=== PATIENT | male | born 1955 | race Hispanic/Latino ===

== ENCOUNTER → 2017-11-05 13:58 | Outpatient (CLI) | payer MEDICAID, SELFPAY ==
[2017-11-05 14:53] LABS: Protein, Urine (Random) 19.1 mg/dL (<11.9); Protein:Creat Ratio 132 mg/g CRE (0-200)
[2017-11-05 15:00] LABS: Anion Gap 7 (5-15); BUN 46 mg/dL (7-18); BUN/Creat Ratio 21.8 RATIO (10-20); Calcium,Total 8.3 mg/dL (8.5-10.1); Chloride 102 mmol/L (98-107); Creatinine, Serum 2.11 mg/dL (0.70-1.30); EST Glomerular Filtration Rate 34 mL/min (>60); Est Glom Filt Rate - Afr Amer 41 mL/min (>60); Glucose 318 mg/dL (74-106); Potassium 4.2 mmol/L (3.5-5.1); Sodium Level 135 mmol/L (136-145)
[2017-11-05 15:10] LABS: Vitamin D,25 Hydroxy 13.2 ng/mL (29.95-100.01)
[2017-11-05 15:14] LABS: PTHIN 113.3 pg/mL (18.4-80.1)
== END ==
PROVIDERS: Family Provider Preventive Medicine Occupational Medicine; PCP Preventive Medicine Occupational Medicine; Visit Provider Internal Medicine Nephrology
DX: N18.3 Chronic kidney disease, stage 3 (moderate) (principal)
CPT/HCPCS: 36415; 80048; 82306; 82570; 83970; 84156

== ENCOUNTER → 2018-04-25 13:44 | Outpatient (CLI) | payer MEDICARE, MEDICAID, SELFPAY ==
[2018-04-25 16:50] LABS: Microalbumin,Random Urine 90.2 mg/L (NO RANGE EST.); Microalbumin:Creatinine Ratio 113.3 mg/g CRE (<30 mg/g CRE)
[2018-04-25 17:00] LABS: Albumin, Serum 3.7 g/dL (3.2-5.0); BUN 28 mg/dL (7-18); BUN/Creat Ratio 15.1 RATIO (10-20); Calcium,Total 8.7 mg/dL (8.5-10.1); Chloride 106 mmol/L (98-107); Creatinine, Serum 1.85 mg/dL (0.70-1.30); EST Glomerular Filtration Rate 39 mL/min (>60); Est Glom Filt Rate - Afr Amer 47 mL/min (>60); Glucose 251 mg/dL (74-106); Phosphorus 2.8 mg/dL (2.5-4.9); Sodium Level 138 mmol/L (136-145)
[2018-04-25 17:02] LABS: Hematocrit 36.1 % (40-54); Hemoglobin 11.6 g/dl (13.0-16.5); Mean Corp Hgb Conc 32.1 g/gl (32-36); Mean Corpuscular Hgb 28.1 pg (27.0-32.0); Mean Corpuscular Volume 87.4 fL (80-94); Mean Platelet Vol. 10.4 fl (6.2-12.0); Platelet Count 352 K/mm3 (150-450); RBC Distribution Width CV 13.8 % (11.6-14.6); RBC Distribution Width SD 43.6 fl (35.1-43.9); Red Blood Count 4.13 M/mm3 (4.6-6.2); White Blood Count 7.2 K/mm3 (4.4-11.0)
[2018-04-25 17:08] LABS: Scan Indicated on CBC? Y/N NO
[2018-04-26 11:57] LABS: PTHIN 94.1 pg/mL (18.4-80.1)
[2018-04-26 12:04] LABS: Vitamin D,25 Hydroxy 12.6 ng/mL (29.95-100.01)
== END ==
PROVIDERS: Family Provider Internal Medicine; PCP Internal Medicine; Visit Provider Internal Medicine Nephrology
DX: N18.3 Chronic kidney disease, stage 3 (moderate) (principal)
CPT/HCPCS: 36415; 80069; 82043; 82306; 82570; 83970; 85027

== ENCOUNTER 2020-09-18 12:06 | Observation (INO) | payer MEDICARE, MEDICAID, SELFPAY ==
[2020-09-18] VITALS (10 sets, daily range): BP systolic 135–177; BP diastolic 81–87; PULSE 94–101; RESP 18–20; TEMP 36.5–37.2; O2SAT 98–100; BMI 31.3; BMI 31.2
--- NOTE | 2020-09-18 12:24 | EKG12_ITS ---
Test Reason : SOB Blood Pressure : / mmHG Vent. Rate : 095 BPM Atrial Rate : 095 BPM P-R Int : 166 ms QRS Dur : 070 ms QT Int : 364 ms P-R-T Axes : 050 034 021 degrees QTc Int : 457 ms Normal sinus rhythm Nonspecific ST abnormality Abnormal ECG Confirmed by FELTON ARAIZA, NAE ([id number]), commercial production editor PRINCE GARCES ([id number]) on 09/20/2020 12:21:31 PM Referred By: DC Confirmed By:RA YA MD
--- NOTE | 2020-09-18 12:29 | ED.VISSUMM ---
- ER Visit Summary Date of Service: 09/18/20 Chief Complaint: Suspected CHF History of Present Illness: The patient is a 65 M who was referred from his doctor's office for shortness of breath, leg swelling, anasarca, weight gain. This is new for the patient. He seems to be doing worse since he was diagnosed with COVID-19 about 2 months ago. He dealt with subsequent pneumonia. He denies any other associated symptoms like chest pain, fever, cough, sputum. He is not currently on anything for CHF. No known history of CHF or heart disease. Physical Examination: Afebrile vital signs unremarkable. Patient is alert and resting. He has a faint expiratory squeak with referred upper airway sounds. Heart is regular. Abdomen is distended but nontender. Extremities show edema bilaterally, symmetric, nontender. Test Results: EKG, labs, chest x-ray pending. Emergency Department Course and Treatment: EKG showed sinus rhythm at a rate of [address] changes. No infarction or ischemic pattern. Hemoglobin 9.3. BUN 41, creatinine 2.09. Coags, troponin, normal. BNP 168. Magnesium normal. Chest x-ray reviewed by and radiology unremarkable. His PCP is worried that he is gaining weight. I spoke with his family. They said he is not very active. He has trouble getting around and breathing. His work-up is fairly reassuring, but his symptoms are concerning. I treated him with some Lasix. Spoke with the hospitalist. They will observe him and check an echo. Treatment Plan: As above Disposition: Admission for observation Impression: Anasarca, chronic kidney disease, anemia This note was generated with [employer] dictation software. It may contain incorrect words, spelling, and punctuation that were not noted in review of the chart prior to signing ED Disposition - Plan for ED Patient: Referrals: Jerald Rivera MD [Primary Care Provider] -
--- NOTE | 2020-09-18 12:33 | RAD_ITS ---
STUDY: X-RAY CHEST REASON FOR EXAM: Male, 65 years old. CHEST PAIN, SOB, SWELLING TECHNIQUE: Single AP portable view of the chest. COMPARISON: None. FINDINGS: The lungs are clear and expanded. There is no demonstrated pleural abnormality. Normal size heart. Normal mediastinum and iain. Normal visualized pulmonary arteries. Normal visualized aortic arch and descending thoracic aorta. Normal visualized thoracic spine. Normal visualized ribs, clavicles, and shoulders. There is no demonstrated abnormality of the visualized soft tissue structures of the upper abdomen. RAD/Chest 1 View (Portable) IMPRESSION: Normal x-ray examination of the chest. Electronically Signed: Jarad Mendoza MD at 13:14 EST Tel , Service support ,
[2020-09-18 12:53] LABS: Absolute Lymphocyte Count 1.54 X10^3/uL (0.83-4.51); Absolute Neutrophil Count 4.5 X10^3/uL (2.0-7.7); Basophil# 0.05 X10^3/uL; Basophil% 0.7 % (0-1); Eosinophils% 4.2 % (0-5); Hematocrit 28.2 % (40-54); Hemoglobin 9.3 g/dL (13.0-16.5); Lymphocyte # 1.54 X10^3/ul (4.0); Lymphocyte % 21.4 % (19-41); Mean Corpuscular Hgb 29.7 pg (27.0-32.0); Mean Corpuscular Volume 90.1 fL (80-94); Mean Platelet Vol. 9.7 fl (6.2-12.0); Monocyte# 0.76 X10^3/uL; Monocyte% 10.6 % (0-10); NRBC Flagged by Analyzer 0 % (0-5); Neutrophil # 4.53 X10^3/uL (2.7-7.7); Neutrophil % 62.8 % (47-70); Platelet Count 247 K/mm3 (150-450); RBC Distribution Width SD 49.6 fl (35.1-43.9); Red Blood Count 3.13 M/mm3 (4.6-6.2); White Blood Count 7.2 K/mm3 (4.4-11.0)
[2020-09-18 12:59] LABS: ALB/GLOB Ratio 0.5 RATIO (0.9-2.4); AST(SGOT) 36 U/L (15-37); Alanine Aminotransfer ALT/SGPT 25 U/L (16-61); Albumin, Serum 2.6 g/dL (3.2-5.0); Alkaline Phosphatase 125 U/L (45-117); Anion Gap 8 (5-15); BUN 41 mg/dL (7-18); BUN/Creat Ratio 19.6 RATIO (10-20); Calcium,Total 8.7 mg/dL (8.5-10.1); Chloride 112 mmol/L (98-107); Creatinine, Serum 2.09 mg/dL (0.70-1.30); EST Glomerular Filtration Rate 34 mL/min (>60); Est Glom Filt Rate - Afr Amer 41 mL/min (>60); Estimated Creatinine Clearance 32.07 ml/min; Globulin 5.1 g/dL (2.2-4.2); Glucose 126 mg/dL (74-106); Magnesium 2.3 mg/dL (1.6-2.6); Protein, Total 7.7 g/dL (6.4-8.2); Sodium Level 142 mmol/L (136-145)
[2020-09-18 13:02] LABS: International Normalized Ratio 1.2; Partial Thromboplast Time 32.9 Seconds (24.1-36.2); Prothrombin Time (Protime)PT. 14.8 SECONDS (11.7-14.9)
[2020-09-18 13:15] LABS: BNP,B-Type NATRIURETIC PEPTIDE 168.1 pg/mL (0-100)
--- NOTE | 2020-09-18 13:27 | ED.RN ---
pt assisted to BR via WC. He had significant difficulty seeing and orienting to the room but adjusted well with instruction. Required no assistance in the room and was up washing hands when I went to check on him. Back to bed without issues. Increased SOB with exertion. Physician aware.
--- NOTE | 2020-09-18 13:34 | NURSING ---
DR MCELROY IN ER
--- NOTE | 2020-09-18 13:38 | NURSING ---
PCU OBS NAVI ANASARCA, CKD, ANEMIA
--- NOTE | 2020-09-18 13:56 | NURSING ---
NO OLD EKGS
[2020-09-18] MEDS: Furosemide 40 MG/4 ML Vial IV (14:09)
--- NOTE | 2020-09-18 14:44 | HP.PCM_ITS ---
Problem List (1) HTN (hypertension) Status: Chronic (2) Hyperlipidemia Status: Chronic (3) DM type 2 (diabetes mellitus, type 2) Status: Chronic (4) CKD (chronic kidney disease) stage 4, GFR 15-29 ml/min Status: Chronic (5) Glaucoma Status: Chronic (6) COVID-19 Status: Resolved (7) Failure to thrive Status: Acute (8) Anasarca Status: Acute History of Present Illness Date of Admission: 09/18/20 Mr. Del Castillo is a 65 year old [place] M with past medical history of DM-2, CKD stage IV, glaucoma, HTN, HPL, and recent COVID-19 pneumonia (approximately 2 months ago) who was referred to the emergency department from his doctor's office for shortness of breath, anasarca, leg swelling and weight gain. His daughter is at the bedside and helps communicate as Uzbek is not the patient's first language. She states that most of this started approximately 2 months ago after his Covid diagnosis and he dealt with subsequent pneumonia. At the time of admission he denied chest pain fever, chills, cough, sputum production, diarrhea, and nausea/vomiting. Per the ED conversation with his PCP they were worried that he was gaining weight and that his edema had worsened. Per discussion with the daughter he states that he is not very he is not very active at baseline especially this time a year although his activity levels were much greater prior to him being infected with COVID-19. She states since then he has difficulty getting around the house. She also comments that his glaucoma has worsened. His vital signs on admission show no fever, heart rate 95-1 01, elevated blood pressure, mild tachypnea but oxygen saturations were 98-100 % on room air. His lab work shows no elevated white count, a chronic stable anemia, chronic stable CKD with normal LFTs, a normal troponin, a mildly elevated BNP at 168.1 although I am not clear of the significance of this with his creatinine, and mildly elevated glucose at 126. EKG shows no acute ST or T wave changes and is normal sinus rhythm. A chest x-ray was done and shows no acute findings. However, on exam he demonstrates some dyspnea with upper airway wheeze, mild abdominal distention, and bilateral lower extremity edema. In the emergency department he was given Lasix. He will be admitted to PCU for further work-up. Past Medical History Past Medical History (Chronic Problems): Chronic Problems HTN (hypertension) (Chronic) Hyperlipidemia (Chronic) DM type 2 (diabetes mellitus, type 2) (Chronic) CKD (chronic kidney disease) stage 4, GFR 15-29 ml/min (Chronic) Glaucoma (Chronic) Allergies No Known Allergies Allergy (Verified 09/18/20 12:07) Home Medications: Ambulatory Orders Medication Instructions Recorded Albuterol Inhaler [Ventolin Hfa 2 puff INHALATION Q4H PRN PRN 09/18/20 (SP)] Amlodipine [Norvasc] 10 mg PO DAILY 09/18/20 Aspirin [Aspirin, Baby] 81 mg PO DAILY@0800 09/18/20 Atorvastatin Calcium 10 mg PO DAILY 09/18/20 Durezol 09/18/20 Humulin R 09/18/20 Insulin Degludec [Tresiba] 50 unit SQ DAILY 09/18/20 Losartan/Hydrochlorothiazide 1 ea PO DAILY 09/18/20 [Losartan-Hctz 100-12.5 mg Tab] Timolol Maleate [Timoptic-XE 0.5%] 1 drp EACH EYE DAILY 09/18/20 Surgical History: noncontributory Psychiatric History: No pertinent psych hx Lives: With Family Smoking Status: Former smoker Alcohol: None Drugs: None - *Family History Maternal History Items: Unknown Paternal History Items: Unknown Review of Systems Constitutional: Reports: Anorexia, Malaise, Weakness, Weight Change, Fatigue. Denies: Chills, Fever, Night Sweats Eyes: Reports: Blurred vision, Vision Change. Denies: Cataracts, Conjunctivae Inflammation, Double vision, Drainage, Eyelid Inflammation, Pain, Redness HEENT: Denies: Difficulty Hearing, Difficulty Swallowing, Ear Pain, Eye Pain, Head Aches, Nasal bleeding, Nasal Congestion, Post Nasal Drip, Sinus Congestion, Sinus Drainage, Sore Throat, Visual Changes Cardiovascular: Reports: Edema, Orthopnea. Denies: Chest Pain, Claudication, Chest Pressure, Chest Tightness, Heaviness, Light Headedness, Palpitations, Paroxysmal Noc. Dyspnea, Syncope Respiratory: Reports: Shortness of Breath, Shortness of breath at rest, Shortness of breath upon exertion, Wheezing - New. Denies: Cough, Hemoptysis, Pleuritic Pain, Sputum production Gastrointestinal: Denies: Abdominal Pain, Constipation, Diarrhea, Dyspepsia, Hematemesis, Hematochezia, Nausea, Melena, Vomiting Genitourinary: Denies: Dysuria, Frequency, Hematuria, Hesitancy, Incontinence, Nocturia, Retention, Urgency Musculoskeletal: Denies: Back Pain, Joint Pain, Joint stiffness, Joint swelling, Joint Tenderness, Muscle pain, Neck Pain, Shoulder Pain Skin: Denies: Dryness, Jaundice, Lesions, Pruritis, Rash, Skin Changes, Wounds Neurological: Reports: Balance problems, Blurred vision, Tremor. Denies: Double vision, Change in Speech, Slurred speech, Confusion, Difficulty swallowing, Focal weakness, Headaches, Incoordination, Numbness, Tingling, Seizures Psychiatric: Denies: Anxiety, Depression Endocrine: Denies: Change in Body Habitus, Heat/ Cold Intolerance, Polydipsia, Polyuria Hematologic/ Lymphatic: Reports: Anemia. Denies: Adenopathy, Easy Bruising, Easy Bleeding, Petechiae, Purpura VTE Information - Inpt Only VTE Present on Admission: No VTE Mechan Device Prophylaxis: SCD's VTE Pharm Prophylaxis ordered?: Yes - Physical Exam Vitals/I&O's: Vital Signs Temp Pulse Resp BP Pulse Ox 97.7 F L 95 19 H 156/81 H 100 09/18/20 14:04 09/18/20 14:04 09/18/20 14:04 09/18/20 14:04 09/18/20 14:04 Oxygen Delivery Method Room Air Weight: 90.718 kg Body Mass Index (BMI) 31.3 General: Alert, Oriented x3, Cooperative, Well developed, Well nourished, - - Overweight [place] male lying in bed, upper airway wheeze noted, patient appears comfortable otherwise, daughter is at bedside and helps with communication HEENT: Atraumatic, PERRLA, EOMI, Normocephalic Oral: No Gingival or Mucosal Lesions/ Ulcerations, Dry Mucosa, - - Or dentition Neck: Supple, No JVD, Negative Carotid Bruits, Negative Hepatojugular Reflux, No Nodes, No Nuchal Rigidity, Trachea Midline, Thyroid Normal Size and Texture, - - Short thick neck Lungs: Clear to auscultation, No rhonchi, No wheeze, No rales, Diminished - Fusilli, - - Upper airway wheeze but no wheeze noted with lung field examination Cardiovascular: Regular rate, Regular Rhythm, Normal S1, Normal S2, No murmurs, No Ectopic Activity, No rub noted, No Gallop Abdomen: Bowel Sounds Present, Soft, Non Tender, Distended - Mild, Obese Extremities: No clubbing, No cyanosis, Capillary Refill Less than 3 Seconds, Edema - 3+ bilateral pitting edema, Peripheral Pulses Normal Skin: No rashes, No breakdown Musculoskeletal: No Tenderness to Palpation of Joints or Extremities, No Muscle Wasting, Arthritic Changes Lymphatic: No Cervical, Supraclavicular, or Inguinal Adenopathy Neurological: Cranial nerves II-XII grossly intact, Deep Tendon Reflexes 2+/4 and Symmetrical, Neuro grossly intact, Muscle tone normal, Coordination normal, - - Generalized weakness proximal greater than distal, peripheral neuropathy noted Psych/Mental Status: Appropriate, Flat Affect, - - Patient's first language is [place] Laboratory Results 09/18/20 12:34: WBC 7.2, RBC 3.13 L, Hgb 9.3 L, Hct 28.2 L, MCV 90.1, MCH 29.7, MCHC 33.0, RDW Std Deviation 49.6 H, RDW Coeff of Edwin 15.0 H, Plt Count 247, MPV 9.7, Immature Gran % (Auto) 0.300, Neut % (Auto) 62.8, Lymph % (Auto) 21.4, [place] % (Auto) 10.6 H, Eos % (Auto) 4.2, Baso % (Auto) 0.7, Absolute Neuts (auto) 4.5, Absolute Lymphs (auto) 1.54, Nucleated RBC % 0 09/18/20 12:34: PT 14.8, INR 1.2, APTT 32.9 09/18/20 12:34: Sodium 142, Potassium 4.0, Chloride 112 H, Carbon Dioxide 22.0, Anion Gap 8, BUN 41 H, Creatinine 2.09 H, Estim Creat Clear Calc 32.07, Est GFR (MDRD) Af Amer 41 L, Est GFR (MDRD) Non-Af 34 L, BUN/Creatinine Ratio 19.6, Glucose 126 H, Calcium 8.7, Magnesium 2.3, Total Bilirubin 0.80, AST 36, ALT 25, Alkaline Phosphatase 125 H, Troponin I < 0.015, Total Protein 7.7, Albumin 2.6 L , Globulin 5.1 H, Albumin/Globulin Ratio 0.5 L 09/18/20 12:34: B-Natriuretic Peptide 168.1 H Assessment/Plan All Active Problems COVID-19 (Resolved) Failure to thrive (Acute) Anasarca (Acute) Anasarca -Check TSH -Check bilateral lower extremity Dopplers -Check echocardiogram -Cycle troponin--> initial troponin was within normal limits despite CKD -Lasix 80 mg twice daily -Watch creatinine closely as patient has CKD at baseline -Check UA if protein markedly elevated may need 24-hour urine for protein -LFTs and bilirubin are within normal limits -X-ray is unremarkable -Check daily weights -Accurate I's and O's -Cardiac/carb controlled diet Debility/failure to thrive status post Covid infection approximately 2 months ago -Consult PT/OT -Question if patient needs home health for therapy services or outpatient physical therapy Recent COVID-19 infection -Patient did not require hospitalization -Patient is on room air with stable oxygen saturation CKD stage IV -Stable -Follows with Dr. Segovia -We will trend creatinine with diuresis Hypertension -Continue amlodipine -Continue losartan -Stop hydrochlorothiazide--> this is likely of no benefit for him at this time given the severity of his renal disease -Would not restart at discharge Chronic anemia secondary to CKD -Hemoglobin was 9.3 on admission -We will continue to monitor Hyperlipidemia -Continue atorvastatin DM-2 -Continue Tresiba -SSI -PGT before meals and at bedtime -May need scheduled Humalog with meals Glaucoma-severe -Continue eyedrops -Recommend follow-up outpatient with ophthalmology after discharge COPD -Continue albuterol inhaler as needed DVT prophylaxis -Heparin 5000 units 3 times daily CODE STATUS -Full code Inpatient E&M: 08731 Init Hosp L3
--- NOTE | 2020-09-18 15:07 | ECHOD_ITS ---
Reason For Study: CHF Procedure This was a 2D Doppler, Color Flow transthoracic echocardiogram. Exam performed portable in patient room. Left Ventricle Normal LV size. Left ventricular systolic function is normal. The estimated ejection fraction is 60 %. Stage 1 diastolic dysfunction. No regional wall motion abnormalities noted. Right Ventricle Normal RV size. Normal systolic function. Atria Normal left atrium. Normal right atrium. Mitral Valve Normal mitral valve. Tricuspid Valve Normal tricuspid valve. Mild (1+) tricuspid valve insufficiency. Pulmonary artery systolic pressure is 52 mmHg. Aortic Valve Normal aortic valve. Trisinus/trileaflet aortic valve. Pulmonic Valve Normal pulmonic valve. Great Vessels Normal aortic root. The pulmonary artery is normal size. Normal inferior vena cava. Pericardium/Pleural No pericardial effusion. MMode/2D Measurements & Calculations LVIDd: 5.2 cm IVSd: 1.5 cm Ao root diam: 3.2 cm LVIDs: 2.9 cm LVPWd: 1.0 cm RVDd: 3.6 cm FS: 45.4 % LAV(MOD-bp): 41.0 ml LVAd ap4: 29.8 cm2 SV(MOD-sp4): 54.9 ml LAV(MOD-bp) Indexed: 20.5 ml/m2 EDV(MOD-sp4): 87.5 ml LAV(MOD-sp2): 44.4 ml EDV(sp4-el): 90.9 ml LAV(MOD-sp4): 37.2 ml LVAs ap4: 16.0 cm2 ESV(MOD-sp4): 32.6 ml ESV(sp4-el): 32.9 ml EF(MOD-sp4): 62.8 % EF(sp4-el): 63.9 % SV(sp4-el): 58.1 ml LA A4 area: 15.5 cm2 LA dimension(2D): 4.1 cm RA A4 area: 15.0 cm2 Doppler Measurements & Calculations MV E max aguilar: 96.0 cm/sec Lat Peak E' Aguilar: 9.2 cm/sec Med Peak E' Aguilar: 7.4 cm/sec MV A max aguilar: 111.7 cm/sec E/E' lat: 10.4 E/E' med: 13.1 MV E/A: 0.86 Ao V2 max: 181.2 cm/sec LV V1 max: 135.1 cm/sec PA V2 max: 141.2 cm/sec Ao max P.1 mmHg LV V1 max P.3 mmHg Ao V2 mean: 122.9 cm/sec Ao mean P.5 mmHg Ao V2 VTI: 35.0 cm TR max aguilar: 343.1 cm/sec TR max P.1 mmHg Interpretation Summary Normal LV size. Left ventricular systolic function is normal. The estimated ejection fraction is 60 %. Stage 1 diastolic dysfunction. Pulmonary artery systolic pressure is 52 mmHg. Ordering Physician: Valery Ramos Referring Physician: Jerald Rivera Performed By: Ana Cristina Pavon, JASMIN, RVT
[2020-09-18 16:30] LABS: Bacteria 0 SEEN /hpf (None Seen); Mucous, Urine 0 SEEN /hpf (<or=2+); White Blood Cells 0 SEEN /hpf (0-5)
[2020-09-18 16:33] LABS: Color, Urine Yellow (Yellow); Glucose, Dipstick Normal (Normal); Ketone-Dipstick Negative (Negative); Leukocyte Esterase-Dipstick Negative /ul (Negative); Nitrite-Dipstick Negative (Negative); Occult Blood-Urine 50 /ul (Negative); Protein-Dipstick 30 mg/dl (Negative); Urine Bilirubin Dipstick Negative (Negative); Urine Clarity Sl. Cloudy (Clear); Urine Urobilinogen Normal (Normal)
[2020-09-18 17:00] LABS: Bedside Glucose 119 mg/dL (70-110)
[2020-09-18 17:07] LABS: Red Blood Cells-Urine 5-10 SEEN /hpf (0-5); Squamous Epithelial Cells - UA 0-5 SEEN /hpf (0-5)
[2020-09-18] MEDS: Furosemide 100 MG/10 ML Vial 80 MG IV (17:50)
[2020-09-18 22:16] LABS: Bedside Glucose 130 mg/dL (70-110)
[2020-09-18] MEDS: Atorvastatin Calcium 10 MG Tablet PO (23:00)
[2020-09-18] MEDS: Heparin Injection (Vial) 5,000 UNIT/ML VIAL 5000 UNIT SC (23:01)
[2020-09-19] VITALS (11 sets, daily range): BP systolic 122–143; BP diastolic 67–79; PULSE 85–103; RESP 16–20; TEMP 36.2–37.6; O2SAT 97–100
--- NOTE | 2020-09-19 02:47 | PCS.PANDOC ---
PANDEMIC DOCUMENTATION INITIATED: Date: 09/18/20 Time: [id number]
[2020-09-19 04:04] LABS: Absolute Neutrophil Count 3.4 X10^3/uL (2.0-7.7); Basophil# 0.04 X10^3/uL; Basophil% 0.7 % (0-1); Hematocrit 28.7 % (40-54); Hemoglobin 9.2 g/dL (13.0-16.5); Mean Corp Hgb Conc 32.1 g/dL (32-36); Mean Corpuscular Volume 90.5 fL (80-94); Mean Platelet Vol. 9.9 fl (6.2-12.0); Monocyte# 0.76 X10^3/uL; Monocyte% 12.6 % (0-10); NRBC Flagged by Analyzer 0 % (0-5); Neutrophil % 56.5 % (47-70); Platelet Count 234 K/mm3 (150-450); RBC Distribution Width CV 14.8 % (11.6-14.6); RBC Distribution Width SD 49.1 fl (35.1-43.9); Red Blood Count 3.17 M/mm3 (4.6-6.2)
[2020-09-19 04:37] LABS: Anion Gap 6 (5-15); BUN 43 mg/dL (7-18); BUN/Creat Ratio 21.4 RATIO (10-20); Calcium,Total 8.6 mg/dL (8.5-10.1); Chloride 111 mmol/L (98-107); Cholesterol 100 mg/dL (200); Creatinine, Serum 2.01 mg/dL (0.70-1.30); EST Glomerular Filtration Rate 35 mL/min (>60); Est Glom Filt Rate - Afr Amer 43 mL/min (>60); Estimated Creatinine Clearance 33.34 ml/min; Glucose 76 mg/dL (74-106); High Density Lipoprotein 63 mg/dL; Magnesium 2.3 mg/dL (1.6-2.6); Phosphorus 3.9 mg/dL (2.5-4.9); Potassium 3.7 mmol/L (3.5-5.1); Sodium Level 142 mmol/L (136-145); Thyroid Stim Hormone (TSH) 0.87 uIU/mL (0.358-3.74); Triglycerides 63 mg/dL; Very Low Density Lipoprotein 13 mg/dL (5-40)
[2020-09-19] MEDS: Heparin Injection (Vial) 5,000 UNIT/ML VIAL 5000 UNIT SC ×3 (05:47→22:34)
[2020-09-19] MEDS: Furosemide 100 MG/10 ML Vial 80 MG IV ×2 (08:36→18:24)
[2020-09-19] MEDS: Timolol 0.5% 5ML OPTH.BTL 1 DRP EACH EYE ×2 (08:37→22:33)
[2020-09-19] MEDS: Losartan Potassium 100 MG Tablet PO (08:37)
[2020-09-19] MEDS: amLODIPine 10 MG Tablet PO (08:37)
[2020-09-19] MEDS: Aspirin 81 MG TAB.CHEW PO (08:37)
--- NOTE | 2020-09-19 08:56 | VDLE_ITS ---
Reason For Study: swelling RIGHT LEFT GSV is normal. GSV is normal. CFV is compressible, spontaneous, phasic, CFV is compressible, spontaneous, phasic, competent and demonstrates normal competent, and demonstrates normal augmentation. augmentation. FV is compressible, spontaneous, phasic, FV is compressible, spontaneous, phasic, competent and demonstrates normal competent and demonstrates normal augmentation. augmentation. POP V is compressible, spontaneous, phasic, POP V is compressible, spontaneous, phasic, competent and demonstrates normal competent and demonstrates normal augmentation. augmentation. T/P Trunk is compressible. T/P Trunk is compressible. PTV is compressible. PTV is compressible. RT PerV is compressible. LT PerV is compressible. Procedure This is a venous duplex using B-mode, color flow and spectral Doppler. Exam performed portable in patient room. The exam was diagnostic. A preliminary report was called and/or faxed to the pt's RN. Interpretation Summary Deep veins of the lower extremities are bilaterally patent and compressible segmentally. There is no evidence of deep vein thrombosis on either side. Valvular competence appears intact within the proximal deep venous systems bilaterally. The great saphenous veins appear bilaterally patent and compressible segmentally. Ordering Physician: Poppy Arvizu Performed By: Jose Manuel Perkins RVCharlene
[2020-09-19 09:05] LABS: Bedside Glucose 77 mg/dL (70-110)
[2020-09-19 10:36] LABS: Bedside Glucose 149 mg/dL (70-110)
--- NOTE | 2020-09-19 12:15 | PN_ITS ---
Patient Problems: Active and Suspected Problems Failure to thrive (Acute) Anasarca (Acute) Subjective: Patient seen and examined. He was admitted with a complaint of worsening lower extremity swelling as well as shortness of breath and orthopnea. BNP was not elevated. EKG showed no acute ST changes. He is being managed for fluid overload and anasarca. Patient seen this morning. His daughter was by his bedside and she served as roughing mill operator as patient speaks only his the [place] [facility] language. He has no complaints this morning. Lower extremity swelling is still persistent. Daughter also thinks that patient may be depressed as he has been stuck at home throughout the pandemic and says he has not been himself ever since he had Covid around May last year. Review of systems otherwise negative. He has remained hemodynamically stable. Creatinine is down to 2.01 from 2.09 on admission. He has put out 4.15 L of urine since admission. Vitals/I&O's: Vital Signs Temp Pulse Resp BP Pulse Ox 97.2 F L 87 18 126/67 H 98 09/19/20 08:20 09/19/20 08:20 09/19/20 08:20 09/19/20 08:20 09/19/20 08:20 Oxygen Delivery Method Room Air Weight: 194 lb 0.108 oz Body Mass Index (BMI) 31.2 Intake and Output for Last 24 Hours 09/17/20 09/18/20 09/19/20 23:59 23:59 23:59 Intake Total 250 / 250 Output Total 2250 / 2950 1900 / 1900 Balance -1999 / -2700 -190 / -1900 General: Alert, Oriented x3, Cooperative, Lethargic HEENT: Atraumatic, PERRLA, EOMI, Normocephalic Oral: Dry Mucosa Neck: Supple, No JVD, Negative Carotid Bruits Lungs: Clear to auscultation, Normal air movement Cardiovascular: Regular rate, Regular Rhythm, Normal S1, Normal S2, No murmurs Abdomen: Bowel Sounds Present, Soft, Non Tender, Non-Distended, No Hepato- splenomegaly Extremities: No clubbing, No cyanosis, - - 2+ pitting edema of both extremities Skin: No rashes, No breakdown Musculoskeletal: No Tenderness to Palpation of Joints or Extremities Lymphatic: No Cervical, Supraclavicular, or Inguinal Adenopathy Neurological: Cranial nerves II-XII grossly intact, Neuro grossly intact, Motor Exam 5/5 strength throughout Psych/Mental Status: Normal Affect, Appropriate, Alert and oriented to time, place, person, mood and affect Laboratory Results 09/18/20 06:05: Urine Color Yellow, Urine Clarity Sl. Cloudy, Urine pH 6.0, Ur Specific [place] 1.010, Urine Protein 30 H, Urine Glucose (UA) Normal, Urine Ketones Negative, Urine Occult Blood 50 H, Urine Nitrite Negative, Urine Bilirubin Negative, Urine Urobilinogen Normal, Ur Leukocyte Esterase Negative, Urine RBC 5-10 SEEN, Urine WBC 0 SEEN, Ur Squamous Epith Cells 0-5 SEEN, Urine Bacteria 0 SEEN, Urine Mucus 0 SEEN 09/18/20 12:34: WBC 7.2, RBC 3.13 L, Hgb 9.3 L, Hct 28.2 L, MCV 90.1, MCH 29.7, MCHC 33.0, RDW Std Deviation 49.6 H, RDW Coeff of Edwin 15.0 H, Plt Count 247, MPV 9.7, Immature Gran % (Auto) 0.300, Neut % (Auto) 62.8, Lymph % (Auto) 21.4, Gates % (Auto) 10.6 H, Eos % (Auto) 4.2, Baso % (Auto) 0.7, Absolute Neuts (auto) 4.5, Absolute Lymphs (auto) 1.54, Nucleated RBC % 0 09/18/20 12:34: PT 14.8, INR 1.2, APTT 32.9 09/18/20 12:34: Sodium 142, Potassium 4.0, Chloride 112 H, Carbon Dioxide 22.0, Anion Gap 8, BUN 41 H, Creatinine 2.09 H, Estim Creat Clear Calc 32.07, Est GFR (MDRD) Af Amer 41 L, Est GFR (MDRD) Non-Af 34 L, BUN/Creatinine Ratio 19.6, Glucose 126 H, Calcium 8.7, Magnesium 2.3, Total Bilirubin 0.80, AST 36, ALT 25, Alkaline Phosphatase 125 H, Troponin I < 0.015, Total Protein 7.7, Albumin 2.6 L , Globulin 5.1 H, Albumin/Globulin Ratio 0.5 L 09/18/20 12:34: B-Natriuretic Peptide 168.1 H 09/18/20 16:42: Troponin I < 0.015 09/18/20 16:52: POC Glucose 119 H 09/18/20 18:27: Troponin I 0.015 09/18/20 22:13: POC Glucose 130 H 09/19/20 03:50: WBC 6.0, RBC 3.17 L, Hgb 9.2 L, Hct 28.7 L, MCV 90.5, MCH 29.0, MCHC 32.1, RDW Std Deviation 49.1 H, RDW Coeff of Edwin 14.8 H, Plt Count 234, MPV 9.9, Immature Gran % (Auto) 0.200, Neut % (Auto) 56.5, Lymph % (Auto) 25.0, Gates % (Auto) 12.6 H, Eos % (Auto) 5.0, Baso % (Auto) 0.7, Absolute Neuts (auto) 3.4, Absolute Lymphs (auto) 1.50, Nucleated RBC % 0 09/19/20 03:50: Sodium 142, Potassium 3.7, Chloride 111 H, Carbon Dioxide 25.0, Anion Gap 6, BUN 43 H, Creatinine 2.01 H, Estim Creat Clear Calc 33.34, Est GFR (MDRD) Af Amer 43 L, Est GFR (MDRD) Non-Af 35 L, BUN/Creatinine Ratio 21.4 H, Glucose 76, Calcium 8.6, Phosphorus 3.9, Magnesium 2.3, Triglycerides 63, Cholesterol 100, LDL Cholesterol 24, VLDL Cholesterol 13, HDL Cholesterol 63, TSH 0.87 09/19/20 08:25: POC Glucose 77 09/19/20 10:30: POC Glucose 149 H Diagnostic Data Chest X-Ray 09/18/20 12:33 IMPRESSION: Normal x-ray examination of the chest. Electronically Signed: Jarad Mendoza MD at 13:14 EST Tel , Service support , Current Medications Acetaminophen (Acetaminophen 325 Mg Tablet) 650 mg PO Q6H PRN PRN PRN Reason: Pain Score 1-10/Temp > 100.7 F Al Hydroxide/Mg Hydroxide (Mag Hydrox/Al Hydrox/Simeth 30 Ml Udc) 30 ml PO Q6H PRN PRN PRN Reason: Gastric Burning Albuterol Sulfate (Albuterol 2.5 Mg/3 Ml Vial.Neb.) 2.5 mg INHALATION Q4H PRN PRN PRN Reason: SHORTNESS OF BREATH Albuterol Sulfate (Albuterol 2.5 Mg/3 Ml Vial.Neb.) 2.5 mg INHALATION Q2H PRN PRN PRN Reason: SOB/Wheezing Amlodipine Besylate (Amlodipine 10 Mg Tablet) 10 mg PO DAILY [facility] Last Admin: 09/19/20 08:37 Dose: 10 mg Documented by: Aspirin (Aspirin 81 Mg Tab.Chew) 81 mg PO DAILY@0800 [facility] Last Admin: 09/19/20 08:37 Dose: 81 mg Documented by: Atorvastatin Calcium (Atorvastatin Calcium 10 Mg Tablet) 10 mg PO QHS [facility] Last Admin: 09/18/20 23:00 Dose: 10 mg Documented by: Furosemide (Furosemide 100 Mg/10 Ml Vial) 80 mg IV BID@1000,1800 [facility] Last Admin: 09/19/20 08:36 Dose: 80 mg Documented by: Heparin Sodium (Porcine) (Heparin Injection (Vial) 5,000 Unit/Ml Vial) 5,000 unit SC Q8 [facility] Last Admin: 09/19/20 05:47 Dose: 5,000 unit Documented by: Insulin Glargine (Insulin Glargine 100 Units/Ml Pen) 50 units SC DAILY [facility] Last Admin: 09/19/20 10:49 Dose: Not Given Documented by: Insulin Human Lispro (Insulin Lispro 100 Unit/Ml Insuln.Pen) 0 unit SC [facility]; Protocol Last Admin: 09/19/20 08:25 Dose: Not Given Documented by: Losartan Potassium (Losartan Potassium 100 Mg Tablet) 100 mg PO DAILY [facility] Last Admin: 09/19/20 08:37 Dose: 100 mg Documented by: Melatonin (Melatonin 3 Mg Tablet) 3 mg PO QHS PRN PRN PRN Reason: INSOMNIA Ondansetron HCl (Ondansetron 4 Mg/2 Ml Vial) 4 mg IV Q8H PRN PRN PRN Reason: NAUSEA/VOMITING Senna/Docusate Sodium (Senna/Docusate Sodium 1 Tablet) 2 tablet PO BID PRN PRN PRN Reason: Constipation Timolol Maleate (Timolol 0.5% 5ml Opth.Btl) 1 drop EACH EYE BID [facility] Last Admin: 09/19/20 08:37 Dose: 1 drop Documented by: STROKE Vital Signs/Narrative: Vital Signs Temp Pulse Resp BP Pulse Ox 09/19/20 08:20 97.2 F L 87 18 126/67 H 98 Medical Necessity - Tobacco Use Smoking Status: Former smoker Assessment/Plan All Active Problems COVID-19 (Resolved) Failure to thrive (Acute) Anasarca (Acute) #Anasarca * BNP was mildly elevated at 168.1. * on IV lasix 80mg bid * check 2D echo. * troponins x 3 were negative * Monitor intake and output. * Duplex of lower extremities pending. Liver enzymes are within normal limits. * Await 2D echo findings to determine if any further work-up is needed. * #Debility s/p Covid infection * Had Covid 2 months ago and daughter says he is just not been himself since. * Consult PT OT. Fall precautions. * * CKD IV: Cr is 2.01. baseline is ~2. WIll monitor Cr level, pravin whilst on lasix #Hypertension: On amlodipine and losartan. Hydrochlorothiazide was discontinued. #Chronic anemia likely due to CKD * Hemoglobin is 9.2 which is around his baseline. Will monitor. #Type 2 diabetes mellitus: On Tresiba. Insulin sliding scale. Accu-Cheks AC at bedtime. #COPD: Not in exacerbation. Continue breathing treatments with bronchodilators. #Hyperlipidemia: On statin DVT prophylaxis: Heparin OBSV E&M: 26170 Subsequent observation care L2
[2020-09-19 12:40] LABS: Bedside Glucose 124 mg/dL (70-110)
[2020-09-19 17:26] LABS: Bedside Glucose 101 mg/dL (70-110)
[2020-09-19] MEDS: Atorvastatin Calcium 10 MG Tablet PO (22:33)
[2020-09-19 22:46] LABS: Bedside Glucose 127 mg/dL (70-110)
[2020-09-20] VITALS (7 sets, daily range): BP systolic 134–145; BP diastolic 67–76; PULSE 82–92; RESP 16–18; TEMP 36.6–37.3; O2SAT 97–98
[2020-09-20] MEDS: Heparin Injection (Vial) 5,000 UNIT/ML VIAL 5000 UNIT SC ×2 (06:32→13:15)
[2020-09-20 06:50] LABS: Bedside Glucose 116 mg/dL (70-110)
[2020-09-20] MEDS: Losartan Potassium 100 MG Tablet PO (09:34)
[2020-09-20] MEDS: Timolol 0.5% 5ML OPTH.BTL 1 DRP EACH EYE (09:34)
[2020-09-20] MEDS: Aspirin 81 MG TAB.CHEW PO (09:34)
[2020-09-20] MEDS: Furosemide 100 MG/10 ML Vial 80 MG IV (09:34)
[2020-09-20] MEDS: amLODIPine 10 MG Tablet PO (09:34)
[2020-09-20] MEDS: Acetaminophen 325 MG Tablet 650 MG PO (09:36)
[2020-09-20] MEDS: 0.9% Saline Lock 10 ML Syringe IV (09:36)
[2020-09-20] MEDS: Insulin Lispro 100 UNIT/ML INSULN.PEN SC (11:21)
[2020-09-20 11:25] LABS: Bedside Glucose 178 mg/dL (70-110)
--- NOTE | 2020-09-20 12:26 | CASEMGMT ---
This RN CM to room with LINTON form at this time, explanation done-daughter intreprets and voice understanding, and signs LINTON form at this time. Original to chart and copy to pt at this time. MCR IP vs OBS booklet to pt as well at this time. [place] REUBEN BRIGHT
[2020-09-20 13:44] LABS: Absolute Lymphocyte Count 1.96 X10^3/uL (0.83-4.51); Absolute Neutrophil Count 3.2 X10^3/uL (2.0-7.7); Basophil# 0.06 X10^3/uL; Eosinophil# 0.22 X10^3/uL; Eosinophils% 3.5 % (0-5); Hematocrit 28.6 % (40-54); Hemoglobin 9.3 g/dL (13.0-16.5); Lymphocyte # 1.96 X10^3/ul (4.0); Lymphocyte % 31.4 % (19-41); Mean Corp Hgb Conc 32.5 g/dL (32-36); Mean Corpuscular Hgb 29.3 pg (27.0-32.0); Mean Corpuscular Volume 90.2 fL (80-94); Monocyte# 0.79 X10^3/uL; Monocyte% 12.7 % (0-10); NRBC Flagged by Analyzer 0 % (0-5); Neutrophil % 51.2 % (47-70); Platelet Count 229 K/mm3 (150-450); RBC Distribution Width CV 14.6 % (11.6-14.6); RBC Distribution Width SD 48.6 fl (35.1-43.9); Red Blood Count 3.17 M/mm3 (4.6-6.2); White Blood Count 6.2 K/mm3 (4.4-11.0)
[2020-09-20 13:53] LABS: Anion Gap 9 (5-15); BUN 45 mg/dL (7-18); BUN/Creat Ratio 19.4 RATIO (10-20); Calcium,Total 8.5 mg/dL (8.5-10.1); Chloride 108 mmol/L (98-107); Creatinine, Serum 2.32 mg/dL (0.70-1.30); EST Glomerular Filtration Rate 30 mL/min (>60); Est Glom Filt Rate - Afr Amer 36 mL/min (>60); Estimated Creatinine Clearance 28.89 ml/min; Glucose 143 mg/dL (74-106); Potassium 3.9 mmol/L (3.5-5.1); Sodium Level 143 mmol/L (136-145)
--- NOTE | 2020-09-20 15:16 | PCM.DC ---
- Discharge Diagnoses Current Active Problems: Current Active and Chronic Problems HTN (hypertension) (Chronic) Hyperlipidemia (Chronic) DM type 2 (diabetes mellitus, type 2) (Chronic) CKD (chronic kidney disease) stage 4, GFR 15-29 ml/min (Chronic) Glaucoma (Chronic) Failure to thrive (Acute) Anasarca (Acute) You will use the following diet at home:: Cardiac Your food should be the consistency of: Regular Your liquids should be the consistency of: Regular/Thin Discharge Activity: Return to Normal Activity Call your doctor if you observe: Fever of 101 or Higher, Shortness of breath, Dizziness, Fainting spells, Swelling in the ankles, Chest pain, Increased palpitations (irregular heartbeat) Additional Instructions: Your kidney function is slightly worsened secondary to the IV diuresis you received during your hospitalization. Your creatinine is currently 2.32. I recommend that she continue follow-up with your primary care doctor as well as your kidney doctor. You did have an echo which demonstrated a diagnosis of pulmonary hypertension so you are also discharged on Lasix 20 mg p.o. daily. Because of this I decreased her Norvasc from 10 mg to 5 mg as this can have the side effect of leg swelling. I recommend that you have outpatient follow-up for a BMP to monitor your kidney function, and this can guide any further adjustments to your blood pressure medications. Allergies/Adverse Reactions: Allergies No Known Allergies Allergy (Verified 09/18/20 12:07) Medications to take at Discharge Albuterol Inhaler [Ventolin Hfa] 2 puff INHALATION Q4H PRN PRN 09/18/20 Aspirin [Aspirin, Baby] 81 mg PO DAILY@0800 09/18/20 Atorvastatin Calcium 10 mg PO DAILY 09/18/20 Durezol 09/18/20 Humulin R 09/18/20 Insulin Degludec [Tresiba] 50 unit SQ DAILY 09/18/20 Losartan/Hydrochlorothiazide [Losartan-Hctz 100-12.5 mg Tab] 1 ea PO DAILY 09/18/20 Timolol Maleate [Timoptic-XE 0.5%] 1 drp EACH EYE DAILY 09/18/20 Amlodipine [Norvasc] 5 mg PO DAILY #0 09/20/20 Furosemide [Lasix] 20 mg PO DAILY #60 tab 09/20/20 The following prescriptions were given: Furosemide [Lasix] 20 mg PO DAILY #60 tab Transmission Status: Pending to [facility] Primary Care Physician: Jerald Rivera MD [Primary Care Provider] - Please follow up with your Primary Care Physician in: 3-5 days Test Results: Test results from this visit will be discussed in further detail at your follow-up appointment, if applicable. Please Follow Up With: Lul Steen MD When: 4 weeks
--- NOTE | 2020-09-20 15:21 | PCM.DC.SUM ---
Discharge Date and Diagnosis - Problem List Patient Problems: Active and Suspected Problems Failure to thrive (Acute) Anasarca (Acute) Date of Admission: 09/18/20 Date of Discharge: 09/20/20 - Primary Discharge Diagnosis Acute Problems: Active Problems Failure to thrive (Acute) Anasarca (Acute) - Secondary Discharge Diagnosis Chronic Problems: Chronic Problems HTN (hypertension) (Chronic) Hyperlipidemia (Chronic) DM type 2 (diabetes mellitus, type 2) (Chronic) CKD (chronic kidney disease) stage 4, GFR 15-29 ml/min (Chronic) Glaucoma (Chronic) Hospital Course and Treatment Imaging Results: Clinical Impression(s) from Imaging Studies Chest X-Ray 09/18/20 12:33 IMPRESSION: Normal x-ray examination of the chest. Electronically Signed: Jarad Mendoza MD at 13:14 EST Tel , Service support , Echo: Interpretation Summary Normal LV size. Left ventricular systolic function is normal. The estimated ejection fraction is 60 %. Stage 1 diastolic dysfunction. Pulmonary artery systolic pressure is 52 mmHg. Operations: None Procedures: None Summary of Care Provided: Per HPI: Mr. Del Castillo is a 65 year old [place] M with past medical history of DM-2, CKD stage IV, glaucoma, HTN, HPL, and recent COVID-19 pneumonia (approximately 2 months ago) who was referred to the emergency department from his doctor's office for shortness of breath, anasarca, leg swelling and weight gain. His daughter is at the bedside and helps communicate as Hungarian is not the patient's first language. She states that most of this started approximately 2 months ago after his Covid diagnosis and he dealt with subsequent pneumonia. At the time of admission he denied chest pain fever, chills, cough, sputum production, diarrhea, and nausea/vomiting. Per the ED conversation with his PCP they were worried that he was gaining weight and that his edema had worsened. Per discussion with the daughter he states that he is not very he is not very active at baseline especially this time a year although his activity levels were much greater prior to him being infected with COVID-19. She states since then he has difficulty getting around the house. She also comments that his glaucoma has worsened. His vital signs on admission show no fever, heart rate 95-1 01, elevated blood pressure, mild tachypnea but oxygen saturations were 98-100 % on room air. His lab work shows no elevated white count, a chronic stable anemia, chronic stable CKD with normal LFTs, a normal troponin, a mildly elevated BNP at 168.1 although I am not clear of the significance of this with his creatinine, and mildly elevated glucose at 126. EKG shows no acute ST or T wave changes and is normal sinus rhythm. A chest x-ray was done and shows no acute findings. However, on exam he demonstrates some dyspnea with upper airway wheeze, mild abdominal distention, and bilateral lower extremity edema. In the emergency department he was given Lasix. He will be admitted to PCU for further work-up. Hospital Course: 1. Anasarca/pulmonary hypertension/anemia of chronic disease/CKD 4/HTN/GEU-48-mhkl-old male presented from home with shortness of breath and anasarca as well as leg swelling. In discussion with the daughter who is at bedside today, he looks much better today and is significantly less swollen. He has been on 80 mg of IV Lasix twice daily since admission and he is down cumulatively 8 L. Echo today demonstrated a normal EF with stage I diastolic dysfunction and a pulmonary artery systolic pressure of 52 mmHg. Because of this I do think that he needs to be discharged on a low-dose diuretic. I made no significant changes to his blood pressure medications though I would recommend that he be discontinued from his hydrochlorothiazide as an outpatient setting as Lasix is being added. I also decreased his Norvasc from 10 mg to 5 mg to see if this helps with his lower extremity edema. His other medications were continued without any changes. I discussed the plan for discharge today with him and his daughter, they both expressed understanding of the risk and benefits of going home and would like to go home. I discussed with him specifically the fact that his kidney function worsened overnight and that we could keep him another night and see what it is tomorrow there is no guarantee that it would go down and that it could go up, they expressed understanding of this risk and feel like they can monitor this as an outpatient with her primary care physician. Also discussed with him his possible weakness especially his debility secondary to his recent Covid infection, we discussed the fact that physical therapy recommended additional therapy however she felt that her dad functionally is similar to the way he is at home and therefore would just prefer to take him home. 2. Type 2 diabetes, COPD are both chronic medical conditions with complicate his care. His home medications were continued where appropriate. Patient Problems: Active and Suspected Problems Failure to thrive (Acute) Anasarca (Acute) - Physical Exam Vitals/I&O's: Vital Signs Temp Pulse Resp BP Pulse Ox 97.9 F 89 18 145/76 H 97 09/20/20 09:33 09/20/20 09:33 09/20/20 09:33 09/20/20 09:33 09/20/20 09:33 Oxygen Delivery Method Room Air Weight: 190 lb 5.107 oz Body Mass Index (BMI) 31.2 Intake and Output for Last 24 Hours 09/18/20 09/19/20 09/20/20 23:59 23:59 23:59 Intake Total 250 / 250 650 / 650 360 / 360 Output Total 2250 / 2950 5600 / 5600 1450 / 1450 Balance -2000 / -2700 -4950 / -4950 -1090 / -1090 General: Alert, Oriented x3, Cooperative, No apparent distress HEENT: Atraumatic, PERRLA, EOMI, Normocephalic Oral: Dry Mucosa Neck: Supple, No JVD Lungs: Normal air movement, No rhonchi, No wheeze, No rales, Diminished Cardiovascular: Regular rate, Regular Rhythm, Normal S1, Normal S2, No murmurs Abdomen: Soft, Non Tender, Non-Distended, No Hepato-splenomegaly Extremities: Capillary Refill Less than 3 Seconds, Edema - 2+ bilateral lower extremity pitting edema Skin: No rashes, No breakdown Neurological: Neuro grossly intact, Sensory exam intact to light touch and pain Psych/Mental Status: Normal Affect, Appropriate Laboratory Results 09/19/20 17:19: POC Glucose 101 09/19/20 22:27: POC Glucose 127 H 09/20/20 06:31: POC Glucose 116 H 09/20/20 11:14: POC Glucose 178 H 09/20/20 13:25: WBC 6.2, RBC 3.17 L, Hgb 9.3 L, Hct 28.6 L, MCV 90.2, MCH 29.3, MCHC 32.5, RDW Std Deviation 48.6 H, RDW Coeff of Edwin 14.6, Plt Count 229, MPV 10.0, Immature Gran % (Auto) 0.200, Neut % (Auto) 51.2, Lymph % (Auto) 31.4, [place] % (Auto) 12.7 H, Eos % (Auto) 3.5, Baso % (Auto) 1.0, Absolute Neuts (auto) 3.2, Absolute Lymphs (auto) 1.96, Nucleated RBC % 0 09/20/20 13:25: Sodium 143, Potassium 3.9, Chloride 108 H, Carbon Dioxide 26.0, Anion Gap 9, BUN 45 H, Creatinine 2.32 H, Estim Creat Clear Calc 28.89, Est GFR (MDRD) Af Amer 36 L, Est GFR (MDRD) Non-Af 30 L, BUN/Creatinine Ratio 19.4, Glucose 143 H, Calcium 8.5 Current Medications Acetaminophen (Acetaminophen 325 Mg Tablet) 650 mg PO Q6H PRN PRN PRN Reason: Pain Score 1-10/Temp > 100.7 F Last Admin: 09/20/20 09:36 Dose: 650 mg Documented by: Al Hydroxide/Mg Hydroxide (Mag Hydrox/Al Hydrox/Simeth 30 Ml Udc) 30 ml PO Q6H PRN PRN PRN Reason: Gastric Burning Albuterol Sulfate (Albuterol 2.5 Mg/3 Ml Vial.Neb.) 2.5 mg INHALATION Q4H PRN PRN PRN Reason: SHORTNESS OF BREATH Albuterol Sulfate (Albuterol 2.5 Mg/3 Ml Vial.Neb.) 2.5 mg INHALATION Q2H PRN PRN PRN Reason: SOB/Wheezing Amlodipine Besylate (Amlodipine 10 Mg Tablet) 10 mg PO DAILY [facility] Last Admin: 09/20/20 09:34 Dose: 10 mg Documented by: Aspirin (Aspirin 81 Mg Tab.Chew) 81 mg PO DAILY@0800 [facility] Last Admin: 09/20/20 09:34 Dose: 81 mg Documented by: Atorvastatin Calcium (Atorvastatin Calcium 10 Mg Tablet) 10 mg PO QHS [facility] Last Admin: 09/19/20 22:33 Dose: 10 mg Documented by: Heparin Sodium (Porcine) (Heparin Injection (Vial) 5,000 Unit/Ml Vial) 5,000 unit SC Q8 [facility] Last Admin: 02/01/21 13:15 Dose: 5,000 unit Documented by: Sodium Chloride () 250 mls @ 15 mls/hr IV .[id number] PRN PRN Reason: Saline Flush Sodium Chloride () 250 mls @ 15 mls/hr IV .[id number] PRN PRN Reason: Additional IVPB Infusion Insulin Glargine (Insulin Glargine 100 Units/Ml Pen) 50 units SC DAILY [facility] Last Admin: 09/20/20 09:35 Dose: Not Given Documented by: Insulin Human Lispro (Insulin Lispro 100 Unit/Ml Insuln.Pen) 0 unit SC [facility]; Protocol Last Admin: 09/20/20 11:21 Dose: 1 u Documented by: Losartan Potassium (Losartan Potassium 100 Mg Tablet) 100 mg PO DAILY [facility] Last Admin: 09/20/20 09:34 Dose: 100 mg Documented by: Melatonin (Melatonin 3 Mg Tablet) 3 mg PO QHS PRN PRN PRN Reason: INSOMNIA Ondansetron HCl (Ondansetron 4 Mg/2 Ml Vial) 4 mg IV Q8H PRN PRN PRN Reason: NAUSEA/VOMITING Senna/Docusate Sodium (Senna/Docusate Sodium 1 Tablet) 2 tablet PO BID PRN PRN PRN Reason: Constipation Sodium Chloride (0.9% Saline Lock 10 Ml Syringe) 10 - 40 ml IV UD PRN PRN Reason: SALINE FLUSH Last Admin: 09/20/20 09:36 Dose: 10 ml Documented by: Timolol Maleate (Timolol 0.5% 5ml Opth.Btl) 1 drop EACH EYE BID [facility] Last Admin: 09/20/20 09:34 Dose: 1 drop Documented by: Discharge Activity: Return to Normal Activity Call your doctor if you observe: Fever of 101 or Higher, Shortness of breath, Dizziness, Fainting spells, Swelling in the ankles, Chest pain, Increased palpitations (irregular heartbeat) Home Medications: Medications to take at Discharge Albuterol Inhaler [Ventolin Hfa] 2 puff INHALATION Q4H PRN PRN 09/18/20 Aspirin [Aspirin, Baby] 81 mg PO DAILY@0800 09/18/20 Atorvastatin Calcium 10 mg PO DAILY 09/18/20 Durezol 09/18/20 Humulin R 09/18/20 Insulin Degludec [Tresiba] 50 unit SQ DAILY 09/18/20 Losartan/Hydrochlorothiazide [Losartan-Hctz 100-12.5 mg Tab] 1 ea PO DAILY 09/18/20 Timolol Maleate [Timoptic-XE 0.5%] 1 drp EACH EYE DAILY 09/18/20 Amlodipine [Norvasc] 5 mg PO DAILY #0 09/20/20 Furosemide [Lasix] 20 mg PO DAILY #60 tab 09/20/20 Following Prescriptions Were Given to Patient: Furosemide [Lasix] 20 mg PO DAILY #60 tab Transmission Status: Pending to [facility] Primary Care Physician: Jerald Rivera MD [Primary Care Provider] - Please follow up with your Primary Care Physician in: 3-5 days Please Follow Up With: Lul Steen MD When: 4 weeks Disposition: Home Minutes spent on discharge:: 35 Patient Condition:: Stable Medical Necessity - Tobacco Use Smoking Status: Former smoker Meaningful Use Info Meaningful Use Diagnoses (Choose all that apply): None applicable OBSV E&M: 49992 Observation care discharge
== END 2020-09-20 15:20 | disposition home or self-care (01) ==
LOC: ED 13:00 → PCU 14:15
PROVIDERS: Student in an Organized Health Care Education/Training Program; Admitting Provider Internal Medicine; Emergency Provider Emergency Medicine; PCP Internal Medicine; Visit Provider Family Medicine
DX: R62.7 Adult failure to thrive (principal); R60.1 Generalized edema; I12.9 Hypertensive chronic kidney disease with stage 1 through stage 4 chronic kidney disease, or unspecified chronic kidney disease; E78.5 Hyperlipidemia, unspecified; E11.22 Type 2 diabetes mellitus with diabetic chronic kidney disease; N18.4 Chronic kidney disease, stage 4 (severe); Z79.899 Other long term (current) drug therapy; Z68.29 Body mass index [BMI] 29.0-29.9, adult; Z79.82 Long term (current) use of aspirin; Z79.4 Long term (current) use of insulin; Z86.16 Personal history of COVID-19; H40.9 Unspecified glaucoma; Z87.891 Personal history of nicotine dependence; D63.1 Anemia in chronic kidney disease; J44.9 Chronic obstructive pulmonary disease, unspecified
CPT/HCPCS: 36415; 71045; 80048; 80053; 80061; 81001; 82962; 83735; 83880; 84100; 84443; 84484; 85025; 85610; 85730; 93005; 93306; 93970; 96372; 96374; 96376; 97110; 97162; 97165; 97535; 99218; 99285; Q9957; A4216; G0378; J1940

== ENCOUNTER 2020-10-08 16:10 | Inpatient (IN) | payer MEDICARE, MEDICAID, SELFPAY ==
[2020-09-18 14:49] VITALS: BMI 31.2
[2020-10-08] VITALS (8 sets, daily range): BP systolic 132–153; BP diastolic 68–86; PULSE 80–93; RESP 14–20; TEMP 36.4–36.9; O2SAT 98–100; BMI 25.0; BMI 25.1; BMI 24.8
--- NOTE | 2020-10-08 16:34 | EKG12_ITS ---
Test Reason : CP Blood Pressure : / mmHG Vent. Rate : 082 BPM Atrial Rate : 082 BPM P-R Int : 178 ms QRS Dur : 076 ms QT Int : 396 ms P-R-T Axes : 061 029 045 degrees QTc Int : 462 ms Normal sinus rhythm Normal ECG Confirmed by CASSIE ARAIZA, HENRI ([id number]), photo editor PRINCE GARCES ([id number]) on 10/12/2020 11:21:38 AM Referred By: HUMZA Confirmed By:HENRI MATTHEWS MD
--- NOTE | 2020-10-08 16:47 | RAD_ITS ---
STUDY: X-RAY CHEST REASON FOR EXAM: Male, 65 years old. INTERMITTENT CHEST PAIN WHEN LIES DOWN TECHNIQUE: Single AP portable view of the chest. COMPARISON: September 18, 2020 FINDINGS: There are interstitial fibrotic changes of the lungs. No visualized new opacity. There is no demonstrated pleural abnormality. Normal size heart. Normal mediastinum and iain. Normal visualized pulmonary arteries. There is atherosclerotic calcification of the aortic arch with tortuosity. There are diffuse degenerative changes of the visualized thoracic spine. Normal visualized ribs, clavicles, and shoulders. There is no demonstrated abnormality of the visualized soft tissue structures of the upper abdomen. RAD/Chest 1 View (Portable) IMPRESSION: Normal x-ray examination of the chest. Electronically Signed: Eliud Berumen MD at 17:02 EST , Service support ,
[2020-10-08] MEDS: Aspirin 81 MG TAB.CHEW 324 MG PO (16:54)
--- NOTE | 2020-10-08 17:00 | ED.DCSUM_ITS ---
- ER Visit Summary Date of Service: 10/08/20 Chief Complaint: Chest pain History of Present Illness: The patient is a 65 M presenting with chest pain. Patient began having chest pain intermittently last night. He was seen by his primary care physician today and sent to the ED for evaluation. Patient falls asleep frequently. Family states that he did not get much sleep last night as the chest pain kept him up throughout the night. He tried antacids at home with no improvement. He was admitted in August for failure to thrive and anasarca. He has a history of diabetes, hypertension, hypercholesterolemia, chronic kidney disease. Physical Examination: Vitals are stable. Patient is afebrile. Alert no acute distress. HEENT exam is unremarkable. Neck is supple. Lungs are clear and equal bilaterally. Heart is regular rate and rhythm. Abdomen is soft nontender nondistended. Extremities are unremarkable. Skin is warm and dry. No focal neurologic deficit. Remainder of exam is unremarkable. Emergency Department Course and Treatment: Patient was given aspirin. EKG is sinus rhythm rate of 82 with no acute ischemic changes. Chest xray shows normal x-ray examination of the chest. Hemoglobin 10.8. Chemistries show glucose 209, BUN 42, creatinine 2.25. Troponin is negative. Patient is resting comfortably on reevaluation. Discussed with hospitalist for observation. Disposition: Observation Impression: Chest pain This note was generated with [employer] dictation software. It may contain incorrect words, spelling, and punctuation that were not noted in review of the chart luis or to signing ED Disposition - Plan for ED Patient: Referrals: Jerald Rivera MD [Primary Care Provider] -
[2020-10-08 17:06] LABS: Absolute Lymphocyte Count 1.79 X10^3/uL (0.83-4.51); Absolute Neutrophil Count 4.7 X10^3/uL (2.0-7.7); Basophil# 0.05 X10^3/uL; Basophil% 0.7 % (0-1); Eosinophil# 0.15 X10^3/uL; Hematocrit 32.6 % (40-54); Hemoglobin 10.8 g/dL (13.0-16.5); Lymphocyte # 1.79 X10^3/ul (4.0); Lymphocyte % 24.2 % (19-41); Mean Corp Hgb Conc 33.1 g/dL (32-36); Mean Corpuscular Hgb 29.3 pg (27.0-32.0); Mean Corpuscular Volume 88.6 fL (80-94); Mean Platelet Vol. 10.7 fl (6.2-12.0); Monocyte# 0.65 X10^3/uL; Monocyte% 8.8 % (0-10); NRBC Flagged by Analyzer 0 % (0-5); Neutrophil # 4.74 X10^3/uL (2.7-7.7); Platelet Count 285 K/mm3 (150-450); RBC Distribution Width CV 14.6 % (11.6-14.6); RBC Distribution Width SD 47.4 fl (35.1-43.9); Red Blood Count 3.68 M/mm3 (4.6-6.2); White Blood Count 7.4 K/mm3 (4.4-11.0)
[2020-10-08 17:30] LABS: Anion Gap 7 (5-15); BUN 42 mg/dL (7-18); BUN/Creat Ratio 18.7 RATIO (10-20); Calcium,Total 8.9 mg/dL (8.5-10.1); Chloride 108 mmol/L (98-107); Creatinine, Serum 2.25 mg/dL (0.70-1.30); EST Glomerular Filtration Rate 31 mL/min (>60); Est Glom Filt Rate - Afr Amer 38 mL/min (>60); Estimated Creatinine Clearance 29.79 ml/min; Glucose 209 mg/dL (74-106); Potassium 4.5 mmol/L (3.5-5.1); Sodium Level 138 mmol/L (136-145)
[2020-10-08 19:52] LABS: AST(SGOT) 56 U/L (15-37); Alanine Aminotransfer ALT/SGPT 53 U/L (16-61); Albumin, Serum 2.8 g/dL (3.2-5.0); Alkaline Phosphatase 171 U/L (45-117); Bilirubin, Direct 0.16 mg/dL (0.00-0.30); Globulin 5.6 g/dL (2.2-4.2); Protein, Total 8.4 g/dL (6.4-8.2)
--- NOTE | 2020-10-08 20:30 | EKG12_ITS ---
Test Reason : AM EKG Blood Pressure : / mmHG Vent. Rate : 089 BPM Atrial Rate : 089 BPM P-R Int : 168 ms QRS Dur : 076 ms QT Int : 368 ms P-R-T Axes : 059 031 049 degrees QTc Int : 447 ms Normal sinus rhythm Normal ECG When compared with ECG of 08-OCT-2020 20:40, MANUAL COMPARISON REQUIRED, DATA IS UNCONFIRMED Confirmed by CASSIE ARAIZA, HENRI ([id number]), technical writer and editor PRINCE GARCES ([id number]) on 10/12/2020 11:41:27 AM Referred By: GAURANG Confirmed By:HENRI MATTHEWS MD
[2020-10-08] MEDS: Heparin Injection (Vial) 5,000 UNIT/ML VIAL 5000 UNIT SC (21:18)
[2020-10-08] MEDS: Timolol 0.5% 5ML OPTH.BTL 1 DRP EACH EYE (21:19)
[2020-10-08] MEDS: Lactulose 20 GM/30 ML UDC PO (21:20)
[2020-10-08 22:10] LABS: Bedside Glucose 124 mg/dL (70-110)
--- NOTE | 2020-10-08 22:24 | HP.PCM_ITS ---
Problem List (1) Chest pain Status: Acute Qualifiers: Chest pain type: unspecified Qualified Code(s): R07.9 - Chest pain, unspecified (2) HTN (hypertension) Status: Chronic Qualifiers: Hypertension type: essential hypertension Qualified Code(s): I10 - Essential (primary) hypertension (3) Hyperlipidemia Status: Chronic Qualifiers: Hyperlipidemia type: unspecified Qualified Code(s): E78.5 - Hyperlipidemia, unspecified (4) DM type 2 (diabetes mellitus, type 2) Status: Chronic Qualifiers: Chronic kidney disease stage: stage 3 (moderate) Chronic kidney disease stage 3 subtype: unspecified whether 3a or 3b (5) CKD (chronic kidney disease) stage 4, GFR 15-29 ml/min Status: Chronic (6) Glaucoma Status: Chronic Qualifiers: Glaucoma type: unspecified Laterality: unspecified laterality Qualified Code(s): H40.9 - Unspecified glaucoma History of Present Illness Date of Admission: 10/08/20 Chief Complaint: Chest discomfort - 1 day The patient is a 65 year old M past medical history of hypertension, Type II DM, CKD, glaucoma who presented with complaints of chest discomfort or heartburn the night before admission. Patient had complained of several episodes of chest discomfort, left-sided, without any dizziness, diaphoresis, shortness of breath, palpitation. He denies any history of chest pain. Patient is a poor historian, history was taken from patient and his daughter because of the language barrier as patient speaks [place]. Pain was described as needles, there was persistent, and affected his activities of daily living. Vitals in the ED showed temperature of 98.4F, heart rate 89, blood pressure 1 5 7% 7, respiratory rate was 16, SPO2 is 100% on room air. WBC count 7.4, hemoglobin 10.8, platelet count 285, sodium 138, potassium 4.5, chloride 108, bicarbonate 23, BUN 43, creatinine 2.25. LFTs were unremarkable except for ammonia of 81. EKG shows normal sinus rhythm, no acute ST changes. Chest x-ray was unremarkable. Past Medical History Past Medical History (Chronic Problems): Chronic Problems HTN (hypertension) (Chronic) Hyperlipidemia (Chronic) DM type 2 (diabetes mellitus, type 2) (Chronic) CKD (chronic kidney disease) stage 4, GFR 15-29 ml/min (Chronic) Glaucoma (Chronic) Allergies No Known Allergies Allergy (Verified 09/18/20 12:07) Home Medications: Ambulatory Orders Medication Instructions Recorded RX: Albuterol Inhaler [Ventolin 2 puff INHALATION Q4H PRN PRN 09/18/20 Hfa] RX: Aspirin [Aspirin, Baby] 81 mg PO DAILY@0800 09/18/20 RX: Atorvastatin Calcium 10 mg PO DAILY 09/18/20 RX: Insulin Degludec [Tresiba] 20 unit SQ DAILY 09/18/20 RX: Losartan/Hydrochlorothiazide 1 tab PO DAILY 09/18/20 [Losartan-Hctz 100-12.5 mg Tab] RX: Timolol Maleate [Timoptic-XE 1 drp EACH EYE DAILY 09/18/20 0.5%] Furosemide [Lasix] 20 mg PO DAILY 10/08/20 Insulin Lispro [Humalog Kwikpen] 30 unit SQ TID 10/08/20 RX: Amlodipine [Norvasc] 5 mg PO DAILY 10/08/20 RX: Atropine Sulfate 1 drp LEFT EYE DAILY 10/08/20 RX: Insulin Degludec [Tresiba 10 units SQ QHS 10/08/20 Flextouch U-100] Surgical History: noncontributory Psychiatric History: No pertinent psych hx Smoking Status: Former smoker Tobacco Use: Cigarettes Alcohol: None Drugs: None - *Family History Maternal History Items: Unknown Paternal History Items: Unknown Review of Systems Constitutional: Reports: Anorexia, Weakness, Fatigue. Denies: Chills, Fever, Malaise, Weight Change Eyes: Denies: Blurred vision, Cataracts, Conjunctivae Inflammation, Pain, Redness, Vision Change HEENT: Denies: Head Aches, Hearing Changes, Nasal bleeding, Sinus Congestion, Sinus Drainage Cardiovascular: Denies: Chest Pain, Claudication, Chest Pressure, Orthopnea, Palpitations Respiratory: Denies: Cough, Shortness of Breath, Shortness of breath at rest, Shortness of breath upon exertion, Sputum production Gastrointestinal: Denies: Abdominal Pain, Nausea, Vomiting Genitourinary: Denies: Dysuria Musculoskeletal: Denies: Joint Pain, Joint stiffness, Joint swelling, Joint Tenderness Skin: Denies: Rash, Wounds Neurological: Denies: Difficulty swallowing, Focal weakness, Numbness, Tingling Psychiatric: Denies: Anxiety, Depression, Homicidal Ideations, Suicidal Ideations Hematologic/ Lymphatic: Denies: Easy Bruising, Easy Bleeding VTE Information - Inpt Only VTE Present on Admission: No VTE Pharm Prophylaxis ordered?: Yes Patient Problems: Active and Suspected Problems Chest pain (Acute) - Physical Exam Vitals/I&O's: Vital Signs Temp Pulse Resp BP Pulse Ox 97.5 F L 80 18 141/68 H 100 10/08/20 21:33 10/08/20 21:33 10/08/20 21:33 10/08/20 21:33 10/08/20 21:33 Oxygen Delivery Method Room Air Weight: 72.076 kg Body Mass Index (BMI) 24.8 General: Alert, Oriented x3, Cooperative, No apparent distress HEENT: Atraumatic, PERRLA, EOMI, Normocephalic Oral: Moist Mucosa Neck: Supple Lungs: Clear to auscultation, Normal air movement Cardiovascular: Regular rate, Regular Rhythm, Normal S1, Normal S2, No murmurs Abdomen: Bowel Sounds Present, Soft, Non Tender, Non-Distended, No Hepato- splenomegaly Extremities: No edema Skin: No rashes Musculoskeletal: No Tenderness to Palpation of Joints or Extremities Lymphatic: No Cervical, Supraclavicular, or Inguinal Adenopathy Neurological: Cranial nerves II-XII grossly intact, Neuro grossly intact Psych/Mental Status: Normal Affect, Appropriate Laboratory Results 10/08/20 16:40: WBC 7.4, RBC 3.68 L, Hgb 10.8 L, Hct 32.6 L, MCV 88.6, MCH 29.3, MCHC 33.1, RDW Std Deviation 47.4 H, RDW Coeff of Edwin 14.6, Plt Count 285, MPV 10.7, Immature Gran % (Auto) 0.300, Neut % (Auto) 64.0, Lymph % (Auto) 24.2, [place] % (Auto) 8.8, Eos % (Auto) 2.0, Baso % (Auto) 0.7, Absolute Neuts (auto) 4.7, Absolute Lymphs (auto) 1.79, Nucleated RBC % 0 10/08/20 16:40: Sodium 138, Potassium 4.5, Chloride 108 H, Carbon Dioxide 23.0, Anion Gap 7, BUN 42 H, Creatinine 2.25 H, Estim Creat Clear Calc 29.79, Est GFR (MDRD) Af Amer 38 L, Est GFR (MDRD) Non-Af 31 L, BUN/Creatinine Ratio 18.7, Glu cose 209 H, Calcium 8.9, Troponin I < 0.015 10/08/20 16:40: Total Bilirubin 0.90, Direct Bilirubin 0.16, AST 56 H, ALT 53, Alkaline Phosphatase 171 H, Total Protein 8.4 H, Albumin 2.8 L, Globulin 5.6 H 10/08/20 18:10: Ammonia 81.0 H 10/08/20 19:51: Troponin I < 0.015 10/08/20 21:06: POC Glucose 124 H Current Medications Acetaminophen (Acetaminophen 325 Mg Tablet) 650 mg PO Q6H PRN PRN PRN Reason: Pain Score 1-10/Temp > 100.7 F Al Hydroxide/Mg Hydroxide (Mag Hydrox/Al Hydrox/Simeth 30 Ml Udc) 30 ml PO Q6H PRN PRN PRN Reason: Gastric Burning Albuterol Sulfate (Albuterol 2.5 Mg/3 Ml Vial.Neb.) 2.5 mg INHALATION Q4H PRN PRN PRN Reason: SHORTNESS OF BREATH Amlodipine Besylate (Amlodipine 5 Mg Tablet) 5 mg PO DAILY [facility] Aspirin (Aspirin 81 Mg Tab.Chew) 81 mg PO DAILY@0800 [facility] Atorvastatin Calcium (Atorvastatin Calcium 10 Mg Tablet) 10 mg PO DAILY [facility] Atropine Sulfate (Atropine Sulfate 1% 2 Ml Bottle) 1 drop LEFT EYE DAILY [facility] Dextrose (Dextrose 50%-Water 25 Gm/50 Ml Disp.Syrin) 0 gm IV X1 PRN; Protocol PRN Reason: Hypoglycemia Glucagon (Glucagon 1 Mg/Ml Syringe) 1 mg IM .X1 PRN PRN Reason: Hypoglycemia Heparin Sodium (Porcine) (Heparin Injection (Vial) 5,000 Unit/Ml Vial) 5,000 unit SC Q8 [facility] Last Admin: 10/08/20 21:18 Dose: 5,000 unit Documented by: Hydrochlorothiazide (Hydrochlorothiazide 12.5mg) 12.5 mg PO DAILY [facility] Insulin Glargine (Insulin Glargine 100 Units/Ml Pen) 10 units SC QHS [facility] Last Admin: 10/08/20 21:21 Dose: 10 u Documented by: Insulin Glargine (Insulin Glargine 100 Units/Ml Pen) 20 units SC DAILY [facility] Insulin Human Lispro (Insulin Lispro 100 Unit/Ml Insuln.Pen) 0 unit SC ACHS [facility]; Protocol Last Admin: 10/08/20 21:21 Dose: Not Given Documented by: Insulin Human Lispro (Insulin Lispro 100 Unit/Ml Insuln.Pen) 30 unit SC 0800,1200,1700 [facility] Lactulose (Lactulose 20 Gm/30 Ml Udc) 20 gm PO BID [facility] Last Admin: 10/08/20 21:20 Dose: 20 gm Documented by: Losartan Potassium (Losartan Potassium 100 Mg Tablet) 100 mg PO DAILY [facility] Magnesium Hydroxide (Magnesium Hydroxide 30 Ml Udc) 30 ml PO DAILY PRN PRN PRN Reason: Constipation Ondansetron HCl (Ondansetron 4 Mg/2 Ml Vial) 4 mg IV Q8H PRN PRN PRN Reason: NAUSEA/VOMITING Sodium Chloride (0.9% Saline Lock 10 Ml Syringe) 10 - 40 ml IV UD PRN PRN Reason: SALINE FLUSH Timolol Maleate (Timolol 0.5% 5ml Opth.Btl) 1 drop EACH EYE BID [facility] Last Admin: 10/08/20 21:19 Dose: 1 drop Documented by: Assessment/Plan All Active Problems COVID-19 (Resolved) Failure to thrive (Acute) Anasarca (Acute) Chest pain (Acute) 1. Chest pain, atypical, in a patient with known risk factors Admitting EKG showed no acute ST-T changes, troponins are negative We will admit patient to the floor, trend troponins, monitor on telemetry Stress test in a.m., continue on patient's home aspirin and statin, lipid profile in a.m. Trial of IV PPI for possible GERD 2. Hypertension, controlled, continue patient's losartan/hydrochlorothiazide, amlodipine 3. Type 2 DM, blood glucose is fairly controlled, continue on home insulin regimen, continue with blood glucose checks with insulin sliding scale 4. Glaucoma, continue on home timolol 5. DVT PPx - Heparin SC Inpatient E&M: 94217 Init Hosp L3
[2020-10-09 02:50] VITALS: BP 149/67; PULSE 93; RESP 16; TEMP 36.6; O2SAT 97
[2020-10-09 03:27] VITALS: PULSE 88
[2020-10-09 05:52] LABS: Absolute Lymphocyte Count 2.43 X10^3/uL (0.83-4.51); Absolute Neutrophil Count 4.2 X10^3/uL (2.0-7.7); Basophil# 0.05 X10^3/uL; Basophil% 0.7 % (0-1); Eosinophils% 2.6 % (0-5); Hematocrit 30.8 % (40-54); Hemoglobin 10.1 g/dL (13.0-16.5); Lymphocyte # 2.43 X10^3/ul (4.0); Lymphocyte % 31.8 % (19-41); Mean Corp Hgb Conc 32.8 g/dL (32-36); Mean Corpuscular Hgb 29.4 pg (27.0-32.0); Mean Corpuscular Volume 89.5 fL (80-94); Mean Platelet Vol. 10.2 fl (6.2-12.0); Monocyte# 0.72 X10^3/uL; Monocyte% 9.4 % (0-10); NRBC Flagged by Analyzer 0 % (0-5); Neutrophil # 4.23 X10^3/uL (2.7-7.7); Neutrophil % 55.2 % (47-70); Platelet Count 277 K/mm3 (150-450); RBC Distribution Width CV 14.5 % (11.6-14.6); RBC Distribution Width SD 46.7 fl (35.1-43.9); Red Blood Count 3.44 M/mm3 (4.6-6.2); White Blood Count 7.7 K/mm3 (4.4-11.0)
--- NOTE | 2020-10-09 05:55 | EKG12_ITS ---
Test Reason : CP ADMISSION Blood Pressure : / mmHG Vent. Rate : 075 BPM Atrial Rate : 075 BPM P-R Int : 176 ms QRS Dur : 080 ms QT Int : 402 ms P-R-T Axes : 062 041 044 degrees QTc Int : 448 ms Normal sinus rhythm Normal ECG When compared with ECG of 18-SEP-2020 12:29, No significant change was found Confirmed by CASSIE ARAIZA, HENRI ([id number]), primer expeditor and drier PRINCE GARCES ([id number]) on 10/12/2020 11:41:38 AM Referred By: GAURANG Confirmed By:HENRI MATTHEWS MD
[2020-10-09 06:21] LABS: ALB/GLOB Ratio 0.5 RATIO (0.9-2.4); AST(SGOT) 39 U/L (15-37); Alanine Aminotransfer ALT/SGPT 47 U/L (16-61); Albumin, Serum 2.7 g/dL (3.2-5.0); Alkaline Phosphatase 172 U/L (45-117); Anion Gap 9 (5-15); BUN 41 mg/dL (7-18); BUN/Creat Ratio 19.4 RATIO (10-20); Calcium,Total 8.9 mg/dL (8.5-10.1); Chloride 109 mmol/L (98-107); Cholesterol 109 mg/dL (200); Creatinine, Serum 2.11 mg/dL (0.70-1.30); EST Glomerular Filtration Rate 33 mL/min (>60); Est Glom Filt Rate - Afr Amer 40 mL/min (>60); Estimated Creatinine Clearance 31.76 ml/min; Globulin 5.2 g/dL (2.2-4.2); Glucose 130 mg/dL (74-106); High Density Lipoprotein 74 mg/dL; Potassium 3.5 mmol/L (3.5-5.1); Protein, Total 7.9 g/dL (6.4-8.2); Sodium Level 139 mmol/L (136-145); Triglycerides 64 mg/dL; Very Low Density Lipoprotein 13 mg/dL (5-40)
[2020-10-09 06:29] VITALS: BP 141/67; PULSE 88; RESP 16; TEMP 37.2; O2SAT 100
[2020-10-09] MEDS: Aspirin 81 MG TAB.CHEW PO (06:35)
[2020-10-09] MEDS: Losartan Potassium 100 MG Tablet PO (06:37)
[2020-10-09] MEDS: 0.9% Saline Lock 10 ML Syringe IV (06:43)
[2020-10-09 06:55] LABS: Bedside Glucose 113 mg/dL (70-110)
[2020-10-09 07:00] VITALS: PULSE 87
[2020-10-09 08:12] VITALS: BP 129/57; PULSE 87; RESP 18; TEMP 37.3; O2SAT 99
[2020-10-09] MEDS: Lactulose 20 GM/30 ML UDC PO (10:56)
[2020-10-09] MEDS: Timolol 0.5% 5ML OPTH.BTL 1 DRP EACH EYE (10:56)
[2020-10-09] MEDS: hydroCHLOROthiazide 12.5mg 12.5 MG PO (10:57)
[2020-10-09] MEDS: Atropine Sulfate 1% 2 ml Bottle 1 DRP LEFT EYE (10:57)
[2020-10-09] MEDS: Atorvastatin Calcium 10 MG Tablet PO (10:57)
[2020-10-09] MEDS: amLODIPine 5 MG Tablet PO (10:58)
[2020-10-09 11:15] LABS: Bedside Glucose 107 mg/dL (70-110)
--- NOTE | 2020-10-09 13:03 | STRESSREP ---
Stress Test Report Pharmacological myocardial perfusion study Indication; This is 65-year-old patient with past medical history of hypertension, type 2 diabetes mellitus, CKD, history of glaucoma Patient presented complaining of chest discomfort or heart pain night before admission Patient has complained of several episodes of chest discomfort left-sided without any dizziness, diaphoresis or shortness of breath or palpitation. He been evaluated with the EKG which showed underlying normal sinus and had a series of cardiac biomarkers with high sensitive troponin which is negative. Based on his clinical presentation he was evaluated further with pharmacological myocardial perfusion study. Resting electrocardiogram reveals normal sinus rhythm patient was given regadenoson one 4 mg, the resting heart rate of 87 bpm which ankita to a maximum heart rate of 101 bpm this value represents 86% of the maximum age-predicted heart rate. The resting blood pressure 150/66 mmHg, ankita to a maximum blood pressure of 150/66. The exercise test was terminated due to completion of the infusion the patient had no symptoms of chest pain. Resting electrocardiogram reveals normal sinus rhythm, following infusion of regadenoson and during recovery no significant change from the resting EKG and no significant arrhythmia noted. Perfusion SPECT images; Homogeneous tracer uptake was noted both at rest and during maximal stress with no evidence of reversible myocardial ischemia or previous myocardial infarction. Gated SPECT images; LV wall motion is normal with normal LV systolic function with ejection fraction of around 60% Conclusion; Negative regadenoson myocardial perfusion study for significant ischemia Normal LV systolic function. Yina Regan MD,FACC,[facility] director of marketing analytics
--- NOTE | 2020-10-09 13:43 | DCINST_ITS ---
- Discharge Diagnoses Current Active Problems: Current Active and Chronic Problems HTN (hypertension) (Chronic) Hyperlipidemia (Chronic) DM type 2 (diabetes mellitus, type 2) (Chronic) CKD (chronic kidney disease) stage 4, GFR 15-29 ml/min (Chronic) Glaucoma (Chronic) Chest pain (Acute) Reason(s) for Visit for Discharge Instructions: Chest pain You will use the following diet at home:: Cardiac Your food should be the consistency of: Regular Your liquids should be the consistency of: Regular/Thin Discharge Activity: Return to Normal Activity Additional Instructions: Continue with home medications. Follow-up with PCP within 2 weeks. Allergies/Adverse Reactions: Allergies No Known Allergies Allergy (Verified 09/18/20 12:07) Medications to take at Discharge Albuterol Inhaler [Ventolin Hfa] 2 puff INHALATION Q4H PRN PRN 09/18/20 Aspirin [Aspirin, Baby] 81 mg PO DAILY@0800 09/18/20 Atorvastatin Calcium 10 mg PO DAILY 09/18/20 Insulin Degludec [Tresiba] 20 unit SQ DAILY 09/18/20 Losartan/Hydrochlorothiazide [Losartan-Hctz 100-12.5 mg Tab] 1 tab PO DAILY 09/18/20 Timolol Maleate [Timoptic-XE 0.5%] 1 drp EACH EYE DAILY 09/18/20 Amlodipine [Norvasc] 5 mg PO DAILY 10/08/20 Atropine Sulfate 1 drp LEFT EYE DAILY 10/08/20 Insulin Degludec [Tresiba Flextouch U-100] 10 units SQ QHS 10/08/20 Insulin Lispro [Humalog Kwikpen] 30 unit SQ TID 10/08/20 Primary Care Physician: Jerald Rivera MD [Primary Care Provider] - Please follow up with your Primary Care Physician in: within 1-2 weeks Test Results: Test results from this visit will be discussed in further detail at your follow- up appointment, if applicable. Proposed Discharge Date: 10/09/20
--- NOTE | 2020-10-09 13:46 | PCM.DC.SUM ---
Discharge Date and Diagnosis - Problem List Patient Problems: Active and Suspected Problems Chest pain (Acute) Date of Admission: 10/08/20 Date of Discharge: 10/09/20 - Primary Discharge Diagnosis Acute Problems: Active Problems Chest pain (Acute), ACS ruled out Elevated ammonia levels, unclear etiology. - Secondary Discharge Diagnosis Chronic Problems: Chronic Problems HTN (hypertension) (Chronic) Hyperlipidemia (Chronic) DM type 2 (diabetes mellitus, type 2) (Chronic) CKD (chronic kidney disease) stage 4, GFR 15-29 ml/min (Chronic) Glaucoma (Chronic) Hospital Course and Treatment Imaging Results: 10/09/20 05:55 Nuclear Stress Test - Chemical [NM] AM (NON MEDS) Operations: None Procedures: Stress test Summary of Care Provided: 65 year old M with past medical history of hypertension, Type II DM, CKD, legally blind from glaucoma who presented with complaints of chest discomfort or heartburn the night before admission. Patient speaks Macedonian and her daughter at the bedside helped to communicate. Patient had complained of several episodes of chest discomfort, left-sided, without any dizziness, diaphoresis, shortness of breath, palpitation. Pain was described as needles, there was persistent, and affected his activities of daily living. His work-up in the ED was unremarkable. Patient was noted to be lethargic. His LFTS were unremarkable except for slight elevation in his AST and ALP. Ammonia levels were elevated at 81. He was started on Lactulose. Repeat ammonia levels the next morning was 155. He was admitted to the telemetry floor, and underwent stress test that was negative. He had a couple of bowel movements on Lactulose. Repeat ammonia was 73. Discussed with Dr. Burris, who was covering Dr. Rivera, will keep patient on Lactulose. Repeat labs including ammonia suggested within a week. Recommended an outpatient ultrasound of the liver. Educated patient's daughters at the bedside who were nursing students on low salt, low protein diet and follow-up for repeat blood work in a week. Patient Problems: Active and Suspected Problems Chest pain (Acute) Subjective: On the day of discharge, patient was seen and examined.He was found to be sleepy. Ammonia levels were high. Patient had a couple of bowel movements. Repeat ammonia showed improvement. Objective: Physical exam: General: Alert, Oriented x3, Cooperative, No apparent distress HEENT: Atraumatic, PERRLA, EOMI, Normocephalic Oral: Moist Mucosa Neck: Supple Lungs: Clear to auscultation, Normal air movement Cardiovascular: Regular rate, Regular Rhythm, Normal S1, Normal S2, No murmurs Abdomen: Bowel Sounds Present, Soft, Non Tender, Non-Distended, No Hepato-splenomegaly Extremities: No edema Skin: No rashes Musculoskeletal: No Tenderness to Palpation of Joints or Extremities Lymphatic: No Cervical, Supraclavicular, or Inguinal Adenopathy Neurological: Cranial nerves II-XII grossly intact, Neuro grossly intact Psych/Mental Status: Normal Affect, Appropriate - Physical Exam Vitals/I&O's: Vital Signs Temp Pulse Resp BP Pulse Ox 99.2 F H 87 18 129/57 H 99 10/09/20 08:12 10/09/20 08:12 10/09/20 08:12 10/09/20 08:12 10/09/20 08:12 Oxygen Delivery Method Room Air Weight: 71.3 kg Body Mass Index (BMI) 24.8 Intake and Output for Last 24 Hours 10/07/20 10/08/20 10/09/20 23:59 23:59 23:59 Intake Total 560 / 560 Output Total 800 / 800 Balance -240 / -240 Laboratory Results 10/08/20 16:40: WBC 7.4, RBC 3.68 L, Hgb 10.8 L, Hct 32.6 L, MCV 88.6, MCH 29.3, MCHC 33.1, RDW Std Deviation 47.4 H, RDW Coeff of Edwin 14.6, Plt Count 285, MPV 10.7, Immature Gran % (Auto) 0.300, Neut % (Auto) 64.0, Lymph % (Auto) 24.2, Holmes % (Auto) 8.8, Eos % (Auto) 2.0, Baso % (Auto) 0.7, Absolute Neuts (auto) 4.7, Absolute Lymphs (auto) 1.79, Nucleated RBC % 0 10/08/20 16:40: Sodium 138, Potassium 4.5, Chloride 108 H, Carbon Dioxide 23.0, Anion Gap 7, BUN 42 H, Creatinine 2.25 H, Estim Creat Clear Calc 29.79, Est GFR (MDRD) Af Amer 38 L, Est GFR (MDRD) Non-Af 31 L, BUN/Creatinine Ratio 18.7, Glucose 209 H, Calcium 8.9, Troponin I < 0.015 10/08/20 16:40: Total Bilirubin 0.90, Direct Bilirubin 0.16, AST 56 H, ALT 53, Alkaline Phosphatase 171 H, Total Protein 8.4 H, Albumin 2.8 L, Globulin 5.6 H 10/08/20 18:10: Ammonia 81.0 H 10/08/20 19:51: Troponin I < 0.015 10/08/20 21:06: POC Glucose 124 H 10/08/20 22:25: Troponin I < 0.015 10/09/20 05:40: WBC 7.7, RBC 3.44 L, Hgb 10.1 L, Hct 30.8 L, MCV 89.5, MCH 29.4, MCHC 32.8, RDW Std Deviation 46.7 H, RDW Coeff of Edwin 14.5, Plt Count 277, MPV 10.2, Immature Gran % (Auto) 0.300, Neut % (Auto) 55.2, Lymph % (Auto) 31.8, Holmes % (Auto) 9.4, Eos % (Auto) 2.6, Baso % (Auto) 0.7, Absolute Neuts (auto) 4.2, Absolute Lymphs (auto) 2.43, Nucleated RBC % 0 10/09/20 05:40: Sodium 139, Potassium 3.5, Chloride 109 H, Carbon Dioxide 21.0, Anion Gap 9, BUN 41 H, Creatinine 2.11 H, Estim Creat Clear Calc 31.76, Est GFR (MDRD) Af Amer 40 L, Est GFR (MDRD) Non-Af 33 L, BUN/Creatinine Ratio 19.4, Glucose 130 H, Calcium 8.9, Total Bilirubin 0.80, AST 39 H, ALT 47, Alkaline Phosphatase 172 H, Total Protein 7.9, Albumin 2.7 L, Globulin 5.2 H, Albumin/Globulin Ratio 0.5 L, Triglycerides 64, Cholesterol 109, LDL Cholesterol 22, VLDL Cholesterol 13, HDL Cholesterol 74 10/09/20 05:40: Ammonia 155.0 H 10/09/20 06:32: POC Glucose 113 H 10/09/20 10:55: POC Glucose 107 Current Medications Acetaminophen (Acetaminophen 325 Mg Tablet) 650 mg PO Q6H PRN PRN PRN Reason: Pain Score 1-10/Temp > 100.7 F Al Hydroxide/Mg Hydroxide (Mag Hydrox/Al Hydrox/Simeth 30 Ml Udc) 30 ml PO Q6H PRN PRN PRN Reason: Gastric Burning Albuterol Sulfate (Albuterol 2.5 Mg/3 Ml Vial.Neb.) 2.5 mg INHALATION Q4H PRN PRN PRN Reason: SHORTNESS OF BREATH Amlodipine Besylate (Amlodipine 5 Mg Tablet) 5 mg PO DAILY [facility] Last Admin: 10/09/20 10:58 Dose: 5 mg Documented by: Aspirin (Aspirin 81 Mg Tab.Chew) 81 mg PO DAILY@0800 [facility] Last Admin: 10/09/20 06:35 Dose: 81 mg Documented by: Atorvastatin Calcium (Atorvastatin Calcium 10 Mg Tablet) 10 mg PO DAILY [facility] Last Admin: 10/09/20 10:57 Dose: 10 mg Documented by: Atropine Sulfate (Atropine Sulfate 1% 2 Ml Bottle) 1 drop LEFT EYE DAILY [facility] Last Admin: 10/09/20 10:57 Dose: 1 drop Documented by: Dextrose (Dextrose 50%-Water 25 Gm/50 Ml Disp.Syrin) 0 gm IV X1 PRN; Protocol PRN Reason: Hypoglycemia Glucagon (Glucagon 1 Mg/Ml Syringe) 1 mg IM .X1 PRN PRN Reason: Hypoglycemia Heparin Sodium (Porcine) (Heparin Injection (Vial) 5,000 Unit/Ml Vial) 5,000 unit SC Q8 [facility] Last Admin: 10/09/20 06:28 Dose: Not Given Documented by: Hydrochlorothiazide (Hydrochlorothiazide 12.5mg) 12.5 mg PO DAILY [facility] Last Admin: 10/09/20 10:57 Dose: 12.5 mg Documented by: Pantoprazole Sodium 40 mg/ (Sodium Chloride) 110 mls @ 330 mls/hr IV Q12 [facility] Last Infusion: 10/09/20 11:19 Dose: Infused Documented by: Insulin Glargine (Insulin Glargine 100 Units/Ml Pen) 10 units SC QHS [facility] Last Admin: 10/08/20 21:21 Dose: 10 u Documented by: Insulin Glargine (Insulin Glargine 100 Units/Ml Pen) 20 units SC DAILY [facility] Last Admin: 10/09/20 11:06 Dose: Not Given Documented by: Insulin Human Lispro (Insulin Lispro 100 Unit/Ml Insuln.Pen) 0 unit SC ACHS [facility]; Protocol Last Admin: 10/09/20 11:08 Dose: Not Given Documented by: Insulin Human Lispro (Insulin Lispro 100 Unit/Ml Insuln.Pen) 30 unit SC 0800,1200,1700 [facility] Last Admin: 10/09/20 11:18 Dose: Not Given Documented by: Lactulose (Lactulose 20 Gm/30 Ml Udc) 20 gm PO BID [facility] Last Admin: 10/09/20 10:56 Dose: 20 gm Documented by: Losartan Potassium (Losartan Potassium 100 Mg Tablet) 100 mg PO DAILY [facility] Last Admin: 10/09/20 06:37 Dose: 100 mg Documented by: Magnesium Hydroxide (Magnesium Hydroxide 30 Ml Udc) 30 ml PO DAILY PRN PRN PRN Reason: Constipation Ondansetron HCl (Ondansetron 4 Mg/2 Ml Vial) 4 mg IV Q8H PRN PRN PRN Reason: NAUSEA/VOMITING Sodium Chloride (0.9% Saline Lock 10 Ml Syringe) 10 - 40 ml IV UD PRN PRN Reason: SALINE FLUSH Last Admin: 10/09/20 06:43 Dose: 10 ml Documented by: Timolol Maleate (Timolol 0.5% 5ml Opth.Btl) 1 drop EACH EYE BID [facility] Last Admin: 10/09/20 10:56 Dose: 1 drop Documented by: Discharge Diet: Low fat/ Low Cholesterol, 2000 mg Sodium Diet Discharge Activity: Return to Normal Activity Home Medications: Medications to take at Discharge Albuterol Inhaler [Ventolin Hfa] 2 puff INHALATION Q4H PRN PRN 09/18/20 Aspirin [Aspirin, Baby] 81 mg PO DAILY@0800 09/18/20 Atorvastatin Calcium 10 mg PO DAILY 09/18/20 Insulin Degludec [Tresiba] 20 unit SQ DAILY 09/18/20 Losartan/Hydrochlorothiazide [Losartan-Hctz 100-12.5 mg Tab] 1 tab PO DAILY 09/18/20 Timolol Maleate [Timoptic-XE 0.5%] 1 drp EACH EYE DAILY 09/18/20 Amlodipine [Norvasc] 5 mg PO DAILY 10/08/20 Atropine Sulfate 1 drp LEFT EYE DAILY 10/08/20 Insulin Degludec [Tresiba Flextouch U-100] 10 units SQ QHS 10/08/20 Insulin Lispro [Humalog Kwikpen] 30 unit SQ TID 10/08/20 Lactulose [Chronulac] 20 gm PO BID 30 Days #1 udc 10/09/20 Pantoprazole Sodium [Protonix] 40 mg PO BID 30 Days #60 tab 10/09/20 Following Prescriptions Were Given to Patient: Lactulose [Chronulac] 20 gm PO BID 30 Days #1 udc Transmission Status: Received by ZAK GAXIOLA RD Pantoprazole Sodium [Protonix] 40 mg PO BID 30 Days #60 tab Transmission Status: Received by ZAK GAXIOLA RD Primary Care Physician: Jerald Rivera MD [Primary Care Provider] - Please follow up with your Primary Care Physician in: within 1-2 weeks Disposition: Home Minutes spent on discharge:: 40 Patient Condition:: Stable Medical Necessity - Tobacco Use Smoking Status: Former smoker Tobacco Use: Cigarettes Meaningful Use Info Meaningful Use Diagnoses (Choose all that apply): None applicable OBSV E&M: 63109 Observation care discharge
[2020-10-09] MEDS: Heparin Injection (Vial) 5,000 UNIT/ML VIAL 5000 UNIT SC (15:00)
[2020-10-09 15:08] VITALS: BP 126/62; PULSE 84; RESP 18; TEMP 37; O2SAT 100
--- NOTE | 2020-10-09 15:30 | CM.UR ---
RN CM Assessment Introduced role of RN CM to patient.? Patient is alert, oriented and able?to participate in RN CM Assessment. Granddaughter at bedside, gave additional information and assisted with communication. ?Care providers, pharmacy, and demographics verified. Presentation: Chest pain Admit Dx: elevated ammonia, htn. stress test negative, troponin negative. Re-Admit: No was obs 09/18-2 with FTT, anasarca Barriers/Issues: language barrier. primary language Taiwanese. PCP: Dr. Rivera Specialists: none Preferred Pharmacy: [facility] [place]: [facility] Rx Benefit:? Yes ?LNOK: Bronwyn, daughter LW/HPOA: none. accepted booklet of information on advance directives. Instructed on how can be done while here or after discharge. Living Arrangements:? Lives in appt with , 2 daughters and their boyfriends. ADL?s: Essentially independent. sometimes help with things. Transportation: family DME: raised toilet seat with handle, grab bars and handheld shower. Asked for transfer bench. Gave information about companies it can be obtained from. Chose [employer] as the close. Prepped order and green sheet placed on chart. Granddaughter also asked for w/c. Explained when PT sees him, I'll see if they will measure him for one. States he shuffles somewhat. HHC: none SNF: none Goal: home with family DC PLAN: Home with family. Has a lot of family support. Order for transfer tub bench and wheelchair. Alerted patient that case management will remain available should any needs arise. Verb understanding. Aubree Wilkerson RN, [facility].
[2020-10-09] MEDS: Insulin Lispro 100 UNIT/ML INSULN.PEN SC (16:02)
[2020-10-09 16:26] LABS: Bedside Glucose 218 mg/dL (70-110)
--- NOTE | 2020-10-11 10:20 | CASEMGMT ---
Script was left on chart for transfer bench and PCU charge faxed to [employer] per green sheet but [facility] [place] does not have tub/transfer benches at this time. Message left for daughter, Mily, at this time to call this RN CM back to see if they want script faxed elsewhere or left at front end software engineer so they can tile picker. CM to follow. SStgarth ALEXIS CM
== END 2020-10-09 16:19 | disposition home or self-care (01) | DRG 313 ==
LOC: ED 17:23 → PCU 18:15
PROVIDERS: Admitting Provider Internal Medicine; Emergency Provider Emergency Medicine; PCP Internal Medicine; Visit Provider Internal Medicine
DX: R07.89 Other chest pain (principal); N18.4 Chronic kidney disease, stage 4 (severe); R79.89 Other specified abnormal findings of blood chemistry; I12.9 Hypertensive chronic kidney disease with stage 1 through stage 4 chronic kidney disease, or unspecified chronic kidney disease; E11.22 Type 2 diabetes mellitus with diabetic chronic kidney disease; H40.9 Unspecified glaucoma; Z79.4 Long term (current) use of insulin; Z79.899 Other long term (current) drug therapy; Z87.891 Personal history of nicotine dependence
CPT/HCPCS: 36415; 71045; 78452; 80048; 80053; 80061; 80076; 82140; 82962; 84484; 85025; 93005; 93017; 99251; 99285; A9500; A4216; G0463; J2785

== ENCOUNTER → 2021-01-26 12:15 | Outpatient (CLI) | payer MEDICARE, MEDICAID, SELFPAY ==
[2020-10-08 18:48] VITALS: BMI 24.8
--- NOTE | 2021-01-26 | FLU_PTH ---
PATIENT: TRUDY CANCINO LOC: [facility]#:[id number] AGE/SX: 70/M ROOM: RE01/26/[address]: Dr. Jerald Rivera MD : 1955 BED: DIS: SPEC #: [id number] RECD: 01/26/21 13:19 STATUS: MELIZA ADAMSVikash #: [id number] ZIGGY: 01/26/21 00:[address]: Jerald Rivera DEPT: CYTOLOGY RECD BY: Javy Galeano Tissues: PARACENTESIS FLUID Procedures: Special Stain Group II Surgery Specimen Level IV Cytospin Fluid HEADER OPERATION: Paracentesis PRE-OP DIAGNOSIS: Anasarca TISSUE SUBMITTED: Paracentesis fluid for cytology DIAGNOSIS CYTOLOGY Paracentesis fluid for cytology (cytospin and cell block): Negative for malignant cells. AM:shira 01/28/2021 CYTOLOGY STUDY Slides are reviewed. CYTOLOGY GROSS Received is 100 ml of yellow cloudy fluid labeled with the patient's name and and designated per the requisition as paracentesis. Submitted for cytology preparation including cell block. / shira 01/27/2021 TC:5 CPT: 93244, 36763
--- NOTE | 2021-01-26 12:31 | US_ITS ---
PROCEDURE: Ultrasound guided paracentesis. DATE OF EXAMINATION: 01/26/2021. INDICATION: Male, 66 years old. Ascites. PHYSICIAN: Gold Muse M.D. TECHNIQUE: The risks, benefits, and alternatives to the procedure were explained to the patient. The specific risks of bleeding, infection, and damage to bowel were detailed and accepted. Witnessed informed consent was obtained. The abdomen was ultrasonographically surveyed. An appropriate pocket of fluid was identified at the right lower quadrant. The skin were cleaned and prepped in the usual sterile fashion. Using ultrasound guidance, the peritoneal cavity was accessed with a 5-Guamanian paracentesis needle/catheter system. The trocar was removed. A total of 4000 ml of mahamed-colored fluid were removed from the peritoneal cavity. The catheter was removed and a sterile dressing was applied. A 100 mL sample was sent to the laboratory. The procedure was well tolerated. US/Paracentesis with US IMPRESSION: Ultrasound guided paracentesis. Electronically Signed: Gold Muse MD at 14:23 EDT , Service support ,
[2021-01-26 13:05] VITALS: BP 151/56; BP 159/75; BP 165/85; PULSE 74; PULSE 75; RESP 16; RESP 18; O2SAT 100; O2SAT 988
[2021-01-26 14:01] LABS: Body Fluid Mononuclear WBC # 0.195 10^3/uL; Body Fluid Mononuclear WBC % 95.6 %; Body Fluid Polynuclear WBC # 0.009 10^3/uL; Body Fluid Polynuclear WBC % 4.4 %; Body Fluid Total Cells Counted 0.264 10^3/ul; White Blood Count/Body Fluid 0.204 10^3/uL
[2021-01-26 14:04] LABS: Auto B Fluid Analyzer BKGD Ct COUNTS W/IN LIMITS (W/IN LIMITS); Color/Body Fluid YELLOW; Source- Body Fluid OTHER
[2021-01-26 14:05] LABS: Appearance/Body Fluid SL CLDY
[2021-01-26 14:14] LABS: Red Cell Count/Body Fluid 550 /mm3
[2021-01-26 14:19] LABS: LDH,Body Fluid 47 Units/l (Not Establ.); Protein, Body Fluid 1.2 g/dL (Not Establ.)
[2021-01-26 14:33] LABS: Lymphocytes 42 %; Monocytes 8 %; Neutrophil (Segs) 4 %; Other Cell Type/BF 46 %
[2021-01-27 12:02] LABS: Pathologist Comment/Body Fluid Reviewed
== END ==
PROVIDERS: PCP Internal Medicine; Referring Provider Internal Medicine; Visit Provider Internal Medicine
DX: R60.1 Generalized edema (principal)
CPT/HCPCS: 49083; 83615; 84157; 87070; 87075; 87205; 88108; 88305; 88313; 89050

== ENCOUNTER → 2021-02-09 12:21 | Outpatient (CLI) | payer MEDICARE, MEDICAID, SELFPAY ==
[2020-10-08 18:48] VITALS: BMI 24.8
--- NOTE | 2021-02-09 12:32 | US_ITS ---
PROCEDURE: ULTRASOUND GUIDED PARACENTESIS CLINICAL HISTORY: Male, 66 years old. ASCITES CONSENT: Time-Out Called: Yes. Consent form signed: Yes. PT-PTT Levels Checked: Yes. SEDATION: TECHNIQUE: FINDINGS: FLUID PRE-PROCEDURE Under ultrasound guidance and following proper antiseptic preparation and local anesthesia, a draining catheter was inserted in the right lower quadrant. 4778 cc of clear turbid fluid aspirated. The patient tolerated the procedure well. US/Paracentesis with US IMPRESSION: Uneventful paracentesis. Electronically Signed: Sierra Snow, at 14:32 EDT Tel , Service support ,
[2021-02-09 13:00] VITALS: BP 151/70; BP 152/78; BP 160/80; PULSE 67; PULSE 71; PULSE 74; RESP 16; O2SAT 100; O2SAT 99
== END ==
PROVIDERS: PCP Internal Medicine; Visit Provider Internal Medicine
DX: R18.8 Other ascites (principal)
CPT/HCPCS: 49083

== ENCOUNTER → 2021-02-23 12:19 | Outpatient (CLI) | payer MEDICARE, MEDICAID, SELFPAY ==
[2020-10-08 18:48] VITALS: BMI 24.8
--- NOTE | 2021-02-23 12:22 | US_ITS ---
PROCEDURE: Ultrasound guided paracentesis. DATE OF EXAMINATION: 02/23/2021. INDICATION: Male, 66 years old. Ascites. PHYSICIAN: Gold Muse M.D. TECHNIQUE: The risks, benefits, and alternatives to the procedure were explained to the patient. The specific risks of bleeding, infection, and damage to bowel were detailed and accepted. Witnessed informed consent was obtained. The abdomen was ultrasonographically surveyed. An appropriate pocket of fluid was identified at the right lower quadrant. The skin were cleaned and prepped in the usual sterile fashion. Using ultrasound guidance, the peritoneal cavity was accessed with a 5-Bruneian paracentesis needle/catheter system. The trocar was removed. A total of 5000 ml of mahamed-colored fluid were removed from the peritoneal cavity. The catheter was removed and a sterile dressing was applied. The procedure was well tolerated. US/Paracentesis with US IMPRESSION: Ultrasound guided paracentesis. Electronically Signed: Gold Muse MD at 14:10 EDT , Service support ,
[2021-02-23 12:35] VITALS: BP 157/86; BP 160/72; BP 160/79; PULSE 72; PULSE 80; RESP 16; TEMP 37.2; O2SAT 100
[2021-02-23] MEDS: Lidocaine 2% (20 ml mdv) 20 ML Vial (13:00)
== END ==
PROVIDERS: PCP Internal Medicine; Referring Provider Internal Medicine; Visit Provider Internal Medicine
DX: R18.8 Other ascites (principal)
CPT/HCPCS: 49083

== ENCOUNTER → 2021-03-09 12:39 | Outpatient (CLI) | payer MEDICARE, MEDICAID, SELFPAY ==
[2020-10-08 18:48] VITALS: BMI 24.8
--- NOTE | 2021-03-09 12:43 | US_ITS ---
PROCEDURE: Ultrasound guided paracentesis. DATE OF EXAMINATION: 03/09/2021.. INDICATION: Male, 66 years old. Ascites. PHYSICIAN: Gold Muse M.D. TECHNIQUE: The risks, benefits, and alternatives to the procedure were explained to the patient. The specific risks of bleeding, infection, and damage to bowel were detailed and accepted. Witnessed informed consent was obtained. The abdomen was ultrasonographically surveyed. An appropriate pocket of fluid was identified at the right lower quadrant. The skin were cleaned and prepped in the usual sterile fashion. Using ultrasound guidance, the peritoneal cavity was accessed with a 5-Maltese paracentesis needle/catheter system. The trocar was removed. A total of 1550 ml of mahamed-colored fluid were removed from the peritoneal cavity. The catheter was removed and a sterile dressing was applied. The procedure was well tolerated. US/Paracentesis with US IMPRESSION: Ultrasound guided paracentesis. Electronically Signed: Gold Muse MD at 13:53 EDT , Service support ,
[2021-03-09 13:03] VITALS: BP 142/74; BP 153/75; PULSE 68; PULSE 72; RESP 20; TEMP 36.7; O2SAT 100
== END ==
PROVIDERS: PCP Internal Medicine; Referring Provider Internal Medicine; Visit Provider Internal Medicine
DX: R18.8 Other ascites (principal)
CPT/HCPCS: 49083

== ENCOUNTER 2021-03-11 15:36 | Inpatient (IN) | payer MEDICARE, MEDICAID, SELFPAY ==
[2020-10-08 18:48] VITALS: BMI 24.8
[2021-03-11 15:36] VITALS: BP 141/69; PULSE 74; RESP 16; TEMP 36.8; O2SAT 100; BMI 27.4
--- NOTE | 2021-03-11 16:06 | CT_ITS ---
STUDY: CT BRAIN WITHOUT CONTRAST REASON FOR EXAM: Male, 66 years old. Altered mental status. Decreased urination. RADIATION DOSAGE (If Supplied By Facility): CTDIvol = ( 44.99 ) mGy, DLP = ( 829.85 ) mGycm TECHNIQUE: Transaxial CT imaging of the brain was performed without administration of intravenous contrast material. Individualized dose optimization techniques were used for this CT. COMPARISON: No relevant priors. FINDINGS: Normal soft tissue structures. Normal calvarium. Normal size ventricles and extra-axial spaces for the patient''s age. Normal white matter tracts of the cerebral hemispheres. There are small punctate calcifications of the basal ganglia which are seen in the aging brain as a normal variant. Normal brainstem. Normal cerebellum. There is no intracranial hemorrhage. There are no findings of an acute ischemic infarction. Normal visualized paranasal sinuses. CT/Brain/Head without Contrast IMPRESSION: No acute intracranial or calvarial abnormality. If there is continued concern for acute stroke, MRI is recommended. Electronically Signed: Michael Shepherd DO at 17:31 EDT Tel [phone], Service support ,
--- NOTE | 2021-03-11 16:07 | EKG12_ITS ---
Test Reason : LOC Blood Pressure : / mmHG Vent. Rate : 073 BPM Atrial Rate : 073 BPM P-R Int : 182 ms QRS Dur : 076 ms QT Int : 414 ms P-R-T Axes : 043 014 028 degrees QTc Int : 456 ms Normal sinus rhythm Normal ECG Confirmed by EUNICE ARAIZA, GARRETT ([id number]), medical transcription editor PRINCE GARCES ([id number]) on 03/15/2021 10:18:10 AM Referred By: Confirmed By:GARRETT DAWSON MD
--- NOTE | 2021-03-11 16:08 | EDS_ITS ---
HPI History of Present Illness Chief Complaint: Alt LOC Informant: family Narrative Narrative: 66-year-old male brought into the emergency department by his daughters for the evaluation of altered mental status. He notes he that he has a history of diabetes and alcoholic liver cirrhosis. He gets weekly paracentesis. They state that yesterday he seemed in his usual state of health. He is basically blind and requires somebody to help ambulate him to and from the bathroom but otherwise is mostly sedentary. He states that he has been eating less over the past couple days. They do not believe that he is currently on lactulose therapy. They note that he has chronic kidney disease and that he has only urinated one time today and that was a very small amount. They note no bowel movement since yesterday. They can get him to respond to his name but nothing more. They deny any recent fevers or infections. [facility] Medical History (Updated 03/11/21 @ 17:[address] Kashif Peterson, DO) Alcoholic cirrhosis of liver CKD (chronic kidney disease) stage 4, GFR 15-29 ml/min DM type 2 (diabetes mellitus, type 2) Glaucoma HTN (hypertension) Hyperlipidemia Home Medications albuterol sulfate 2 puff INHALATION Q4H PRN PRN 09/18/20 [History Last Taken Unknown] aspirin 81 mg PO DAILY@0800 09/18/20 [History Last Taken 10/08/20] atorvastatin 10 mg PO DAILY 09/18/20 [History Last Taken 10/08/20] insulin degludec 20 unit SQ DAILY 09/18/20 [History Last Taken 10/08/20] losartan-hydrochlorothiazide 1 tab PO DAILY 09/18/20 [History Last Taken 10/08/20] timolol maleate 1 drp EACH EYE DAILY 09/18/20 [History Last Taken 10/08/20] amlodipine 5 mg PO DAILY 10/08/20 [History Last Taken 10/08/20] atropine 1 drp LEFT EYE DAILY 10/08/20 [History Last Taken 10/08/20] insulin degludec 10 units SQ QHS 10/08/20 [History Last Taken 10/07/20] insulin lispro 30 unit SQ TID 10/08/20 [History Last Taken 10/08/20] Allergy/AdvReac Type Severity Reaction Status Date / Time No Known Allergies Allergy Verified 09/18/20 12:07 Social History (Updated 03/11/21 @ 16:[address] Kashif Peterson, DO) Smoking Status: Never smoker alcohol intake: former substance use type: does not use ROS ROS ED Review of Systems ROS Unobtainable: due to mental status EXAM Physical Exam Const Vital Signs: 03/11/21 15:36 Temperature 98.3 F Temperature Source Temporal Pulse Rate 74 Respiratory Rate 16 Blood Pressure 141/69 H Blood Pressure Mean 93 Pulse Ox 100 Oxygen Delivery Method Room Air Positive well nourished and well developed General Appearance ED: well developed HEENT Reports normocephalic, head/scalp atraumatic and moist mucous membranes Eyes PERRL and EOMs intact bilaterally Neck no lymphadenopathy, supple and no JVD Resp normal respiratory effort and clear to auscultation bilaterally Cardio regular rate, regular rhythm and no murmurs GI normal to inspection, nondistended, normoactive bowel sounds and non-tender Palpation: soft Back/Spine no CVA tenderness and normal ROM Extremity normal to inspection General Extremety ED: Negative for edema General Extremity: Negative for edema Neuro Neuro Narrative: Patient is unable to follow basic directions such as open mouth and open eyes. He does withdraw to pain. Movement in all 4 extremities Sensorium / Orientation: lethargic Psych Mood & Affect: Negative for depressed or tearful Skin no rashes or lesions noted and no wounds MDM MDM MDM Narrative Medical decision making narrative: Patient's white count 6.8. Creatinine 3.87 was significantly off of his baseline. Ammonia level 126. Lipase 838. Urinalysis shows no obvious infection. CT the brain negative. Chest x-ray on my interpretation shows no acute process. Family wishes to try oral lactulose as compared to an NG tube placement he has been able to drink some of it. Our plan will be admission. Lab Data Attestation: I reviewed the patient's lab results. Labs: Laboratory Results - last 24 hr 03/11/21 03/11/21 03/11/21 15:55 15:55 15:55 WBC 6.8 RBC 3.80 L Hgb 10.4 L Hct 31.0 L MCV 81.6 MCH 27.4 MCHC 33.5 RDW Std Deviation 40.1 RDW Coeff of Edwin 13.5 Plt Count 235 MPV 9.7 Immature Gran % (Auto) 0.300 Neut % (Auto) 66.6 Lymph % (Auto) 21.6 [place] % (Auto) 8.1 Eos % (Auto) 2.8 Baso % (Auto) 0.6 Absolute Neuts (auto) 4.5 Absolute Lymphs (auto) 1.46 Nucleated RBC % 0 PT INR APTT Sodium 143 Potassium 3.7 Chloride 110 H Carbon Dioxide 22.0 Anion Gap 11 BUN 53 H Creatinine 3.87 H Estim Creat Clear Calc 16.49 Est GFR (MDRD) Af Amer 20 L Est GFR (MDRD) Non-Af 17 L BUN/Creatinine Ratio 13.7 Glucose 181 H Lactic Acid Calcium 8.4 L Total Bilirubin 0.50 Direct Bilirubin 0.21 AST 21 ALT 22 Alkaline Phosphatase 159 H Ammonia 126.0 H B-Natriuretic Peptide Total Protein 7.2 Albumin 2.1 L Globulin 5.1 H Lipase 838 H Urine Color Urine Clarity Urine pH Ur Specific [place] Urine Protein Urine Glucose (UA) Urine Ketones Urine Occult Blood Urine Nitrite Urine Bilirubin Urine Urobilinogen Ur Leukocyte Esterase Urine RBC Urine WBC Ur Squamous Epith Cells Urine Bacteria Urine Mucus 03/11/21 03/11/21 03/11/21 15:55 15:55 16:23 WBC RBC Hgb Hct MCV MCH MCHC RDW Std Deviation RDW Coeff of Edwin Plt Count MPV Immature Gran % (Auto) Neut % (Auto) Lymph % (Auto) [place] % (Auto) Eos % (Auto) Baso % (Auto) Absolute Neuts (auto) Absolute Lymphs (auto) Nucleated RBC % PT 14.5 INR 1.2 APTT 31.2 Sodium Potassium Chloride Carbon Dioxide Anion Gap BUN Creatinine Estim Creat Clear Calc Est GFR (MDRD) Af Amer Est GFR (MDRD) Non-Af BUN/Creatinine Ratio Glucose Lactic Acid 0.9 Calcium Total Bilirubin Direct Bilirubin AST ALT Alkaline Phosphatase Ammonia B-Natriuretic Peptide 83.0 Total Protein Albumin Globulin Lipase Urine Color Urine Clarity Urine pH Ur Specific [place] Urine Protein Urine Glucose (UA) Urine Ketones Urine Occult Blood Urine Nitrite Urine Bilirubin Urine Urobilinogen Ur Leukocyte Esterase Urine RBC Urine WBC Ur Squamous Epith Cells Urine Bacteria Urine Mucus 03/11/21 16:55 WBC RBC Hgb Hct MCV MCH MCHC RDW Std Deviation RDW Coeff of Edwin Plt Count MPV Immature Gran % (Auto) Neut % (Auto) Lymph % (Auto) [place] % (Auto) Eos % (Auto) Baso % (Auto) Absolute Neuts (auto) Absolute Lymphs (auto) Nucleated RBC % PT INR APTT Sodium Potassium Chloride Carbon Dioxide Anion Gap BUN Creatinine Estim Creat Clear Calc Est GFR (MDRD) Af Amer Est GFR (MDRD) Non-Af BUN/Creatinine Ratio Glucose Lactic Acid Calcium Total Bilirubin Direct Bilirubin AST ALT Alkaline Phosphatase Ammonia B-Natriuretic Peptide Total Protein Albumin Globulin Lipase Urine Color Yellow Urine Clarity Clear Urine pH 6.0 Ur Specific [place] 1.015 Urine Protein 500 H Urine Glucose (UA) 100 H Urine Ketones Negative Urine Occult Blood 250 H Urine Nitrite Negative Urine Bilirubin Negative Urine Urobilinogen Normal Ur Leukocyte Esterase Negative Urine RBC 50-100 SEEN Urine WBC 0 SEEN Ur Squamous Epith Cells 0 SEEN Urine Bacteria 0 SEEN Urine Mucus 0 SEEN Radiography Diagnostic Testing: Radiology Impression Brain CT 03/11/21 16:06 IMPRESSION: No acute intracranial or calvarial abnormality. If there is continued concern for acute stroke, MRI is recommended. Electronically Signed: Michael Shepherd DO at 17:31 EDT Tel [phone], Service support , Chest X-Ray 03/11/21 16:50 IMPRESSION: No acute cardiopulmonary disease or major interval change. Electronically Signed: Michael Shepherd DO at 17:08 EDT Tel [phone], Service support , EKG Initial EKG: Attestation: I personally reviewed and interpreted this EKG as follows: Comments: EKG is a normal sinus rhythm at a rate of 73 bpm. No significant change from prior. Discharge Plan Dx/Rx/DC Orders Clinical Impression: Acute hepatic encephalopathy, Acute kidney injury Disposition Disposition: [facility] Care [facility]
[2021-03-11 16:25] LABS: Absolute Lymphocyte Count 1.46 X10^3/uL (0.83-4.51); Absolute Neutrophil Count 4.5 X10^3/uL (2.0-7.7); Basophil# 0.04 X10^3/uL; Basophil% 0.6 % (0-1); Eosinophil# 0.19 X10^3/uL; Eosinophils% 2.8 % (0-5); Hemoglobin 10.4 g/dL (13.0-16.5); Lymphocyte # 1.46 X10^3/ul (0.83-4.51); Lymphocyte % 21.6 % (19-41); Mean Corp Hgb Conc 33.5 g/dL (32-36); Mean Corpuscular Hgb 27.4 pg (27.0-32.0); Mean Corpuscular Volume 81.6 fL (80-94); Mean Platelet Vol. 9.7 fl (6.2-12.0); Monocyte# 0.55 X10^3/uL; Monocyte% 8.1 % (0-10); NRBC Flagged by Analyzer 0 % (0-5); Neutrophil # 4.49 X10^3/uL (2.7-7.7); Neutrophil % 66.6 % (47-70); Platelet Count 235 K/mm3 (150-450); RBC Distribution Width CV 13.5 % (11.6-14.6); RBC Distribution Width SD 40.1 fl (35.1-43.9); White Blood Count 6.8 K/mm3 (4.4-11.0)
[2021-03-11] MEDS: 0.9% Normal Saline 1,000 ML 1000 ML IV (16:32)
[2021-03-11 16:38] LABS: AST(SGOT) 21 U/L (15-37); Alanine Aminotransfer ALT/SGPT 22 U/L (16-61); Albumin, Serum 2.1 g/dL (3.2-5.0); Alkaline Phosphatase 159 U/L (45-117); Anion Gap 11 (5-15); BUN 53 mg/dL (7-18); BUN/Creat Ratio 13.7 RATIO (10-20); Bilirubin, Direct 0.21 mg/dL (0.00-0.30); Calcium,Total 8.4 mg/dL (8.5-10.1); Chloride 110 mmol/L (98-107); Creatinine, Serum 3.87 mg/dL (0.70-1.30); EST Glomerular Filtration Rate 17 mL/min (>60); Est Glom Filt Rate - Afr Amer 20 mL/min (>60); Estimated Creatinine Clearance 16.49 ml/min; Globulin 5.1 g/dL (2.2-4.2); Glucose 181 mg/dL (74-106); Lipase 838 U/L (73-393); Potassium 3.7 mmol/L (3.5-5.1); Protein, Total 7.2 g/dL (6.4-8.2); Sodium Level 143 mmol/L (136-145)
[2021-03-11 16:40] LABS: Lactic Acid 0.9 mmol/L (0.4-1.9)
--- NOTE | 2021-03-11 16:50 | RAD_ITS ---
STUDY: X-RAY CHEST REASON FOR EXAM: Male, 66 years old. Hypertension. TECHNIQUE: Single AP portable view of the chest. COMPARISON: 10/08/2020 FINDINGS: The lungs are clear and expanded. There is no demonstrated pleural abnormality. Normal size heart. Normal mediastinum and iain. Normal visualized pulmonary arteries. There is atherosclerotic calcification of the aortic arch with tortuosity. There are diffuse degenerative changes of the visualized thoracic spine. Normal visualized ribs, clavicles, and shoulders. There is no demonstrated abnormality of the visualized soft tissue structures of the upper abdomen. RAD/Chest 1 View (Portable) IMPRESSION: No acute cardiopulmonary disease or major interval change. Electronically Signed: Michael Shepherd DO at 17:08 EDT Tel [phone], Service support ,
[2021-03-11 16:51] LABS: International Normalized Ratio 1.2; Prothrombin Time (Protime)PT. 14.5 SECONDS (11.7-14.9)
[2021-03-11 16:52] LABS: Partial Thromboplast Time 31.2 Seconds (24.1-36.2)
[2021-03-11 17:02] LABS: Bacteria 0 SEEN /hpf (None Seen); Mucous, Urine 0 SEEN /hpf (<or=2+); Squamous Epithelial Cells - UA 0 SEEN /hpf (0-5); White Blood Cells 0 SEEN /hpf (0-5)
[2021-03-11 17:12] LABS: Color, Urine Yellow (Yellow); Glucose, Dipstick 100 mg/dl (Normal); Ketone-Dipstick Negative (Negative); Leukocyte Esterase-Dipstick Negative /ul (Negative); Nitrite-Dipstick Negative (Negative); Occult Blood-Urine 250 /ul (Negative); Protein-Dipstick 500 mg/dl (Negative); Specific Gravity, Urine 1.015 (1.002-1.030); Urine Bilirubin Dipstick Negative (Negative); Urine Clarity Clear (Clear); Urine Urobilinogen Normal (Normal)
[2021-03-11] MEDS: Lactulose 20 GM/30 ML UDC 30 GM NG (17:33)
[2021-03-11 17:38] LABS: Red Blood Cells-Urine 50-100 SEEN /hpf (0-5)
[2021-03-11 18:07] VITALS: BP 148/85; PULSE 88; RESP 20; O2SAT 99
[2021-03-11 18:08] VITALS: BP 148/85; PULSE 88; RESP 20; TEMP 36.8; O2SAT 99
--- NOTE | 2021-03-11 18:22 | HP.PCM.HOS_ITS ---
HPI - General General Date of Admission: 03/11/21 HPI Narrative TRUDY CANCINO, is a 66 M with history of decompensated alcoholic cirrhosis was brought to ER with decreased awareness, confusion, disorientation, drowsy and altered mental status. Patient has not been taking lactulose but gets about weekly paracentesis last 1 on past Sunday. Denies abdominal pain or fever or chills or cough. Chest x-ray did not show acute cardiopulmonary abnormality. CT brain no acute intracranial abnormality. Basic blood work shows BNP 83, UA WBC 0, RBC 5200, protein 500. Lactic acid normal ammonia 126. Liver chemistry shows normal bilirubin, alkaline phosphatase 159, normal transaminases. Lipase 1838. Serum albumin 2.1. Platelet count 235,000. Patient was given lactulose in ER and is slowly waking up. Patient is Citizen Of [place], does not speak Sudanese but history mainly taken from her daughter and granddaughter near the bedside. [facility] Medical History Alcoholic cirrhosis of liver CKD (chronic kidney disease) stage 4, GFR 15-29 ml/min DM type 2 (diabetes mellitus, type 2) Glaucoma HTN (hypertension) Hyperlipidemia Home Medications albuterol sulfate 2 puff INHALATION Q4H PRN PRN 09/18/20 [History Last Taken Unknown] aspirin 81 mg PO DAILY@0800 09/18/20 [History Last Taken 10/08/20] atorvastatin 10 mg PO DAILY 09/18/20 [History Last Taken 10/08/20] insulin degludec 20 unit SQ DAILY 09/18/20 [History Last Taken 10/08/20] losartan-hydrochlorothiazide 1 tab PO DAILY 09/18/20 [History Last Taken 10/08/20] timolol maleate 1 drp EACH EYE DAILY 09/18/20 [History Last Taken 10/08/20] amlodipine 5 mg PO DAILY 10/08/20 [History Last Taken 10/08/20] atropine 1 drp LEFT EYE DAILY 10/08/20 [History Last Taken 10/08/20] insulin degludec 10 units SQ QHS 10/08/20 [History Last Taken 10/07/20] insulin lispro 30 unit SQ TID 10/08/20 [History Last Taken 10/08/20] Allergy/AdvReac Type Severity Reaction Status Date / Time No Known Allergies Allergy Verified 09/18/20 12:07 Social History Smoking Status: Never smoker alcohol intake: former substance use type: does not use ROS ROS Narrative As per review of system gathered from patient's family, he denies burning micturition, urgency but mild increased frequency goes every 4-5 hours. CKD stage IV. Has not moved bowel in last 2 days. No vomiting or GI bleed. Limited mobility. Confused and disoriented for last 1 to 2 days. Review of Systems ROS Unobtainable: due to encephalopathy and due to mental status Vital Signs Vital Signs Vital Signs: 03/11/21 15:36 03/11/21 18:07 03/11/21 18:08 Temperature 98.3 F 98.3 F Temperature Source Temporal Temporal Pulse Rate 74 88 88 Respiratory Rate 16 20 H 20 H Blood Pressure 141/69 H 148/85 H 148/85 H Blood Pressure Mean 93 106 106 Pulse Ox 100 99 99 Oxygen Delivery Method Room Air Room Air Room Air Weight Weight: 170 lb Body Mass Index (BMI) 27.4 Physical Exam Narrative General: Minimally responsive. Lethargic, drowsy, obtunded. Disoriented HEENT: Atraumatic, PERRLA, EOMI, Normocephalic Oral: Oral mucosa dry. No Gingival or Mucosal Lesions/ Ulcerations Neck: Supple, No JVD, Negative Carotid Bruits Lungs: Air entry diminished in bilateral lung bases. No crepitation/rhonchi Cardiovascular: Regular rate, Regular Rhythm, Normal S1, Normal S2, No murmurs Abdomen: Mild ascites. Dressing present on right lower quadrant of previous paracentesis. Bowel Sounds Present, Soft, Non Tender. : No renal angle tenderness. No suprapubic tenderness. Extremities: Mild bilateral ankle edema, Capillary Refill Less than 3 Seconds Skin: No rashes, No breakdown Musculoskeletal: No Tenderness to Palpation of Joints or Extremities Neurological: Cranial nerves II-XII grossly intact, grossly encephalopathic Psych/Mental Status: Eyes closed. Results Lab / Micro Data Result Diagrams: 03/11/21 15:55 03/11/21 15:55 Labs: Laboratory Results - last 24 hr 03/11/21 15:55: WBC 6.8, RBC 3.80 L, Hgb 10.4 L, Hct 31.0 L, MCV 81.6, MCH 27.4, MCHC 33.5, RDW Std Deviation 40.1, RDW Coeff of Edwin 13.5, Plt Count 235, MPV 9.7, Immature Gran % (Auto) 0.300, Neut % (Auto) 66.6, Lymph % (Auto) 21.6, [place] % (Auto) 8.1, Eos % (Auto) 2.8, Baso % (Auto) 0.6, Absolute Neuts (auto) 4.5, Absolute Lymphs (auto) 1.46, Nucleated RBC % 0 03/11/21 15:55: Sodium 143, Potassium 3.7, Chloride 110 H, Carbon Dioxide 22.0, Anion Gap 11, BUN 53 H, Creatinine 3.87 H, Estim Creat Clear Calc 16.49, Est GFR (MDRD) Af Amer 20 L, Est GFR (MDRD) Non-Af 17 L, BUN/Creatinine Ratio 13.7, Glu cose 181 H, Calcium 8.4 L, Total Bilirubin 0.50, Direct Bilirubin 0.21, AST 21, ALT 22, Alkaline Phosphatase 159 H, Total Protein 7.2, Albumin 2.1 L, Globulin 5.1 H, Lipase 838 H 03/11/21 15:55: Ammonia 126.0 H 03/11/21 15:55: Lactic Acid 0.9 03/11/21 15:55: B-Natriuretic Peptide 83.0 03/11/21 16:23: PT 14.5, INR 1.2, APTT 31.2 03/11/21 16:55: Urine Color Yellow, Urine Clarity Clear, Urine pH 6.0, Ur Specific [place] 1.015, Urine Protein 500 H, Urine Glucose (UA) 100 H, Urine Ketones Negative, Urine Occult Blood 250 H, Urine Nitrite Negative, Urine Bilirubin Negative, Urine Urobilinogen Normal, Ur Leukocyte Esterase Negative, Urine RBC 50-100 SEEN, Urine WBC 0 SEEN, Ur Squamous Epith Cells 0 SEEN, Urine Bacteria 0 SEEN, Urine Mucus 0 SEEN Radiology Impression Brain CT 03/11/21 16:06 IMPRESSION: No acute intracranial or calvarial abnormality. If there is continued concern for acute stroke, MRI is recommended. Electronically Signed: Michael Shepherd DO at 17:31 EDT Tel [phone], Service support , Chest X-Ray 03/11/21 16:50 IMPRESSION: No acute cardiopulmonary disease or major interval change. Electronically Signed: Michael Shepherd DO at 17:08 EDT Tel [phone], Service support , Assessment & Plan Assessment/Plan (1) Acute hepatic encephalopathy: (2) CKD (chronic kidney disease) stage 4, GFR 15-29 ml/min: (3) DM type 2 (diabetes mellitus, type 2): QUALIFIERS: Chronic kidney disease stage: stage 3 (moderate) Chronic kidney disease stage 3 subtype: unspecified whether 3a or 3b Diabetes mellitus termite control service representative insulin use: unspecified jail insulin use status (4) HTN (hypertension): QUALIFIERS: Hypertension type: essential hypertension Qualified Code(s): I10 - Essential (primary) hypertension PLAN: TRUDY CANCINO, arnel a 66 M with history of decompensated alcoholic cirrhosis was brought to ER with decreased awareness, confusion, disorientation, drowsy and altered mental status. Patient has not been taking lactulose but gets about weekly paracentesis last 1 on past Sunday. Denies abdominal pain or fever or chills or cough. Chest x-ray did not show acute cardiopulmonary abnormality. CT brain no acute intracranial abnormality. Basic blood work shows BNP 83, UA WBC 0, RBC 5200, protein 500. Lactic acid normal ammonia 126. Liver chemistry shows normal bilirubin, alkaline phosphatase 159, normal transaminases. Lipase 1838. Serum albumin 2.1. Platelet count 235,000. Patient was given lactulose in ER and is slowly waking up. Patient is Citizen Of [place], does not speak [place]ese but history mainly taken from her daughter and granddaughter near the bedside. 1. Acute metabolic hepatic encephalopathy, not in coma due to decompensated alcoholic liver cirrhosis: Patient is being admitted on MedSurg. IV fluid normal saline 75 mill per hour for 1 L. Patient has Crump catheter with clear urine. On lactulose and Xifaxan for goal of 3 bowel movements per day. Cultures x2 ordered from ER physician. Empirically started on IV Rocephin for possible SBP although patient denies previous history of SBP and there is no abdominal tenderness. UA is negative. Lactic acid normal 2. CKD stage IV, multiple etiologies possible HRS, prerenal, diabetic nep hropathy: Urine culture ordered we will try to correct reversible factors. BP 148/75. 3. Diabetes mellitus type 2: Glucose in BMP 181. Accu-Cheks every 6 hours and cover with Humalog sliding scale. 4. Hypertension: Blood pressure is slightly elevated. Home medications resumed. 5. Glaucoma: As per family patient is legally blind. VT prophylaxis: Heparin 5000 mg twice daily. Living will/advanced directive/end of life care: Patient main caregiver patient's daughter is not available in ED. Other daughter is not aware of advanced directive and will let me know tomorrow about the CODE STATUS. After discussion of benefits/risks procedures involved with full code, DNR CC arrest and DNR CC, daughter and granddaughter agreed for full code until changes are made. She want artificial life support including intubation, tube feed, ventilator and/chest compression, central venous catheter, vasopressor and DC shock if needed for the time being for the patient Total time spent in [id number] encounter in discussion of advanced directive 16 minutes. Charges/Coding Visit Charges Inpatient E&M: 92060 Init Hosp L3 Procedures Hospitalists Procedures: 65745 Advncd Care Plan 30 Min
[2021-03-11] MEDS: 0.9% Normal Saline 1,000 ML 150 ML IV (18:41)
[2021-03-11 19:26] VITALS: BP 175/79; PULSE 80; RESP 18; TEMP 36.6; O2SAT 100; BMI 25.0
[2021-03-11 19:30] VITALS: O2SAT 98
[2021-03-11] MEDS: 0.9% Normal Saline 1,000 ML 75 ML IV (20:16)
[2021-03-11] MEDS: Lactulose 20 GM/30 ML UDC PO (20:17)
[2021-03-11] MEDS: Ceftriaxone 1 GM/50 ML BAG IV (20:17)
[2021-03-11] MEDS: Heparin Injection (Vial) 5,000 UNIT/ML VIAL 5000 UNIT SC (20:18)
[2021-03-11] MEDS: rifAXIMin 550 MG Tablet PO (20:19)
[2021-03-11] MEDS: Glucerna Shake 120 ML LIQUID PO (20:49)
[2021-03-11] MEDS: Insulin Lispro 100 UNIT/ML INSULN.PEN SC (23:18)
[2021-03-11 23:28] VITALS: BP 151/95; PULSE 85; RESP 18; TEMP 36.6; O2SAT 100
[2021-03-11 23:31] LABS: Bedside Glucose 157 mg/dL (70-110)
[2021-03-12] MEDS: Lactulose 20 GM/30 ML UDC PO ×3 (06:16→21:37)
[2021-03-12 06:21] VITALS: BP 164/84; PULSE 88; RESP 18; TEMP 37.1; O2SAT 100
[2021-03-12 06:33] LABS: Absolute Lymphocyte Count 1.34 X10^3/uL (0.83-4.51); Basophil# 0.04 X10^3/uL; Basophil% 0.6 % (0-1); Eosinophil# 0.15 X10^3/uL; Eosinophils% 2.1 % (0-5); Hematocrit 27.4 % (40-54); Hemoglobin 9.3 g/dL (13.0-16.5); Lymphocyte # 1.34 X10^3/ul (0.83-4.51); Mean Corp Hgb Conc 33.9 g/dL (32-36); Mean Corpuscular Hgb 27.8 pg (27.0-32.0); Mean Corpuscular Volume 81.8 fL (80-94); Mean Platelet Vol. 10.2 fl (6.2-12.0); Monocyte# 0.51 X10^3/uL; Monocyte% 7.2 % (0-10); NRBC Flagged by Analyzer 0 % (0-5); Neutrophil # 4.98 X10^3/uL (2.7-7.7); Neutrophil % 70.8 % (47-70); Platelet Count 198 K/mm3 (150-450); RBC Distribution Width CV 13.4 % (11.6-14.6); Red Blood Count 3.35 M/mm3 (4.6-6.2)
[2021-03-12 06:35] LABS: Bedside Glucose 112 mg/dL (70-110)
[2021-03-12 07:22] LABS: ALB/GLOB Ratio 0.4 RATIO (0.9-2.4); AST(SGOT) 16 U/L (15-37); Alanine Aminotransfer ALT/SGPT 17 U/L (16-61); Albumin, Serum 1.8 g/dL (3.2-5.0); Alkaline Phosphatase 129 U/L (45-117); Anion Gap 10 (5-15); BUN 50 mg/dL (7-18); BUN/Creat Ratio 14.7 RATIO (10-20); Calcium,Total 7.9 mg/dL (8.5-10.1); Chloride 117 mmol/L (98-107); Creatinine, Serum 3.39 mg/dL (0.70-1.30); EST Glomerular Filtration Rate 19 mL/min (>60); Est Glom Filt Rate - Afr Amer 23 mL/min (>60); Estimated Creatinine Clearance 18.82 ml/min; Globulin 4.3 g/dL (2.2-4.2); Glucose 110 mg/dL (74-106); Phosphorus 4.3 mg/dL (2.5-4.9); Potassium 3.1 mmol/L (3.5-5.1); Protein, Total 6.1 g/dL (6.4-8.2); Sodium Level 145 mmol/L (136-145); Thyroid Stim Hormone (TSH) 1.11 uIU/mL (0.358-3.74)
[2021-03-12] MEDS: Potassium Chloride Oral Tablet 20 MEQ 40 MEQ PO ×2 (08:28→14:13)
[2021-03-12] MEDS: rifAXIMin 550 MG Tablet PO ×2 (08:29→21:37)
[2021-03-12] MEDS: Heparin Injection (Vial) 5,000 UNIT/ML VIAL 5000 UNIT SC ×2 (08:29→21:37)
[2021-03-12] MEDS: Glucerna Shake 120 ML LIQUID PO ×4 (08:32→21:37)
[2021-03-12] MEDS: Ceftriaxone 1 GM/50 ML BAG IV (08:50)
[2021-03-12 08:54] VITALS: PULSE 80
[2021-03-12 09:17] VITALS: O2SAT 94
[2021-03-12 09:30] LABS: Lipase 327 U/L (73-393)
--- NOTE | 2021-03-12 10:20 | CASEMGMT ---
REUBEN BRIGHT Assessment: Face to Face with pt for initial transition planning/care coordination assessment. REUBEN BRIGHT introduced self and role at [facility], pt voices understanding and pt dtr and consent to assessment as pt unable to keep eyes open. Pt lying in bed in no distress. Care providers, pharmacy, and demographics verified/updated. Assessment completed via dtr Bronwyn. Admitting Dx: hepatic encephalopathy with cirrhosis PCP: Miguel Specialists: nephro from [facility] unsure of name; Lard, cardio [facility] Preferred Pharmacy: [facility] Insurance: [facility] Prescription Benefit: yes LW/HPOA: Pt denies having LW/DPOA LNOK: Bronwyn Judd, dtr; Mily Gennaroal, dtr; . Living Arrangements: Pt lives in a ground level apt with no steps to enter. Pt is dependent on family for ADL's. Transportation: Pt is blind and unable to drive. Pt or dtrs transport pt. DME/HHC/SNF: Pt has a wheelchair and walker at home. Pt dtr denies any previous HHC or SNF stays. Pt did not answer during assessment. She spoke another language to dtr throughout assessment. Pt dtr states since pt had COVID last year, he has not regained his strength. She is interested in HHC. Provided list of local in network HHC agencies, but she states she needs to discuss with her other sister prior to deciding if this is the route they would like to pursue. She states that they do not want pt to go to SNF. Discussed HHC and private duty options. No decision made and dtr aware that if pt dc's, this will need to be set up through family doctor if no decision is made during hospital stay. She verbalizes understanding. Pt dtr states no further concerns/needs. CM to follow. Advised pt to ask CM if any further question/concerns/needs arise, voices understanding. Pt dtr Goal: Home Plan: Home vs Home with HHC. Per [facility] PT, therapy was declined for today.
--- NOTE | 2021-03-12 13:12 | PN.HOSP_ITS ---
Subjective Subjective Patient is awake and alert and talking. Still lethargic but much improvement than yesterday. Patient does not drink alcohol and quit about 20 years ago. Objective Data Objective Data Vital Signs: Vital Signs Temp Pulse Resp BP Pulse Ox 98.7 F 80 18 164/84 H 94 03/12/21 06:21 03/12/21 08:54 03/12/21 06:21 03/12/21 06:21 03/12/21 09:17 Oxygen Delivery Method Room Air Weight: 155 lb 6.814 oz Body Mass Index (BMI) 25.0 Intake & Output: Intake and Output for Last 24 Hours 03/10/21 03/11/21 03/12/21 23:59 23:59 23:59 Intake Total 1288.75 / 1288.75 1063.75 / 1063.75 Output Total 750 / 750 790 / 790 Balance 538.75 / 538.75 273.75 / 273.75 Lab / Micro Data Result Diagrams: 03/12/21 05:45 03/12/21 05:45 Labs: Laboratory Results - last 24 hr 03/11/21 15:55: WBC 6.8, RBC 3.80 L, Hgb 10.4 L, Hct 31.0 L, MCV 81.6, MCH 27.4, MCHC 33.5, RDW Std Deviation 40.1, RDW Coeff of Edwin 13.5, Plt Count 235, MPV 9.7, Immature Gran % (Auto) 0.300, Neut % (Auto) 66.6, Lymph % (Auto) 21.6, Elk % (Auto) 8.1, Eos % (Auto) 2.8, Baso % (Auto) 0.6, Absolute Neuts (auto) 4.5, Absolute Lymphs (auto) 1.46, Nucleated RBC % 0 03/11/21 15:55: Sodium 143, Potassium 3.7, Chloride 110 H, Carbon Dioxide 22.0, Anion Gap 11, BUN 53 H, Creatinine 3.87 H, Estim Creat Clear Calc 16.49, Est GFR (MDRD) Af Amer 20 L, Est GFR (MDRD) Non-Af 17 L, BUN/Creatinine Ratio 13.7, Glucose 181 H, Calcium 8.4 L, Total Bilirubin 0.50, Direct Bilirubin 0.21, AST 21, ALT 22, Alkaline Phosphatase 159 H, Total Protein 7.2, Albumin 2.1 L, Globulin 5.1 H, Lipase 838 H 03/11/21 15:55: Ammonia 126.0 H 03/11/21 15:55: Lactic Acid 0.9 03/11/21 15:55: B-Natriuretic Peptide 83.0 03/11/21 15:55: Magnesium 2.0 03/11/21 16:23: PT 14.5, INR 1.2, APTT 31.2 03/11/21 16:55: Urine Color Yellow, Urine Clarity Clear, Urine pH 6.0, Ur Specific [place] 1.015, Urine Protein 500 H, Urine Glucose (UA) 100 H, Urine Ketones Negative, Urine Occult Blood 250 H, Urine Nitrite Negative, Urine Bilirubin Negative, Urine Urobilinogen Normal, Ur Leukocyte Esterase Negative, Urine RBC 50-100 SEEN, Urine WBC 0 SEEN, Ur Squamous Epith Cells 0 SEEN, Urine Bacteria 0 SEEN, Urine Mucus 0 SEEN 03/11/21 23:17: POC Glucose 157 H 03/12/21 05:45: WBC 7.0, RBC 3.35 L, Hgb 9.3 L, Hct 27.4 L, MCV 81.8, MCH 27.8, MCHC 33.9, RDW Std Deviation 40.0, RDW Coeff of Edwin 13.4, Plt Count 198, MPV 10.2, Immature Gran % (Auto) 0.300, Neut % (Auto) 70.8 H, Lymph % (Auto) 19.0, Elk % (Auto) 7.2, Eos % (Auto) 2.1, Baso % (Auto) 0.6, Absolute Neuts (auto) 5.0, Absolute Lymphs (auto) 1.34, Nucleated RBC % 0 03/12/21 05:45: Sodium 145, Potassium 3.1 L, Chloride 117 H, Carbon Dioxide 18.0 L, Anion Gap 10, BUN 50 H, Creatinine 3.39 H, Estim Creat Clear Calc 18.82, Est GFR (MDRD) Af Amer 23 L, Est GFR (MDRD) Non-Af 19 L, BUN/Creatinine Ratio 14.7, Glucose 110 H, Calcium 7.9 L, Phosphorus 4.3, Total Bilirubin 0.60, AST 16, ALT 17, Alkaline Phosphatase 129 H, Total Protein 6.1 L, Albumin 1.8 L, Globulin 4.3 H, Albumin/Globulin Ratio 0.4 L, Lipase 327, TSH 1.11 03/12/21 06:17: POC Glucose 112 H Radiography Diagnostic Testing: Radiology Impression Brain CT 03/11/21 16:06 IMPRESSION: No acute intracranial or calvarial abnormality. If there is continued concern for acute stroke, MRI is recommended. Electronically Signed: Michael Shepherd at 17:31 EDT Tel [phone], Service support , Chest X-Ray 03/11/21 16:50 IMPRESSION: No acute cardiopulmonary disease or major interval change. Electronically Signed: Michael CoraDO at 17:08 EDT Tel [phone], Service support , Physical Exam Narrative General: Awake, lethargic but communicative. HEENT: Atraumatic, PERRLA, EOMI, Normocephalic. A spontaneous eye opening Oral: Oral mucosa dry. No Gingival or Mucosal Lesions/ Ulcerations Neck: Supple, No JVD, Negative Carotid Bruits Lungs: Air entry diminished in bilateral lung bases. No crepitation/rhonchi Cardiovascular: Regular rate, Regular Rhythm, Normal S1, Normal S2, No murmurs Abdomen: Mild ascites. Bowel Sounds Present, Soft, Non Tender. : No renal angle tenderness. No suprapubic tenderness. 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 Patient has not been taking lactulose but gets about weekly paracentesis last 1 on past Sunday. Denies abdominal pain or fever or chills or cough. Chest x-ray did not show acute cardiopulmonary abnormality. CT brain no acute intracranial abnormality. Basic blood work shows BNP 83, UA WBC 0, RBC 5200, protein 500. Lactic acid normal ammonia 126. Liver chemistry shows normal bilirubin, alkaline phosphatase 159, normal transaminases. Lipase 1838. Serum albumin 2.1. Platelet count 235,000. Patient was given lactulose in ER and is slowly waking up. Patient is [place], does not speak Micronesian but history mainly taken from her daughter and granddaughter near the bedside. 1. Acute metabolic hepatic encephalopathy, not in coma due to decompensated alcoholic liver cirrhosis: Patient is being admitted on MedSur. IV fluid normal saline 75 mill per hour for 1 L. Patient has Crump catheter with clear urine. On lactulose and Xifaxan for goal of 3 bowel movements per day. Cultures x2 ordered from ER physician. Empirically started on IV Rocephin for possible SBP although patient denies previous history of SBP and there is no ab dominal tenderness. UA is negative. Lactic acid normal 03/12: Patient is awake and had 2 bowel movements yesterday. Advised to continue. Still mild encephalopathy therefore not ready for discharge. Blood culture and urine cultures are pending. No leukocytosis. Mild hypokalemia potassium replaced. Lipase normal 2. CKD stage IV, multiple etiologies possible HRS, prerenal, diabetic nephropa thy: Urine culture ordered we will try to correct reversible factors. BP 148/75. 3. Diabetes mellitus type 2: Glucose in BMP 181. Accu-Cheks every 6 hours and cover with Humalog sliding scale. 4. Hypertension: Blood pressure is slightly elevated. Home medications resumed. 5. Glaucoma: As per family patient is legally blind. VT prophylaxis: Heparin 5000 mg twice daily. Living will/advanced directive/end of life care: Patient main caregiver patient's daughter is not available in ED. Other daughter is not aware of advanced directive and will let me know tomorrow about the CODE STATUS. After discussion of benefits/risks procedures involved with full code, DNR CC arrest and DNR CC, daughter and granddaughter agreed for full code until changes are made. She want artificial life support including intubation, tube feed, ventilator and/chest compression, central venous catheter, vasopressor and DC shock if needed for the time being for the patient Total time spent in [id number] encounter in discussion of advanced directive 16 minutes. Charges/Coding Visit Charges Inpatient E&M: 10879 Subs Hosp L2
[2021-03-12 14:06] VITALS: BP 154/85; PULSE 82; RESP 20; TEMP 36.9; O2SAT 98
[2021-03-12 14:11] VITALS: PULSE 70
[2021-03-12 16:30] LABS: Bedside Glucose 159 mg/dL (70-110)
[2021-03-12 20:00] VITALS: BP 157/89; PULSE 82; RESP 16; TEMP 36.6; O2SAT 98
[2021-03-12] MEDS: Insulin Lispro 100 UNIT/ML INSULN.PEN SC (21:38)
[2021-03-12 22:10] LABS: Bedside Glucose 212 mg/dL (70-110)
[2021-03-13 00:51] LABS: Bedside Glucose 152 mg/dL (70-110)
[2021-03-13 02:00] VITALS: BP 153/80; PULSE 74; RESP 16; TEMP 36.8; O2SAT 98
[2021-03-13] MEDS: Lactulose 20 GM/30 ML UDC PO ×2 (06:37→13:02)
[2021-03-13 06:46] LABS: Bedside Glucose 135 mg/dL (70-110)
[2021-03-13 08:34] VITALS: O2SAT 98
[2021-03-13] MEDS: rifAXIMin 550 MG Tablet PO (09:16)
[2021-03-13] MEDS: Heparin Injection (Vial) 5,000 UNIT/ML VIAL 5000 UNIT SC (09:16)
[2021-03-13] MEDS: Ceftriaxone 1 GM/50 ML BAG IV (09:16)
[2021-03-13] MEDS: Glucerna Shake 120 ML LIQUID PO ×2 (09:16→13:03)
[2021-03-13 09:30] VITALS: BP 164/81; PULSE 85; RESP 18; TEMP 36.7; O2SAT 100
[2021-03-13 09:32] VITALS: PULSE 80
--- NOTE | 2021-03-13 09:59 | DS.PCM_ITS ---
Providers Date of Admission: 03/11/21 Primary Care Physician: Dr. Jerald Rivera MD Reason For Visit: HEPATIC ENCEPHALOPATHY WITH CIRRHOSIS Diagnosis Discharge Diagnosis (1) Acute hepatic encephalopathy: Status: Acute Code(s): K72.00 - Acute and subacute hepatic failure without coma (2) CKD (chronic kidney disease) stage 4, GFR 15-29 ml/min: Status: Inactive Code(s): N18.4 - Chronic kidney disease, stage 4 (severe) (3) DM type 2 (diabetes mellitus, type 2): Status: Inactive Code(s): E11.9 - Type 2 diabetes mellitus without complications Qualifiers: Chronic kidney disease stage: stage 3 (moderate) Chronic kidney disease stage 3 subtype: unspecified whether 3a or 3b Diabetes mellitus long-term insulin use: unspecified long-term insulin use status (4) HTN (hypertension): Status: Inactive Code(s): I10 - Essential (primary) hypertension Qualifiers: Hypertension type: essential hypertension Qualified Code(s): I10 - Essential (primary) hypertension Medications at Discharge Home Medications aspirin 81 mg PO DAILY@0800 09/18/20 atorvastatin 10 mg PO DAILY 09/18/20 losartan-hydrochlorothiazide 1 tab PO DAILY 09/18/20 timolol maleate 1 drp EACH EYE DAILY 09/18/20 amlodipine 5 mg PO DAILY 10/08/20 atropine 1 drp EACH EYE BID 10/08/20 Tresiba FlexTouch U-100 10 unit SUBCUT BID 03/11/21 furosemide 20 mg PO DAILY 03/11/21 prednisolone acetate 1 drp LEFT EYE BID 03/11/21 sertraline 50 mg PO DAILY 03/11/21 insulin lispro 30 unit SQ TID #0 ml 03/13/21 lactulose 20 g PO TID #2880 ml 03/13/21 rifaximin [Xifaxan] 550 mg PO BID #60 tab 03/13/21 Hospital Course Summary of Care Provided Hospital Course: This 58-year-old gentleman with history of decompensated alcoholic cirrhosis was admitted for hepatic encephalopathy. 1. Acute metabolic hepatic encephalopathy, not in coma due to decompensated alcoholic liver cirrhosis: Patient was admitted on MedSurg. Patient was treated with IV normal saline to correct dehydration. Crump catheter was inserted in ER. Clear urine. Crump catheter removed.On lactulose and Xifaxan for goal of 3 bowel movements per day. Cultures x2 did not show any growth. Empirically started on IV Rocephin for possible SBP but was discontinued later on. UA is negative. Lactic acid normal. Patient got progressively more awake alert and in x3. Patient's daughter and educated about lactulose tramadol bowel movement of 3/day and Xifaxan. Mild hypokalemia, potassium corrected. 2. CKD stage IV, multiple etiologies possible HRS, prerenal, diabetic nephro arnold; chronic: Urine culture ordered we will try to correct reversible factors. BP 148/75. 3. Diabetes mellitus type 2: Glucose in BMP 181. Blood sugar on baseline 4. Hypertension: Blood pressure is slightly elevated. Blood pressure medications continued 5. Glaucoma: As per family patient is legally blind. VT prophylaxis: Heparin 5000 mg twice daily. Discharge medication reconciliation done. Discharge follow-up instructions completed. Discharge process discussed with the patient and all questions were answered to patient's satisfaction. Total time spent, exact 35 minutes on discharge meds reconciliation, examination, coordination of care with nurses and ancillary staff, review of imaging and blood test and discussion with the patient on follow-up instructions Physical Exam Narrative Physical exam General: Awake, alert related x3. Patient is communicative. HEENT: Atraumatic, PERRLA, EOMI, Normocephalic. spontaneous eye opening. Legally blind for long time Oral: Oral mucosa dry. No Gingival or Mucosal Lesions/ Ulcerations Neck: Supple, No JVD, Negative Carotid Bruits Lungs: Air entry diminished in bilateral lung bases. No crepitation/rhonchi Cardiovascular: Regular rate, Regular Rhythm, Normal S1, Normal S2, No murmurs Abdomen: Mild to moderate ascites. Bowel Sounds Present, Soft, Non Tender. : No renal angle tenderness. No suprapubic tenderness. Extremities: Mild bilateral ankle edema, Capillary Refill Less than 3 Seconds Skin: No rashes, No breakdown Musculoskeletal: No Tenderness to Palpation of Joints or Extremities Neurological: Cranial nerves II-XII grossly intact, grossly encephalopathic Psych/Mental Status: Normal affect. Medical Records Data Medical Nutrition Assessment Dietitian: Nutrition Therapy Diagnosis Start: 03/12/21 14:31 Freq: Status: Active Protocol: Document 03/12/21 14:53 BP (Rec: 03/12/21 14:54 BP [id number]) Nutrition Malnutrition Evidence of Malnutrition Exists No Intake Problem Inadequate Energy Intake Etiology related to lack of motivation to consume sufficent energy to meet estimated nutrient needs Signs/Symptoms as evidenced by pt family report pt with decreased intake due to fear of inconsistence and altered taste since COVID illness. Status Active Problem Clinical Problem Altered Nutrient-Related Laboratory Values Etiology related to kidney dysfunction, CKD stage 4 Signs/Symptoms as evidenced by BUN:50, Creatinine:3.39, GFR:19. Status Active Problem Recommendation Dietitian Recommendations/Changes Will provide Cardiac: CHO consistent diet with protein restriction related to pt pmhx decreased renal function w/ CKD stage 4, T2DM, HTN. Will provide nepro carb steady 120 ml with meals of additional chano/pro if consumed . Will not restrict potassium ( low) or phosphorus (WNL) at this time. Weight / BMI Weight Weight: 162 lb 7.691 oz Body Mass Index (BMI) 25.0 ABG / Lab / Microbiology Data Result Diagrams: 03/12/21 05:45 03/13/21 10:28 Laboratory: Laboratory Results - last 24 hr 03/12/21 11:16: POC Glucose 152 H 03/12/21 16:13: POC Glucose 159 H 03/12/21 21:36: POC Glucose 212 H 03/13/21 06:37: POC Glucose 135 H Meaningful Use Info Meaningful Use Diagnoses (Choose all that apply): None applicable Discharge Plan Admission Admit Date/Time: 03/11/21 18:16 Primary Reason for Your Visit: Hepatic encephalopathy Attending Provider: Pernell Waddell Primary Care Provider: Jerald Rivera Instructions Patient Instructions: ED Chest Pain, Noncardiac Discharge Orders/Prescriptions Prescriptions: New Xifaxan 550 mg Tablet 550 mg PO BID Qty: 60 RF: 0 lactulose 20 gram/30 mL solution 20 g PO TID Qty: 2880 RF: 0 Continued atorvastatin 10 MG tablet 10 mg PO DAILY RF: 0 aspirin 81 MG tablet,chewable 81 mg PO DAILY@0800 RF: 0 timolol maleate 1 DROP gel forming solution 1 drp EACH EYE DAILY RF: 0 losartan-hydrochlorothiazide 1 EACH tablet 1 tab PO DAILY RF: 0 atropine 5 ML drops 1 drp EACH EYE BID RF: 0 amlodipine 10 MG tablet 5 mg PO DAILY RF: 0 prednisolone acetate 1 % drops,suspension 1 drp LEFT EYE BID RF: 0 furosemide 20 mg tablet 20 mg PO DAILY RF: 0 sertraline 50 mg tablet 50 mg PO DAILY RF: 0 Tresiba FlexTouch U-100 100 unit/mL (3 mL) insulin pen 10 unit SUBCUT BID RF: 0 insulin lispro 100 UNIT/ML insulin pen 30 unit SQ TID Qty: 0 RF: 0 Discontinued lactulose [Constulose] 10 gram/15 mL solution 20 g PO BID RF: 0 Referrals / Follow Up: Juan Manuel Coleman MD [NON-STAFF] - Within 2 Weeks (Decompensated cirrhosis with ascites and hepatic encephalopathy) Jerlad Rivera MD [Primary Care Provider] - Within 1 Week Disposition Disposition (needs filled in before D/C Order can be placed): Home, Self Care Charges/Coding Visit Charges Inpatient E&M: 74746 [facility] Hosp
--- NOTE | 2021-03-13 09:59 | PCM.DC ---
Discharge Instructions Diet Discharge Diet: 2000 mg Sodium Diet Activity Discharge Activity: May Not Drive Weight Bearing Status: Weight bearing as tolerated Dressing / Incision Call your doctor if you observe: Fever of 101 or Higher, Coldness, Increased Pain, Numbness or Tingling, Change in Color, Inability to urinate, Inability to have a bowel movement, Shortness of breath, Dizziness, Fainting spells, Swelling in the ankles, Chest pain, Prolonged hiccupping, Increased palpitations (irregular heartbeat), Calf discomfort and Uncontrolled pain Follow Up Care Test Results: Test results from this visit will be discussed in further detail at your follow-up appointment, if applicable. Discharge Plan Admission Admit Date/Time: 03/11/21 18:16 Primary Reason for Your Visit: Hepatic encephalopathy Attending Provider: Pernell Waddell Primary Care Provider: Jerald Rivera Instructions Patient Instructions: ED Chest Pain, Noncardiac Discharge Orders/Prescriptions Prescriptions: New Xifaxan 550 mg Tablet 550 mg PO BID Qty: 60 RF: 0 lactulose 20 gram/30 mL solution 20 g PO TID Qty: 2880 RF: 0 Continued atorvastatin 10 MG tablet 10 mg PO DAILY RF: 0 aspirin 81 MG tablet,chewable 81 mg PO DAILY@0800 RF: 0 timolol maleate 1 DROP gel forming solution 1 drp EACH EYE DAILY RF: 0 losartan-hydrochlorothiazide 1 EACH tablet 1 tab PO DAILY RF: 0 atropine 5 ML drops 1 drp EACH EYE BID RF: 0 amlodipine 10 MG tablet 5 mg PO DAILY RF: 0 prednisolone acetate 1 % drops,suspension 1 drp LEFT EYE BID RF: 0 furosemide 20 mg tablet 20 mg PO DAILY RF: 0 sertraline 50 mg tablet 50 mg PO DAILY RF: 0 Tresiba FlexTouch U-100 100 unit/mL (3 mL) insulin pen 10 unit SUBCUT BID RF: 0 insulin lispro 100 UNIT/ML insulin pen 30 unit SQ TID Qty: 0 RF: 0 Discontinued lactulose [Constulose] 10 gram/15 mL solution 20 g PO BID RF: 0 Referrals / Follow Up: Juan Manuel Coleman MD [NON-STAFF] - Within 2 Weeks (Decompensated cirrhosis with ascites and hepatic encephalopathy) Jerald Rivera MD [Primary Care Provider] - Within 1 Week Disposition Disposition (needs filled in before D/C Order can be placed): Home, Self Care
[2021-03-13] MEDS: amLODIPine 5 MG Tablet PO (10:51)
[2021-03-13] MEDS: Furosemide 20 MG Tablet PO (10:51)
[2021-03-13] MEDS: Insulin Lispro 100 UNIT/ML INSULN.PEN SC (10:56)
[2021-03-13 11:00] LABS: Anion Gap 9 (5-15); BUN 48 mg/dL (7-18); BUN/Creat Ratio 13.3 RATIO (10-20); Calcium,Total 8.2 mg/dL (8.5-10.1); Chloride 117 mmol/L (98-107); Creatinine, Serum 3.62 mg/dL (0.70-1.30); EST Glomerular Filtration Rate 18 mL/min (>60); Est Glom Filt Rate - Afr Amer 22 mL/min (>60); Estimated Creatinine Clearance 17.62 ml/min; Glucose 206 mg/dL (74-106); Potassium 3.8 mmol/L (3.5-5.1); Sodium Level 142 mmol/L (136-145)
[2021-03-13] MEDS: hydroCHLOROthiazide 12.5mg 12.5 MG PO (11:02)
[2021-03-13 11:11] LABS: Bedside Glucose 217 mg/dL (70-110)
--- NOTE | 2021-03-13 12:51 | NURSING ---
talked with [facility] regarding DC planning. aware she gave family information regarding HHC and following up with PCP if she decides she wants to presue HHC, aware OK to DC from her [place] and case mgmt will follow up with pt/family tomorrow.
[2021-03-13 12:57] VITALS: BP 151/83; PULSE 78; RESP 18; TEMP 36.9; O2SAT 100
[2021-03-13] MEDS: Losartan Potassium 100 MG Tablet PO (13:02)
--- NOTE | 2021-03-14 12:43 | CASEMGMT ---
REUBEN BRIGHT Discharge Follow Up Phone Call: JAHAIRA: 11 Strata:3 Call Date: 03/14/21 Discharge Date: 03/13/21 Time of Call: 1215 Duration: 3 min Admitting Dx: acute hepatic encephalopathy REUBEN BRIGHT completed follow up phone call after recent hospitalization. Dtr Bronwyn answered phone. She states she was not able to get the liver medicine as it needed prior auth. She states her father is doing about the same at this time. They do have an appt to see tomorrow and the appt for Dr. Coleman has not been made yet. She states she has not been able to speak with her sister regarding the HHC. She is aware to bring up to PCP tomorrow if they decide it is needed/wanted. Pt dtr has no further questions or concerns at this time. TC to [employer] to receive info needed for prior auth. TC to [employer] and gave info for prior auth. Per rep, it will be reviewed and then a fax will be sent as to if it is approved. TC back to pt dtr and left voicemail with this info.
== END 2021-03-13 15:32 | disposition home or self-care (01) | DRG 433 ==
LOC: ED 18:00 → MS3 18:19
PROVIDERS: Admitting Provider Internal Medicine; Emergency Provider Emergency Medicine; PCP Internal Medicine; Visit Provider Internal Medicine
DX: K70.40 Alcoholic hepatic failure without coma (principal); N18.4 Chronic kidney disease, stage 4 (severe); K70.31 Alcoholic cirrhosis of liver with ascites; I12.9 Hypertensive chronic kidney disease with stage 1 through stage 4 chronic kidney disease, or unspecified chronic kidney disease; E11.22 Type 2 diabetes mellitus with diabetic chronic kidney disease; H40.9 Unspecified glaucoma; H54.8 Legal blindness, as defined in USA; E87.6 Hypokalemia; E86.0 Dehydration
CPT/HCPCS: 36415; 49083; 51702; 70450; 71045; 80048; 80053; 80076; 81001; 82140; 82962; 83605; 83690; 83735; 83880; 84100; 84443; 85025; 85610; 85730; 87040; 87086; 92526; 92611; 93005; 97162; 97166; 97802; 99251; 99285; J7030; J7040; A4216; G0463

== ENCOUNTER → 2021-03-28 12:26 | Outpatient (CLI) | payer MEDICARE, MEDICAID, SELFPAY ==
[2020-10-08 18:48] VITALS: BMI 24.8
[2021-03-11 19:26] VITALS: BMI 25.0
--- NOTE | 2021-03-28 12:28 | US_ITS ---
PROCEDURE: Ultrasound guided paracentesis. DATE OF EXAMINATION: 03/28/2021. INDICATION: Male, 66 years old. Ascites. PHYSICIAN: Gold Muse M.D. TECHNIQUE: The risks, benefits, and alternatives to the procedure were explained to the patient. The specific risks of bleeding, infection, and damage to bowel were detailed and accepted. Witnessed informed consent was obtained. The abdomen was ultrasonographically surveyed. An appropriate pocket of fluid was identified at the right lower quadrant. The skin were cleaned and prepped in the usual sterile fashion. Using ultrasound guidance, the peritoneal cavity was accessed with a 5-Tristanian paracentesis needle/catheter system. The trocar was removed. A total of 4000 ml of mahamed-colored fluid were removed from the peritoneal cavity. The catheter was removed and a sterile dressing was applied. The procedure was well tolerated. US/Paracentesis with US IMPRESSION: Ultrasound guided paracentesis. Electronically Signed: Gold Muse MD at 13:35 EDT , Service support ,
[2021-03-28 12:41] VITALS: BP 129/62; BP 141/74; BP 155/79; BP 156/82; PULSE 68; PULSE 72; PULSE 73; RESP 16; RESP 18; O2SAT 100; O2SAT 99
== END | disposition home or self-care (01) ==
PROVIDERS: PCP Internal Medicine; Referring Provider Internal Medicine; Visit Provider Internal Medicine
DX: R18.8 Other ascites (principal)
CPT/HCPCS: 49083

== ENCOUNTER 2021-04-18 14:19 | Inpatient (IN) | payer MEDICARE, MEDICAID, SELFPAY ==
[2021-04-18] VITALS (7 sets, daily range): BP systolic 130–148; BP diastolic 66–78; PULSE 72–84; RESP 16–18; TEMP 36.6–37; O2SAT 98–100; BMI 24.1
--- NOTE | 2021-04-18 15:12 | ED.VIS.FALL ---
HPI HPI - Fall History of Present Illness Chief Complaint: Fall Informant: patient, spouse/S.O. and family Occured/Mechanism Occurred: Days (Patient fell last week April 13 he landed on his buttocks according to his daughter.) Narrative: Standing position Pain/Injury Pain Location: none Worsened by: Insert because of bruising, blood shot eye and epistaxis Relieved by: Nothing Associated Symptoms Associated Symptoms: Positive for Weakness; Negative for Parasthesias, Loss of function, Inability to ambulate, Loss of consciousness and Amnesia Narrative Narrative: Patient is an elderly male with history of alcoholic liver disease with cirrhosis and ascites. He is on no anticoagulant. He does have history of hepatic encephalopathy. 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 Daughter was the primary informant. supplemented. He denies headache. He denies ringing in his ears or decreased hearing. He denies neck pain. He denies chest pain or shortness of breath. is not noted blood in his urine nor is she noted black or maroon-colored stool. They are concerned because he has a subconjunctival hemorrhage of his left eye and bruising torso on the right side from the anterior axillary line to posterior axillary line. He denies abdominal pain. Tetanus Immunization: 5-10 years Prior similar symptoms: No Recent Illness/Hospitalization: No PFSH PFSH Medical History Acute kidney injury Alcoholic cirrhosis of liver CKD (chronic kidney disease) stage 4, GFR 15-29 ml/min DM type 2 (diabetes mellitus, type 2) Glaucoma HTN (hypertension) Hyperlipidemia Home Medications aspirin 81 mg PO DAILY@0800 09/18/20 [History Last Taken 10/08/20] atorvastatin 10 mg PO DAILY 09/18/20 [History Last Taken 10/08/20] losartan-hydrochlorothiazide 1 tab PO DAILY 09/18/20 [History Last Taken 10/08/20] timolol maleate 1 drp EACH EYE DAILY 09/18/20 [History Last Taken 10/08/20] amlodipine 5 mg PO DAILY 10/08/20 [History Last Taken 10/08/20] atropine 1 drp EACH EYE BID 10/08/20 [History Last Taken 10/08/20] Tresiba FlexTouch U-100 10 unit SUBCUT BID 03/11/21 [History Last Taken Unknown] furosemide 20 mg PO DAILY 03/11/21 [History Last Taken Unknown] prednisolone acetate 1 drp LEFT EYE BID 03/11/21 [History Last Taken Unknown] sertraline 50 mg PO DAILY 03/11/21 [History Last Taken Unknown] insulin lispro 30 unit SQ TID #0 ml 03/13/21 [Rx Last Taken 10/08/20] lactulose 20 g PO TID #2880 ml 03/13/21 [Rx Last Taken Unknown] rifaximin [Xifaxan] 550 mg PO BID #60 tab 03/13/21 [Rx Last Taken Unknown] Allergy/AdvReac Type Severity Reaction Status Date / Time No Known Allergies Allergy Verified 04/18/21 14:22 Social History (Updated 04/18/21 @ 15:[address] Gavino Head MD) household members: spouse and children Smoking Status: Never smoker alcohol intake: former substance use type: does not use ROS ROS ED Constitutional Constitutional ED: Denies chills, fever(s) or subjective Eyes Eyes: Denies blurry vision or change in vision ENT ENT ED: Reports other Details: Epistaxis ; Denies ear pain, rhinorrhea or sore throat Cardiovascular Cardiovascular: Denies chest pain, orthopnea, palpitations or racing heartbeat Respiratory/Chest Respiratory/Chest: Denies cough, dyspnea, dyspnea on exertion or orthopnea Gastrointestinal Gastrointestinal: Denies abdominal pain, diarrhea, nausea or vomiting Genitourinary Genitourinary ED: Denies hematuria Musculoskeletal Musculoskeletal: Denies arthralgias, back pain, myalgias or neck pain Integumentary Denies rash Neurologic Neurologic: Reports weakness; Denies headache(s) Endocrine Endocrinology: Denies polydipsia or polyuria Hematologic/Lymphatic Hematologic/Lymphatic: Reports easy bruising EXAM Physical Exam Const Vital Signs: 04/18/21 14:19 04/18/21 15:20 Temperature 98.5 F Temperature Source Temporal Pulse Rate 72 Respiratory Rate 16 Respiratory Effort Normal Respiratory Depth Normal Respiratory Pattern Normal Blood Pressure 136/67 H Blood Pressure Mean 90 Pulse Ox 100 Oxygen Delivery Method Room Air Room Air Positive well nourished and well developed General Appearance ED: well developed and NAD HEENT Reports normocephalic and TM's clear HEENT Narrative: There is blood noted in the left naris. There is blood posteriorly noted and reason for patient spitting up blood. TMs normal. There is no clinical signs of basilar skull fracture. atraumatic Tympanic Membrane ED: Yes TM's clear Eyes EOMs intact bilaterally General Eye ED: Yes scleral icterus; Negative for pale conjunctiva Neck full ROM, no lymphadenopathy and supple General: Negative for tenderness Chest Wall inspection of chest normal and palpation of chest normal Resp normal respiratory effort, no retractions and clear to auscultation bilaterally Cardio regular rate, regular rhythm, S1 normal heart sound, S2 normal heart sound and no murmurs GI non-tender and no masses; Negative for non-distended Auscultation: normoactive bowel sounds Palpation: soft Rectal Exam: other Other Details: Patient has a fluid wave noted. There is bruising noted. There is no tenderness of the left or right upper quadrant. Back/Spine no CVA tenderness Cervical Spine: Negative for cervical spine tenderness Thoracic Spine / Upper Back: Negative for thoracic spinal tenderness Lumbar Spine / Lower Back: lumbar spinal tenderness; Negative for paraspinal muscle tenderness Extremity full ROM, no joint enlargement and no calf tenderness; Negative for normal to inspection, no clubbing, cyanosis or edema or no pedal edema Extremity Narrative: Bilateral pitting edema. Neuro CN's II-XII intact bilaterally and moves all extremities Psych mental status grossly normal Skin Lesions: no lesions Rashes: no rashes MDM MDM MDM Narrative Medical decision making narrative: Concern patient has bruising due to coagulopathy secondary to his liver disease. CBC was obtained to assess H&H. Basic metabolic panel to assess renal function electrolytes. PT/INR to rule out coagulopathy. Will observe since there is no active bleeding noted from his naris. Lab Data Attestation: I reviewed the patient's lab results. Lab results narrative: Patient has acute anemia with a hemoglobin of 7.9. Normal hemoglobin ranges between 10 and 11. MCV is normal. Creatinine is elevated, 4.88. Earlier this year it was in the 2 range. 1 month ago it was in the 3 range. BUN is increased to 68. Stool for occult blood was ordered. Suspect this is due to the bruising and bleeding. Labs: Laboratory Results - last 24 hr 04/18/21 04/18/21 04/18/21 15:15 15:15 15:15 WBC 8.1 RBC 2.85 L Hgb 7.9 L Hct 23.3 L MCV 81.8 MCH 27.7 MCHC 33.9 RDW Std Deviation 46.9 H RDW Coeff of Edwin 15.9 H Plt Count 184 MPV 9.0 Immature Gran % (Auto) 0.700 Neut % (Auto) 79.0 H Lymph % (Auto) 8.9 L [place] % (Auto) 9.3 Eos % (Auto) 1.6 Baso % (Auto) 0.5 Absolute Neuts (auto) 6.4 Absolute Lymphs (auto) 0.72 L Nucleated RBC % 0 PT 15.1 H INR 1.3 Sodium 133 L Potassium 3.5 Chloride 105 Carbon Dioxide 16.0 L Anion Gap 12 BUN 68 H Creatinine 4.88 H Estim Creat Clear Calc 13.55 Est GFR (MDRD) Af Amer 15 L Est GFR (MDRD) Non-Af 13 L BUN/Creatinine Ratio 13.9 Glucose 231 H Calcium 7.7 L Total Bilirubin 0.50 AST 30 ALT 31 Alkaline Phosphatase 129 H Total Protein 6.6 Albumin 2.1 L Globulin 4.5 H Albumin/Globulin Ratio 0.5 L Discharge Plan Dx/Rx/DC Orders Clinical Impression: Epistaxis, Multiple bruises, Subconjunctival hemorrhage of left eye, Acute renal failure superimposed on stage 3 chronic kidney disease, Ascites due to alcoholic cirrhosis Disposition Disposition: Acute Care Hospital [facility]
[2021-04-18 15:23] LABS: Absolute Lymphocyte Count 0.72 X10^3/uL (0.83-4.51); Absolute Neutrophil Count 6.4 X10^3/uL (2.0-7.7); Basophil# 0.04 X10^3/uL; Basophil% 0.5 % (0-1); Eosinophil# 0.13 X10^3/uL; Eosinophils% 1.6 % (0-5); Hematocrit 23.3 % (40-54); Hemoglobin 7.9 g/dL (13.0-16.5); Lymphocyte # 0.72 X10^3/ul (0.83-4.51); Lymphocyte % 8.9 % (19-41); Mean Corp Hgb Conc 33.9 g/dL (32-36); Mean Corpuscular Hgb 27.7 pg (27.0-32.0); Mean Corpuscular Volume 81.8 fL (80-94); Monocyte# 0.75 X10^3/uL; Monocyte% 9.3 % (0-10); NRBC Flagged by Analyzer 0 % (0-5); Neutrophil # 6.38 X10^3/uL (2.7-7.7); Platelet Count 184 K/mm3 (150-450); RBC Distribution Width CV 15.9 % (11.6-14.6); RBC Distribution Width SD 46.9 fl (35.1-43.9); Red Blood Count 2.85 M/mm3 (4.6-6.2); White Blood Count 8.1 K/mm3 (4.4-11.0)
[2021-04-18 15:32] LABS: International Normalized Ratio 1.3; Prothrombin Time (Protime)PT. 15.1 SECONDS (11.7-14.9)
[2021-04-18 15:39] LABS: ALB/GLOB Ratio 0.5 RATIO (0.9-2.4); AST(SGOT) 30 U/L (15-37); Alanine Aminotransfer ALT/SGPT 31 U/L (16-61); Albumin, Serum 2.1 g/dL (3.2-5.0); Alkaline Phosphatase 129 U/L (45-117); Anion Gap 12 (5-15); BUN 68 mg/dL (7-18); BUN/Creat Ratio 13.9 RATIO (10-20); Calcium,Total 7.7 mg/dL (8.5-10.1); Chloride 105 mmol/L (98-107); Creatinine, Serum 4.88 mg/dL (0.70-1.30); EST Glomerular Filtration Rate 13 mL/min (>60); Est Glom Filt Rate - Afr Amer 15 mL/min (>60); Estimated Creatinine Clearance 13.55 ml/min; Globulin 4.5 g/dL (2.2-4.2); Glucose 231 mg/dL (74-106); Potassium 3.5 mmol/L (3.5-5.1); Protein, Total 6.6 g/dL (6.4-8.2); Sodium Level 133 mmol/L (136-145)
[2021-04-18 16:24] LABS: Bacteria 0 SEEN /hpf (None Seen); Mucous, Urine 0 SEEN /hpf (<or=2+); White Blood Cells 0 SEEN /hpf (0-5)
[2021-04-18 16:43] LABS: Color, Urine Yellow (Yellow); Glucose, Dipstick 100 mg/dl (Normal); Ketone-Dipstick Negative (Negative); Leukocyte Esterase-Dipstick Negative /ul (Negative); Nitrite-Dipstick Negative (Negative); Occult Blood-Urine 250 /ul (Negative); Protein-Dipstick 500 mg/dl (Negative); Specific Gravity, Urine 1.015 (1.002-1.030); Urine Bilirubin Dipstick Negative (Negative); Urine Clarity Sl. Cloudy (Clear); Urine Urobilinogen Normal (Normal)
--- NOTE | 2021-04-18 16:45 | CT_ITS ---
HISTORY: fall with bruising, history of cirrhosis and renal failure EXAMINATION: CT Abdomen And Pelvis W/O Contrast Injection TECHNIQUE: Multiple axial images were obtained of the abdomen and pelvis without oral or IV contrast. A radiation dose optimization technique was used for this scan. IV Contrast dosage and agent: None. Oral contrast: None. COMPARISON: None FINDINGS: LOWER CHEST: Lung bases are clear. No cardiomegaly or pericardial effusion. LIVER: Nodular margins. No gross focal mass. No laceration. GALLBLADDER AND BILIARY TREE: Calcified gallstones. No gallbladder distension or wall edema. No intra- or extrahepatic biliary ductal dilation. PANCREAS: No focal cystic or solid mass. SPLEEN: Splenomegaly with multiple portosystemic collaterals. ADRENAL GLANDS: No nodules. KIDNEYS AND URETERS: Normal renal size and position. No hydronephrosis or nephrolithiasis. PERITONEUM: No free air. Moderate fluid attenuation ascites. BOWEL: Normal appendix. No stomach or bowel distension. No focal inflammatory bowel wall changes. LYMPH NODES: No enlarged mesenteric or retroperitoneal lymph nodes. VESSELS: Aorta is non-dilated. URINARY BLADDER: Unremarkable. REPRODUCTIVE ORGANS: No pelvic masses. ABDOMINAL WALL: No discrete abdominal or pelvic wall hernia. BONES: No acute or aggressive abnormality. CT/Abdomen/Pelvis without Cont IMPRESSION: No acute findings in the abdomen or pelvis. Moderate ascites. Hepatic cirrhosis with portal hypertension. Individualized dose optimization techniques were used for this CT. at 1831 Reported and signed by: Ulices Jones MD Electronically Signed: Ulices Jones MD at 18:30 EDT Tel , Service support ,
--- NOTE | 2021-04-18 17:02 | PCM.HP.STD ---
Documented by User: BERNARDO Goodwin 04/18/21 17:25 HPI - General General Date of Admission: 04/18/21 Date of Service: 04/18/21 Chief Complaint: Excessive bruising, weakness HPI Narrative TRUDY CANCINO, is a 66 M who presents following a fall on 04/14/2021. Patient does not speak Telugu, daughter translating. Patient daughter reports that patient has since developed a large bruise on his right flank/back and has become weak. Patient's daughter also reports that patient has had multiple bouts of epistaxis and has blood in his left eye. Patient's denies seeing any blood in patient's urine or stool as she has been assisting him to the bathroom due to weakness. Patient daughter reports that patient has a medical history of chronic kidney disease stage III as well as ascites due to alcoholic cirrhosis. Patient denies fever, chills, shortness of breath, chest pain, cough, abdominal pain, nausea, vomiting. [facility] Medical History Acute kidney injury Alcoholic cirrhosis of liver CKD (chronic kidney disease) stage 4, GFR 15-29 ml/min DM type 2 (diabetes mellitus, type 2) Glaucoma HTN (hypertension) Hyperlipidemia Home Medications aspirin 81 mg PO DAILY@0800 09/18/20 [History Last Taken 04/17/21] atorvastatin 10 mg PO DAILY 09/18/20 [History Last Taken 04/17/21] losartan-hydrochlorothiazide 1 tab PO DAILY 09/18/20 [History Last Taken 04/18/21] timolol maleate 1 drp EACH EYE DAILY 09/18/20 [History Last Taken 04/18/21] amlodipine 5 mg PO DAILY 10/08/20 [History Last Taken 04/18/21] atropine 1 drp EACH EYE BID 10/08/20 [History Last Taken 04/18/21] Tresiba FlexTouch U-100 10 unit SUBCUT BID 03/11/21 [History Last Taken 04/17/21] furosemide 20 mg PO DAILY 03/11/21 [History Last Taken 04/17/21] prednisolone acetate 1 drp LEFT EYE BID 03/11/21 [History Last Taken 04/18/21] sertraline 50 mg PO DAILY 03/11/21 [History Last Taken 04/18/21] insulin lispro 30 unit SQ TID #0 ml 03/13/21 [Rx Last Taken 04/17/21] lactulose 20 g PO TID #2880 ml 03/13/21 [Rx Last Taken 04/17/21] Allergy/AdvReac Type Severity Reaction Status Date / Time No Known Allergies Allergy Verified 04/18/21 14:22 unable to obtain (Patient does not know familial history) no surgical history (Per daughter she is unaware of any surgeries patient may have) Social History household members: spouse and children Smoking Status: Never smoker alcohol intake: former substance use type: does not use ROS Constitutional Constitutional: Reports weakness; Denies anorexia, chills, fatigue or fever(s) Eyes Eyes: Reports blindness and bloody eye ENT HEENT: Reports epistaxis Cardiovascular Cardiovascular: Denies chest pain, edema or palpitations Respiratory/Chest Respiratory/Chest: Denies cough, shortness of breath at rest or shortness of breath with exertion Gastrointestinal Gastrointestinal: Denies abdominal pain, constipation, diarrhea, nausea or vomiting Genitourinary Genitourinary: Reports dysuria Musculoskeletal Musculoskeletal: Denies back pain, extremity pain, joint pain or joint stiffness Integumentary Integumentary: Reports unusual bruising; Denies dry skin Neurologic Neurologic: Denies abnormal gait, abnormal speech, confusion, dizziness or focal weakness Psychiatric Psychiatric: Denies anxiety or depression Endocrine Endocrinology: Denies change in body appearance Hematologic/Lymphatic Hematologic/Lymphatic: Reports easy bleeding and easy bruising Vital Signs Vital Signs Vital Signs: 04/18/21 14:19 04/18/21 15:20 04/18/21 16:44 Temperature 98.5 F 97.8 F Temperature Source Temporal Oral Pulse Rate 72 74 Respiratory Rate 16 16 Respiratory Effort Normal Respiratory Depth Normal Respiratory Pattern Normal Blood Pressure 136/67 H 134/78 H Blood Pressure Mean 90 96 Pulse Ox 100 98 Oxygen Delivery Method Room Air Room Air Room Air Weight Weight: 154 lb 5.177 oz Body Mass Index (BMI) 24.1 Physical Exam Const alert, oriented x3 and no apparent distress General Appearance: cooperative HEENT normocephalic and head/scalp atraumatic Eyes no scleral icterus and no papilledema Conjunctiva: conjunctiva abnormal left Details: subconjuctival hemorrhage Neck supple and no JVD General: trachea midline Resp normal respiratory effort, normal air movement and clear to auscultation bilaterally Cardio regular rate, regular rhythm, S1 normal heart sound, S2 normal heart sound and peripheral pulses 2+ throughout GI normal to inspection, nondistended, normoactive bowel sounds, soft to palpation and non-tender Extremity normal capillary refill and no clubbing, cyanosis or edema General Extremity: no tenderness to palpation of joints or extremities Skin General Skin Exam: turgor normal and ecchymosis Wound Narrative: Large amount of ecchymosis to right flank/back Neuro no focal motor deficits and no sensory deficits noted Speech: speech normal Motor Exam: general weakness Psych thought process normal, cooperative and affect normal Appearance: appropriate Results Lab / Micro Data Result Diagrams: 04/18/21 15:15 04/18/21 15:15 Labs: Laboratory Results - last 24 hr 04/18/21 15:15: WBC 8.1, RBC 2.85 L, Hgb 7.9 L, Hct 23.3 L, MCV 81.8, MCH 27.7, MCHC 33.9, RDW Std Deviation 46.9 H, RDW Coeff of Edwin 15.9 H, Plt Count 184, MPV 9.0, Immature Gran % (Auto) 0.700, Neut % (Auto) 79.0 H, Lymph % (Auto) 8.9 L, [place] % (Auto) 9.3, Eos % (Auto) 1.6, Baso % (Auto) 0.5, Absolute Neuts (auto) 6.4, Absolute Lymphs (auto) 0.72 L, Nucleated RBC % 0 04/18/21 15:15: PT 15.1 H, INR 1.3 04/18/21 15:15: Sodium 133 L, Potassium 3.5, Chloride 105, Carbon Dioxide 16.0 L, Anion Gap 12, BUN 68 H, Creatinine 4.88 H, Estim Creat Clear Calc 13.55, Est GFR (MDRD) Af Amer 15 L, Est GFR (MDRD) Non-Af 13 L, BUN/Creatinine Ratio 13.9, Glucose 231 H, Calcium 7.7 L, Total Bilirubin 0.50, AST 30, ALT 31, Alkaline Phosphatase 129 H, Total Protein 6.6, Albumin 2.1 L, Globulin 4.5 H, Albumin/Globulin Ratio 0.5 L Micro: Microbiology 04/18/21 16:00 Stool Stool Occult Blood (NORI) - Final 04/18/21 16:03 Nasal Secretion SARS-CoV-2 Antigen (Rapid) - Final Assessment & Plan Assessment/Plan (1) Multiple bruises: (2) Subconjunctival hemorrhage of left eye: (3) Acute renal failure superimposed on stage 3 chronic kidney disease: QUALIFIERS: Acute renal failure type: unspecified Chronic kidney disease stage 3 subtype: stage 3b (GFR 30-44) Qualified Code(s): N17.9 - Acute kidney failure, unspecified; N18.32 - Chronic kidney disease, stage 3b PLAN: 1. Acute renal failure superimposed on stage IIIb chronic kidney disease -Admit to [facility] -CBC and CMP daily, hemoglobin and hematocrit ordered for midnight due to excessive bruising and decrease of hemoglobin from 9.3-7.9 over approximately 1 month. -PT and OT to eval and treat -Vital signs per protocol -Consult Dr. Ramos, patient's family states that they are in the middle of transitioning to Dr. Ramos's care for nephrology from a practice in [place] -Normal saline 125ml/hr -Will hold hydrochlorothiazide and furosemide at this time -Daily weights -Strict intake and output 2. Anemia -Likely secondary to cirrhosis and fall as patient demonstrates significant bruising to the right flank -Will obtain noncontrast CT due to renal failure -H&H ordered for midnight, CBC daily if patient's hemoglobin -Continues to decrease would consider blood transfusion 3. Subconjunctival hemorrhage of left eye -Continue to monitor, patient blind 4. Diabetes mellitus -Will continue home long-acting and short acting regimen -AC at bedtime blood sugars with sliding scale insulin ordered -Hypoglycemia protocol ordered -Cardiac diet ordered with consistent carbs 5. Hypertension -We will continue home regimen with the exception of hydrochlorothiazide and furosemide due to CANELO. -Vital signs per protocol -Vital signs currently stable trend BP DVT prophylaxis-SCDs, due to excessive bleeding will not initiate pharmacological prophylaxis at this time This patient was seen by Doreen Mckeon NP-C under the supervision of Dr. Buckner. Documented by User: Dr. Марина Buckner MD 04/18/21 17:38 HPI - General General Date of Admission: 04/18/21 [facility] Medical History Acute kidney injury Alcoholic cirrhosis of liver CKD (chronic kidney disease) stage 4, GFR 15-29 ml/min DM type 2 (diabetes mellitus, type 2) Glaucoma HTN (hypertension) Hyperlipidemia Home Medications aspirin 81 mg PO DAILY@0800 09/18/20 [History Last Taken 04/17/21] atorvastatin 10 mg PO DAILY 09/18/20 [History Last Taken 04/17/21] losartan-hydrochlorothiazide 1 tab PO DAILY 09/18/20 [History Last Taken 04/18/21] timolol maleate 1 drp EACH EYE DAILY 09/18/20 [History Last Taken 04/18/21] amlodipine 5 mg PO DAILY 10/08/20 [History Last Taken 04/18/21] atropine 1 drp EACH EYE BID 10/08/20 [History Last Taken 04/18/21] Tresiba FlexTouch U-100 10 unit SUBCUT BID 03/11/21 [History Last Taken 04/17/21] furosemide 20 mg PO DAILY 03/11/21 [History Last Taken 04/17/21] prednisolone acetate 1 drp LEFT EYE BID 03/11/21 [History Last Taken 04/18/21] sertraline 50 mg PO DAILY 03/11/21 [History Last Taken 04/18/21] insulin lispro 30 unit SQ TID #0 ml 03/13/21 [Rx Last Taken 04/17/21] lactulose 20 g PO TID #2880 ml 03/13/21 [Rx Last Taken 04/17/21] Allergy/AdvReac Type Severity Reaction Status Date / Time No Known Allergies Allergy Verified 04/18/21 14:22 Social History household members: spouse and children Smoking Status: Never smoker alcohol intake: former substance use type: does not use Results Lab / Micro Data Result Diagrams: 04/18/21 15:15 04/18/21 15:15 Charges/Coding Addendum Addendum: This patient was seen in conjunction with Melissa Wiseman. I have independently interviewed and examined the patient and reviewed pertinent historical, laboratory, and other data. I have reviewed her note and concur with her documentation 66-year-old male with past medical history of liver cirrhosis, CKD who comes in with complaints of epistaxis noted today. Patient had a fall about 5 days ago. He had his back. He did not hit his head. Patient was noted today with epistaxis which were described with clots. No recent illness. No fever or chills Physical Exam: Gen: Blind, no obvious epistaxis, not pale, not jaundiced, left eye has subconjunctival hematoma CVS:HS I +II, regular, no murmurs RESP: Diminished at lung bases GI: BS present and normal, soft, distended, ascites present++ EXT: Bilateral leg edema +1-2 ASSESSMENT: 1. Epistaxis/subconjunctival hematoma 2. CANELO on CKD stage IIIb 3. Anemia, history of anemia of chronic disease 4. Type II DM 5. Hypertension Plan: We will trend H&H Gentle IV fluids to prevent fluid overload Nephrology consult Hold aspirin Hold Lasix Repeat blood work in a.m. Visit Charges Inpatient E&M: 69016 Init Hosp L3
[2021-04-18 17:06] LABS: Red Blood Cells-Urine > 100 SEEN /hpf (0-5); Squamous Epithelial Cells - UA 5-10 SEEN /hpf (0-5)
--- NOTE | 2021-04-18 18:44 | PCS.PANDOC ---
PANDEMIC DOCUMENTATION INITIATED: Date: 04/04/2021 Time: 190
[2021-04-18] MEDS: 0.9% Saline Lock 10 ML Syringe IV (20:34)
[2021-04-18] MEDS: 0.9% Normal Saline 1,000 ML 125 ML IV (20:37)
[2021-04-18 20:43] LABS: Hematocrit 21.8 % (40-54); Hemoglobin 7.4 g/dL (13.0-16.5)
[2021-04-18] MEDS: Atropine Sulfate 1% 2 ml Bottle 1 DRP EACH EYE (22:04)
[2021-04-18] MEDS: prednisoLONE eye drops (5 mL) 1 DROP OPTH.BTL 1 DRP LEFT EYE (22:05)
[2021-04-18] MEDS: Lactulose 20 GM/30 ML UDC PO (22:05)
[2021-04-18] MEDS: Atorvastatin Calcium 10 MG Tablet PO (22:05)
[2021-04-18 22:21] LABS: Bedside Glucose 168 mg/dL (70-110)
[2021-04-19] VITALS (18 sets, daily range): BP systolic 128–183; BP diastolic 57–94; PULSE 76–96; RESP 16–20; TEMP 36.6–37; O2SAT 97–100
[2021-04-19 00:36] LABS: Hematocrit 23.7 % (40-54)
[2021-04-19] MEDS: 0.9% Normal Saline 1,000 ML 125 ML IV (03:37)
[2021-04-19] MEDS: hydrALAZINE 20 MG/ML Vial 10 MG IV (03:37)
[2021-04-19 05:28] LABS: Absolute Lymphocyte Count 0.96 X10^3/uL (0.83-4.51); Absolute Neutrophil Count 6.7 X10^3/uL (2.0-7.7); Basophil# 0.04 X10^3/uL; Basophil% 0.4 % (0-1); Eosinophils% 2.2 % (0-5); Hematocrit 21.6 % (40-54); Hemoglobin 7.3 g/dL (13.0-16.5); Lymphocyte # 0.96 X10^3/ul (0.83-4.51); Lymphocyte % 10.8 % (19-41); Mean Corp Hgb Conc 33.8 g/dL (32-36); Mean Corpuscular Hgb 27.9 pg (27.0-32.0); Mean Corpuscular Volume 82.4 fL (80-94); Mean Platelet Vol. 9.7 fl (6.2-12.0); Monocyte% 10.1 % (0-10); NRBC Flagged by Analyzer 0 % (0-5); Neutrophil # 6.72 X10^3/uL (2.7-7.7); Neutrophil % 75.7 % (47-70); Platelet Count 187 K/mm3 (150-450); RBC Distribution Width CV 15.6 % (11.6-14.6); Red Blood Count 2.62 M/mm3 (4.6-6.2); White Blood Count 8.9 K/mm3 (4.4-11.0)
[2021-04-19 05:57] LABS: ALB/GLOB Ratio 0.5 RATIO (0.9-2.4); AST(SGOT) 34 U/L (15-37); Alanine Aminotransfer ALT/SGPT 33 U/L (16-61); Albumin, Serum 2.1 g/dL (3.2-5.0); Alkaline Phosphatase 131 U/L (45-117); Anion Gap 14 (5-15); BUN 69 mg/dL (7-18); BUN/Creat Ratio 14.7 RATIO (10-20); Chloride 107 mmol/L (98-107); EST Glomerular Filtration Rate 13 mL/min (>60); Est Glom Filt Rate - Afr Amer 16 mL/min (>60); Estimated Creatinine Clearance 14.06 ml/min; Globulin 4.2 g/dL (2.2-4.2); Glucose 145 mg/dL (74-106); Potassium 3.1 mmol/L (3.5-5.1); Protein, Total 6.3 g/dL (6.4-8.2); Sodium Level 133 mmol/L (136-145)
[2021-04-19] MEDS: Lactulose 20 GM/30 ML UDC PO ×3 (06:24→22:53)
[2021-04-19 06:35] LABS: Bedside Glucose 132 mg/dL (70-110)
[2021-04-19] MEDS: amLODIPine 5 MG Tablet PO (09:15)
[2021-04-19] MEDS: 0.9% Saline Lock 10 ML Syringe IV ×3 (09:15→15:59)
[2021-04-19] MEDS: Sertraline 50 MG Tablet PO (09:15)
[2021-04-19] MEDS: Potassium Chloride Oral Tablet 20 MEQ 60 MEQ PO (09:15)
[2021-04-19] MEDS: Timolol 0.5% 5ML OPTH.BTL 1 DRP EACH EYE (09:16)
[2021-04-19] MEDS: prednisoLONE eye drops (5 mL) 1 DROP OPTH.BTL 1 DRP LEFT EYE ×2 (09:16→22:54)
[2021-04-19] MEDS: Atropine Sulfate 1% 2 ml Bottle 1 DRP EACH EYE ×2 (09:17→22:54)
[2021-04-19] MEDS: Aspirin 81 MG TAB.CHEW PO (09:17)
--- NOTE | 2021-04-19 09:21 | PCM.PN.HOSP ---
Subjective Subjective Patient was seen and examined. Daughter at the bedside translating. No more epistaxis. He complains of abdominal distention Objective Data Objective Data Vital Signs: Vital Signs Temp Pulse Resp BP Pulse Ox 98.2 F 90 16 144/70 H 100 04/19/21 08:55 04/19/21 08:57 04/19/21 08:55 04/19/21 08:55 04/19/21 08:55 Oxygen Delivery Method Room Air Weight: 75.5 kg Body Mass Index (BMI) 24.1 Intake & Output: Intake and Output for Last 24 Hours 04/17/21 04/18/21 04/19/21 23:59 23:59 23:59 Intake Total 1772.08 / 1772.08 Output Total 100 / 600 700 / 700 Balance -100 / -400 1072.08 / 1072.08 Lab / Micro Data Result Diagrams: 04/19/21 05:16 04/19/21 05:16 Labs: Laboratory Results - last 24 hr 04/18/21 15:15: WBC 8.1, RBC 2.85 L, Hgb 7.9 L, Hct 23.3 L, MCV 81.8, MCH 27.7, MCHC 33.9, RDW Std Deviation 46.9 H, RDW Coeff of Edwin 15.9 H, Plt Count 184, MPV 9.0, Immature Gran % (Auto) 0.700, Neut % (Auto) 79.0 H, Lymph % (Auto) 8.9 L, [place] % (Auto) 9.3, Eos % (Auto) 1.6, Baso % (Auto) 0.5, Absolute Neuts (auto) 6.4, Absolute Lymphs (auto) 0.72 L, Nucleated RBC % 0 04/18/21 15:15: PT 15.1 H, INR 1.3 04/18/21 15:15: Sodium 133 L, Potassium 3.5, Chloride 105, Carbon Dioxide 16.0 L, Anion Gap 12, BUN 68 H, Creatinine 4.88 H, Estim Creat Clear Calc 13.55, Est GFR (MDRD) Af Amer 15 L, Est GFR (MDRD) Non-Af 13 L, BUN/Creatinine Ratio 13.9, Glucose 231 H, Calcium 7.7 L, Total Bilirubin 0.50, AST 30, ALT 31, Alkaline Phosphatase 129 H, Total Protein 6.6, Albumin 2.1 L, Globulin 4.5 H, Albumin/Globulin Ratio 0.5 L 04/18/21 16:16: Urine Color Yellow, Urine Clarity Sl. Cloudy, Urine pH 6.0, Ur Specific Stanton 1.015, Urine Protein 500 H, Urine Glucose (UA) 100 H, Urine Ketones Negative, Urine Occult Blood 250 H, Urine Nitrite Negative, Urine Bilirubin Negative, Urine Urobilinogen Normal, Ur Leukocyte Esterase Negative, Urine RBC > 100 SEEN, Urine WBC 0 SEEN, Ur Squamous Epith Cells 5-10 SEEN, Urine Bacteria 0 SEEN, Urine Mucus 0 SEEN 04/18/21 17:54: Ammonia 180.0 H 04/18/21 20:30: Hgb 7.4 L, Hct 21.8 L 04/18/21 20:30: Blood Type B POSITIVE, Antibody Screen NEGATIVE 04/18/21 22:04: POC Glucose 168 H 04/19/21 00:25: Hgb 8.0 L, Hct 23.7 L 04/19/21 05:16: WBC 8.9, RBC 2.62 L, Hgb 7.3 L, Hct 21.6 L, MCV 82.4, MCH 27.9, MCHC 33.8, RDW Std Deviation 47.0 H, RDW Coeff of Edwin 15.6 H, Plt Count 187, MPV 9.7, Immature Gran % (Auto) 0.800, Neut % (Auto) 75.7 H, Lymph % (Auto) 10.8 L, [place] % (Auto) 10.1 H, Eos % (Auto) 2.2, Baso % (Auto) 0.4, Absolute Neuts (auto) 6.7, Absolute Lymphs (auto) 0.96, Nucleated RBC % 0 04/19/21 05:16: Sodium 133 L, Potassium 3.1 L, Chloride 107, Carbon Dioxide 12.0 L, Anion Gap 14, BUN 69 H, Creatinine 4.70 H, Estim Creat Clear Calc 14.06, Est GFR (MDRD) Af Amer 16 L, Est GFR (MDRD) Non-Af 13 L, BUN/Creatinine Ratio 14.7, Glucose 145 H, Calcium 8.0 L, Total Bilirubin 0.60, AST 34, ALT 33, Alkaline Phosphatase 131 H, Total Protein 6.3 L, Albumin 2.1 L, Globulin 4.2, Albumin/Globulin Ratio 0.5 L 04/19/21 06:26: POC Glucose 132 H Micro: Microbiology 04/18/21 16:00 Stool Stool Occult Blood (NORI) - Final 04/18/21 16:03 Nasal Secretion SARS-CoV-2 Antigen (Rapid) - Final Radiography Diagnostic Testing: Radiology Impression Abdomen/Pelvis CT 04/18/21 16:45 IMPRESSION: No acute findings in the abdomen or pelvis. Moderate ascites. Hepatic cirrhosis with portal hypertension. Individualized dose optimization techniques were used for this CT. at 1831 Reported and signed by: Ulices Jnoes MD Electronically Signed: Ulices Jones MD at 18:30 EDT Tel , Service support , Physical Exam Narrative Physical Exam: Gen: Blind, no obvious epistaxis, not pale, not jaundiced, left eye has subconjunctival hematoma CVS:HS I +II, regular, no murmurs RESP: Diminished at lung bases GI: BS present and normal, soft, distended, ascites present++ EXT: Bilateral leg edema +1-2 Assessment & Plan Assessment/Plan (1) Acute renal failure superimposed on stage 3 chronic kidney disease: QUALIFIERS: Acute renal failure type: unspecified Chronic kidney disease stage 3 subtype: stage 3b (GFR 30-44) Qualified Code(s): N17.9 - Acute kidney failure, unspecified; N18.32 - Chronic kidney disease, stage 3b (2) Subconjunctival hemorrhage of left eye: (3) Multiple bruises: (4) Epistaxis: (5) Anasarca: (6) Ascites: (7) Chronic liver disease: (8) Failure to thrive: PLAN: 1. Epistaxis/subconjunctival hemorrhage to the left eye, none seen since admission Platelet count and INR is unremarkable Will continue to monitor 2. CANELO on CKD stage IIIb, remains about the same Creatinine is 4.70. Admitting creatinine is 4.88 Nephrology consulted, will follow up on recommendations 3. Hypokalemia, replaced, recheck in am 4. Ascites secondary to decompensated chronic liver disease, Ammonia level was 180 on admission, Continue on lactulose will do therapeutic paracentesis today We will give albumin 25 g if patient gets more than 3 L of fluid taken out 4. Anemia, of chronic disease, hemoglobin 7.3, will transfuse less than seven 5. Type II DM, controlled, continue Lantus, premeal insulin insulin sliding scale 6. Hypertension, one continue amlodipine Charges/Coding Visit Charges Inpatient E&M: 02214 Subs Hosp L3
--- NOTE | 2021-04-19 10:02 | NURSING ---
0955 smith emptied and 24 hour urine started.
[2021-04-19 10:39] LABS: Magnesium 1.7 mg/dL (1.6-2.6)
[2021-04-19 12:01] LABS: Bedside Glucose 150 mg/dL (70-110)
--- NOTE | 2021-04-19 12:30 | US_ITS ---
PROCEDURE: ULTRASOUND GUIDED PARACENTESIS CLINICAL HISTORY: Male, 66 years old. Ascites PHYSICIAN: Bakari Shirley MD INFORMED CONSENT: The risks, benefits, and alternatives to the procedure were explained to the patient. The specific risks of bleeding, infection, and damage to bowel were detailed and accepted. Witnessed informed consent was obtained. TECHNIQUES: The abdomen was ultrasonographically surveyed. An appropriate pocket of fluid was identified at the right lower quadrant. The skin was cleaned and prepped in the usual sterile fashion. Using ultrasound guidance, the peritoneal cavity was accessed with a 5-Australian paracentesis needle/catheter system. The trocar was removed. A total of 5850 ml of straw-colored ascitic fluid was removed from the peritoneal cavity. The catheter was removed and a sterile dressing was applied. The procedure was well tolerated. The patient did not receive albumin during the procedure. # of Images: 11 US/Paracentesis with US IMPRESSION: Ultrasound guided paracentesis. Electronically Signed: Darnell Shirley MD at 14:09 EDT Tel , Service support ,
[2021-04-19] MEDS: Lidocaine 2% (20 ml mdv) 20 ML Vial INFILT (12:42)
[2021-04-19] MEDS: rifAXIMin 550 MG Tablet PO ×2 (13:32→22:52)
[2021-04-19] MEDS: Albumin Human 25% (100 mL) 25 GM/100 ML BAG IV (13:54)
--- NOTE | 2021-04-19 14:03 | PCM.CONS.R ---
Assessment & Plan Assessment/Plan (1) Acute renal failure superimposed on stage 3 chronic kidney disease: QUALIFIERS: Acute renal failure type: unspecified Chronic kidney disease stage 3 subtype: stage 3b (GFR 30-44) Qualified Code(s): N17.9 - Acute kidney failure, unspecified; N18.32 - Chronic kidney disease, stage 3b PLAN: Creatinine 4.7 eGFR 13cc/min today. Baseline creatinine 2.1 eGFR 38 to 40cc/min in Sep 2020 progressed to 3.3 to 3.8 eGFR 20cc/min in February 2021. May need to initiate dialysis if azotemia does not improve. Discussed with hosptialist and pt dtr at bedside. Suspect hepatorenal syndrome with underlying diabetic nephropathy. Check 24h urine CRCL, TP. UA with proteinuria, glycosuria. Renal US in Jul 2016 unremarkable. Echo 09/2020 EF 60%. (2) Ascites: PLAN: requiring frequent paracentesis (3) Failure to thrive: PLAN: low potassium low mag to suggest poor nutritional status. Albumin low at 2.1 (4) Ascites due to alcoholic cirrhosis: PLAN: s/p paracentesis. Check spot urine sodium (5) Diabetes mellitus type 2 in nonobese: (6) Hyperammonemia: PLAN: continue lactulose (7) Anemia: PLAN: hgb 7.3g. check iron studies (8) Hyperphosphatemia: PLAN: add binders, check PTH, (9) Hypokalemia: PLAN: replace (10) Hyponatremia: PLAN: volume expansion, ascite, hepatorenal (11) Hypomagnesemia: PLAN: cautious replacement due to renal failure. HPI Consult Data Date of Consult: 04/19/21 HPI Narrative HPI Narrative: TRUDY CANCINO, is a 66 y/o Taiwanese M who presents to [facility] for frequent falls, weakness, FTT. He has known CKD stage 3 with eGFR 30cc/min at baseline according to the pt dtr followed by a mattress specialist in [facility]. He has underlying diabetes, hypertension, alcoholic cirrhosis requiring paracentesis every 2 weeks past 2 months. He underwent paracentesis today with 5.8L removed. Patient speaks and understands little Sami. His daughter at bedside to interpret. He is lethargic. He was not able to sleep well last night. His elevated ammonia level improved today with lactulose. 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 Of late, he has been progressively weak with frequent falls. He has decreased intake with nausea, vomiting. Pt denies tremors. Urine output has been poor at home. Denies SOB, edema, chest pain. He is found to be anemic with hgb 7.3g. Potassium low at 3.1, magnesium 1.7. BUN 69 Creatinine 4.7 eGFR 13cc/min on 04/19/21. He received iv fluids NSS at 125cc/hr. He was scheduled to see me in June for initial consultation in the office to transfer renal care closer to home. Renal US done in [facility] Medical History (Updated 04/19/21 @ 16:[address] Jenni Ramos, ) Acute kidney injury 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 CKD (chronic kidney disease) stage 4, GFR 15-29 ml/min DM type 2 (diabetes mellitus, type 2) Glaucoma HTN (hypertension) Hyperlipidemia Home Medications aspirin 81 mg PO DAILY@0800 09/18/20 [History Last Taken 04/17/21] atorvastatin 10 mg PO DAILY 09/18/20 [History Last Taken 04/17/21] losartan-hydrochlorothiazide PO DAILY 09/18/20 [History Last Taken 04/18/21] timolol maleate 1 drp EACH EYE DAILY 09/18/20 [History Last Taken 04/18/21] amlodipine 5 mg PO DAILY 10/08/20 [History Last Taken 04/18/21] atropine 1 drp EACH EYE BID 10/08/20 [History Last Taken 04/18/21] Tresiba FlexTouch U-100 10 unit SUBCUT BID 03/11/21 [History Last Taken 04/17/21] furosemide 20 mg PO DAILY 03/11/21 [History Last Taken 04/17/21] prednisolone acetate 1 drp LEFT EYE BID 03/11/21 [History Last Taken 04/18/21] sertraline 50 mg PO DAILY 03/11/21 [History Last Taken 04/18/21] insulin lispro 30 unit SQ TID #0 ml 03/13/21 [Rx Last Taken 04/17/21] lactulose 20 g PO TID #2880 ml 03/13/21 [Rx Last Taken 04/17/21] losartan-hydrochlorothiazide 1 tab PO DAILY 04/18/21 [History Last Taken Unknown] Allergy/AdvReac Type Severity Reaction Status Date / Time No Known Allergies Allergy Verified 04/18/21 14:22 Social History household members: spouse and children Smoking Status: Never smoker alcohol intake: former substance use type: does not use ROS ROS Narrative history obtained from pt dtr at bedside Review of Systems ROS Unobtainable: due to encephalopathy Constitutional Constitutional: Reports malaise and weakness; Denies chills or fever(s) Eyes Eyes: Reports blindness and loss of vision ENT HEENT: Reports dry mouth and epistaxis Cardiovascular Cardiovascular: Denies chest pain or syncope Respiratory/Chest Respiratory/Chest: Denies dry cough, dyspnea on exertion, hemoptysis, shortness of breath at rest or wheezing Gastrointestinal Gastrointestinal: Reports anorexia; Denies abdominal pain, diarrhea, nausea or vomiting Genitourinary Genitourinary: Reports other Details: decreased urine output Musculoskeletal Musculoskeletal: Reports other Details: gen weakness, frequent falls, debilitated ; Denies tremors Integumentary Integumentary: Reports other Details: ecchymosis from fall Neurologic Neurologic: Reports weakness; Denies tremor(s) Psychiatric Psychiatric: Denies anxiety or depression Hematologic/Lymphatic Hematologic/Lymphatic: Reports anemia and easy bruising Physical Exam Const Orientation / Consciousness: lethargic HEENT normocephalic Eyes no scleral icterus Eyes Narrative: conjunctivitis left eye Neck no JVD Resp clear to auscultation bilaterally Cardio regular rate and no rub GI non-tender and non-distended Auscultation: normoactive bowel sounds Palpation: soft Narrative: 24h urine in progress Bladder / Kidney Exam: catheter in place Extremity no clubbing, cyanosis or edema Extremity Narrative: gen weakness, not following commands, lethargic Skin General Skin Exam: ecchymosis Neuro Sensorium / Orientation: lethargic Psych Psych Narrative: altered MS Lab / Micro Data Result Diagrams: 04/19/21 05:16 04/19/21 05:16 Labs: Laboratory Results - last 24 hr 04/18/21 15:15: WBC 8.1, RBC 2.85 L, Hgb 7.9 L, Hct 23.3 L, MCV 81.8, MCH 27.7, MCHC 33.9, RDW Std Deviation 46.9 H, RDW Coeff of Edwin 15.9 H, Plt Count 184, MPV 9.0, Immature Gran % (Auto) 0.700, Neut % (Auto) 79.0 H, Lymph % (Auto) 8.9 L, [place] % (Auto) 9.3, Eos % (Auto) 1.6, Baso % (Auto) 0.5, Absolute Neuts (auto) 6.4, Absolute Lymphs (auto) 0.72 L, Nucleated RBC % 0 04/18/21 15:15: PT 15.1 H, INR 1.3 04/18/21 15:15: Sodium 133 L, Potassium 3.5, Chloride 105, Carbon Dioxide 16.0 L, Anion Gap 12, BUN 68 H, Creatinine 4.88 H, Estim Creat Clear Calc 13.55, Est GFR (MDRD) Af Amer 15 L, Est GFR (MDRD) Non-Af 13 L, BUN/Creatinine Ratio 13.9, Glucose 231 H, Calcium 7.7 L, Total Bilirubin 0.50, AST 30, ALT 31, Alkaline Phosphatase 129 H, Total Protein 6.6, Albumin 2.1 L, Globulin 4.5 H, Albumin/Globulin Ratio 0.5 L 04/18/21 16:16: Urine Color Yellow, Urine Clarity Sl. Cloudy, Urine pH 6.0, Ur Specific Jennings 1.015, Urine Protein 500 H, Urine Glucose (UA) 100 H, Urine Ketones Negative, Urine Occult Blood 250 H, Urine Nitrite Negative, Urine Bilirubin Negative, Urine Urobilinogen Normal, Ur Leukocyte Esterase Negative, Urine RBC > 100 SEEN, Urine WBC 0 SEEN, Ur Squamous Epith Cells 5-10 SEEN, Urine Bacteria 0 SEEN, Urine Mucus 0 SEEN 04/18/21 17:54: Ammonia 180.0 H 04/18/21 20:30: Hgb 7.4 L, Hct 21.8 L 04/18/21 20:30: Blood Type B POSITIVE, Antibody Screen NEGATIVE 04/18/21 22:04: POC Glucose 168 H 04/19/21 00:25: Hgb 8.0 L, Hct 23.7 L 04/19/21 05:16: WBC 8.9, RBC 2.62 L, Hgb 7.3 L, Hct 21.6 L, MCV 82.4, MCH 27.9, MCHC 33.8, RDW Std Deviation 47.0 H, RDW Coeff of Edwin 15.6 H, Plt Count 187, MPV 9.7, Immature Gran % (Auto) 0.800, Neut % (Auto) 75.7 H, Lymph % (Auto) 10.8 L, [place] % (Auto) 10.1 H, Eos % (Auto) 2.2, Baso % (Auto) 0.4, Absolute Neuts (auto) 6.7, Absolute Lymphs (auto) 0.96, Nucleated RBC % 0 04/19/21 05:16: Sodium 133 L, Potassium 3.1 L, Chloride 107, Carbon Dioxide 12.0 L, Anion Gap 14, BUN 69 H, Creatinine 4.70 H, Estim Creat Clear Calc 14.06, Est GFR (MDRD) Af Amer 16 L, Est GFR (MDRD) Non-Af 13 L, BUN/Creatinine Ratio 14.7, Glucose 145 H, Calcium 8.0 L, Total Bilirubin 0.60, AST 34, ALT 33, Alkaline Phosphatase 131 H, Total Protein 6.3 L, Albumin 2.1 L, Globulin 4.2, Albumin/Globulin Ratio 0.5 L 04/19/21 05:16: Magnesium 1.7 04/19/21 05:16: Phosphorus 7.0 H 04/19/21 06:26: POC Glucose 132 H 04/19/21 09:38: Ammonia 65.0 H 04/19/21 11:25: POC Glucose 150 H Micro: Microbiology 04/18/21 16:00 Stool Stool Occult Blood (NORI) - Final 04/18/21 16:03 Nasal Secretion SARS-CoV-2 Antigen (Rapid) - Final Radiology Impression Abdomen/Pelvis CT 04/18/21 16:45 IMPRESSION: No acute findings in the abdomen or pelvis. Moderate ascites. Hepatic cirrhosis with portal hypertension. Individualized dose optimization techniques were used for this CT. at 1831 Reported and signed by: Ulices Jones MD Electronically Signed: Ulices Jones MD at 18:30 EDT Tel , Service support ,
--- NOTE | 2021-04-19 14:20 | CASEMGMT ---
REUBEN BRIGHT Assessment: Face to Face with pt for initial transition planning/care coordination assessment. REUBEN BRIGHT introduced self and role at [facility], pt lying in bed with eyes closed in no distress. Pt dtr Lisa at bedside and she answers assessment questions. Care providers, pharmacy, and demographics verified/updated. Admitting Dx:acute on chronic renal failure, anemia PCP: Miguel Specialists: nephro from [facility],[place], cardio [facility]- unsure of name [facility]erred [facility]acy: [facility] Insurance: [facility] Prescription Benefit: yes LW/HPOA: Pt dtr denies pt having LW/DPOA. LNOK: Bronwyn Lagunasy, dtr; Mily Corporal, dtr; Lisa Corporal, dtr; Myesha Corporal, . Living Arrangements: Pt lives in a ground level apt with no steps to enter. Pt is dependent on family for ADL's. Transportation: Pt is blind and unable to drive. Pt or dtrs transport pt. DME/HHC/SNF: Pt has a wheelchair and FWW at home. Pt dtr denies any previous HHC or SNF stays. Pt dtr states pt is going to outpt PT at [facility]. She states he is on week 3 of 8 and that it is helping her father get stronger. Pt dtr states no further concerns/needs. CM to follow. Advised pt to ask CM if any further question/concerns/needs arise, voices understanding. REUBEN BRIGHT will check back with patient for his goal at sc. Pt dtr Goal: Home and resuming outpt PT Plan: Home and resuming outpt PT
[2021-04-19 16:20] LABS: Bedside Glucose 137 mg/dL (70-110)
[2021-04-19] MEDS: Atorvastatin Calcium 10 MG Tablet PO (22:53)
[2021-04-20] VITALS (14 sets, daily range): BP systolic 105–145; BP diastolic 54–66; PULSE 35–90; RESP 18; TEMP 36.1–37.4; O2SAT 98–100
[2021-04-20 01:27] LABS: Bedside Glucose 200 mg/dL (70-110)
[2021-04-20] MEDS: Lactulose 20 GM/30 ML UDC PO ×3 (06:44→23:31)
[2021-04-20 06:51] LABS: Bedside Glucose 163 mg/dL (70-110)
[2021-04-20 07:27] LABS: Hematocrit 21.8 % (40-54); Hemoglobin 7.3 g/dL (13.0-16.5); Mean Corp Hgb Conc 33.5 g/dL (32-36); Mean Corpuscular Hgb 27.8 pg (27.0-32.0); Mean Corpuscular Volume 82.9 fL (80-94); Mean Platelet Vol. 9.8 fl (6.2-12.0); Platelet Count 184 K/mm3 (150-450); RBC Distribution Width CV 15.9 % (11.6-14.6); RBC Distribution Width SD 47.6 fl (35.1-43.9); Red Blood Count 2.63 M/mm3 (4.6-6.2); White Blood Count 8.8 K/mm3 (4.4-11.0)
[2021-04-20 08:07] LABS: ALB/GLOB Ratio 0.6 RATIO (0.9-2.4); AST(SGOT) 32 U/L (15-37); Alanine Aminotransfer ALT/SGPT 33 U/L (16-61); Albumin, Serum 2.3 g/dL (3.2-5.0); Alkaline Phosphatase 128 U/L (45-117); Anion Gap 14 (5-15); BUN 70 mg/dL (7-18); BUN/Creat Ratio 14.3 RATIO (10-20); Chloride 108 mmol/L (98-107); Creatinine, Serum 4.88 mg/dL (0.70-1.30); EST Glomerular Filtration Rate 13 mL/min (>60); Est Glom Filt Rate - Afr Amer 15 mL/min (>60); Estimated Creatinine Clearance 13.55 ml/min; Ferritin 306 ng/mL (26-388); Globulin 3.8 g/dL (2.2-4.2); Glucose 169 mg/dL (74-106); Iron 61 ug/dL (65-175); Iron Binding Capacity,Total 166 ug/dL (250-450); PERCENT IRON SATURATION 36.7 % (15.0-55.0); Potassium 3.5 mmol/L (3.5-5.1); Protein, Total 6.1 g/dL (6.4-8.2); Sodium Level 134 mmol/L (136-145)
[2021-04-20] MEDS: amLODIPine 5 MG Tablet PO (08:14)
[2021-04-20] MEDS: rifAXIMin 550 MG Tablet PO ×2 (08:15→23:34)
[2021-04-20] MEDS: Timolol 0.5% 5ML OPTH.BTL 1 DRP EACH EYE (08:16)
[2021-04-20] MEDS: prednisoLONE eye drops (5 mL) 1 DROP OPTH.BTL 1 DRP LEFT EYE ×2 (08:17→23:32)
[2021-04-20] MEDS: Atropine Sulfate 1% 2 ml Bottle 1 DRP EACH EYE ×2 (08:18→23:32)
[2021-04-20] MEDS: Insulin Lispro 100 UNIT/ML INSULN.PEN 30 UNIT SC (08:19)
[2021-04-20] MEDS: Calcium Acetate 667 MG Capsule PO ×3 (08:28→17:25)
[2021-04-20] MEDS: Aspirin 81 MG TAB.CHEW PO (08:32)
[2021-04-20] MEDS: Sertraline 50 MG Tablet PO (08:33)
[2021-04-20] MEDS: Albumin Human 25% (100 mL) 25 GM/100 ML BAG IV (09:04)
[2021-04-20 09:13] LABS: PTHIN 260.6 pg/mL (18.4-80.1)
--- NOTE | 2021-04-20 09:33 | PCM.PN.HOSP ---
Subjective Subjective Patient was seen and he had 5.8 L of ascitic fluid taken out from paracentesis. He received 25 g of albumin postprocedure. He is currently being given another 25 g of albumin. Urine output has been nonoliguric. Patient is much awake and interactive Objective Data Objective Data Vital Signs: Vital Signs Temp Pulse Resp BP Pulse Ox 99.1 F 85 18 138/66 H 98 04/20/21 07:19 04/20/21 07:19 04/20/21 07:19 04/20/21 07:19 04/20/21 08:17 Oxygen Delivery Method [3] Room Air Oxygen Delivery Method [2] Room Air Oxygen Delivery Method [1 ( Room Air Initial Baseline)] Oxygen Delivery Method Room Air Weight: 75.3 kg Body Mass Index (BMI) 24.1 Intake & Output: Intake and Output for Last 24 Hours 04/18/21 04/19/21 04/20/21 23:59 23:59 23:59 Intake Total 1872.08 / 1872.08 Output Total 100 / 600 7050 / 7050 350 / 350 Balance -100 / -400 -5177.92 / -5177.92 -350 / -350 Lab / Micro Data Result Diagrams: 04/20/21 07:05 04/20/21 07:05 Labs: Laboratory Results - last 24 hr 04/19/21 05:16: Magnesium 1.7 04/19/21 05:16: Phosphorus 7.0 H 04/19/21 09:38: Ammonia 65.0 H 04/19/21 11:25: POC Glucose 150 H 04/19/21 15:55: POC Glucose 137 H 04/19/21 22:43: POC Glucose 200 H 04/20/21 06:42: POC Glucose 163 H 04/20/21 07:05: Sodium 134 L, Potassium 3.5, Chloride 108 H, Carbon Dioxide 12.0 L, Anion Gap 14, BUN 70 H, Creatinine 4.88 H, Estim Creat Clear Calc 13.55, Est GFR (MDRD) Af Amer 15 L, Est GFR (MDRD) Non-Af 13 L, BUN/Creatinine Ratio 14.3, Glucose 169 H, Calcium 8.0 L, Iron 61 L, TIBC 166 L, Iron Saturation 36.7, Ferritin 306, Total Bilirubin 0.50, AST 32, ALT 33, Alkaline Phosphatase 128 H, Total Protein 6.1 L, Albumin 2.3 L, Globulin 3.8, Albumin/Globulin Ratio 0.6 L 04/20/21 07:05: Ammonia 46.0 H, PTH Intact Cancelled 04/20/21 07:05: WBC 8.8, RBC 2.63 L, Hgb 7.3 L, Hct 21.8 L, MCV 82.9, MCH 27.8, MCHC 33.5, RDW Std Deviation 47.6 H, RDW Coeff of Edwin 15.9 H, Plt Count 184, MPV 9.8 04/20/21 07:05: PTH Intact 260.6 H Micro: Microbiology 04/18/21 16:00 Stool Stool Occult Blood (NORI) - Final 04/18/21 16:03 Nasal Secretion SARS-CoV-2 Antigen (Rapid) - Final Radiography Diagnostic Testing: Radiology Impression Paracentesis Ultrasound 04/19/21 12:30 IMPRESSION: Ultrasound guided paracentesis. Electronically Signed: Darnell Shirley MD at 14:09 EDT Tel , Service support , Physical Exam Narrative Physical Exam: Gen: Blind, no obvious epistaxis, not pale, not jaundiced, left eye has subconjunctival hematoma CVS:HS I +II, regular, no murmurs RESP: Diminished at lung bases GI: BS present and normal, soft, distended, ascites improved EXT: Bilateral leg edema +1-2 Assessment & Plan Assessment/Plan (1) Acute renal failure superimposed on stage 3 chronic kidney disease: QUALIFIERS: Acute renal failure type: unspecified Chronic kidney disease stage 3 subtype: stage 3b (GFR 30-44) Qualified Code(s): N17.9 - Acute kidney failure, unspecified; N18.32 - Chronic kidney disease, stage 3b (2) Subconjunctival hemorrhage of left eye: (3) Multiple bruises: (4) Epistaxis: (5) Anasarca: (6) Ascites: (7) Chronic liver disease: (8) Failure to thrive: PLAN: 1. Epistaxis/subconjunctival hemorrhage to the left eye, none seen since admission Platelet count and INR is unremarkable Will continue to monitor 2. CANELO on CKD stage IIIb, remains about the same Creatinine is 4.88. Admitting creatinine is 4.88 Nephrology consulted, will follow up on recommendations 3. Hypokalemia, replaced, recheck in am 4. Ascites secondary to decompensated chronic liver disease, s/p therapeutic paracentesis on 04/19/21 Ammonia level was 180 on admission, improved to 46 Continue on lactulose, rifaximin 5. Anemia, of chronic disease, stable, hemoglobin 7.3, will transfuse less than 7 6. Type II DM, controlled, continue Lantus, premeal insulin insulin sliding scale 7. Hypertension, controlled continue amlodipine Charges/Coding Visit Charges Inpatient E&M: 40565 Subs Hosp L2
[2021-04-20 11:16] LABS: 24HR. UA Prot. Total Volume 950 mL
[2021-04-20 11:20] LABS: Creat.Clear Total Volume 950 mL; Creatinine Clearance 10 ml/min (100-200); Creatinine Serum Creat 4.9 mg/dL (0.8-1.3); Creatinine Urine 75.7 mg/dL (NO RANGE EST.); EST Glomerular Filtration Rate 13 mL/min (>60); Est Glom Filt Rate - Afr Amer 15 mL/min (>60)
--- NOTE | 2021-04-20 11:21 | PN.RENAL_ITS ---
Subjective Subjective somnolent, weak, rising creatinine. PT granddaughter at bedside. Spoke with pt josé luis Barnhart about initiating hemodialysis with dialysis catheter. Family in agreement to start dialysis. Objective Data Objective Data Vital Signs: Vital Signs Temp Pulse Resp BP Pulse Ox 99.1 F 90 18 138/66 H 98 04/20/21 07:19 04/20/21 09:34 04/20/21 07:19 04/20/21 07:19 04/20/21 08:17 Oxygen Delivery Method [3] Room Air Oxygen Delivery Method [2] Room Air Oxygen Delivery Method [1 ( Room Air Initial Baseline)] Oxygen Delivery Method Room Air Weight: 75.3 kg Body Mass Index (BMI) 24.1 Intake & Output: Intake and Output for Last 24 Hours 04/18/21 04/19/21 04/20/21 23:59 23:59 23:59 Intake Total 1872.08 / 1872.08 Output Total 100 / 600 7050 / 7050 350 / 350 Balance -100 / -400 -5177.92 / -5177.92 -350 / -350 Lab / Micro Data Result Diagrams: 04/20/21 07:05 04/20/21 11:30 Labs: Laboratory Results - last 24 hr 04/19/21 11:25: POC Glucose 150 H 04/19/21 15:55: POC Glucose 137 H 04/19/21 22:43: POC Glucose 200 H 04/20/21 06:42: POC Glucose 163 H 04/20/21 07:05: Sodium 134 L, Potassium 3.5, Chloride 108 H, Carbon Dioxide 12.0 L, Anion Gap 14, BUN 70 H, Creatinine 4.88 H, Estim Creat Clear Calc 13.55, Est GFR (MDRD) Af Amer 15 L, Est GFR (MDRD) Non-Af 13 L, BUN/Creatinine Ratio 14.3, Glucose 169 H, Calcium 8.0 L, Iron 61 L, TIBC 166 L, Iron Saturation 36.7, Ferr itin 306, Total Bilirubin 0.50, AST 32, ALT 33, Alkaline Phosphatase 128 H, Total Protein 6.1 L, Albumin 2.3 L, Globulin 3.8, Albumin/Globulin Ratio 0.6 L 04/20/21 07:05: Ammonia 46.0 H, PTH Intact Cancelled 04/20/21 07:05: WBC 8.8, RBC 2.63 L, Hgb 7.3 L, Hct 21.8 L, MCV 82.9, MCH 27.8, MCHC 33.5, RDW Std Deviation 47.6 H, RDW Coeff of Edwin 15.9 H, Plt Count 184, MPV 9.8 04/20/21 07:05: PTH Intact 260.6 H 04/20/21 09:55: Creatinine 4.9 H, Est GFR (MDRD) Af Amer 15 L, Est GFR (MDRD) Non-Af 13 L, Urine Collection Time 24.0, Timed Urine Volume 950, Urine Creatinine 75.7, Creatinine Clearance 10 L 04/20/21 09:55: Urine Collection Time 24.0, Timed Urine Volume 950, Ur Total Protein 24 Hr 4373.8 H Micro: Microbiology 04/18/21 16:00 Stool Stool Occult Blood (NORI) - Final 04/18/21 16:03 Nasal Secretion SARS-CoV-2 Antigen (Rapid) - Final Radiography Diagnostic Testing: Radiology Impression Paracentesis Ultrasound 04/19/21 12:30 IMPRESSION: Ultrasound guided paracentesis. Electronically Signed: Darnell Shirley MD at 14:09 EDT Tel , Service support , Physical Exam Const alert Constitutional Narrative: oriented x2, drifts back to sleep General Appearance: comfortable Exam Limitations: language barrier Nutritional Appearance: other Other Details: gen weakness, debilitated Resp clear to auscultation bilaterally Cardio regular rate GI non-tender and non-distended Palpation: soft Extremity no clubbing, cyanosis or edema Assessment & Plan Assessment/Plan (1) Acute renal failure superimposed on stage 3 chronic kidney disease: QUALIFIERS: Acute renal failure type: unspecified Chronic kidney disease stage 3 subtype: stage 3b (GFR 30-44) Qualified Code(s): N17.9 - Acute kidney failure, unspecified; N18.32 - Chronic kidney disease, stage 3b PLAN: Creatinine 4.9 eGFR 13cc/min today. Baseline creatinine 2.1 eGFR 38 to 40cc/min in Sep 2020 progressed to 3.3 to 3.8 eGFR 20cc/min in February 2021. Discussed initiating dialysis with tunneled catheter. Family in agreement to proceed. Consult GS for line placement. 24h urine CRCL 10, TP 4.3g. discussed with hospitalist and surgery (2) Ascites: PLAN: requiring frequent paracentesis (3) Failure to thrive: PLAN: low potassium low mag to suggest poor nutritional status. Albumin low at 2.1 (4) Ascites due to alcoholic cirrhosis: PLAN: s/p paracentesis. Check spot urine sodium (5) Diabetes mellitus type 2 in nonobese: PLAN: hypoglycemic episode today. Cautious use of insulin in light of poor oral intake and renal failure (6) Hyperammonemia: PLAN: improved on lactulose (7) Anemia: PLAN: hgb 7.3g. iron stores adequate, epo 10K today sc (8) Hyperphosphatemia: PLAN: add binders, check PTH, (9) Hypokalemia: PLAN: replacing (10) Hyponatremia: PLAN: improved (11) Hypomagnesemia: PLAN: cautious replacement due to renal failure. (12) Metabolic acidosis: PLAN: correct with dialysis
[2021-04-20] MEDS: Dextrose 50%-Water 25 GM/50 ML DISP.SYRIN IV (11:23)
--- NOTE | 2021-04-20 11:33 | NURSING ---
Upon arrival to pt room at 1115 to obtain BG, pt was sleeping. B. pt unresponsive to this nurse but arousable to granddaughter. Primary nurse, Ryder RN found. Dr caballero and veral order given for 25 g Dextrose IV. Dextrose given at 1123. BG after medication given: 171.
[2021-04-20 11:57] LABS: Glucose 173 mg/dL (74-106)
[2021-04-20 12:21] LABS: Bedside Glucose 80 mg/dL (70-110)
[2021-04-20 12:21] LABS: Bedside Glucose 111 mg/dL (70-110)
--- NOTE | 2021-04-20 12:27 | CASEMGMT ---
Pt screened with [facility] Palliative Care Screening Tool due to strata 3, pt met criteria. Spoke with who was agreeable to consult if family is. RN CM in to pt room. Pt granddtr Harper Judd. She was on the phone with pt . Pt lying in bed with eyes closed. Pt is agreeable to the plan of home with the outpt therapy as pt progressed well with it but is not agreeable to palliative care at this time.
--- NOTE | 2021-04-20 12:40 | NURSING ---
1150 B, 1214 B, patient drinking Apple juice and eating oatmeal with granddtr. Lunch has been ordered.
--- NOTE | 2021-04-20 12:51 | NURSING ---
PT wakens when granddaughter stimulates him by shaking his arm and talks to him loudly. Taking lunch now.
[2021-04-20] MEDS: Epoetin Alfa epbx 10,000 UNITS/ML 10000 UNIT SC (13:52)
[2021-04-20 13:56] LABS: Bedside Glucose 84 mg/dL (70-110)
[2021-04-20 15:56] LABS: Bedside Glucose 110 mg/dL (70-110)
[2021-04-20 16:01] LABS: Bedside Glucose 171 mg/dL (70-110)
[2021-04-20 16:01] LABS: Bedside Glucose 30 mg/dL (70-110)
[2021-04-20 18:57] LABS: Urine Sodium 22 mmol/L (Not Establ.)
[2021-04-20 19:43] LABS: Protein, Urine (Random) 536.7 mg/dL (<11.9); Protein:Creat Ratio 5697 mg/g CRE (0-200)
[2021-04-20] MEDS: 0.9% Saline Lock 10 ML Syringe IV (23:28)
[2021-04-20] MEDS: Atorvastatin Calcium 10 MG Tablet PO (23:35)
[2021-04-20 23:50] LABS: Bedside Glucose 150 mg/dL (70-110)
[2021-04-21] VITALS (18 sets, daily range): BP systolic 80–155; BP diastolic 48–77; PULSE 65–96; RESP 14–20; TEMP 36.3–37.7; O2SAT 96–100; BMI 25.9
[2021-04-21 05:49] LABS: Absolute Lymphocyte Count 1.05 X10^3/uL (0.83-4.51); Basophil# 0.03 X10^3/uL; Basophil% 0.3 % (0-1); Eosinophil# 0.15 X10^3/uL; Eosinophils% 1.7 % (0-5); Hematocrit 19.5 % (40-54); Hemoglobin 6.7 g/dL (13.0-16.5); Lymphocyte # 1.05 X10^3/ul (0.83-4.51); Lymphocyte % 11.7 % (19-41); Mean Corp Hgb Conc 34.4 g/dL (32-36); Mean Corpuscular Hgb 28.6 pg (27.0-32.0); Mean Corpuscular Volume 83.3 fL (80-94); Mean Platelet Vol. 9.4 fl (6.2-12.0); Monocyte# 0.62 X10^3/uL; Monocyte% 6.9 % (0-10); NRBC Flagged by Analyzer 0 % (0-5); Neutrophil # 7.04 X10^3/uL (2.7-7.7); Neutrophil % 78.5 % (47-70); Platelet Count 149 K/mm3 (150-450); RBC Distribution Width SD 48.8 fl (35.1-43.9); Red Blood Count 2.34 M/mm3 (4.6-6.2)
--- NOTE | 2021-04-21 06:00 | EKG12_ITS ---
Test Reason : PRE-OP Blood Pressure : / mmHG Vent. Rate : 084 BPM Atrial Rate : 084 BPM P-R Int : 174 ms QRS Dur : 088 ms QT Int : 388 ms P-R-T Axes : 048 030 029 degrees QTc Int : 458 ms Normal sinus rhythm Normal ECG When compared with ECG of 11-MAR-2021 16:17, No significant change was found Confirmed by FELTON ARAIZA, NAE ([id number]), news videotape editor PRINCE GARCES ([id number]) on 04/21/2021 1:03:44 PM Referred By: DR MALIK Confirmed By:RA YA MD
[2021-04-21 06:07] LABS: Partial Thromboplast Time 34.5 Seconds (24.1-36.2)
[2021-04-21 06:23] LABS: ALB/GLOB Ratio 0.7 RATIO (0.9-2.4); AST(SGOT) 47 U/L (15-37); Alanine Aminotransfer ALT/SGPT 42 U/L (16-61); Albumin, Serum 2.3 g/dL (3.2-5.0); Alkaline Phosphatase 123 U/L (45-117); Anion Gap 16 (5-15); BUN 68 mg/dL (7-18); BUN/Creat Ratio 13.7 RATIO (10-20); Chloride 106 mmol/L (98-107); Creatinine, Serum 4.95 mg/dL (0.70-1.30); EST Glomerular Filtration Rate 13 mL/min (>60); Est Glom Filt Rate - Afr Amer 15 mL/min (>60); Estimated Creatinine Clearance 13.35 ml/min; Globulin 3.5 g/dL (2.2-4.2); Glucose 173 mg/dL (74-106); Magnesium 1.5 mg/dL (1.6-2.6); Phosphorus 6.8 mg/dL (2.5-4.9); Potassium 3.4 mmol/L (3.5-5.1); Protein, Total 5.8 g/dL (6.4-8.2); Sodium Level 133 mmol/L (136-145)
--- NOTE | 2021-04-21 06:40 | CON.PCM.SX_ITS ---
Assessment & Plan Assessment/Plan (1) Acute renal failure superimposed on stage 3 chronic kidney disease: QUALIFIERS: Acute renal failure type: unspecified Chronic kidney disease stage 3 subtype: stage 3b (GFR 30-44) Qualified Code(s): N17.9 - Acute kidney failure, unspecified; N18.32 - Chronic kidney disease, stage 3b PLAN: I discussed tunneled right dialysis catheter placement with the patient's daughter as the patient is confused and the patient's daughter is making his medical decisions. I discussed the risks including but not limited to bleeding, infection, pneumothorax or line infection. The patient understands the risks and his daughter agreed for the procedure and signed the consent form. Plan for dialysis catheter placement this afternoon at 1130 Robe Caldwell MD Pager: [facility] [address] [place] [address], [address] [place] [address] Office: HPI Consult Data Date of Consult: 04/21/21 HPI Narrative HPI Narrative: TRUDY CANCINO, is a 66 M who presents with cirrhosis and acute kidney disease. I was consulted for placement of dialysis catheter for the patient. Patient is confused [facility] Medical History Acute kidney injury 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 CKD (chronic kidney disease) stage 4, GFR 15-29 ml/min DM type 2 (diabetes mellitus, type 2) Glaucoma HTN (hypertension) Hyperlipidemia Home Medications aspirin 81 mg PO DAILY@0800 09/18/20 [History Last Taken 04/17/21] atorvastatin 10 mg PO DAILY 09/18/20 [History Last Taken 04/17/21] losartan-hydrochlorothiazide PO DAILY 09/18/20 [History Last Taken 04/18/21] timolol maleate 1 drp EACH EYE DAILY 09/18/20 [History Last Taken 04/18/21] amlodipine 5 mg PO DAILY 10/08/20 [History Last Taken 04/18/21] atropine 1 drp EACH EYE BID 10/08/20 [History Last Taken 04/18/21] Tresiba FlexTouch U-100 10 unit SUBCUT BID 03/11/21 [History Last Taken 04/17/21] furosemide 20 mg PO DAILY 03/11/21 [History Last Taken 04/17/21] prednisolone acetate 1 drp LEFT EYE BID 03/11/21 [History Last Taken 04/18/21] sertraline 50 mg PO DAILY 03/11/21 [History Last Taken 04/18/21] insulin lispro 30 unit SQ TID #0 ml 03/13/21 [Rx Last Taken 04/17/21] lactulose 20 g PO TID #2880 ml 03/13/21 [Rx Last Taken 04/17/21] losartan-hydrochlorothiazide 1 tab PO DAILY 04/18/21 [History Last Taken Unknown] Allergy/AdvReac Type Severity Reaction Status Date / Time No Known Allergies Allergy Verified 04/18/21 14:22 Social History household members: spouse and children Smoking Status: Never smoker alcohol intake: former substance use type: does not use ROS Review of Systems ROS Unobtainable: due to mental status Physical Exam Const alert Orientation / Consciousness: confused HEENT normocephalic Eyes PERRL Resp normal respiratory effort GI soft to palpation Skin General Skin Exam: no breakdown Lab / Micro Data Result Diagrams: 04/21/21 05:34 04/21/21 05:34 Labs: Laboratory Results - last 24 hr 04/20/21 06:42: POC Glucose 163 H 04/20/21 07:05: Sodium 134 L, Potassium 3.5, Chloride 108 H, Carbon Dioxide 12.0 L, Anion Gap 14, BUN 70 H, Creatinine 4.88 H, Estim Creat Clear Calc 13.55, Est GFR (MDRD) Af Amer 15 L, Est GFR (MDRD) Non-Af 13 L, BUN/Creatinine Ratio 14.3, Glucose 169 H, Calcium 8.0 L, Iron 61 L, TIBC 166 L, Iron Saturation 36.7, Ferritin 306, Total Bilirubin 0.50, AST 32, ALT 33, Alkaline Phosphatase 128 H, Total Protein 6.1 L, Albumin 2.3 L, Globulin 3.8, Albumin/Globulin Ratio 0.6 L 04/20/21 07:05: Ammonia 46.0 H, PTH Intact Cancelled 04/20/21 07:05: WBC 8.8, RBC 2.63 L, Hgb 7.3 L, Hct 21.8 L, MCV 82.9, MCH 27.8, MCHC 33.5, RDW Std Deviation 47.6 H, RDW Coeff of Edwin 15.9 H, Plt Count 184, MPV 9.8 04/20/21 07:05: PTH Intact 260.6 H 04/20/21 09:55: Creatinine 4.9 H, Est GFR (MDRD) Af Amer 15 L, Est GFR (MDRD) Non-Af 13 L, Urine Collection Time 24.0, Timed Urine Volume 950, Urine Creatinine 75.7, Creatinine Clearance 10 L 04/20/21 09:55: Urine Collection Time 24.0, Timed Urine Volume 950, Ur Total Protein 24 Hr 4373.8 H, Urine Total Protein TNP 04/20/21 11:17: POC Glucose 30 L* 04/20/21 11:30: Glucose 173 H 04/20/21 11:30: POC Glucose 171 H 04/20/21 11:50: POC Glucose 111 H 04/20/21 12:14: POC Glucose 80 04/20/21 13:42: POC Glucose 84 04/20/21 15:40: POC Glucose 110 04/20/21 18:35: Ur Random Sodium 22 04/20/21 18:35: U Random Total Protein 536.7 H, Urine Creatinine 94.20, Protein/Creatinin Ratio 5697 H 04/20/21 23:28: POC Glucose 150 H 04/21/21 05:34: Ammonia 59.0 H 04/21/21 05:34: WBC 9.0, RBC 2.34 L, Hgb 6.7 L, Hct 19.5 L, MCV 83.3, MCH 28.6, MCHC 34.4, RDW Std Deviation 48.8 H, RDW Coeff of Edwin 16.0 H, Plt Count 149 L, MPV 9.4, Immature Gran % (Auto) 0.900, Neut % (Auto) 78.5 H, Lymph % (Auto) 11.7 L, [place] % (Auto) 6.9, Eos % (Auto) 1.7, Baso % (Auto) 0.3, Absolute Neuts (auto) 7.0, Absolute Lymphs (auto) 1.05, Nucleated RBC % 0 04/21/21 05:34: APTT 34.5 04/21/21 05:34: Sodium 133 L, Potassium 3.4 L, Chloride 106, Carbon Dioxide 11.0 L, Anion Gap 16 H, BUN 68 H, Creatinine 4.95 H, Estim Creat Clear Calc 13.35, Est GFR (MDRD) Af Amer 15 L, Est GFR (MDRD) Non-Af 13 L, BUN/Creatinine Ratio 13.7, Glucose 173 H, Calcium 8.0 L, Phosphorus 6.8 H, Magnesium 1.5 L, Total Bilirubin 0.50, AST 47 H, ALT 42, Alkaline Phosphatase 123 H, Total Protein 5.8 L, Albumin 2.3 L, Globulin 3.5, Albumin/Globulin Ratio 0.7 L
[2021-04-21 06:45] LABS: Bedside Glucose 149 mg/dL (70-110)
[2021-04-21 07:38] LABS: Hemoglobin A1c 6.8 % (3.8-5.6)
[2021-04-21] MEDS: Potassium Chloride Oral Tablet 20 MEQ 40 MEQ PO (08:39)
--- NOTE | 2021-04-21 09:55 | PN.HOSP_ITS ---
Subjective Subjective Patient was seen and examined. No acute events overnight. Daughter at the bedside. He is going for tunneled dialysis catheter today by general surgery. Objective Data Objective Data Vital Signs: Vital Signs Temp Pulse Resp BP Pulse Ox 98.8 F 85 16 143/63 H 100 04/21/21 08:53 04/21/21 08:53 04/21/21 08:53 04/21/21 08:53 04/21/21 08:53 Oxygen Delivery Method [3] Room Air Oxygen Delivery Method [2] Room Air Oxygen Delivery Method [1 ( Room Air Initial Baseline)] Oxygen Delivery Method Room Air Weight: 75.3 kg Body Mass Index (BMI) 24.1 Intake & Output: Intake and Output for Last 24 Hours 04/19/21 04/20/21 04/21/21 23:59 23:59 23:59 Intake Total 1872.08 / 1872.08 100 / 150 50 / 50 Output Total 7050 / 7050 525 / 675 400 / 400 Balance -5177.92 / -5177.92 -425 / -525 -350 / -350 Lab / Micro Data Result Diagrams: 04/21/21 05:34 04/21/21 05:34 Labs: Laboratory Results - last 24 hr 04/18/21 20:30: Crossmatch See Detail 04/20/21 09:55: Creatinine 4.9 H, Est GFR (MDRD) Af Amer 15 L, Est GFR (MDRD) Non-Af 13 L, Urine Collection Time 24.0, Timed Urine Volume 950, Urine Creatinine 75.7, Creatinine Clearance 10 L 04/20/21 09:55: Urine Collection Time 24.0, Timed Urine Volume 950, Ur Total Protein 24 Hr 4373.8 H, Urine Total Protein TNP 04/20/21 11:17: POC Glucose 30 L* 04/20/21 11:30: Glucose 173 H 04/20/21 11:30: POC Glucose 171 H 04/20/21 11:50: POC Glucose 111 H 04/20/21 12:14: POC Glucose 80 04/20/21 13:42: POC Glucose 84 04/20/21 15:40: POC Glucose 110 04/20/21 18:35: Ur Random Sodium 22 04/20/21 18:35: U Random Total Protein 536.7 H, Urine Creatinine 94.20, Protein/Creatinin Ratio 5697 H 04/20/21 23:28: POC Glucose 150 H 04/21/21 05:34: Ammonia 59.0 H 04/21/21 05:34: WBC 9.0, RBC 2.34 L, Hgb 6.7 L, Hct 19.5 L, MCV 83.3, MCH 28.6, MCHC 34.4, RDW Std Deviation 48.8 H, RDW Coeff of Edwin 16.0 H, Plt Count 149 L, MPV 9.4, Immature Gran % (Auto) 0.900, Neut % (Auto) 78.5 H, Lymph % (Auto) 11.7 L, [place] % (Auto) 6.9, Eos % (Auto) 1.7, Baso % (Auto) 0.3, Absolute Neuts (auto) 7.0, Absolute Lymphs (auto) 1.05, Nucleated RBC % 0 04/21/21 05:34: APTT 34.5 04/21/21 05:34: Sodium 133 L, Potassium 3.4 L, Chloride 106, Carbon Dioxide 11.0 L, Anion Gap 16 H, BUN 68 H, Creatinine 4.95 H, Estim Creat Clear Calc 13.35, Est GFR (MDRD) Af Amer 15 L, Est GFR (MDRD) Non-Af 13 L, BUN/Creatinine Ratio 13.7, Glucose 173 H, Calcium 8.0 L, Phosphorus 6.8 H, Magnesium 1.5 L, Total Bilirubin 0.50, AST 47 H, ALT 42, Alkaline Phosphatase 123 H, Total Protein 5.8 L, Albumin 2.3 L, Globulin 3.5, Albumin/Globulin Ratio 0.7 L 04/21/21 05:34: Hemoglobin A1c 6.8 H 04/21/21 06:38: POC Glucose 149 H Micro: Microbiology 04/18/21 16:00 Stool Stool Occult Blood (NORI) - Final 04/18/21 16:03 Nasal Secretion SARS-CoV-2 Antigen (Rapid) - Final Physical Exam Narrative Physical Exam: Gen: Blind, answers questions with minimal [place], no obvious epistaxis, not pale, not jaundiced, left eye has subconjunctival hematoma CVS:HS I +II, regular, no murmurs RESP: Diminished at lung bases GI: BS present and normal, soft, distended, ascites improved EXT: Bilateral leg edema +1-2 HAND KNITTER: Alert, oriented, flapping tremors present+ Assessment & Plan Assessment/Plan (1) Acute renal failure superimposed on stage 3 chronic kidney disease: QUALIFIERS: Acute renal failure type: unspecified Chronic kidney disease stage 3 subtype: stage 3b (GFR 30-44) Qualified Code(s): N17.9 - Acute kidney failure, unspecified; N18.32 - Chronic kidney disease, stage 3b (2) Subconjunctival hemorrhage of left eye: (3) Multiple bruises: (4) Epistaxis: (5) Anasarca: (6) Ascites: (7) Chronic liver disease: (8) Failure to thrive: PLAN: 1. CANELO on CKD stage IIIb, remains about the same Patient has proteinuria; more than 5 g in urine Creatinine is 4.95. Admitting creatinine is 4.88 Urine output has been nonoliguric Tunneled dialysis catheter planned for today; patient will start dialysis 2. Hypokalemia, hypomagnesemia replaced, recheck in am 3. Ascites secondary to decompensated chronic liver disease, s/p therapeutic pa racentesis on 04/19/21 Ammonia level was 180 on admission, ammonia is 59 today Continue on lactulose, rifaximin 4. Anemia, of chronic disease, hemoglobin 6.4, will transfuse 1 unit of packed RBC We will check iron studies and FOBT 5. Type II DM, HbA1c is 6.8, patient has episodes of hypoglycemia Insulins have been discontinued, continue insulin sliding scale controlled 6. Hypertension, controlled continue amlodipine 7. Epistaxis/subconjunctival hemorrhage to the left eye, resolved Platelet count and INR is unremarkable Will continue to monitor DVT PPx - SCDs on account of anemia/epistaxis Charges/Coding Visit Charges Inpatient E&M: 17646 Subs Hosp L2
--- NOTE | 2021-04-21 10:30 | NURSING ---
pt to or via bed
[2021-04-21 10:36] LABS: Bedside Glucose 129 mg/dL (70-110)
[2021-04-21 10:47] LABS: Ferritin 278 ng/mL (26-388); Iron 61 ug/dL (65-175); Iron Binding Capacity,Total 146 ug/dL (250-450); PERCENT IRON SATURATION 41.8 % (15.0-55.0)
[2021-04-21] MEDS: Cefazolin 2 GM in 0.9% Normal Saline 100 ML IV (11:20)
[2021-04-21] MEDS: Lidocaine 1% /Epi 1:100 (20ml) 20 ML Vial (11:28)
[2021-04-21] MEDS: Heparin 10,000 UNITS/10 ML Vial 10000 UNITS (11:30)
--- NOTE | 2021-04-21 11:48 | RAD_ITS ---
INDICATION: line placement -- in pacu EXAMINATION/TECHNIQUE: X-RAY - XR Chest 1 View COMPARISON: 03/11/2021. FINDINGS: LINES/DEVICES: Right IJ central catheter visualizes tip in SVC. EKG leads are seen superimposing the chest. . LUNGS: Prominence of the bronchovascular interstitial lung markings is visualized bilaterally scattered areas of patchy airspace opacification visualized in bilateral lung yeager. Peribronchial cuffing bilateral hilar regions is seen. No evidence of pneumothorax or pleural effusion. MEDIASTINUM AND CARDIOVASCULAR STRUCTURES: Cardiac silhouette not enlarged. Central airways and mediastinal contour are unremarkable. BONES AND SOFT TISSUES: Degenerative bone changes seen. RAD/CXR for Line Placement IMPRESSION: Right IJ dialysis catheter visualizes tip in the SVC. Mild congestive changes. Electronically Signed: Darnell Shirley MD at 12:19 EDT Tel , Service support ,
--- NOTE | 2021-04-21 11:49 | PCM.OPRPT ---
Problems Associated Problem List Diagnoses (1) Acute renal failure superimposed on stage 3 chronic kidney disease: Report of Operation Date of Procedure: 04/21/21 Pre-Operative Diagnosis: Acute on chronic kidney disease Post-Operative Diagnosis: Same Surgery/Procedure Performed:: Ultrasound and fluoroscopy guided right chest temporary dialysis catheter utilizing right IJ Description of Procedure: Patient was brought back to the operating room MAC anesthesia was induced. The right neck and chest were prepped in usual sterile fashion. Injection of local anesthetic to the neck and chest area and then a small incision was made over each area. Ultrasound was used to guide needle into the right IJ and a guidewire was placed without resistance. Fluoroscopy confirmed placement in the right IJ. Next the needle was removed over the guidewire and serial dilators and peel-away sheath were removed. The wire was removed. Next the catheter was tunneled from the lower incision to the upper incision and placed through the peel-away catheter and the peel-away catheter was removed. Fluoroscopy confirmed good placement of the catheter. The cuff was placed under the skin and the catheter was sutured to the skin using 2-0 nylon suture. The upper skin incision was closed using interrupted 3-0 Vicryl suture. Steri-Strips were applied and the catheters were each drawn and flushed and they both hua and flushed easily. They were then each flushed with 1.6 cc of heparinized saline and clamped and capped. Dressings were applied and patient was taken to PACU in stable condition chest x-ray will be obtained. Grafts/Implants Used: Palindrome curved temporary dialysis catheter
--- NOTE | 2021-04-21 12:10 | PN.RENAL_ITS ---
Subjective Subjective dialysis catheter placement scheduled for this morning followed by hemodialysis today, first treatment. Need to arrange outpt dialysis prior to discharge. Somnolent, spoke with pt josé luis Minor at bedside Objective Data Objective Data Vital Signs: Vital Signs Temp Pulse Resp BP Pulse Ox 98.8 F 88 16 144/70 H 100 04/21/21 09:53 04/21/21 09:53 04/21/21 09:53 04/21/21 09:53 04/21/21 09:53 Oxygen Delivery Method [3] Room Air Oxygen Delivery Method [2] Room Air Oxygen Delivery Method [1 ( Room Air Initial Baseline)] Oxygen Delivery Method Room Air Weight: 75.3 kg Body Mass Index (BMI) 25.9 Intake & Output: Intake and Output for Last 24 Hours 04/19/21 04/20/21 04/21/21 23:59 23:59 23:59 Intake Total 1872.08 / 1872.08 100 / 150 160 / 160 Output Total 7050 / 7050 525 / 675 400 / 400 Balance -5177.92 / -5177.92 -425 / -525 -240 / -240 Lab / Micro Data Result Diagrams: 04/22/21 05:29 04/22/21 05:29 Labs: Laboratory Results - last 24 hr 04/18/21 20:30: Crossmatch See Detail 04/20/21 11:17: POC Glucose 30 L* 04/20/21 11:30: POC Glucose 171 H 04/20/21 11:50: POC Glucose 111 H 04/20/21 12:14: POC Glucose 80 04/20/21 13:42: POC Glucose 84 04/20/21 15:40: POC Glucose 110 04/20/21 18:35: Ur Random Sodium 22 04/20/21 18:35: U Random Total Protein 536.7 H, Urine Creatinine 94.20, Protein/Creatinin Ratio 5697 H 04/20/21 23:28: POC Glucose 150 H 04/21/21 05:14: Iron 61 L, TIBC 146 L, Iron Saturation 41.8, Ferritin 278 04/21/21 05:34: Ammonia 59.0 H 04/21/21 05:34: WBC 9.0, RBC 2.34 L, Hgb 6.7 L, Hct 19.5 L, MCV 83.3, MCH 28.6, MCHC 34.4, RDW Std Deviation 48.8 H, RDW Coeff of Edwin 16.0 H, Plt Count 149 L, MPV 9.4, Immature Gran % (Auto) 0.900, Neut % (Auto) 78.5 H, Lymph % (Auto) 11.7 L, [place] % (Auto) 6.9, Eos % (Auto) 1.7, Baso % (Auto) 0.3, Absolute Neuts (auto) 7.0, Absolute Lymphs (auto) 1.05, Nucleated RBC % 0 04/21/21 05:34: APTT 34.5 04/21/21 05:34: Sodium 133 L, Potassium 3.4 L, Chloride 106, Carbon Dioxide 11.0 L, Anion Gap 16 H, BUN 68 H, Creatinine 4.95 H, Estim Creat Clear Calc 13.35, Est GFR (MDRD) Af Amer 15 L, Est GFR (MDRD) Non-Af 13 L, BUN/Creatinine Ratio 13.7, Glucose 173 H, Calcium 8.0 L, Phosphorus 6.8 H, Magnesium 1.5 L, Total Bilirubin 0.50, AST 47 H, ALT 42, Alkaline Phosphatase 123 H, Total Protein 5.8 L, Albumin 2.3 L, Globulin 3.5, Albumin/Globulin Ratio 0.7 L 04/21/21 05:34: Hemoglobin A1c 6.8 H 04/21/21 06:38: POC Glucose 149 H 04/21/21 10:22: POC Glucose 129 H Micro: Microbiology 04/18/21 16:00 Stool Stool Occult Blood (NORI) - Final 04/18/21 16:03 Nasal Secretion SARS-CoV-2 Antigen (Rapid) - Final Physical Exam Const Orientation / Consciousness: lethargic Resp clear to auscultation bilaterally Cardio regular rate GI non-tender and non-distended Palpation: soft Bladder / Kidney Exam: catheter in place Extremity no clubbing, cyanosis or edema Neuro Neuro Narrative: somnolent Motor Exam: no tremor Assessment & Plan Assessment/Plan (1) Acute renal failure superimposed on stage 3 chronic kidney disease: QUALIFIERS: Acute renal failure type: unspecified Chronic kidney disease stage 3 subtype: stage 3b (GFR 30-44) Qualified Code(s): N17.9 - Acute kidney failure, unspecified; N18.32 - Chronic kidney disease, stage 3b PLAN: CANELO on CKD vs ESRD. HD today #1 after tunneled catheter placement today. Next dialysis tmorrow. Family interested in home dialysis. Will need dialysis arranged at chronic unit prior to discharge then consider home dialysis if ESRD at a later time. (2) Ascites: PLAN: requiring frequent paracentesis (3) Failure to thrive: PLAN: low potassium low mag to suggest poor nutritional status. Albumin low at 2.1. Rec protein supplement (4) Ascites due to alcoholic cirrhosis: PLAN: s/p paracentesis. Check spot urine sodium (5) Diabetes mellitus type 2 in nonobese: PLAN: hypoglycemic episode today. Cautious use of insulin in light of poor oral intake and renal failure (6) Hyperammonemia: PLAN: improved on lactulose (7) Anemia: PLAN: hgb 6.7g. iv iron with epo on dialysis. Consider prbc, dw hospitalist (8) Hyperphosphatemia: PLAN: add binders, check PTH, (9) Metabolic acidosis: PLAN: correct with dialysis
--- NOTE | 2021-04-21 14:00 | CASEMGMT ---
REUBEN CM into pt room. Pt lying in bed with eyes closed. Pt dtr Mily present at bedside. She states they have spoke to and prefer [facility] for dialysis. Pt has multiple family members who can transport him to dialysis. Referral submitted online to [facility].
--- NOTE | 2021-04-21 17:45 | DIALYSIS ---
Pt tolerated 2hr HD tx well. Hepatitis labs drawn and sent. Net [facility] EVEN. See flow record for tx data.
[2021-04-21] MEDS: Calcium Acetate 667 MG Capsule PO (18:42)
[2021-04-21] MEDS: Aspirin 81 MG TAB.CHEW PO (18:42)
[2021-04-21] MEDS: Timolol 0.5% 5ML OPTH.BTL 1 DRP EACH EYE (18:43)
[2021-04-21] MEDS: Magnesium Chloride 64 MG Delay Rel.Tablet 128 MG PO ×2 (18:43→21:57)
[2021-04-21] MEDS: amLODIPine 5 MG Tablet PO (18:43)
[2021-04-21] MEDS: Sertraline 50 MG Tablet PO (18:44)
[2021-04-21] MEDS: Heparin 10,000 UNITS/10 ML Vial IV (18:46)
[2021-04-21] MEDS: Lactulose 20 GM/30 ML UDC PO (21:55)
[2021-04-21] MEDS: Atropine Sulfate 1% 2 ml Bottle 1 DRP EACH EYE (21:55)
[2021-04-21] MEDS: prednisoLONE eye drops (5 mL) 1 DROP OPTH.BTL 1 DRP LEFT EYE (21:55)
[2021-04-21] MEDS: Insulin Lispro 100 UNIT/ML INSULN.PEN SC (21:56)
[2021-04-21] MEDS: Atorvastatin Calcium 10 MG Tablet PO (21:56)
[2021-04-21] MEDS: rifAXIMin 550 MG Tablet PO (21:57)
[2021-04-21] MEDS: Acetaminophen 325 MG Tablet 650 MG PO (21:58)
[2021-04-21 22:20] LABS: Bedside Glucose 197 mg/dL (70-110)
[2021-04-22] VITALS (8 sets, daily range): BP systolic 126–133; BP diastolic 59–63; PULSE 74–81; RESP 16; TEMP 36.5–37.2; O2SAT 94–100
[2021-04-22 05:45] LABS: Absolute Lymphocyte Count 0.94 X10^3/uL (0.83-4.51); Absolute Neutrophil Count 4.4 X10^3/uL (2.0-7.7); Basophil# 0.04 X10^3/uL; Basophil% 0.6 % (0-1); Eosinophil# 0.17 X10^3/uL; Eosinophils% 2.7 % (0-5); Hematocrit 23.9 % (40-54); Hemoglobin 8.2 g/dL (13.0-16.5); Lymphocyte # 0.94 X10^3/ul (0.83-4.51); Lymphocyte % 14.7 % (19-41); Mean Corp Hgb Conc 34.3 g/dL (32-36); Mean Corpuscular Hgb 28.2 pg (27.0-32.0); Mean Corpuscular Volume 82.1 fL (80-94); Mean Platelet Vol. 9.4 fl (6.2-12.0); Monocyte# 0.78 X10^3/uL; Monocyte% 12.2 % (0-10); NRBC Flagged by Analyzer 0 % (0-5); Neutrophil # 4.42 X10^3/uL (2.7-7.7); Platelet Count 139 K/mm3 (150-450); RBC Distribution Width CV 16.3 % (11.6-14.6); RBC Distribution Width SD 48.3 fl (35.1-43.9); Red Blood Count 2.91 M/mm3 (4.6-6.2); White Blood Count 6.4 K/mm3 (4.4-11.0)
[2021-04-22 06:17] LABS: ALB/GLOB Ratio 0.6 RATIO (0.9-2.4); AST(SGOT) 67 U/L (15-37); Alanine Aminotransfer ALT/SGPT 49 U/L (16-61); Albumin, Serum 2.2 g/dL (3.2-5.0); Alkaline Phosphatase 140 U/L (45-117); Anion Gap 11 (5-15); BUN 46 mg/dL (7-18); BUN/Creat Ratio 11.5 RATIO (10-20); Calcium,Total 7.5 mg/dL (8.5-10.1); Chloride 103 mmol/L (98-107); Creatinine, Serum 4.01 mg/dL (0.70-1.30); EST Glomerular Filtration Rate 16 mL/min (>60); Est Glom Filt Rate - Afr Amer 19 mL/min (>60); Estimated Creatinine Clearance 16.48 ml/min; Globulin 3.8 g/dL (2.2-4.2); Glucose 150 mg/dL (74-106); Magnesium 1.8 mg/dL (1.6-2.6); Phosphorus 5.3 mg/dL (2.5-4.9); Potassium 3.5 mmol/L (3.5-5.1); Sodium Level 133 mmol/L (136-145)
[2021-04-22] MEDS: Lactulose 20 GM/30 ML UDC PO ×2 (06:35→22:15)
[2021-04-22 06:46] LABS: Bedside Glucose 145 mg/dL (70-110)
--- NOTE | 2021-04-22 07:35 | PCM.PN.BLA ---
Progress Note dialysis #2 today then #3 tomorrow. Run on 4K today. Bleeding around catheter site. 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 24h urine CRCL 10cc/min. HD today #2 today, next dialysis Sat. Await outpt dialysis schedule. (2) Failure to thrive: PLAN: low potassium low mag to suggest poor nutritional status. Albumin low at 2.1. Rec protein supplement (3) Ascites due to alcoholic cirrhosis: PLAN: s/p paracentesis. (4) Diabetes mellitus type 2 in nonobese: PLAN: hypoglycemic episode today. Cautious use of insulin in light of poor oral intake and renal failure (5) Anemia: PLAN: iv iron with epo on dialysis (6) Metabolic acidosis: PLAN: correct with dialysis
[2021-04-22] MEDS: Calcitriol 0.25 MCG Capsule PO (08:16)
[2021-04-22] MEDS: Epoetin Alfa epbx 10,000 UNITS/ML 5000 UNIT IV (10:00)
[2021-04-22 10:06] LABS: Hepatitis B Surface Antibody Non-Reactive
--- NOTE | 2021-04-22 10:12 | PN.HOSP_ITS ---
Subjective Subjective Patient was seen and examined. He is having his second dialysis. No acute events. Some oozing of blood hold for diarrhea, or bowel movement more than 3 times a day Objective Data Objective Data Vital Signs: Vital Signs Temp Pulse Resp BP Pulse Ox 97.7 F L 74 16 126/59 H 99 04/22/21 02:00 04/22/21 04:00 04/22/21 02:00 04/22/21 02:00 04/22/21 02:00 Oxygen Delivery Method [3] Room Air Oxygen Delivery Method [2] Room Air Oxygen Delivery Method [1 ( Room Air Initial Baseline)] Oxygen Delivery Method Room Air Weight: 75.2 kg Body Mass Index (BMI) 25.9 Intake & Output: Intake and Output for Last 24 Hours 04/20/21 04/21/21 04/22/21 23:59 23:59 23:59 Intake Total 100 / 150 160 / 160 Output Total 525 / 675 780 / 780 175 / 175 Balance -425 / -525 -620 / -620 -175 / -175 Lab / Micro Data Result Diagrams: 04/22/21 05:29 04/22/21 05:29 Labs: Laboratory Results - last 24 hr 04/18/21 20:30: Crossmatch See Detail 04/21/21 05:14: Iron 61 L, TIBC 146 L, Iron Saturation 41.8, Ferritin 278 04/21/21 10:22: POC Glucose 129 H 04/21/21 16:50: Hep Bs Antibody Non-Reactive 04/21/21 21:54: POC Glucose 197 H 04/22/21 05:29: WBC 6.4, RBC 2.91 L, Hgb 8.2 L, Hct 23.9 L, MCV 82.1, MCH 28.2, MCHC 34.3, RDW Std Deviation 48.3 H, RDW Coeff of Edwin 16.3 H, Plt Count 139 L, MPV 9.4, Immature Gran % (Auto) 0.800, Neut % (Auto) 69.0, Lymph % (Auto) 14.7 L , [place] % (Auto) 12.2 H, Eos % (Auto) 2.7, Baso % (Auto) 0.6, Absolute Neuts (auto) 4.4, Absolute Lymphs (auto) 0.94, Nucleated RBC % 0 04/22/21 05:29: Sodium 133 L, Potassium 3.5, Chloride 103, Carbon Dioxide 19.0 L , Anion Gap 11, BUN 46 H, Creatinine 4.01 H, Estim Creat Clear Calc 16.48, Est GFR (MDRD) Af Amer 19 L, Est GFR (MDRD) Non-Af 16 L, BUN/Creatinine Ratio 11.5, Glucose 150 H, Calcium 7.5 L, Phosphorus 5.3 H, Magnesium 1.8, Total Bilirubin 0.40, AST 67 H, ALT 49, Alkaline Phosphatase 140 H, Total Protein 6.0 L, Albumin 2.2 L, Globulin 3.8, Albumin/Globulin Ratio 0.6 L 04/22/21 06:34: POC Glucose 145 H Micro: Microbiology 04/22/21 04:35 Stool Stool Occult Blood (NORI) - Final Occult Blood Positive 04/18/21 16:00 Stool Stool Occult Blood (NORI) - Final 04/18/21 16:03 Nasal Secretion SARS-CoV-2 Antigen (Rapid) - Final Radiography Diagnostic Testing: Radiology Impression Chest X-Ray 04/21/21 11:48 IMPRESSION: Right IJ dialysis catheter visualizes tip in the SVC. Mild congestive changes. Electronically Signed: Darnell Shirley MD at 12:19 EDT Tel , Service support , Physical Exam Narrative Physical Exam: Gen: Blind, answers questions with minimal Nauruan, no obvious epistaxis, not pale, not jaundiced, left eye has subconjunctival hematoma CVS:HS I +II, regular, no murmurs RESP: Diminished at lung bases GI: BS present and normal, soft, distended, ascites improved EXT: Bilateral leg edema +1-2 FOUNDATION RELATIONS DIRECTOR: Alert, oriented, flapping tremors present+ Assessment & Plan Assessment/Plan (1) Acute renal failure superimposed on stage 3 chronic kidney disease: QUALIFIERS: Acute renal failure type: unspecified Chronic kidney disease stage 3 subtype: stage 3b (GFR 30-44) Qualified Code(s): N17.9 - Acute kidney failure, unspecified; N18.32 - Chronic kidney disease, stage 3b (2) Subconjunctival hemorrhage of left eye: (3) Multiple bruises: (4) Epistaxis: (5) Anasarca: (6) Ascites: (7) Chronic liver disease: (8) Failure to thrive: PLAN: 1. CANELO on CKD stage IIIb, started on dialysis, day 2 Patient has proteinuria; more than 5 g in urine Urine output is still fair Creatinine is 4.01. Admitting creatinine is 4.88 Nephrology following Discharge planning ongoing 2. Hypokalemia, hypomagnesemia replaced, recheck in am 3. Ascites secondary to decompensated chronic liver disease, s/p therapeutic paracentesis on 04/19/21 Ammonia level was 180 on admission, ammonia is 59 today Continue on lactulose, rifaximin 4. Anemia secondary to acute blood loss anemia, status post 1 unit of packed RBC His FOBT yesterday was positive; previous one was negative Iron studies point to anemia of chronic disease Repeat hemoglobin is 8.2 5. Type II DM, HbA1c is 6.8, patient has episodes of hypoglycemia Insulins have been discontinued, Blood sugars have been controlled cContinue insulin sliding scale 6. Hypertension, controlled continue amlodipine 7. Epistaxis/subconjunctival hemorrhage to the left eye, resolved Platelet count and INR is unremarkable Will continue to monitor DVT PPx - SCDs on account of anemia/epistaxis Charges/Coding Visit Charges Inpatient E&M: 07451 Subs Hosp L2
[2021-04-22 10:18] LABS: Hepatitis B Surface Antigen Non-Reactive (Nonreactive)
--- NOTE | 2021-04-22 11:14 | DIALYSIS ---
HD x 2.5 hours complete. Tolerated tx well. No fluid removed. Used right chest wall dialysis catheter. Lumens closed with heparin per fill volume. Caps placed. New dressing placed with surgifoam placed around the catheter exit site. Meds given as ordered. See tx sheet for more details. Report was given to REUBEN Solis.
--- NOTE | 2021-04-22 11:29 | CASEMGMT ---
Addendum entered by Dolores Benjamin 04/22/21 16:32: Pt is financially cleared for dialysis on Sunday per Doreen Rowell. Charge nurse, and Dr. Ramos aware. Addendum entered by Dolores Benjamin 04/22/21 15:45: Notified charge nurse Jenny as well and placed a copy of this communication on the front of the chart per her request. Addendum entered by Dolores Benjamin 04/22/21 15:42: RN CM in to pt room. Pt awake lying in bed. Pt dtr, Bronwyn relayed to dtr the information given. She and patient are aware that the dialysis is set up and planned for Sunday. Merry will notify Dr. Ramos and the family for the time on Sunday when the clearance from the insurance is received. Cortexted and to make aware. Original Note: Received tc from Merry at [facility]. She states pt can be seen on sunday to start dialysis. She is awaiting financial clearance. Faxed her the hepatitis screen for pt to [phone]. Dialysis nurse here at hospital states she faxed her treatment orders over as well.
[2021-04-22 11:41] LABS: Bedside Glucose 157 mg/dL (70-110)
[2021-04-22] MEDS: Heparin 10,000 UNITS/10 ML Vial 3200 UNITS IV (12:50)
[2021-04-22] MEDS: Calcium Acetate 667 MG Capsule PO ×2 (12:52→17:12)
[2021-04-22] MEDS: Aspirin 81 MG TAB.CHEW PO (12:52)
[2021-04-22] MEDS: Atropine Sulfate 1% 2 ml Bottle 1 DRP EACH EYE ×2 (12:52→22:15)
[2021-04-22] MEDS: amLODIPine 5 MG Tablet PO (12:54)
[2021-04-22] MEDS: prednisoLONE eye drops (5 mL) 1 DROP OPTH.BTL 1 DRP LEFT EYE ×2 (12:55→22:15)
[2021-04-22] MEDS: Timolol 0.5% 5ML OPTH.BTL 1 DRP EACH EYE (12:56)
[2021-04-22] MEDS: Sertraline 50 MG Tablet PO (12:56)
[2021-04-22] MEDS: rifAXIMin 550 MG Tablet PO ×2 (12:56→22:15)
[2021-04-22 17:20] LABS: Bedside Glucose 149 mg/dL (70-110)
[2021-04-22] MEDS: Atorvastatin Calcium 10 MG Tablet PO (22:15)
[2021-04-22] MEDS: Insulin Lispro 100 UNIT/ML INSULN.PEN SC (22:28)
[2021-04-22 22:41] LABS: Bedside Glucose 194 mg/dL (70-110)
[2021-04-23] VITALS (8 sets, daily range): BP systolic 136–154; BP diastolic 60–74; PULSE 79–89; RESP 16; TEMP 37.1–37.3; O2SAT 96–100
[2021-04-23] MEDS: Lactulose 20 GM/30 ML UDC PO ×2 (06:21→15:47)
[2021-04-23 06:49] LABS: Absolute Lymphocyte Count 1.31 X10^3/uL (0.83-4.51); Absolute Neutrophil Count 5.4 X10^3/uL (2.0-7.7); Basophil# 0.05 X10^3/uL; Basophil% 0.6 % (0-1); Eosinophil# 0.24 X10^3/uL; Eosinophils% 2.9 % (0-5); Hematocrit 24.4 % (40-54); Hemoglobin 8.3 g/dL (13.0-16.5); Lymphocyte # 1.31 X10^3/ul (0.83-4.51); Lymphocyte % 15.6 % (19-41); Mean Corpuscular Hgb 28.1 pg (27.0-32.0); Mean Corpuscular Volume 82.7 fL (80-94); Mean Platelet Vol. 9.8 fl (6.2-12.0); Monocyte# 1.22 X10^3/uL; Monocyte% 14.5 % (0-10); NRBC Flagged by Analyzer 0 % (0-5); Neutrophil # 5.43 X10^3/uL (2.7-7.7); Neutrophil % 64.4 % (47-70); Platelet Count 143 K/mm3 (150-450); RBC Distribution Width CV 16.4 % (11.6-14.6); RBC Distribution Width SD 48.4 fl (35.1-43.9); Red Blood Count 2.95 M/mm3 (4.6-6.2); White Blood Count 8.4 K/mm3 (4.4-11.0)
[2021-04-23 06:55] LABS: Bedside Glucose 131 mg/dL (70-110)
[2021-04-23 07:21] LABS: Hepatitis B Core Ab Total Negative (Negative)
--- NOTE | 2021-04-23 08:22 | PN.SURG_ITS ---
Subjective Subjective No further bleeding from the catheter overnight Objective Data Objective Data Vital Signs: Vital Signs Temp Pulse Resp BP Pulse Ox 98.9 F 81 16 149/62 H 100 04/23/21 03:27 04/23/21 04:01 04/23/21 03:27 04/23/21 03:27 04/23/21 03:27 Oxygen Delivery Method [3] Room Air Oxygen Delivery Method [2] Room Air Oxygen Delivery Method [1 ( Room Air Initial Baseline)] Oxygen Delivery Method Room Air Weight: 160 lb 7.944 oz Body Mass Index (BMI) 25.9 Intake & Output: Intake and Output for Last 24 Hours 04/21/21 04/22/21 04/23/21 23:59 23:59 23:59 Intake Total 160 / 160 220 / 370 250 / 250 Output Total 780 / 780 175 / 525 475 / 475 Balance -620 / -620 45 / -155 -225 / -225 Lab / Micro Data Result Diagrams: 04/23/21 06:43 04/22/21 05:29 Labs: Laboratory Results - last 24 hr 04/21/21 16:50: Hep B Core Total Ab Negative 04/21/21 16:50: Hep Bs Antigen Non-Reactive 04/21/21 16:50: Hep Bs Antibody Non-Reactive 04/22/21 11:34: POC Glucose 157 H 04/22/21 17:07: POC Glucose 149 H 04/22/21 22:12: POC Glucose 194 H 04/23/21 06:19: POC Glucose 131 H 04/23/21 06:43: WBC 8.4, RBC 2.95 L, Hgb 8.3 L, Hct 24.4 L, MCV 82.7, MCH 28.1, MCHC 34.0, RDW Std Deviation 48.4 H, RDW Coeff of Edwin 16.4 H, Plt Count 143 L, MPV 9.8, Immature Gran % (Auto) 2.000 H, Neut % (Auto) 64.4, Lymph % (Auto) 15.6 L, [place] % (Auto) 14.5 H, Eos % (Auto) 2.9, Baso % (Auto) 0.6, Absolute Neuts (auto) 5.4, Absolute Lymphs (auto) 1.31, Nucleated RBC % 0 Micro: Microbiology 04/22/21 04:35 Stool Stool Occult Blood (NORI) - Final Occult Blood Positive 04/18/21 16:00 Stool Stool Occult Blood (NORI) - Final 04/18/21 16:03 Nasal Secretion SARS-CoV-2 Antigen (Rapid) - Final Physical Exam Narrative Right chest tunneled dialysis catheter in place, no current bleeding. Assessment & Plan Assessment/Plan (1) Acute renal failure superimposed on stage 3 chronic kidney disease: QUALIFIERS: Acute renal failure type: unspecified Chronic kidney disease stage 3 subtype: stage 3b (GFR 30-44) Qualified Code(s): N17.9 - Acute kidney failure, unspecified; N18.32 - Chronic kidney disease, stage 3b PLAN: Status post tunneled dialysis catheter. Patient did have some bleeding from the site currently it has stopped. Recommend patient be upright. Will sign off call with any questions. Elizabeth Bowen M.D. Pager: [phone] [facility] [address] [place] [address], [address] [place] [address] Office: [phone]
[2021-04-23] MEDS: Calcium Acetate 667 MG Capsule PO ×2 (08:25→11:31)
[2021-04-23 08:27] LABS: ALB/GLOB Ratio 0.5 RATIO (0.9-2.4); AST(SGOT) 50 U/L (15-37); Alanine Aminotransfer ALT/SGPT 37 U/L (16-61); Albumin, Serum 1.9 g/dL (3.2-5.0); Alkaline Phosphatase 138 U/L (45-117); Anion Gap 7 (5-15); BUN 28 mg/dL (7-18); BUN/Creat Ratio 8.1 RATIO (10-20); Calcium,Total 7.7 mg/dL (8.5-10.1); Chloride 103 mmol/L (98-107); Creatinine, Serum 3.44 mg/dL (0.70-1.30); EST Glomerular Filtration Rate 19 mL/min (>60); Est Glom Filt Rate - Afr Amer 23 mL/min (>60); Estimated Creatinine Clearance 19.22 ml/min; Glucose 154 mg/dL (74-106); Potassium 3.6 mmol/L (3.5-5.1); Protein, Total 5.9 g/dL (6.4-8.2); Sodium Level 132 mmol/L (136-145)
--- NOTE | 2021-04-23 09:35 | PN.HOSP_ITS ---
Subjective Subjective Patient was seen and examined. His daughter was at the bedside. Complains of abdominal distention. No fevers or chills. Objective Data Objective Data Vital Signs: Vital Signs Temp Pulse Resp BP Pulse Ox 98.9 F 87 16 149/62 H 100 04/23/21 03:27 04/23/21 08:04 04/23/21 03:27 04/23/21 03:27 04/23/21 03:27 Oxygen Delivery Method [3] Room Air Oxygen Delivery Method [2] Room Air Oxygen Delivery Method [1 ( Room Air Initial Baseline)] Oxygen Delivery Method Room Air Weight: 72.8 kg Body Mass Index (BMI) 25.9 Intake & Output: Intake and Output for Last 24 Hours 04/21/21 04/22/21 04/23/21 23:59 23:59 23:59 Intake Total 160 / 160 220 / 370 250 / 250 Output Total 780 / 780 175 / 525 475 / 475 Balance -620 / -620 45 / -155 -225 / -225 Lab / Micro Data Result Diagrams: 04/23/21 06:43 04/23/21 06:43 Labs: Laboratory Results - last 24 hr 04/21/21 16:50: Hep B Core Total Ab Negative 04/21/21 16:50: Hep Bs Antigen Non-Reactive 04/21/21 16:50: Hep Bs Antibody Non-Reactive 04/22/21 11:34: POC Glucose 157 H 04/22/21 17:07: POC Glucose 149 H 04/22/21 22:12: POC Glucose 194 H 04/23/21 06:19: POC Glucose 131 H 04/23/21 06:43: WBC 8.4, RBC 2.95 L, Hgb 8.3 L, Hct 24.4 L, MCV 82.7, MCH 28.1, MCHC 34.0, RDW Std Deviation 48.4 H, RDW Coeff of Edwin 16.4 H, Plt Count 143 L, MPV 9.8, Immature Gran % (Auto) 2.000 H, Neut % (Auto) 64.4, Lymph % (Auto) 15.6 L, [place] % (Auto) 14.5 H, Eos % (Auto) 2.9, Baso % (Auto) 0.6, Absolute Neuts (auto) 5.4, Absolute Lymphs (auto) 1.31, Nucleated RBC % 0 04/23/21 06:43: Sodium 132 L, Potassium 3.6, Chloride 103, Carbon Dioxide 22.0, Anion Gap 7, BUN 28 H, Creatinine 3.44 H, Estim Creat Clear Calc 19.22, Est GFR (MDRD) Af Amer 23 L, Est GFR (MDRD) Non-Af 19 L, BUN/Creatinine Ratio 8.1 L, Glucose 154 H, Calcium 7.7 L, Phosphorus 4.0, Total Bilirubin 0.50, AST 50 H, ALT 37, Alkaline Phosphatase 138 H, Total Protein 5.9 L, Albumin 1.9 L, Globulin 4.0, Albumin/Globulin Ratio 0.5 L Micro: Microbiology 04/22/21 04:35 Stool Stool Occult Blood (NORI) - Final Occult Blood Positive 04/18/21 16:00 Stool Stool Occult Blood (NORI) - Final 04/18/21 16:03 Nasal Secretion SARS-CoV-2 Antigen (Rapid) - Final Physical Exam Narrative Physical Exam: Gen: Blind, answers questions with minimal Georgian, no obvious epistaxis, not pale, not jaundiced, left eye subconjunctival hematoma is improving CVS:HS I +II, regular, no murmurs RESP: Diminished at lung bases GI: BS present and normal, soft, distended, ascites++ EXT: Bilateral leg edema +1-2 PROCESSOR HELPER: Alert, oriented, flapping tremors present+ Assessment & Plan Assessment/Plan (1) Acute renal failure superimposed on stage 3 chronic kidney disease: QUALIFIERS: Acute renal failure type: unspecified Chronic kidney disease stage 3 subtype: stage 3b (GFR 30-44) Qualified Code(s): N17.9 - Acute kidney failure, unspecified; N18.32 - Chronic kidney disease, stage 3b (2) Subconjunctival hemorrhage of left eye: (3) Multiple bruises: (4) Epistaxis: (5) Anasarca: (6) Ascites: (7) Chronic liver disease: (8) Failure to thrive: PLAN: 1. CANELO on CKD stage IIIb, completed 2 days of dialysis Patient has proteinuria; more than 5 g in urine Urine output is still fair Creatinine is 4.01. Admitting creatinine is 3.44 Nephrology following Discharge planning ongoing-patient has outpatient dialysis planned for Sunday 2. Hypokalemia, hypomagnesemia replaced, recheck in am 3. Ascites secondary to decompensated chronic liver disease, s/p therapeutic paracentesis on 04/19/21 Ammonia level was 180 on admission, ammonia is 59 today Continue on lactulose, rifaximin Patient will need paracentesis prior to discharge or will need to be scheduled for outpatient. This needs to be coordinated before discharge 4. Anemia secondary to acute blood loss anemia, status post 1 unit of packed RBC His FOBT yesterday was positive; previous one was negative Iron studies point to anemia of chronic disease Repeat hemoglobin is 8.3 5. Type II DM, HbA1c is 6.8, patient has episodes of hypoglycemia Insulins have been discontinued, Blood sugars have been controlled Continue insulin sliding scale 6. Hypertension, controlled continue amlodipine 7. Epistaxis/subconjunctival hemorrhage to the left eye, resolved Platelet count and INR is unremarkable Will continue to monitor DVT PPx - SCDs on account of anemia/epistaxis Charges/Coding Visit Charges Inpatient E&M: 30612 [facility] Hosp L3
[2021-04-23] MEDS: prednisoLONE eye drops (5 mL) 1 DROP OPTH.BTL 1 DRP LEFT EYE (10:37)
[2021-04-23] MEDS: Timolol 0.5% 5ML OPTH.BTL 1 DRP EACH EYE (10:37)
[2021-04-23] MEDS: Atropine Sulfate 1% 2 ml Bottle 1 DRP EACH EYE (10:37)
[2021-04-23] MEDS: rifAXIMin 550 MG Tablet PO (10:37)
[2021-04-23] MEDS: 0.9% Saline Lock 10 ML Syringe IV (10:40)
[2021-04-23] MEDS: Insulin Lispro 100 UNIT/ML INSULN.PEN SC (11:30)
[2021-04-23 11:40] LABS: Bedside Glucose 206 mg/dL (70-110)
[2021-04-23] MEDS: Sertraline 50 MG Tablet PO (15:46)
[2021-04-23] MEDS: amLODIPine 5 MG Tablet PO (15:47)
[2021-04-23] MEDS: Aspirin 81 MG TAB.CHEW PO (15:47)
--- NOTE | 2021-04-23 16:11 | PCM.DC ---
Discharge Instructions Diet Discharge Diet: 1800 Calorie Control Diet and Renal Diet Activity Discharge Activity: Return to Normal Activity Follow Up Care Test Results: Test results from this visit will be discussed in further detail at your follow-up appointment, if applicable. Discharge Plan Admission Admit Date/Time: 04/18/21 17:02 Primary Reason for Your Visit: CANELO Attending Provider: Марина Buckner Primary Care Provider: Jerald Rivera Consulting Providers: Jenni Ramos ; Robe Caldwell Instructions Patient Instructions: ED Chest Pain, Noncardiac Additional Instructions / Restrictions: Take note of changes in your medications. You need to arrange for paracentesis on Sunday. Discharge Orders/Prescriptions Prescriptions: New calcium acetate(phosphat bind) 667 mg Capsule 667 mg PO TIDCM 30 Days Qty: 90 RF: 0 Xifaxan 550 mg Tablet 550 mg PO BID 30 Days Qty: 60 RF: 0 pantoprazole 40 mg tablet,delayed release (DR/EC) 40 mg PO BID 30 Days Qty: 60 RF: 0 Lantus Solostar U-100 Insulin 100 unit/mL (3 mL) insulin pen 10 unit subcut QPM 30 Days Qty: 3 RF: 0 Continued atorvastatin 10 MG tablet 10 mg PO DAILY RF: 0 aspirin 81 MG tablet,chewable 81 mg PO DAILY@0800 RF: 0 timolol maleate 1 DROP gel forming solution 1 drp EACH EYE DAILY RF: 0 atropine 5 ML drops 1 drp EACH EYE BID RF: 0 amlodipine 10 MG tablet 5 mg PO DAILY RF: 0 prednisolone acetate 1 % drops,suspension 1 drp LEFT EYE BID RF: 0 furosemide 20 mg tablet 20 mg PO DAILY RF: 0 sertraline 50 mg tablet 50 mg PO DAILY RF: 0 lactulose 20 gram/30 mL solution 20 g PO TID Qty: 2880 RF: 0 Discontinued losartan-hydrochlorothiazide 1 EACH tablet PO DAILY RF: 0 Tresiba FlexTouch U-100 100 unit/mL (3 mL) insulin pen 10 unit SUBCUT BID RF: 0 insulin lispro 100 UNIT/ML insulin pen 30 unit SQ TID Qty: 0 RF: 0 losartan-hydrochlorothiazide 100-12.5 mg Tablet 1 tab PO DAILY RF: 0 Referrals / Follow Up: Robe Caldwell MD [STAFF PHYSICIAN] - Within 1 Month (for colonoscopy ) Jenni Ramos DO [STAFF PHYSICIAN] - See Referral Note (Dialysis as scheduled on Sunday) Jerald Rivera MD [Primary Care Provider] - Within 1 Week Disposition Disposition (needs filled in before D/C Order can be placed): Home, Self Care
--- NOTE | 2021-04-23 16:21 | DS.PCM_ITS ---
Providers Date of Admission: 04/18/21 Date of Discharge: 04/23/21 Primary Care Physician: Dr. Jerald Rivera MD Consultations 04/18/21 19:20 Consult: Nephrology Routine Consulting Provider: Jenni Ramos Reason for Consult: acute on chronic kidney disease EMERGENT Consult: No Notified: Yes Date Notified: 04/18/21 Time Notified: 17:28 Method of Notification: Provider Initiated 04/20/21 13:48 Consult: General Surgery Routine Consulting Provider: Robe Caldwell Reason for Consult: tunneled dialysis catheter placement EMERGENT Consult: No Notified: Yes Date Notified: 04/20/21 Time Notified: 13:48 Method of Notification: Page Reason For Visit: ACUTE ON CHRONIC RENAL FAILURE, ANEMIA Diagnosis Discharge Diagnosis (1) Acute renal failure superimposed on stage 3 chronic kidney disease: Status: Acute Code(s): N17.9 - Acute kidney failure, unspecified; N18.30 - Chronic kidney disease, stage 3 unspecified Qualifiers: Acute renal failure type: unspecified Chronic kidney disease stage 3 subtype: stage 3b (GFR 30-44) Qualified Code(s): N17.9 - Acute kidney failure, unspecified; N18.32 - Chronic kidney disease, stage 3b (2) Subconjunctival hemorrhage of left eye: Status: Acute Code(s): H11.32 - Conjunctival hemorrhage, left eye (3) Multiple bruises: Status: Acute Code(s): T07.XXXA - Unspecified multiple injuries, initial encounter (4) Epistaxis: Status: Resolved Code(s): R04.0 - Epistaxis (5) Anasarca: Status: Chronic Code(s): R60.1 - Generalized edema (6) Ascites: Status: Chronic Code(s): R18.8 - Other ascites Qualifiers: Ascites type: other type Qualified Code(s): R18.8 - Other ascites (7) Chronic liver disease: Status: Chronic Code(s): K76.9 - Liver disease, unspecified (8) Failure to thrive: Status: Acute Qualifiers: Failure to thrive age range: in adult Qualified Code(s): R62.7 - Adult failure to thrive (9) GI bleed: Status: Acute Code(s): K92.2 - Gastrointestinal hemorrhage, unspecified Qualifiers: GI bleed type/associated pathology: unspecified gastrointestinal hemorrhage type Qualified Code(s): K92.2 - Gastrointestinal hemorrhage, unspecified (10) Anemia: Status: Acute Code(s): D64.9 - Anemia, unspecified Qualifiers: Anemia type: iron deficiency Iron deficiency anemia type: chronic blood loss Qualified Code(s): D50.0 - Iron deficiency anemia secondary to blood loss (chronic) Medications at Discharge Home Medications aspirin 81 mg PO DAILY@0800 09/18/20 atorvastatin 10 mg PO DAILY 09/18/20 timolol maleate 1 drp EACH EYE DAILY 09/18/20 amlodipine 5 mg PO DAILY 10/08/20 atropine 1 drp EACH EYE BID 10/08/20 furosemide 20 mg PO DAILY 03/11/21 prednisolone acetate 1 drp LEFT EYE BID 03/11/21 sertraline 50 mg PO DAILY 03/11/21 lactulose 20 g PO TID #2880 ml 03/13/21 calcium acetate(phosphat bind) 667 mg PO TIDCM 30 Days #90 cap 04/23/21 insulin glargine [Lantus Solostar U-100 Insulin] 10 unit SUBCUT QPM 30 Days #3 ml 04/23/21 pantoprazole 40 mg PO BID 30 Days #60 tab 04/23/21 rifaximin [Xifaxan] 550 mg PO BID 30 Days #60 tab 04/23/21 Hospital Course Operations None Procedures - (s/p tunneled dialysis catheter) Summary of Care Provided Minutes Spent on Discharge: 45 Hospital Course: 66-year-old male with past medical history of CKD stage III, chronic liver disease, complicated by ascites, undergoing weekly paracentesis, legally blind who presents with excessive bruising, epistaxis and generalized weakness. Patient speaks Tagalog; his daughters help with interpretation. Patient was brought in because he had multiple bouts of epistaxis and had redness of his left eye. Patient had fallen down 1 week prior to admission. He hit his right flank. He had bruising over the right flank. No other melena or hematochezia His work-up in the ED showed elevation in kidney function. He also had worsening ascites. No evidence of blood was seen in the anterior nares. He was admitted to the Medr floor, nephrology consulted. Patient was monitored. He underwent paracentesis and had more than 5.8 L of fluid removed. He received IV albumin. His creatinine was monitored and his urine output was nonoliguric. Nephrology was consulted. Upon discussion with the family, patient and family agreed to have dialysis. He was found to be anemic, hemoglobin dropped to 6.7 and was transfused 1 unit of packed RBC. His FOBT was positive. He underwent tunneled dialysis catheter placement on 04/21/21. Dialysis was started on the same day. Patient was dialyzed the next day. Patient continued to be stable. Outpatient dialysis was arranged for 04/25/21. He was encouraged to follow-up with general surgery for outpatient colonoscopy. He would need to have repeat paracentesis to be done in the next couple of days. This could not be done immediately in the hospital because of the long holiday weekend. He was discharged on pantoprazole twice daily, rifaximin, lactulose Physical Exam Narrative See progress note Weight / BMI Weight Weight: 72.8 kg Body Mass Index (BMI) 25.9 ABG / Lab / Microbiology Data Result Diagrams: 04/23/21 06:43 04/23/21 06:43 Laboratory: Laboratory Results - last 24 hr 04/21/21 16:50: Hep B Core Total Ab Negative 04/22/21 17:07: POC Glucose 149 H 04/22/21 22:12: POC Glucose 194 H 04/23/21 06:19: POC Glucose 131 H 04/23/21 06:43: WBC 8.4, RBC 2.95 L, Hgb 8.3 L, Hct 24.4 L, MCV 82.7, MCH 28.1, MCHC 34.0, RDW Std Deviation 48.4 H, RDW Coeff of Edwin 16.4 H, Plt Count 143 L, MPV 9.8, Immature Gran % (Auto) 2.000 H, Neut % (Auto) 64.4, Lymph % (Auto) 15.6 L, [place] % (Auto) 14.5 H, Eos % (Auto) 2.9, Baso % (Auto) 0.6, Absolute Neuts (auto) 5.4, Absolute Lymphs (auto) 1.31, Nucleated RBC % 0 04/23/21 06:43: Sodium 132 L, Potassium 3.6, Chloride 103, Carbon Dioxide 22.0, Anion Gap 7, BUN 28 H, Creatinine 3.44 H, Estim Creat Clear Calc 19.22, Est GFR (MDRD) Af Amer 23 L, Est GFR (MDRD) Non-Af 19 L, BUN/Creatinine Ratio 8.1 L, Glucose 154 H, Calcium 7.7 L, Phosphorus 4.0, Total Bilirubin 0.50, AST 50 H, ALT 37, Alkaline Phosphatase 138 H, Total Protein 5.9 L, Albumin 1.9 L, Globulin 4.0, Albumin/Globulin Ratio 0.5 L 04/23/21 11:28: POC Glucose 206 H Microbiology: Microbiology 04/22/21 04:35 Stool Stool Occult Blood (NORI) - Final Occult Blood Positive 04/18/21 16:00 Stool Stool Occult Blood (NORI) - Final 04/18/21 16:03 Nasal Secretion SARS-CoV-2 Antigen (Rapid) - Final D/C Instructions Discharge Diet: 1800 Calorie Control Diet and Renal Diet Meaningful Use Info Meaningful Use Diagnoses (Choose all that apply): None applicable Discharge Plan Admission Admit Date/Time: 04/18/21 17:02 Primary Reason for Your Visit: CANELO Attending Provider: Марина Buckner Primary Care Provider: Jerald Rivera Consulting Providers: Jenni Ramos ; Robe Caldwell Instructions Patient Instructions: ED Chest Pain, Noncardiac Additional Instructions / Restrictions: Take note of changes in your medications. You need to arrange for paracentesis on Sunday. Discharge Orders/Prescriptions Prescriptions: New calcium acetate(phosphat bind) 667 mg Capsule 667 mg PO TIDCM 30 Days Qty: 90 RF: 0 Xifaxan 550 mg Tablet 550 mg PO BID 30 Days Qty: 60 RF: 0 pantoprazole 40 mg tablet,delayed release (DR/EC) 40 mg PO BID 30 Days Qty: 60 RF: 0 Lantus Solostar U-100 Insulin 100 unit/mL (3 mL) insulin pen 10 unit subcut QPM 30 Days Qty: 3 RF: 0 Continued atorvastatin 10 MG tablet 10 mg PO DAILY RF: 0 aspirin 81 MG tablet,chewable 81 mg PO DAILY@0800 RF: 0 timolol maleate 1 DROP gel forming solution 1 drp EACH EYE DAILY RF: 0 atropine 5 ML drops 1 drp EACH EYE BID RF: 0 amlodipine 10 MG tablet 5 mg PO DAILY RF: 0 prednisolone acetate 1 % drops,suspension 1 drp LEFT EYE BID RF: 0 furosemide 20 mg tablet 20 mg PO DAILY RF: 0 sertraline 50 mg tablet 50 mg PO DAILY RF: 0 lactulose 20 gram/30 mL solution 20 g PO TID Qty: 2880 RF: 0 Discontinued losartan-hydrochlorothiazide 1 EACH tablet PO DAILY RF: 0 Tresiba FlexTouch U-100 100 unit/mL (3 mL) insulin pen 10 unit SUBCUT BID RF: 0 insulin lispro 100 UNIT/ML insulin pen 30 unit SQ TID Qty: 0 RF: 0 losartan-hydrochlorothiazide 100-12.5 mg Tablet 1 tab PO DAILY RF: 0 Referrals / Follow Up: Robe Caldwell MD [STAFF PHYSICIAN] - Within 1 Month (for colonoscopy ) Jenni Ramos DO [STAFF PHYSICIAN] - See Referral Note (Dialysis as scheduled on Sunday) Jerald Rivera MD [Primary Care Provider] - Within 1 Week Disposition Disposition (needs filled in before D/C Order can be placed): Home, Self Care Charges/Coding Visit Charges Inpatient E&M: 87570 Disch Hosp
--- NOTE | 2021-04-26 14:34 | CASEMGMT ---
REUBEN BRIGHT Discharge Follow-up Phone Call: JAHAIRA:Frank Strata:3 Call Date:04/26/21 Discharge Date:04/23/21 Time of Call: 1430 Admitting Diagnosis: CANELO This RN KAILA phoned pt for discharge follow-up. Pt's daughter Bronwyn answered the phone and reports pt to be doing well since discharge. Pt's daughter states pt attended HD yesterday and tolerated it well although does state pt is feeling a little weak. Pt's daughter asked about bleeding at HD catheter site. Instructed daughter to apply pressure but if this does not resolve to call the dialysis center. Pt's daughter also asked about pt's decreased urine output, assured her this is normal for patients receiving hemodialysis. Pt's daughter states they did bulk picker his medications, do not have any questions regarding them or the discharge instructions. States she plans to call this afternoon to schedule pt's follow-up appointments. States she does have an appointment with Dr. Ramos scheduled but is not until May. States pt is on a cancellation list for an earlier appointment. Pt's daughter denies any further questions or concerns at this time. Andrew Damon RN CM
== END 2021-04-23 17:46 | disposition home or self-care (01) | DRG 673 ==
LOC: ED 16:44 → MS3 17:14
PROVIDERS: Anesthesiology; Internal Medicine Nephrology; Nurse Practitioner Family; Surgery; Admitting Provider Internal Medicine; Emergency Provider Emergency Medicine; PCP Internal Medicine; Visit Provider Internal Medicine
PROC: 0JH63XZ Insertion of Tunneled Vascular Access Device into Chest Subcutaneous Tissue and Fascia, Percutaneous Approach (ICD-10-PCS; principal; 2021-04-21 11:15)
DX: N17.9 Acute kidney failure, unspecified (principal); K76.7 Hepatorenal syndrome; D68.4 Acquired coagulation factor deficiency; E72.20 Disorder of urea cycle metabolism, unspecified; E87.1 Hypo-osmolality and hyponatremia; E87.2 Acidosis; D62 Acute posthemorrhagic anemia; T82.838A Hemorrhage due to vascular prosthetic devices, implants and grafts, initial encounter; K70.31 Alcoholic cirrhosis of liver with ascites; E11.22 Type 2 diabetes mellitus with diabetic chronic kidney disease; I12.9 Hypertensive chronic kidney disease with stage 1 through stage 4 chronic kidney disease, or unspecified chronic kidney disease; N18.32 Chronic kidney disease, stage 3b; H11.32 Conjunctival hemorrhage, left eye; R04.0 Epistaxis; S40.021A Contusion of right upper arm, initial encounter; S30.1XXA Contusion of abdominal wall, initial encounter; D63.8 Anemia in other chronic diseases classified elsewhere; D63.1 Anemia in chronic kidney disease; E87.6 Hypokalemia; R62.7 Adult failure to thrive; E83.39 Other disorders of phosphorus metabolism; E83.42 Hypomagnesemia; R29.6 Repeated falls; W18.30XA Fall on same level, unspecified, initial encounter; Z79.4 Long term (current) use of insulin; Z79.899 Other long term (current) drug therapy; Y93.89 Activity, other specified; Y92.009 Unspecified place in unspecified non-institutional (private) residence as the place of occurrence of the external cause; Y99.8 Other external cause status
CPT/HCPCS: 36415; 49083; 71045; 74176; 77001; 80053; 81001; 81050; 82140; 82274; 82570; 82575; 82728; 82947; 82962; 83036; 83540; 83550; 83735; 83970; 84100; 84156; 84300; 85014; 85018; 85025; 85027; 85610; 85730; 86704; 86706; 86850; 86900; 86901; 86920; 87340; 87426; 90937; 93005; 97162; 97166; 99251; 99285; J7030; J7040; P9040; P9047; A4216; C1750; G0257; G0463; J2405; J2916; Q5106

== ENCOUNTER → 2021-05-06 09:08 | Outpatient (CLI) | payer MEDICARE, MEDICAID, SELFPAY ==
[2020-10-08 18:48] VITALS: BMI 24.8
--- NOTE | 2021-05-06 09:10 | US_ITS ---
PROCEDURE: Ultrasound guided paracentesis. DATE OF EXAMINATION: 05/06/2021. INDICATION: Male, 66 years old. Ascites. PHYSICIAN: Gold Muse M.D. TECHNIQUE: The risks, benefits, and alternatives to the procedure were explained to the patient. The specific risks of bleeding, infection, and damage to bowel were detailed and accepted. Witnessed informed consent was obtained. The abdomen was ultrasonographically surveyed. An appropriate pocket of fluid was identified at the right lower quadrant. The skin were cleaned and prepped in the usual sterile fashion. Using ultrasound guidance, the peritoneal cavity was accessed with a 5-Citizen Of [place] paracentesis needle/catheter system. The trocar was removed. A total of 6000 ml of mahamed-colored fluid were removed from the peritoneal cavity. The catheter was removed and a sterile dressing was applied. The procedure was well tolerated. US/Paracentesis with US IMPRESSION: Ultrasound guided paracentesis. Electronically Signed: Gold Muse MD at 10:25 EDT , Service support ,
[2021-05-06 09:19] VITALS: BP 135/74; BP 145/65; BP 146/76; BP 161/80; PULSE 90; PULSE 91; PULSE 96; RESP 17; RESP 18; TEMP 37.2; O2SAT 100; O2SAT 99
[2021-05-06] MEDS: Lidocaine 2% (20 ml mdv) 20 ML Vial INFILT (09:30)
[2021-05-06] MEDS: 0.9% Saline Lock 10 ML Syringe IV (09:50)
[2021-05-06] MEDS: Albumin Human 25% (100 mL) 25 GM/100 ML BAG IV (10:29)
[2021-05-06 10:36] VITALS: BP 149/51; PULSE 87; RESP 16; TEMP 37.2; O2SAT 98
[2021-05-06] MEDS: Albumin Human 25% (50 mL) 12.5 GM/50 ML IV.SOLN IV (11:55)
[2021-05-06 12:48] VITALS: BP 139/54; PULSE 83; RESP 16; TEMP 37.1; O2SAT 100
== END | disposition home or self-care (01) ==
LOC: US 09:09 → MEDOUTP 10:17
PROVIDERS: PCP Internal Medicine; Referring Provider Internal Medicine; Visit Provider Internal Medicine
DX: R18.8 Other ascites (principal)
CPT/HCPCS: 96365; 96366; 49083; P9047; A4216

== ENCOUNTER → 2021-05-17 10:36 | Outpatient (CLI) | payer MEDICARE, MEDICAID, SELFPAY ==
[2020-10-08 18:48] VITALS: BMI 24.8
--- NOTE | 2021-05-17 10:37 | US_ITS ---
PROCEDURE: Ultrasound guided paracentesis. DATE OF EXAMINATION: 05/17/2021. INDICATION: Male, 66 years old. Ascites. PHYSICIAN: Gold Muse M.D. TECHNIQUE: The risks, benefits, and alternatives to the procedure were explained to the patient. The specific risks of bleeding, infection, and damage to bowel were detailed and accepted. Witnessed informed consent was obtained. The abdomen was ultrasonographically surveyed. An appropriate pocket of fluid was identified at the left lower quadrant. The skin were cleaned and prepped in the usual sterile fashion. Using ultrasound guidance, the peritoneal cavity was accessed with a 5-[place] paracentesis needle/catheter system. The trocar was removed. A total of 5800 ml of mahamed-colored fluid were removed from the peritoneal cavity. The catheter was removed and a sterile dressing was applied. The procedure was well tolerated. US/Paracentesis with US IMPRESSION: Ultrasound guided paracentesis. Electronically Signed: Gold Muse MD at 13:13 EDT , Service support ,
[2021-05-17] MEDS: Lidocaine 2% (20 ml mdv) 20 ML Vial INFILT (11:05)
[2021-05-17 11:30] VITALS: BP 135/61; BP 137/57; BP 139/63; PULSE 80; PULSE 84; PULSE 86; RESP 16; O2SAT 100
[2021-05-17 12:00] VITALS: BP 140/63; PULSE 82; RESP 16; TEMP 36.6; O2SAT 98
[2021-05-17] MEDS: Albumin Human 25% (100 mL) 25 GM/100 ML BAG IV (12:05)
[2021-05-17] MEDS: Albumin Human 25% (50 mL) 12.5 GM/50 ML IV.SOLN IV (13:27)
[2021-05-17 14:30] VITALS: BP 133/62; PULSE 78; RESP 16; TEMP 37.1; O2SAT 100
== END | disposition home or self-care (01) ==
PROVIDERS: PCP Internal Medicine; Referring Provider Internal Medicine; Visit Provider Internal Medicine
DX: R18.8 Other ascites (principal)
CPT/HCPCS: 96365; 96366; 49083; J7050; P9047; A4216

== ENCOUNTER → 2021-05-24 14:59 | Outpatient (CLI) | payer MEDICARE, MEDICAID, SELFPAY ==
[2021-05-24 17:56] LABS: International Normalized Ratio 1.1; Prothrombin Time (Protime)PT. 13.9 SECONDS (11.7-14.9)
[2021-05-24 17:57] LABS: Partial Thromboplast Time 33.7 Seconds (24.1-36.2)
[2021-05-24 18:09] LABS: ALB/GLOB Ratio 0.5 RATIO (0.9-2.4); AST(SGOT) 46 U/L (15-37); Alanine Aminotransfer ALT/SGPT 39 U/L (16-61); Albumin, Serum 2.2 g/dL (3.2-5.0); Alkaline Phosphatase 172 U/L (45-117); Anion Gap 9 (5-15); BUN 23 mg/dL (7-18); BUN/Creat Ratio 4.8 RATIO (10-20); Calcium,Total 8.3 mg/dL (8.5-10.1); Chloride 97 mmol/L (98-107); Creatinine, Serum 4.77 mg/dL (0.70-1.30); EST Glomerular Filtration Rate 13 mL/min (>60); Est Glom Filt Rate - Afr Amer 16 mL/min (>60); Globulin 4.6 g/dL (2.2-4.2); Glucose 272 mg/dL (74-106); Potassium 3.9 mmol/L (3.5-5.1); Protein, Total 6.8 g/dL (6.4-8.2); Sodium Level 135 mmol/L (136-145)
[2021-05-25 08:53] LABS: Hepatitis B Surface Antigen Non-Reactive (Nonreactive)
[2021-05-26 13:48] LABS: AFP, Tumor Marker 2.2 ng/mL (0.0-8.3)
== END ==
PROVIDERS: PCP Internal Medicine; Referring Provider Internal Medicine Gastroenterology; Visit Provider Internal Medicine Gastroenterology
DX: K74.60 Unspecified cirrhosis of liver (principal)
CPT/HCPCS: 36415; 80053; 82105; 85610; 85730; 87340

== ENCOUNTER → 2021-05-31 09:31 | Outpatient (CLI) | payer MEDICARE, MEDICAID, SELFPAY ==
--- NOTE | 2021-05-31 09:32 | US_ITS ---
PROCEDURE: Ultrasound guided paracentesis. DATE OF EXAMINATION: 05/31/2021. INDICATION: Male, 66 years old. Ascites. PHYSICIAN: Gold Muse M.D. TECHNIQUE: The risks, benefits, and alternatives to the procedure were explained to the patient. The specific risks of bleeding, infection, and damage to bowel were detailed and accepted. Witnessed informed consent was obtained. The abdomen was ultrasonographically surveyed. An appropriate pocket of fluid was identified at the right lower quadrant. The skin were cleaned and prepped in the usual sterile fashion. Using ultrasound guidance, the peritoneal cavity was accessed with a 5-[place] paracentesis needle/catheter system. The trocar was removed. A total of 4950 ml of mahamed-colored fluid were removed from the peritoneal cavity. The catheter was removed and a sterile dressing was applied. The procedure was well tolerated. US/Paracentesis with US IMPRESSION: Ultrasound guided paracentesis. Electronically Signed: Gold Muse MD at 11:32 EDT , Service support ,
[2021-05-31 09:48] VITALS: BP 144/68; BP 148/71; BP 151/80; PULSE 81; PULSE 83; RESP 16; O2SAT 99
[2021-05-31] MEDS: Lidocaine 2% (20 ml mdv) 20 ML Vial 10 ML INFILT (10:00)
== END ==
PROVIDERS: PCP Internal Medicine; Referring Provider Internal Medicine; Visit Provider Internal Medicine
DX: R18.8 Other ascites (principal)
CPT/HCPCS: 49083

== ENCOUNTER → 2021-06-03 09:59 | Outpatient (CLI) | payer MEDICARE, MEDICAID, SELFPAY ==
--- NOTE | 2021-06-03 10:03 | VDUE_ITS ---
Reason For Study: Pre op testing Right Arm Left Arm Right Cephalic Vein at the wrist measures Cephalic vein at wrist not visualized due to 0.16 x 0.17 cm. tortuosity and vessel size. Right Cephalic Vein in the forearm measures Left Cephalic Vein in the forearm measures 0.18 x 0.18 cm. 0.18 x 0.18 cm. Mid forearm cephalic branch, 0.14 x 0.15 cm. Left Cephalic Vein below antecub measures Right Cephalic Vein below antecub measures 0.22 x 0.22 cm. 0.22 x 0.22 cm. Left Cephalic Vein above antecub measures Right Cephalic Vein above antecub measures 0.17 x 0.17 cm. 0.20 x 0.22 cm. Left Cephalic Vein at mid bicep measures 0.25 Right Cephalic Vein mid bicep measures 0.22 x 0.25 cm. x 0.22 cm. Left Cephalic Vein at the shoulder measures Right Cephalic Vein at the shoulder measures 0.30 x 0.31 cm. 0.36 x 0.37 cm. Basilic vein at origin measures 0.32 x 0.33 Right Basilic Vein at the origin measures cm. 0.31 x 0.31 cm. Basilic vein at bicep measures 0.28 x 0.29 Right Basilic Vein mid bicep measures 0.25 x cm. 0.25 cm. Basilic vein above antecub measures 0.27 x Right Basilic Vein above antecub measures 0.28 cm. 0.23 x 0.23 cm. Mid basilic branch, 0.19 x 0.20 cm. Right Brachial artery measures 0.50 x 0.50 Left Brachial artery measures 0.47 x 0.49 cm cm with a velocity of 135.2 cm/sec. with a velocity of 83.3 cm/sec. Right Radial artery measures 0.28 x 0.27 cm Left Radial artery measures 0.26 x 0.28 cm with a velocity of 84.7 cm/sec. with a velocity of 83.2 cm/sec. VL/Saphenous Vein Mapping, Bilat Interpretation Summary Small bilateral forearm cephalic veins. Borderline bilateral upper arm cephalic veins. Patent and compressible bilateral upper arm basilic veins Normal bilateral radial and brachial artery flow in diameter Ordering Physician: Len Gannon Referring Physician: Jerald Rivera M.D. Performed By: Jadyn Franks RVT ?
== END ==
PROVIDERS: PCP Internal Medicine; Referring Provider Surgery; Visit Provider Surgery
DX: Z01.818 Encounter for other preprocedural examination (principal); N18.30 Chronic kidney disease, stage 3 unspecified
CPT/HCPCS: 93970; 93985

== ENCOUNTER → 2021-06-14 10:21 | Outpatient (CLI) | payer MEDICARE, MEDICAID, SELFPAY ==
--- NOTE | 2021-06-14 10:23 | US_ITS ---
PROCEDURE: Ultrasound guided paracentesis. DATE OF EXAMINATION: 06/14/2021.. INDICATION: Male, 66 years old. Ascites. PHYSICIAN: Gold Muse M.D. TECHNIQUE: The risks, benefits, and alternatives to the procedure were explained to the patient. The specific risks of bleeding, infection, and damage to bowel were detailed and accepted. Witnessed informed consent was obtained. The abdomen was ultrasonographically surveyed. An appropriate pocket of fluid was identified at the right lower quadrant. The skin were cleaned and prepped in the usual sterile fashion. Using ultrasound guidance, the peritoneal cavity was accessed with a 5-Italian paracentesis needle/catheter system. The trocar was removed. A total of 3400 ml of mahamed-colored fluid were removed from the peritoneal cavity. The catheter was removed and a sterile dressing was applied. The procedure was well tolerated. US/Paracentesis with US IMPRESSION: Ultrasound guided paracentesis. Electronically Signed: Gold Muse MD at 11:50 EDT , Service support ,
[2021-06-14 10:36] VITALS: BP 130/65; BP 135/70; BP 137/65; BP 152/72; PULSE 66; PULSE 68; PULSE 71; PULSE 72; RESP 16; RESP 18; RESP 98; TEMP 36.8; TEMP 37; O2SAT 100; O2SAT 99
[2021-06-14] MEDS: Lidocaine 2% (20 ml mdv) 20 ML Vial INFILT (10:42)
== END ==
PROVIDERS: PCP Internal Medicine; Referring Provider Internal Medicine; Visit Provider Internal Medicine
DX: R18.8 Other ascites (principal)
CPT/HCPCS: 49083

== ENCOUNTER 2021-06-21 05:56 | Day surgery (SDC) | payer MEDICARE, MEDICAID, SELFPAY ==
--- NOTE | 2021-06-20 10:22 | EKG12_ITS ---
Test Reason : PREOP Blood Pressure : / mmHG Vent. Rate : 066 BPM Atrial Rate : 066 BPM P-R Int : 166 ms QRS Dur : 078 ms QT Int : 438 ms P-R-T Axes : 045 007 039 degrees QTc Int : 459 ms Normal sinus rhythm Normal ECG Confirmed by EUNICE ARAIZA, GARRETT ([id number]), general expeditor PRINCE GARCES ([id number]) on 06/21/2021 9:52:03 AM Referred By: Len Gannon Confirmed By:GARRETT DAWSON MD
[2021-06-20 11:50] LABS: Hematocrit 35.7 % (40-54); Hemoglobin 11.4 g/dL (13.0-16.5); Mean Corp Hgb Conc 31.9 g/dL (32-36); Mean Corpuscular Volume 87.7 fL (80-94); Mean Platelet Vol. 11.6 fl (6.2-12.0); Platelet Count 208 K/mm3 (150-450); RBC Distribution Width CV 14.6 % (11.6-14.6); Red Blood Count 4.07 M/mm3 (4.6-6.2); White Blood Count 6.2 K/mm3 (4.4-11.0)
[2021-06-20 12:23] LABS: Anion Gap 6 (5-15); BUN 43 mg/dL (7-18); Calcium,Total 8.2 mg/dL (8.5-10.1); Chloride 100 mmol/L (98-107); Creatinine, Serum 5.36 mg/dL (0.70-1.30); EST Glomerular Filtration Rate 11 mL/min (>60); Est Glom Filt Rate - Afr Amer 14 mL/min (>60); Glucose 305 mg/dL (74-106); Potassium 4.2 mmol/L (3.5-5.1); Sodium Level 132 mmol/L (136-145)
[2021-06-21] VITALS (8 sets, daily range): BP systolic 100–145; BP diastolic 61–70; PULSE 66–74; RESP 16–18; TEMP 36.2–37; O2SAT 95–99; BMI 24.8
--- NOTE | 2021-06-21 06:08 | HP.PCM_ITS ---
History and Physical Date of Admission: 06/21/21 Intake Visit Reasons: Fistula Consult/VM 06/03 Chief Complaint: fistula consult Inclusion Paraeducator Required: No Is patient in pain?: No Allergies No Known Allergies Allergy (Verified 06/07/21 14:13) Medications aspirin 81 mg PO DAILY@0800 09/18/20 [History Confirmed 06/07/21] atorvastatin 10 mg PO DAILY 09/18/20 [History Confirmed 06/07/21] timolol maleate 1 drp EACH EYE DAILY 09/18/20 [History Confirmed 06/07/21] amlodipine 5 mg PO DAILY 10/08/20 [History Confirmed 06/07/21] atropine 1 drp EACH EYE BID 10/08/20 [History Confirmed 06/07/21] furosemide 20 mg PO DAILY 03/11/21 [History Confirmed 06/07/21] prednisolone acetate 1 drp LEFT EYE BID 03/11/21 [History Confirmed 06/07/21] sertraline 50 mg PO DAILY 03/11/21 [History Confirmed 06/07/21] lactulose 20 g PO TID #2880 ml 03/13/21 [Rx Confirmed 06/07/21] calcium acetate(phosphat bind) 667 mg PO TIDCM 30 Days #90 cap 04/23/21 [Rx Confirmed 06/07/21] insulin glargine [Lantus Solostar U-100 Insulin] 10 unit SUBCUT QPM 30 Days #3 ml 04/23/21 [Rx Confirmed 06/07/21] pantoprazole 40 mg PO BID 30 Days #60 tab 04/23/21 [Rx Confirmed 06/07/21] rifaximin [Xifaxan] 550 mg PO BID 30 Days #60 tab 04/23/21 [Rx Confirmed 06/07/21] [facility] Medical History (Updated 06/07/21 @ 14:[address] Len Gannon MD) Acute kidney injury 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 CKD (chronic kidney disease) stage 4, GFR 15-29 ml/min DM type 2 (diabetes mellitus, type 2) Glaucoma HTN (hypertension) Hyperlipidemia Surgical History (Updated 06/07/21 @ 14:12 by Aleksandra Arboleda) History of insertion of tunneled central venous catheter (CVC) with port Family History (Updated 06/07/21 @ 14:12 by Aleksandra Arboleda) Mother Heart disease Hypertension Diabetes Father Diabetes Heart disease Hypertension Social History household members: spouse and children Smoking Status: Never smoker alcohol intake: former substance use type: does not use HPI HPI HPI: TRUDY CANCINO, is a 66 M who presents to the office today for surgical consultation regarding creation of arteriovenous hemodialysis fistula. The patient is referred by Dr. Jenni Ramos and a written copy of my surgical consult recommendations will return to her. The patient was hospitalized at the [facility] from April 18 through April 23, 2021. Acute renal failure superimposed upon chronic stage III disease was identified an emergent tunneled dialysis catheters were placed by Dr. Caldwell.'s medical health is complicated by chronic liver disease chronic ascites weekly paracentesis legally blind. His most recent ultrasound-guided abdominal paracentesis was May 31, 2021. 4950 cc were removed. He presents with his daughter today who does translation. The patient does speak some eat Arabic. He has no complaints. He is right arm dominant. June 03, 2021 Reason For Study: Pre op testing Right Arm Left Arm Right Cephalic Vein at the wrist measures tortuosity and vessel size. Right Cephalic Vein in the forearm measures Left Cephalic Vein in the forearm measures 0.18 x 0.18 cm. 0.18 x 0.18 cm. Mid forearm cephalic branch, 0.14 x 0.15 cm. Left Cephalic Vein below antecub measures Right Cephalic Vein below antecub measures 0.22 x 0.22 cm. 0.22 x 0.22 cm. Left Cephalic Vein above antecub measures Right Cephalic Vein above antecub measures 0.17 x 0.17 cm. 0.20 x 0.22 cm. Left Cephalic Vein at mid bicep measures 0.25 Right Cephalic Vein mid bicep measures 0.22 x 0.25 cm. x 0.22 cm. Left Cephalic Vein at the shoulder measures Right Cephalic Vein at the shoulder measures 0.30 x 0.31 cm. 0.36 x 0.37 cm. Basilic vein at origin measures 0.32 x 0.33 Right Basilic Vein at the origin measures cm. 0.31 x 0.31 cm. Basilic vein at bicep measures 0.28 x 0.29 Right Basilic Vein mid bicep measures 0.25 x cm. 0.25 cm. Basilic vein above antecub measures 0.27 x Right Basilic Vein above antecub measures 0.28 cm. 0.23 x 0.23 cm. Mid basilic branch, 0.19 x 0.20 cm. Right Brachial artery measures 0.50 x 0.50 Left Brachial artery measures 0.47 x 0.49 cm cm with a velocity of 135.2 cm/sec. with a velocity of 83.3 cm/sec. Right Radial artery measures 0.28 x 0.27 cm Left Radial artery measures 0.26 x 0.28 cm with a velocity of 84.7 cm/sec. with a velocity of 83.2 cm/sec. VL/Saphenous Vein Mapping, Bilat Interpretation Summary Small bilateral forearm cephalic veins. Borderline bilateral upper arm cephalic veins. Patent and compressible bilateral upper arm basilic veins Normal bilateral radial and brachial artery flow in diameter Ordering Physician: Len Gannon Referring Physician: Jerald Rivera M.D. Performed By: Jadyn Franks Charlene ? 06/03/21 [id number] Len Gannon MD ROS General General: Yes weight change; No appetite, fatigue, colon cancer, breast cancer or weakness HEENT HEENT: Yes eye injury; No difficulty swallowing, eye surgery, swollen glands or hoarseness Endo Endocrine: Yes diabetes mellitus; No thyroid disease, thyroid cancer, Hair loss, heat intolerance or cold intolerance Musc Musculoskeletal: Yes arthritis; No back problems, rheumatoid arthritis, gout or joint pain Cardio Cardiovascular: Yes high blood pressure; No murmur, pacemaker, heart disease, atrial fibrillation, heart attack, heart stent, palpitations, shortness of breat with exertion or chest pain Psych Psychiatric: Yes depression; No anxiety or hearing voices Resp Respiratory: Yes shortness of breath, No sleep apnea, No cough, No COPD, No asthma, No emphysema and No wheezing Gastro Gastrointestinal: No abdominal pain, No nausea or vomiting, No diarrhea, Yes constipation, No blood in stool, No acid reflux, No hemorrhoids, No ulcers, No gallbladder problem and No black,tarry stools [place] Hematologic: Yes blood thinners, No blood disorders, No bleeding, Yes anemia and No blood clots Neuro Neurologic: No weakness Exam Const General: cooperative, comfortable and no acute distress Nutritional Appearance: average body habitus Orientation: awake [facility] Head: normal to inspection Eyes General: appearance normal, both eyes and all related structures Chest Chest palpation & inspection: normal inspection of the chest Resp Effort & Inspection: normal respiratory effort Auscultation: clear to auscultation bilaterally Cardio Rate: regular rate Rhythm: regular rhythm GI Palpation: soft and no hepatosplenomegaly Other: Soft, bulbous, fluid wave noted Musc Cervical Spine: normal cervical lordosis Neuro General: patient alert and patient awake Extrem Other: I performed ultrasound inspection of his left upper extremity. The cephalic vein of the forearm quite small. The cephalic vein of the upper arm patent and compressible slightly thick-walled. It is superficially located however. Psych Appearance: grossly normal Assessment and Plan Assessment and Plan (1) Chronic renal insufficiency, stage V: Status: Chronic Plan - Dr. Len Gannon MD: The patient is right arm dominant. He has right IJ chest catheters in place. I recommend to him a left upper arm brachial to cephalic arteriovenous hemodialysis fistula creation. Cephalic vein of the forearm appears to be diminutive. He is aware of technique, benefit, risk, alternatives. He also appears to have a viable left upper arm basilic vein. This would require more surgical intervention so would like to attempt the cephalic vein first. He has had an opportunity to ask and have questions answered. Both the patient and daughter aware there are no guarantees of success. He is on low-dose aspirin. As noted above he has cirrhosis with chronic ascites as well. Copy: Dr. Jenni Ramos and Dr. Jerald Gannon, M.D., Delphine I have re-examined the patient. There are no clinical changes since date of exam. Len Gannon M.D., Pato.Josephine
--- NOTE | 2021-06-21 07:00 | EX.PCM.DISCH ---
Discharge Instructions Procedure Fistula Diet Discharge Diet: Renal Diet Activity Discharge Activity: May Not Drive (for 2-3 days or while taking narcotic pain medications.), May Shower and May Take a Tub Bath (in 5 days.) Lifting Restrictions: 5 pounds Keep extremity elevated above heart level: - (Keep arm elevated above the heart level for 3 days.) Dressing / Incision Call your doctor if your incision/area has: Continuous Slow Oozing, Sudden Increased Bleeding (apply pressure and call your doctor.), Increased Pain/ Swelling, Increased Redness and Foul Smelling Discharge Call your doctor if you observe: Fever of 101 or Higher Suture Line Care: Avoid Pulling/Pushing and Avoid Pinching/Bending Cleanse incision/area with: Keep Dressing Clean & Dry Additional Dressing/Incision Instructions:: Change or remove dressing in one day. May protect with a gauze bandaid. Follow Up Care Please Follow Up With: Len Gannon MD When: Call [phone] to make an appointment for suture removal and follow up in 1 week. Test Results: Test results from this visit will be discussed in further detail at your follow-up appointment, if applicable. Discharge Plan Admission Attending Provider: Len Gannon Primary Care Provider: Jerald Rivera Discharge Orders/Prescriptions Prescriptions: No Action atorvastatin 10 MG tablet 10 mg PO DAILY RF: 0 aspirin 81 MG tablet,chewable 81 mg PO DAILY@0800 RF: 0 timolol maleate 1 DROP gel forming solution 1 drp EACH EYE DAILY RF: 0 atropine 5 ML drops 1 drp EACH EYE BID RF: 0 amlodipine 10 MG tablet 5 mg PO DAILY RF: 0 prednisolone acetate 1 % drops,suspension 1 drp LEFT EYE BID RF: 0 furosemide 20 mg tablet 20 mg PO DAILY RF: 0 sertraline 50 mg tablet 50 mg PO DAILY RF: 0 Lantus Solostar U-100 Insulin 100 unit/mL (3 mL) insulin pen 10 unit subcut QPM RF: 0 Xifaxan 550 mg tablet 550 mg PO BID RF: 0 lactulose 20 gram/30 mL solution 20 g PO TID RF: 0
[2021-06-21] MEDS: Heparin Injection (Vial) 5,000 UNIT/ML VIAL 5000 UNIT (07:39)
[2021-06-21] MEDS: Lidocaine 1% (30 ml sdv) 30 ML Vial (07:39)
[2021-06-21] MEDS: Bupivacaine Mpf 0.5% 30 ML VIAL (07:39)
[2021-06-21 07:40] LABS: Bedside Glucose 261 mg/dL (70-110)
--- NOTE | 2021-06-21 08:29 | PCM.OPRPT ---
Problems Associated Problem List Diagnoses (1) Chronic renal insufficiency, stage V: Report of Operation Date of Procedure: 06/21/21 Pre-Operative Diagnosis: Stage V chronic renal insufficiency Post-Operative Diagnosis: Same Surgery/Procedure Performed:: Left upper extremity brachiocephalic arteriovenous hemodialysis fistula creation Description of Surgical Findings:: Timeout informed consent was obtained. 66 old gentleman was taken to the operating placed on the table underwent monitored anesthesia care. Clean procedure no antibiotics required. The left extremity sterilely prepped and draped. 1% lidocaine mixed 50-50 with 0.5% Marcaine was used as local anesthetic total 5 cc was used. Ultrasound mapping of the cephalic vein at the antecubital space had been performed. An oblique incision was created sharp blunt dissection was used to dissect out the cephalic vein and subsequently the brachial artery. Patient received 7000 and's of heparin. The vein was ligated distally with hemoclips was then spatulated 11 blade was used to make an arteriotomy on the brachial artery was extended with Uribe scissors and a side venous to arterial anastomosis was created with a running 7-0 Prolene excellent pulse and thrill was achieved immediately the hand remained viable with a 2+ radial pulse. Surgicel was briefly used to assist with hemostasis. The wound was closed with a deep layer of interrupted 3-0 Vicryl and then a running septic or 4 Monocryl. Steri-Strips Telfa tape soft roll David wrap applied. Sponge and instrument and needle counts were reported to the surgeon to be correct. Blood loss minimal. He tolerated procedure well. He was taken to recovery room in satisfactory condition. Specimens none. Drains none. Blood loss minimal. Len Gannon M.D., F.A.C.S. Surgeon: Len Gannon Type of Anesthesia: Local MAC Anesthesiologist: Loretta Cervantes
== END 2021-06-21 10:16 | disposition home or self-care (01) ==
LOC: SDC 05:56 → AC 05:57
PROVIDERS: PCP Internal Medicine; Referring Provider Surgery; Visit Provider Surgery
PROC: (CPT 36821; principal; 2021-06-21 07:15)
DX: I12.0 Hypertensive chronic kidney disease with stage 5 chronic kidney disease or end stage renal disease (principal); E11.22 Type 2 diabetes mellitus with diabetic chronic kidney disease; N18.5 Chronic kidney disease, stage 5; K70.31 Alcoholic cirrhosis of liver with ascites; Z79.4 Long term (current) use of insulin; Z79.899 Other long term (current) drug therapy
CPT/HCPCS: 01844; 36821; 36415; 80048; 82962; 85027; 87426; 93005; C9803; J7040

== ENCOUNTER → 2021-07-26 10:36 | Outpatient (CLI) | payer MEDICARE, MEDICAID, SELFPAY ==
--- NOTE | 2021-07-26 10:37 | US_ITS ---
STUDY: ABDOMINAL LIMITED ULTRASOUND FOR ASCITES REASON FOR EXAM: Male, 66 years old. Ascites TECHNIQUE: Ultrasound imaging was performed in all 4 quadrants of the abdomen and pelvis. COMPARISON: None. FINDINGS: Right upper quadrant view - There is mild ascites. Left upper quadrant view - No detected ascites. Right lower quadrant view - There is mild ascites. Left lower quadrant view - There is mild ascites. US/Abdomen Limited IMPRESSION: There is minimal ascites. Electronically Signed: Miguel Sullivan MD at 16:20 EST , Service support ,
--- NOTE | 2021-07-26 12:38 | NURSING ---
MitchRN called Dr. Rivera's office, spoke with nurse Deneen, to inform them that patient did not have enough fluid to drain and has not needed a paracentesis since 06/14. Office aware pt's order is and if he needs to have future paracenteses he will need a new order. Deneen states she has a note in to Dr. Rivera to relay the information.
== END | disposition home or self-care (01) ==
PROVIDERS: PCP Internal Medicine; Referring Provider Internal Medicine; Visit Provider Internal Medicine
DX: R18.8 Other ascites (principal)
CPT/HCPCS: 76705; A4216

== ENCOUNTER → 2022-09-04 | Outpatient (CLI) | payer MEDICARE, MEDICAID, SELFPAY ==
--- NOTE | 2022-09-04 08:12 | US_ITS ---
STUDY: ABDOMINAL ULTRASOUND - 4 quadrants REASON FOR VISIT: Male, 67 years old CIRRHOSIS TECHNIQUE: Ultrasound evaluation of the 4 quadrants was performed with real-time and static espinoza-scale imaging. TECHNICAL QUALITY: Adequate. COMPARISON: None. FINDINGS: No ascites is seen. US/Abdomen Limited IMPRESSION: No ascites is present. Electronically Signed: Gold Muse MD at 14:28 EST ,
== END | disposition home or self-care (01) ==
LOC: US 08:10
PROVIDERS: PCP Internal Medicine; Referring Provider Internal Medicine; Visit Provider Internal Medicine
DX: K74.60 Unspecified cirrhosis of liver (principal)
CPT/HCPCS: 76705

== ENCOUNTER → 2022-10-24 | Outpatient (CLI) | payer MEDICARE, MEDICAID, SELFPAY ==
[2022-10-24 17:43] LABS: Hematocrit 26.5 % (40-54); Hemoglobin 8.5 g/dL (13.0-16.5); Mean Corp Hgb Conc 32.1 g/dL (32-36); Mean Corpuscular Hgb 29.6 pg (27.0-32.0); Mean Corpuscular Volume 92.3 fL (80-94); Mean Platelet Vol. 10.9 fl (6.2-12.0); Platelet Count 245 K/mm3 (150-450); RBC Distribution Width SD 50.2 fl (35.1-43.9); Red Blood Count 2.87 M/mm3 (4.6-6.2); White Blood Count 8.6 K/mm3 (4.4-11.0)
[2022-10-24 17:45] LABS: International Normalized Ratio 1.2; Prothrombin Time (Protime)PT. 15.2 SECONDS (11.7-14.9)
[2022-10-24 17:46] LABS: Partial Thromboplast Time 35.8 Seconds (24.1-36.2)
[2022-10-24 18:18] LABS: AST(SGOT) 23 U/L (15-37); Alanine Aminotransfer ALT/SGPT 36 U/L (16-61); Albumin, Serum 3.2 g/dL (3.2-5.0); Alkaline Phosphatase 113 U/L (45-117); Bilirubin, Direct 0.14 mg/dL (0.00-0.30); Globulin 4.2 g/dL (2.2-4.2); Protein, Total 7.4 g/dL (6.4-8.2)
[2022-10-26 19:36] LABS: AFP, Tumor Marker < 1.8 ng/mL (0.0-8.4)
== END | disposition home or self-care (01) ==
LOC: MTLAB 15:21
PROVIDERS: PCP Internal Medicine; Referring Provider Internal Medicine Gastroenterology; Visit Provider Internal Medicine Gastroenterology
DX: K74.60 Unspecified cirrhosis of liver (principal)
CPT/HCPCS: 36415; 80076; 82105; 85027; 85610; 85730

== ENCOUNTER → 2022-11-23 | Outpatient (CLI) | payer MEDICARE, MEDICAID, SELFPAY ==
--- NOTE | 2022-11-23 08:39 | MRI_ITS ---
STUDY: MRI ABDOMEN WITH AND WITHOUT CONTRAST REASON FOR EXAM: Male, 67 years old. Cirrhosis. TECHNIQUE: Standardized fat and water weighted pulse sequences were obtained in all 3 orthogonal planes post contrast administration. IV CLARISCAN 15 CC was administered for the contrast portion of the examination. COMPARISON: CT of the abdomen and pelvis, April 18, 2021. FINDINGS: The visualized lung bases are unremarkable. The visualized portions of the heart are within normal limits. The liver demonstrates a nodular surface pattern of prominent left lateral and caudate lobe and small right lobe. U signal intensity in all sequences without focal mass. Postcontrast enhancement demonstrates mild nodularity suggestive of regenerating nodules. The portal and hepatic veins are patent. Normal gallbladder and extrahepatic biliary system. There is mild splenomegaly. Normal pancreas. Right adrenal gland. Left adrenal gland is obscured due to a cyst tortuous spleno renal shunt. Normal right kidney. Normal left kidney. Normal visualized stomach. Normal visualized small intestine. Normal visualized colon. Normal abdominal aorta. Normal inferior vena cava. Normal retroperitoneum. Normal abdominal wall. Normal osseous structures. MRI/MRI Abd WITH and W/O Contrast IMPRESSION: 1. Cirrhotic appearing liver with evidence of regenerating nodules. 2. Mild splenomegaly with splenorenal shunt. 3. Resolution of the ascites seen on the previous examination. Electronically Signed: Michael Shepherd DO at 21:10 EDT Reading Location ID and State: [id number] Tel [phone], Service support ,
== END | disposition home or self-care (01) ==
LOC: MRI 08:33
PROVIDERS: PCP Internal Medicine; Referring Provider Internal Medicine Gastroenterology; Visit Provider Internal Medicine Gastroenterology
DX: K74.60 Unspecified cirrhosis of liver (principal)
CPT/HCPCS: 74183; A9575; A4216

== ENCOUNTER → 2023-06-14 | Outpatient (CLI) | payer MEDICARE, MEDICAID, SELFPAY ==
--- NOTE | 2023-06-14 07:29 | US_ITS ---
STUDY: ABDOMINAL ULTRASOUND - RIGHT UPPER QUADRANT REASON FOR VISIT: Male, 68 years old CIRRHOSIS TECHNIQUE: Ultrasound evaluation of the right upper quadrant was performed with real-time and static espinoza-scale imaging. TECHNICAL QUALITY: Adequate. COMPARISON: Comparison is made with prior study dated September 04, 2022. FINDINGS: Liver: The liver measures 15.8 cm. There is a heterogeneous echogenicity of the liver. The bile ducts are within normal limits. There is hepatic color flow. The direction of portal flow is hepatopetal. There is no demonstrated mass lesion. Gallbladder: Normal distended gallbladder. The gallbladder wall measures 2.1 mm. There is a negative sonographic Mares''s sign. There is no pericholecystic fluid. There are no gallstones. Findings suggestive of a 6 mm x 3 mm x 5 mm polyp adherent to the gallbladder lumen. Common Bile Duct (C.B.D.): The common bile duct measures 5.1 mm. Pancreas: Normal size of the head, body and tail of the pancreas. There is normal echogenicity of the pancreas. There is no demonstrated pancreatic mass or cyst. Right Kidney: There is atrophy of the right kidney. The right kidney measures 8.8 cm x 4 cm x 3.8 cm. There is thinning of the renal cortex. The right cortex measures 0.8 cm. 1.2 cm x 1.3 cm x 1.2 cm cyst in the upper pole of the kidney. There is no right hydronephrosis. US/Abdomen Limited IMPRESSION: Heterogeneous echotexture of the liver. Right renal atrophy. Findings suggestive of a 6 mm x 3 mm x 5 mm polyp adherent to the gallbladder wall. Electronically Signed: Gold Muse MD at 15:06 EDT ,
== END | disposition home or self-care (01) ==
LOC: US 07:27
PROVIDERS: PCP Internal Medicine; Referring Provider Internal Medicine Gastroenterology; Visit Provider Internal Medicine Gastroenterology
DX: K74.60 Unspecified cirrhosis of liver (principal)
CPT/HCPCS: 76705

== ENCOUNTER 2023-11-20 09:54 | Day surgery (SDC) | payer MEDICARE, MEDICAID, SELFPAY ==
--- NOTE | 2023-11-13 12:05 | EKG12_ITS ---
Test Reason : PREOP Blood Pressure : / mmHG Vent. Rate : 075 BPM Atrial Rate : 075 BPM P-R Int : 164 ms QRS Dur : 090 ms QT Int : 444 ms P-R-T Axes : 043 046 058 degrees QTc Int : 495 ms Sinus rhythm with Premature atrial complexes Prolonged QT Abnormal ECG Confirmed by Martin Castañeda ([id number]), tape editor MOHIT BAI ([id number]) on 11/14/2023 9:42:03 AM Referred By: Len Gannon Confirmed By:Martin Castañeda
[2023-11-19 08:36] VITALS: BMI 26.8
[2023-11-20 10:12] LABS: Hemoglobin 9.3 g/dL (13.0-16.5); Mean Corp Hgb Conc 33.2 g/dL (32-36); Mean Corpuscular Hgb 30.6 pg (27.0-32.0); Mean Corpuscular Volume 92.1 fL (80-94); Mean Platelet Vol. 9.7 fl (6.2-12.0); Platelet Count 159 K/mm3 (150-450); Red Blood Count 3.04 M/mm3 (4.6-6.2); White Blood Count 5.8 K/mm3 (4.4-11.0)
[2023-11-20 10:35] LABS: Anion Gap 10 (5-15); BUN 28 mg/dL (7-18); BUN/Creat Ratio 4.7 RATIO (10-20); Chloride 93 mmol/L (98-107); Creatinine, Serum 5.97 mg/dL (0.70-1.30); EST Glomerular Filtration Rate 10 mL/min (>60); Est Glom Filt Rate - Afr Amer 12 mL/min (>60); Estimated Creatinine Clearance 10.39 ml/min; Glucose 131 mg/dL (74-106); Potassium 3.5 mmol/L (3.5-5.1); Sodium Level 132 mmol/L (136-145)
--- NOTE | 2023-11-20 11:22 | HP.PCM_ITS ---
History and Physical Date of Admission: 11/20/23 Visit Reasons: LOW AFT AND LOW CLEARANCE Chief Complaint: check fistula Interpretive Naturalist Required: No Is patient in pain?: No Allergies chlorhexidine [From ChloraPrep Clear] Allergy (Verified 10/30/23 13:53) Rashisopropyl alcohol [From ChloraPrep Clear] Allergy (Verified 10/30/23 13:53) Rash Medications atorvastatin 10 mg tablet 10 mg PO DAILY cholesterol 09/18/20 [History Confirmed 10/30/23] amlodipine 10 mg tablet 5 mg PO DAILY bp 10/08/20 [History Confirmed 10/30/23] furosemide 20 mg tablet 20 mg PO DAILY FLUID 03/11/21 [History Confirmed 10/30/23] prednisolone acetate 1 % eye drops,suspension 1 drp LEFT EYE BID EYE HEALTH 03/11/21 [History Confirmed 10/30/23] sertraline 50 mg tablet 50 mg PO DAILY DEPRESSION 03/11/21 [History Confirmed 10/30/23] insulin glargine 100 unit/mL (3 mL) subcutaneous pen (Lantus Solostar U-100 Insulin) 10 unit subcut QPM blood glucose control 06/17/21 [History Confirmed 10/30/23] lactulose 20 gram/30 mL oral solution 20 g PO TID bowel movements 06/17/21 [History Confirmed 10/30/23] rifaximin 550 mg tablet (Xifaxan) 550 mg PO BID IBS 06/17/21 [History Confirmed 10/30/23] PFSH Medical History Acute kidney injury 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 CKD (chronic kidney disease) stage 4, GFR 15-29 ml/min COVID Depression Dietary restriction DM type 2 (diabetes mellitus, type 2) Edentulous Former smoker Glaucoma Gout History of echocardiogram History of stress test HTN (hypertension) Hyperlipidemia Low iron Surgical History History of arteriovenostomy for renal dialysis (~06/2021) History of colonoscopy History of eye surgery History of insertion of tunneled central venous catheter (CVC) with port History of thoracentesis Family History Mother Heart disease Hypertension DiabetesFather Diabetes Heart disease Hypertension Social History household members: spouse and children Smoking Status: Former smoker alcohol intake: former substance use type: does not use HPI HPI Surgical H&P: Yes HPI: Patient is a 68 y/o M I am following for decreased arterial flow and decreased clearance. Patient has a left upper extremity brachiocephalic fistula created on 06/21/[address] Gannon. Patient has not had a previous fistulogram. He is able to complete his treatments successfully. He denies any prolonged bleeding post- treatment. He dialyzes on M, W, and F. ROS General General: Yes weight change; No appetite, fatigue, colon cancer, breast cancer or weakness HEENT HEENT: Yes eye injury; No difficulty swallowing, eye surgery, swollen glands or hoarseness Endo Endocrine: Yes diabetes mellitus; No thyroid disease, thyroid cancer, Hair loss, heat intolerance or cold i ntolerance Musc Musculoskeletal: Yes arthritis; No back problems, rheumatoid arthritis, gout or joint pain Cardio Cardiovascular: Yes high blood pressure; No murmur, pacemaker, heart disease, atrial fibrillation, heart attack, heart stent, palpitations, shortness of breat with exertion or chest pain Psych Psychiatric: Yes depression; No anxiety or hearing voices Resp Respiratory: Yes shortness of breath, No sleep apnea, No cough, No COPD, No asthma, No emphysema and No wheezing Gastro Gastrointestinal: No abdominal pain, No nausea or vomiting, No diarrhea, Yes constipation, No blood in stool, No acid reflux, No hemorrhoids, No ulcers, No gallbladder problem and No black,tarry stools [place] Hematologic: Yes blood thinners, No blood disorders, No bleeding, Yes anemia and No blood clots Neuro Neurologic: No weakness Exam Const General: cooperative, healthy appearing, comfortable and no acute distress [facility] Head: normal to inspection Eyes General: appearance normal, both eyes and all related structures Neck Neck: normal visual inspection Neck mass: No Resp Effort & Inspection: normal respiratory effort Auscultation: clear to auscultation bilaterally Cardio Rate: regular rate Rhythm: regular rhythm GI Inspection: normal to inspection Palpation: soft Musc Cervical Spine: normal cervical lordosis Skin General: no rashes or lesions noted Neuro General: no focal motor deficits and CN's II-XI intact bilaterally Extrem General: normal to inspection Other: Left upper extremity AV fistula- good pulse, diminished bruit and thrill Psych Appearance: grossly normal Affect: normal affect Assessment and Plan Assessment and Plan (1) Problem with dialysis access: Status: Acute Qualifiers: Encounter type: initial encounter Qualified Code(s): T82.898A - Other specified complication of vascular prosthetic devices, implants and grafts, initial encounter Plan: Dr. Gannon will plan to perform a non-urgent left upper extremity fistulogram. Procedure details, risks and benefits have been explained. Patient is not on any blood thinners. Patient and his daughter have had the opportunity to ask and have questions answered. Patient verbally understands and agrees with the plan I have examined the patient and the H&P has been reviewed. There are no clinical changes since date of exam. Len Gannon M.D., F.A.C.S.
--- NOTE | 2023-11-20 12:15 | PCM.OPRPT ---
Report of Operation Date of Procedure: 11/20/23 Pre-Operative Diagnosis: Diminished flow left upper extremity brachial to cephalic arteriovenous hemodialysis fistula Post-Operative Diagnosis: 2 areas of fistula stenosis distal upper arm and proximal upper arm Surgery/Procedure Performed:: Left upper extremity fistulogram with 9 x 2 [place] angioplasty Description of Surgical Findings:: Timeout informed consent was obtained. 5-year-old gentleman was taken to the special procedures lab placed upon the table. Left upper extremity was sterilely prepped and draped. He received 50 mcg fentanyl 1 mg Versed is intravenous sedation. The left upper arm brachiocephalic fistula appears to be quite large and dominant. Closer to the arterial anastomosis 2% lidocaine was instilled as a local anesthetic and then a micropuncture needle was placed antegrade with flow. Micropuncture wire inserted. 6 [place]i short sheath dilator inserted. Using Isovue contrast fistulogram was obtained of the fistula that the upper arm and chest outflow area. There is good central venous outflow. There appeared to be clinically significant stenosis in the more proximal fistula which was in the distal upper arm at an area of curvature and in the more proximal upper arm at the site of venous outflow. Using a 4 [place] glide cath and an 035 angled Glidewire was able to get past the 2 areas of stenosis. I then used a 9 x 2 [place] balloon. The area more distally in the left upper arm closer to the anastomosis seem to expand without tight stricturing. I obtained a retrograde view which suggested adequate arterial inflow. I then treated the more distal fistula lesion in the upper arm proximally and that area appeared to have a tight weblike stenosis. Was able to get the balloon to inflate to 20 tg of pressure. Was able to efface the balloon. Follow-up imaging demonstrated now seeming resolution of that area of stenosis. He tolerated the procedure well. There is resumption of a palpable thrill. Sheath was removed new suture of 4-0 nylon was placed. Blood loss minimal. No apparent complication. Images demonstrate a tortuous dilated left upper arm brachiocephalic arteriovenous hemodialysis fistula. An area more distally in the upper arm and more proximal of the upper arm were treated with 9 x 2 [place] angioplasty with improvement at both sites. The patient did note some back pain throughout the entire procedure and Trying to move and improve his positioning. He was given an additional 1 mg of Versed to help for comfort. At the completion of the procedure he noted some left anterior chest pain. He rolled up on his right side and stated that that had resolved. He continued to however complain of low back pain. Based upon the chest pain complaint I did pursue a twelve-lead EKG. Len Gannon M.D., F.A.C.S. Surgeon: Len Gannon Type of Anesthesia: IV Sedation and Local
== END 2023-11-20 13:25 | disposition home or self-care (01) ==
LOC: CLSP 09:58
PROVIDERS: PCP Internal Medicine; Referring Provider Surgery; Visit Provider Surgery
DX: T82.858A Stenosis of other vascular prosthetic devices, implants and grafts, initial encounter (principal); N18.4 Chronic kidney disease, stage 4 (severe); E11.22 Type 2 diabetes mellitus with diabetic chronic kidney disease; Z79.4 Long term (current) use of insulin; E78.5 Hyperlipidemia, unspecified; Z87.891 Personal history of nicotine dependence; I12.9 Hypertensive chronic kidney disease with stage 1 through stage 4 chronic kidney disease, or unspecified chronic kidney disease; Z79.899 Other long term (current) drug therapy; Z79.01 Long term (current) use of anticoagulants; Y71.8 Miscellaneous cardiovascular devices associated with adverse incidents, not elsewhere classified
CPT/HCPCS: 36415; 36902; 80048; 85027; 93005; 99152; 99153; Q9967; C1725; C1769

== ENCOUNTER 2024-08-14 16:00 | Emergency (ER) | payer MEDICARE, MEDICAID, SELFPAY ==
[2024-08-14 16:01] VITALS: BP 127/58; PULSE 91; RESP 16; TEMP 36.6; O2SAT 100
--- NOTE | 2024-08-14 16:53 | EDS_ITS ---
HPI HPI - GI History of Present Illness Chief Complaint: Constipation Informant: patient and family Narrative Narrative: Patient has been having problems having bowel movements as well as abdominal pain for the past week. He is having small bowel movements. He had 1 year prior to my evaluation states he feels well better now. Daughter states has been going on at home however. She states he has chronic diarrhea due to lactulose, however he is going a lot more so they were given Imodium for several days and then seemed to become dependent on it and was very constipated and unable to go, feeling like he needs to go after every time he goes just a little, so has not been taking the Imodium for several days now. Taking laxatives and still not having significant bowel movements. No vomiting. Dialysis patient, history of cirrhosis, has a history of oliguria states going a little less recently. He is otherwise acting himself mentally. [facility] Medical History Edentulous Depression Gout Low iron Dietary restriction COVID Former smoker History of echocardiogram History of stress test Blindness and low vision Acute kidney injury Alcoholic cirrhosis of liver Glaucoma CKD (chronic kidney disease) stage 4, GFR 15-29 ml/min DM type 2 (diabetes mellitus, type 2) Hyperlipidemia HTN (hypertension) Home Medications ?Medication ?Instructions ?Recorded ?Last Taken ?Type atorvastatin 10 mg tablet 10 mg PO DAILY cholesterol 09/18/20 04/17/21 History amlodipine 10 mg tablet 5 mg PO DAILY bp 10/08/20 11/20/23 History furosemide 20 mg tablet 20 mg PO DAILY FLUID 03/11/21 04/17/21 History prednisolone acetate 1 % eye 1 drp LEFT EYE BID EYE HEALTH 03/11/21 04/18/21 History drops,suspension sertraline 50 mg tablet 50 mg PO DAILY DEPRESSION 03/11/21 04/18/21 History insulin glargine 100 unit/mL (3 10 unit subcut QPM blood glucose 06/17/21 Unknown History mL) subcutaneous pen (Lantus control Solostar U-100 Insulin) lactulose 20 gram/30 mL oral 20 g PO TID bowel movements 06/17/21 Unknown History solution rifaximin 550 mg tablet (Xifaxan) 550 mg PO BID IBS 06/17/21 Unknown History ciprofloxacin HCl 500 mg tablet 500 mg PO DAILY #7 TABLETS 08/14/24 Unknown Rx metronidazole 500 mg tablet 500 mg PO BID #14 tabs 08/14/24 Unknown Rx Allergy/AdvReac Type Severity Reaction Status Date / Time chlorhexidine (From Allergy Rash Verified 08/14/24 16:05 ChloraPrep Clear) isopropyl alcohol (From Allergy Rash Verified 08/14/24 16:05 ChloraPrep Clear) Family History Mother Heart disease Hypertension Diabetes Father Diabetes Heart disease Hypertension Surgical History History of arteriovenostomy for renal dialysis (~06/2021) History of colonoscopy History of eye surgery History of insertion of tunneled central venous catheter (CVC) with port History of thoracentesis Social History household members: spouse and children Smoking Status: Former smoker alcohol intake: former substance use type: does not use ROS ROS ED Constitutional Constitutional ED: Denies chills or fever(s) Eyes Eyes: Denies change in vision ENT ENT ED: Denies rhinorrhea or sore throat Cardiovascular Cardiovascular: Denies chest pain or palpitations Respiratory/Chest Respiratory/Chest: Denies cough or dyspnea Gastrointestinal Gastrointestinal: Reports abdominal pain and constipation; Denies hematemesis, hematochezia, nausea or vomiting Genitourinary Genitourinary ED: Reports as per HPI and oliguria; Denies dysuria or hematuria Musculoskeletal Musculoskeletal: Denies back pain or neck pain Integumentary Denies abscess or rash Neurologic Neurologic: Denies headache(s), paresthesias or weakness EXAM Physical Exam Const Vital Signs: 08/14/24 16:01 08/14/24 18:01 Temperature 98 F Temperature Source Oral Pulse Rate 91 80 Respiratory Rate 16 17 Blood Pressure 127/58 H 142/58 H Blood Pressure Mean 81 86 Pulse Ox 100 96 Oxygen Delivery Method Room Air Room Air Positive well nourished and well developed General Appearance ED: well developed and NAD HEENT Reports moist mucous membranes normocephalic and atraumatic Eyes PERRL and EOMs intact bilaterally Neck full ROM and supple Resp normal respiratory effort and clear to auscultation bilaterally Cardio regular rate and regular rhythm Heart Sounds: murmur systolic II/ soft GI non-tender and non-distended Auscultation: normoactive bowel sounds Palpation: soft Back/Spine no CVA tenderness General Back: other FROM Extremity normal to inspection General Extremety ED: Negative for edema, pulses abnormal or tenderness General Extremity: Negative for edema or pulses abnormal Neuro oriented x3, CN's II-XII intact bilaterally and no sensory deficits noted Sensorium / Orientation: awake and alert Motor Exam: strength 5/5 throughout Skin no rashes or lesions noted and no wounds MDM MDM MDM Narrative Medical decision making narrative: Patient with diffuse abdominal tenderness had some constipation, feeling better after he had a bowel movement but burn out tender lace. I discussed treatment options including an enema, CT, family was comfortable doing both at the same time. He felt better still after the enema, and then had another bowel movement later, and he was doing well clinically with normal vital signs. I reviewed the blood work showing a leukocytosis but other than renal failure and some mild hyperglycemia otherwise unremarkable. I reviewed CT abdomen/pelvis without contrast imaging as well as results which I agree with, basically consistent with colitis. This may explain his leukocytosis if it is infectious. Therefore given the fact that his condition is doing well and there is nothing acutely surgical here I think he can be discharged home and treated as an outpatient with some antibiotics and stool softeners as they are continuing to do. Family are comfortable with that plan. Lab Data Attestation: I reviewed the patient's lab results. Labs: Laboratory Results - last 24 hr 08/14/24 17:06 WBC 19.0 H RBC 3.58 L Hgb 11.1 L Hct 33.4 L MCV 93.3 MCH 31.0 MCHC 33.2 RDW Std Deviation 48.1 H RDW Coeff of Edwin 14.0 Plt Count 208 MPV 10.3 Immature Gran % (Auto) 0.800 Neut % (Auto) 89.8 H Lymph % (Auto) 3.7 L [place] % (Auto) 5.1 Eos % (Auto) 0.3 Baso % (Auto) 0.3 Absolute Neuts (auto) 17.1 H Absolute Lymphs (auto) 0.71 L Nucleated RBC % 0 Sodium 130 L Potassium 3.7 Chloride 90 L Carbon Dioxide 29.0 Anion Gap 11 BUN 31 H Creatinine 8.19 H* Est GFR (MDRD) Af Amer 8 L Est GFR (MDRD) Non-Af 7 L BUN/Creatinine Ratio 3.8 L Glucose 267 H Calcium 9.1 Total Bilirubin 0.60 AST 21 ALT 20 Alkaline Phosphatase 97 Total Protein 6.7 Albumin 2.8 L Globulin 3.9 Albumin/Globulin Ratio 0.7 L Radiography Diagnostic Testing: Clinical Impression(s) from Imaging Studies Abdomen/Pelvis CT 08/14/24 17:10 IMPRESSION: Diffuse colitis. Cirrhotic liver with evidence of portal hypertension including small volume ascites. Electronically Signed: Sandeep Cohn MD at 18:45 EST , Discharge Plan Triage Chief Complaint: Constipation ED Provider: Rodriguez Aguirre Dx/Rx/DC Orders Clinical Impression: Colitis, ESRD on dialysis, Acute constipation Instructions: ED Understanding Colitis Prescriptions: New ciprofloxacin HCl 500 mg tablet 500 mg PO DAILY Qty: 7 0RF Rx Instructions: on dialysis days, take after dialysis metronidazole 500 mg tablet 500 mg PO BID Qty: 14 0RF Rx Instructions: on dialysis days, take after dialysis No Action atorvastatin 10 MG tablet 10 mg PO DAILY amlodipine 10 MG tablet 5 mg PO DAILY prednisolone acetate 1 % drops,suspension 1 drp LEFT EYE BID Patient Comments: INSTILL 1 DROP INTO LEFT EYE TWICE DAILY furosemide 20 mg tablet 20 mg PO DAILY Patient Comments: TAKE 1 TABLET BY MOUTH ONCE DAILY sertraline 50 mg tablet 50 mg PO DAILY Patient Comments: TAKE 1 TABLET BY MOUTH ONCE DAILY insulin glargine [Lantus Solostar U-100 Insulin] 100 unit/mL (3 mL) insulin pen 10 unit subcut QPM Xifaxan 550 mg tablet 550 mg PO BID lactulose 20 gram/30 mL solution 20 g PO TID Rx Instructions: Titrate the dose to have a goal bowel movement of 3/day Primary Care Provider: Jerald Rivera Referrals: Jerald Rivera MD [Primary Care Provider] - 1 Week if not improving Print Language: Justino Disposition Disposition: Home, Self Care
--- NOTE | 2024-08-14 17:10 | CT_ITS ---
INDICATION: diffuse abd pain EXAMINATION: CT Abdomen And Pelvis W/O Contrast Injection TECHNIQUE: Helically acquired images were obtained of the abdomen and pelvis without the use of IV contrast. A radiation dose optimization technique was used for this scan. Oral contrast: None. COMPARISON: None FINDINGS: Evaluation of the solid organs and vascular structures is limited without intravenous contrast. Visualized lung bases: Unremarkable Liver: Nodular contour. Gallbladder: Few small intraluminal stones seen. Spleen: Unremarkable Pancreas: Unremarkable Adrenal Glands: Unremarkable Kidneys: Unremarkable Vasculature: Mild scattered aortoiliac atherosclerotic calcifications. GI Tract: There is diffuse bowel wall thickening of the colon with surrounding mesenteric fat stranding. Lymphadenopathy: None Peritoneum: There is small volume ascites and mesenteric edema. Bladder: Unremarkable Reproductive organs: Unremarkable Bones/Soft tissues: There are diffuse degenerative changes of the spine. CT/Abdomen/Pelvis without Cont IMPRESSION: Diffuse colitis. Cirrhotic liver with evidence of portal hypertension including small volume ascites. Electronically Signed: Sandeep Cohn MD at 18:45 EST ,
[2024-08-14 17:17] LABS: Absolute Lymphocyte Count 0.71 X10^3/uL (0.83-4.51); Absolute Neutrophil Count 17.1 X10^3/uL (2.0-7.7); Basophil# 0.05 X10^3/uL; Basophil% 0.3 % (0-1); Eosinophil# 0.05 X10^3/uL; Eosinophils% 0.3 % (0-5); Hematocrit 33.4 % (40-54); Hemoglobin 11.1 g/dL (13.0-16.5); Lymphocyte # 0.71 X10^3/ul (0.83-4.51); Lymphocyte % 3.7 % (19-41); Mean Corp Hgb Conc 33.2 g/dL (32-36); Mean Corpuscular Volume 93.3 fL (80-94); Mean Platelet Vol. 10.3 fl (6.2-12.0); Monocyte# 0.97 X10^3/uL; Monocyte% 5.1 % (0-10); NRBC Flagged by Analyzer 0 % (0-5); Neutrophil # 17.09 X10^3/uL (2.7-7.7); Neutrophil % 89.8 % (47-70); Platelet Count 208 K/mm3 (150-450); RBC Distribution Width SD 48.1 fl (35.1-43.9); Red Blood Count 3.58 M/mm3 (4.6-6.2)
[2024-08-14 17:35] LABS: ALB/GLOB Ratio 0.7 RATIO (0.9-2.4); AST(SGOT) 21 U/L (15-37); Alanine Aminotransfer ALT/SGPT 20 U/L (16-61); Albumin, Serum 2.8 g/dL (3.2-5.0); Alkaline Phosphatase 97 U/L (45-117); Anion Gap 11 (5-15); BUN 31 mg/dL (7-18); BUN/Creat Ratio 3.8 RATIO (10-20); Calcium,Total 9.1 mg/dL (8.5-10.1); Chloride 90 mmol/L (98-107); Creatinine, Serum 8.19 mg/dL (0.70-1.30); EST Glomerular Filtration Rate 7 mL/min (>60); Est Glom Filt Rate - Afr Amer 8 mL/min (>60); Globulin 3.9 g/dL (2.2-4.2); Glucose 267 mg/dL (74-106); Potassium 3.7 mmol/L (3.5-5.1); Protein, Total 6.7 g/dL (6.4-8.2); Sodium Level 130 mmol/L (136-145)
[2024-08-14 18:01] VITALS: BP 142/58; PULSE 80; RESP 17; O2SAT 96
[2024-08-14 19:05] VITALS: BMI 26.2
[2024-08-14] MEDS: metroNIDAZOLE 500 MG Tablet PO (19:44)
[2024-08-14] MEDS: Ciprofloxacin 500 MG Tablet PO (19:44)
[2024-08-14 19:45] VITALS: BP 139/63; PULSE 83; RESP 16; TEMP 36.7; O2SAT 99
== END 2024-08-14 19:48 | disposition home or self-care (01) ==
PROVIDERS: Emergency Provider Emergency Medicine; PCP Internal Medicine; Visit Provider Emergency Medicine
DX: K52.9 Noninfective gastroenteritis and colitis, unspecified (principal); N18.6 End stage renal disease; I12.0 Hypertensive chronic kidney disease with stage 5 chronic kidney disease or end stage renal disease; E11.65 Type 2 diabetes mellitus with hyperglycemia; E11.22 Type 2 diabetes mellitus with diabetic chronic kidney disease; E78.5 Hyperlipidemia, unspecified; Z87.891 Personal history of nicotine dependence; R10.817 Generalized abdominal tenderness; K59.00 Constipation, unspecified; Z99.2 Dependence on renal dialysis; Z79.899 Other long term (current) drug therapy
CPT/HCPCS: 74176; 80053; 85025; 99285; A4216

== ENCOUNTER → 2024-09-18 | Outpatient (CLI) | payer MEDICARE, MEDICAID, SELFPAY ==
--- NOTE | 2024-09-18 10:13 | US_ITS ---
PROCEDURE: ABDOMEN LIMITED REASON FOR EXAM: Cirrhosis COMPARISON: None FINDINGS: Liver: Coarsened echogenicity. There is micronodularity involving the surface of the liver. Right hepatic lobe measures 14.8 cm. No focal masses identified. Small amounts of free fluid adjacent to the liver. Gallbladder: Cholelithiasis. No gallbladder wall thickening or pericholecystic fluid. Negative ultrasonic Mares's sign. Common bile duct: Normal measuring 6 mm. Pancreas: Visualized portions are sonographically unremarkable. Right kidney measures 8.7 x 4.1 x 4.0 cm. Renal cortical thinning measuring 0.9 cm. No hydronephrosis. Simple appearing cyst within the midpole measuring 0.8 x 0.9 x 0.8 cm. US/Abdomen Limited IMPRESSION: 1. Cirrhotic appearing liver, as described. Small amounts of free fluid/ascite s adjacent to the liver. 2. Cholelithiasis. CBD measures 6 mm, within normal limits. 3. Mild renal cortical thinning on the right. No hydronephrosis of the right k idney. [facility]
== END | disposition home or self-care (01) ==
PROVIDERS: PCP Internal Medicine; Referring Provider Internal Medicine Gastroenterology; Visit Provider Internal Medicine Gastroenterology
DX: K74.60 Unspecified cirrhosis of liver (principal)
CPT/HCPCS: 76705

== ENCOUNTER 2024-10-13 11:54 | Inpatient (IN) | payer MEDICARE, MEDICAID, SELFPAY ==
[2024-10-13 11:55] VITALS: BP 163/49; PULSE 92; RESP 18; TEMP 36.6; O2SAT 97
--- NOTE | 2024-10-13 12:54 | EKG12_ITS ---
Test Reason : HYPERGLYCEMIA Blood Pressure : */* mmHG Vent. Rate : 92 BPM Atrial Rate : 92 BPM P-R Int : 240 ms QRS Dur : 88 ms QT Int : 382 ms P-R-T Axes : 56 48 53 degrees QTcB Int : 472 ms Sinus rhythm with 1st degree A-V block Minimal voltage criteria for LVH, may be normal variant ( Sokolow-Boucher ) Borderline ECG Confirmed by Martin Castañeda ([id number]), purchasing expeditor PRINCE GARCES ([id number]) on 10/15/2024 8:00:58 AM Referred By: Confirmed By: Martin Castañeda
--- NOTE | 2024-10-13 13:00 | RAD_ITS ---
EXAM: XR Chest, 1 View CLINICAL INDICATION: TECHNIQUE: Frontal view of the chest. COMPARISON: No relevant prior studies available. FINDINGS: LUNGS AND PLEURAL SPACES: See below. HEART: Cardiomegaly with mild congestion. MEDIASTINUM: Unremarkable. Normal mediastinal contour. BONES/JOINTS: Unremarkable. No acute fracture. RAD/Chest 1 View (Portable) IMPRESSION: Cardiomegaly with mild congestion. Reading Location[facility]
--- NOTE | 2024-10-13 13:14 | EX.ED.DYSGE1 ---
HPI <BERNARDO Browning - Last Filed: 10/13/24 15:01> History of Present Illness Chief Complaint: Hyperglycemia Narrative Narrative: Patient is a 69-year-old male with multiple comorbidities. 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 Patient is also end-stage renal disease receiving hemodialysis Sunday, he did go on Sunday however missed today. Patient also has diabetes, history of elevated ammonia. Per the family, the patient's been more confused, weak over the last 24 hours. They did look at his blood sugar, and it was greater than 500 and it would not come down with her sliding scale insulin. Patient does live at home with his daughter and . Patient is not complaining of any pain. Per the family, the patient is usually confused when there is infection, elevated ammonia or elevated blood sugar. PFSH <BERNARDO Browning - Last Filed: 10/13/24 15:01> [facility] Medical History Edentulous Depression Gout Low iron Dietary restriction COVID Former smoker History of echocardiogram History of stress test Blindness and low vision Acute kidney injury Alcoholic cirrhosis of liver Glaucoma CKD (chronic kidney disease) stage 4, GFR 15-29 ml/min DM type 2 (diabetes mellitus, type 2) Hyperlipidemia HTN (hypertension) Home Medications ?Medication ?Instructions ?Recorded ?Last Taken ?Type atorvastatin 10 mg tablet 10 mg PO DAILY cholesterol 09/18/20 10/13/24 History amlodipine 10 mg tablet 5 mg PO DAILY bp 10/08/20 10/13/24 History furosemide 20 mg tablet 20 mg PO DAILY FLUID 03/11/21 10/13/24 History prednisolone acetate 1 % eye 1 drp LEFT EYE BID EYE HEALTH 03/11/21 10/13/24 History drops,suspension sertraline 50 mg tablet 50 mg PO DAILY DEPRESSION 03/11/21 10/12/24 History insulin glargine 100 unit/mL (3 10 unit subcut QPM blood glucose 06/17/21 10/13/24 History mL) subcutaneous pen (Lantus control Solostar U-100 Insulin) rifaximin 550 mg tablet (Xifaxan) 550 mg PO BID IBS 06/17/21 10/13/24 History sevelamer carbonate 800 mg tablet 800 mg PO TID 10/13/24 10/13/24 History trazodone 50 mg tablet 25 - 50 mg PO QHS 10/13/24 10/12/24 History Allergy/AdvReac Type Severity Reaction Status Date / Time chlorhexidine (From Allergy Rash Verified 10/13/24 11:57 ChloraPrep Clear) isopropyl alcohol (From Allergy Rash Verified 10/13/24 11:57 ChloraPrep Clear) Family History Mother Heart disease Hypertension Diabetes Father Diabetes Heart disease Hypertension Surgical History History of arteriovenostomy for renal dialysis (~06/2021) History of colonoscopy History of eye surgery History of insertion of tunneled central venous catheter (CVC) with port History of thoracentesis Social History household members: spouse and children Smoking Status: Former smoker alcohol intake: former substance use type: does not use ROS <BERNARDO Browning - Last Filed: 10/13/24 15:01> ROS ED ROS Narrative Constitutional: Negative for fever, chills, weight loss. Positive for weakness Eyes: Negative for vision loss, vision change, double vision ENT: Negative for any sore throat, ear pain, congestion Cardiovascular: Negative for any chest pain, tightness, palpitations Respiratory: Negative for any cough, sputum production, hemoptysis, dyspnea, dyspnea on exertion, orthopnea Gastrointestinal: Negative for any abdominal pain, nausea, vomiting, diarrhea, constipation, blood in stool, blood in vomit : Negative for any urinary frequency, dysuria, retention, blood in urine Muscle skeletal: Negative for any neck pain, back pain Neurological: Negative for any headache, syncope, dizziness. Per family patient is weak, as well as confused Skin: Negative for any rashes, itching, abrasions, lacerations Psychiatric: Negative for any depression, anxiety, stress, suicidal ideation, homicidal ideation Hematologic: Negative for any excessive bruising, easy bleeding EXAM <BERNARDO Browning - Last Filed: 10/13/24 15:01> Physical Exam Narrative Exam Narrative: Vital signs reviewed. Patient alert and orient x 1. HEET: Head normocephalic atraumatic, TMs clear bilaterally. Posterior pharynx is clear, moist mucous membranes. Nares clear bilaterally. Patient left eye is completely grayed out, right eye is damaged. Patient is blind. Neck: Supple with no lymphadenopathy or tenderness. No signs of meningismus. Cardiac: Regular rate and rhythm significant systolic murmur, no gallops or rubs, equal peripheral pulses bilaterally. Respiratory: Lungs clear to auscultation bilaterally. No chest tenderness. Abdomen: Soft, nontender, nondistended. No abdominal bruit or pulsatile masses. No hepatosplenomegaly Extremities: No peripheral edema, no signs of gross trauma or deformity. Active full range of motion of all extremities. Neuro: Cranial nerves II through XII intact, no focal neurological deficits. Patient is moving all extremities. There is no facial droop. Skin: Clean dry and intact with no rash, purpura, petechiae, vesicles or pustules. Backs/flank: No CVA tenderness, no midline spinal tenderness, no deformity. Psych: Normal mood and affect. No SI, HI or acute psychosis. Const Vital Signs: 10/13/24 11:55 10/13/24 13:54 Temperature 98 F Temperature Source Oral Pulse Rate 92 77 Respiratory Rate 18 Blood Pressure 163/49 H 145/72 H Blood Pressure Mean 87 96 Pulse Ox 97 Oxygen Delivery Method Room Air Positive cachectic General Appearance ED: cachectic Nutritional Appearance: cachectic <Dr. Kashif Peterson DO - Last Filed: 10/13/24 15:11> Physical Exam Const Vital Signs: 10/13/24 11:55 10/13/24 13:54 Temperature 98 F Temperature Source Oral Pulse Rate 92 77 Respiratory Rate 18 Blood Pressure 163/49 H 145/72 H Blood Pressure Mean 87 96 Pulse Ox 97 Oxygen Delivery Method Room Air MDM <BERNARDO Browning - Last Filed: 10/13/24 15:01> [facility] Lab Data Labs: Laboratory Results - last 24 hr 10/13/24 12:24 WBC 8.1 RBC 2.78 L Hgb 9.0 L Hct 26.4 L MCV 95.0 H MCH 32.4 H MCHC 34.1 RDW Std Deviation 53.3 H RDW Coeff of Edwin 15.2 H Plt Count 188 MPV 11.4 Immature Gran % (Auto) 0.400 Neut % (Auto) 82.9 H Lymph % (Auto) 8.6 L Wharton % (Auto) 6.9 Eos % (Auto) 0.6 Baso % (Auto) 0.6 Absolute Neuts (auto) 6.8 Absolute Lymphs (auto) 0.70 L Nucleated RBC % 0 Sodium 127 L Potassium 4.3 Chloride 88 L Carbon Dioxide 24.0 Anion Gap 15 BUN 95 H Creatinine 9.45 H* Est GFR (MDRD) Af Amer 7 L Est GFR (MDRD) Non-Af 6 L BUN/Creatinine Ratio 10.1 Glucose 470 H* Lactic Acid 2.8 H* Calcium 9.7 Total Bilirubin 0.70 Direct Bilirubin 0.28 AST 41 H ALT 64 H Alkaline Phosphatase 145 H Ammonia 154.0 H Troponin I High Sens 54 Total Protein 8.3 H Albumin 3.3 Globulin 5.0 H Lipase 151 Acetone Level NEGATIVE Radiography Diagnostic Testing: Clinical Impression(s) from Imaging Studies Chest X-Ray 10/13/24 13:00 IMPRESSION: Cardiomegaly with mild congestion. Reading [facility] Brain CT 10/13/24 13:30 IMPRESSION: Stable examination. Cerebral atrophy. Reading Location: [id number] EKG EKG shows sinus rhythm with first-degree block: Attestation: I personally reviewed and interpreted this EKG as follows: Interpretation: Sinus Rhythm Comments: Sinus rhythm with first-degree AV block, rate of 92 bpm, AZ interval 240 ms, QRS duration 88 ms, no acute ST elevation, no acute infarct noted. Treatment and Re-Evaluation :: Patient is moving all extremities, vital signs are stable, patient does look nontoxic. Presenting to the emergency department by family for weakness, altered mental status. There is a slight language barrier however the patient's family does help. They do think that the patient is more lethargic and confused. Patient does have multiple comorbidities. Patient will receive basic laboratory values including liver panel, lipase, ammonia level, patient will receive acetone, lactic acid. Chest x-ray as well as CT scan of the brain will be obtained. All radiologic examinations were read, reviewed by the emergency department attending. From these reads, a plan of care will be put in place. Also looking for signs of infection with viral swab. Patient did miss dialysis today however his last dialysis was Sunday. Patient's laboratory values showed a normal stable CBC, patient's hemoglobin was 9.0 however patient is a dialysis, this is baseline. Patient's white blood cell count was normal at 8.1. Patient's chemistry shows slight hyponatremia with a sodium of 127, patient's creatinine was 9.45 however patient was due for dialysis today. Glucose was elevated at 470, 10 units of IV insulin was given. Patient likely acid 2.80 believe this is secondary to demand, it may be dehydration. Patient's ammonia level is elevated at 154, this does explain the patient's confusion, fatigue, lethargic. Patient was given more lactulose. Lipase was negative. Acetone level was negative. There is no evidence of any DKA. CT scan of the brain was unremarkable, chest x-ray showed no acute process. Patient's COVID-19 influenza RSV was negative. At this time, I do believe the patient needs to be admitted to the hospital. Patient does have some uncontrolled blood pressure as well as hepatic encephalopathy. I will reach out to the hospitalist. <Dr. Kashif Peterson, DO - Last Filed: 10/13/24 15:11> [facility] History & Record Review Discussion w/independent historian: Patient and Family Lab Data Attestation: I reviewed the patient's lab results. Labs: Laboratory Results - last 24 hr 10/13/24 12:24 WBC 8.1 RBC 2.78 L Hgb 9.0 L Hct 26.4 L MCV 95.0 H MCH 32.4 H MCHC 34.1 RDW Std Deviation 53.3 H RDW Coeff of Edwin 15.2 H Plt Count 188 MPV 11.4 Immature Gran % (Auto) 0.400 Neut % (Auto) 82.9 H Lymph % (Auto) 8.6 L Wharton % (Auto) 6.9 Eos % (Auto) 0.6 Baso % (Auto) 0.6 Absolute Neuts (auto) 6.8 Absolute Lymphs (auto) 0.70 L Nucleated RBC % 0 Sodium 127 L Potassium 4.3 Chloride 88 L Carbon Dioxide 24.0 Anion Gap 15 BUN 95 H Creatinine 9.45 H* Est GFR (MDRD) Af Amer 7 L Est GFR (MDRD) Non-Af 6 L BUN/Creatinine Ratio 10.1 Glucose 470 H* Lactic Acid 2.8 H* Calcium 9.7 Total Bilirubin 0.70 Direct Bilirubin 0.28 AST 41 H ALT 64 H Alkaline Phosphatase 145 H Ammonia 154.0 H Troponin I High Sens 54 Total Protein 8.3 H Albumin 3.3 Globulin 5.0 H Lipase 151 Acetone Level NEGATIVE Radiography Diagnostic Testing: Clinical Impression(s) from Imaging Studies Chest X-Ray 10/13/24 13:00 IMPRESSION: Cardiomegaly with mild congestion. Reading Location: [facility] Brain CT 10/13/24 13:30 IMPRESSION: Stable examination. Cerebral atrophy. Reading Location: [id number] Management Discussion w/another healthcare provider: Hospitalist Treatment and Re-Evaluation :: Patient is moving all extremities, vital signs are stable, patient does look nontoxic. Presenting to the emergency department by family for weakness, altered mental status. There is a slight language barrier however the patient's family does help. They do think that the patient is more lethargic and confused. Patient does have multiple comorbidities. Patient will receive basic laboratory values including liver panel, lipase, ammonia level, patient will receive acetone, lactic acid. Chest x-ray as well as CT scan of the brain will be obtained. All radiologic examinations were read, reviewed by the emergency department attending. From these reads, a plan of care will be put in place. Also looking for signs of infection with viral swab. Patient did miss dialysis today however his last dialysis was Sunday. Patient's laboratory values showed a normal stable CBC, patient's hemoglobin was 9.0 however patient is a dialysis, this is baseline. Patient's white blood cell count was normal at 8.1. Patient's chemistry shows slight hyponatremia with a sodium of 127, patient's creatinine was 9.45 however patient was due for dialysis today. Glucose was elevated at 470, 10 units of IV insulin was given. Patient likely acid 2.80 believe this is secondary to demand, it may be dehydration. Patient's ammonia level is elevated at 154, this does explain the patient's confusion, fatigue, lethargic. Patient was given more lactulose. Lipase was negative. Acetone level was negative. There is no evidence of any DKA. CT scan of the brain was unremarkable, chest x-ray showed no acute process. Patient's COVID-19 influenza RSV was negative. At this time, I do believe the patient needs to be admitted to the hospital. Patient does have some uncontrolled blood pressure as well as hepatic encephalopathy. I will reach out to the hospitalist. I have personally performed a face to face assessment of the patient and have reviewed the MINNIE Note. I performed a substantive portion of the visit including all aspects of the following. My gupta findings include: History is 69-year-old male history of cirrhosis diabetes presenting to the emergency room out of concern for hyperglycemia. Family noting blood sugar greater than 500. They note that he seems more weak and does not seem to be mentating is normal. Exam is patient does not appear in any acute distress. Heart is regular without murmur. Abdomen is not tense ascites. He appears pleasantly confused. Medical Decison Making patient with a ammonia level of 154. Blood sugar 478. Lactic acid is elevated which is probably in part due to to his liver disease. I do not see clear evidence of sepsis and I do not see an obvious infectious cause. Plan of care is admission to hospital Discharge Plan Dx/Rx/DC Orders Clinical Impression: Lethargic, Weakness, Acute hepatic encephalopathy, Acute hyperglycemia, Cirrhosis Disposition Disposition: Acute Care [facility]
[2024-10-13 13:23] LABS: Absolute Neutrophil Count 6.8 X10^3/uL (2.0-7.7); Basophil# 0.05 X10^3/uL; Basophil% 0.6 % (0-1); Eosinophil# 0.05 X10^3/uL; Eosinophils% 0.6 % (0-5); Hematocrit 26.4 % (40-54); Lymphocyte % 8.6 % (19-41); Mean Corp Hgb Conc 34.1 g/dL (32-36); Mean Corpuscular Hgb 32.4 pg (27.0-32.0); Mean Platelet Vol. 11.4 fl (6.2-12.0); Monocyte# 0.56 X10^3/uL; Monocyte% 6.9 % (0-10); NRBC Flagged by Analyzer 0 % (0-5); Neutrophil # 6.75 X10^3/uL (2.7-7.7); Neutrophil % 82.9 % (47-70); Platelet Count 188 K/mm3 (150-450); RBC Distribution Width CV 15.2 % (11.6-14.6); RBC Distribution Width SD 53.3 fl (35.1-43.9); Red Blood Count 2.78 M/mm3 (4.6-6.2); White Blood Count 8.1 K/mm3 (4.4-11.0)
--- NOTE | 2024-10-13 13:30 | CT_ITS ---
EXAM: BRAIN/HEAD WITHOUT CONTRAST CLINICAL HISTORY: Confusion. Patient is on dialysis for chronic renal disease. COMPARISON: Comparison is made with prior study dated March 11, 2021. TECHNIQUE: Multiple axial tomographic images were obtained without intravenous contrast administration. Coronal and sagittal reconstruction was obtained as well. FINDINGS: Mild degree of cerebral atrophy in keeping with the patient's age. There is evidence of decreased attenuation in the bilateral periventricular regions of both cerebral hemispheres in keeping with chronic small-vessel disease. There has been no change. Stable mild calcifications in the basal ganglia bilaterally. This is a normal finding for patient's age. Calcification of the cavernous portions of the internal carotid arteries bilaterally. CT/Brain/Head without Contrast IMPRESSION: Stable examination. Cerebral atrophy. Reading Location: [id number]
[2024-10-13 13:54] VITALS: BP 145/72; PULSE 77
--- NOTE | 2024-10-13 14:17 | ED.RN ---
THis RN called lab to check on delay in chemistry, lipase and troponin.
[2024-10-13 14:36] LABS: AST(SGOT) 41 U/L (15-37); Alanine Aminotransfer ALT/SGPT 64 U/L (16-61); Albumin, Serum 3.3 g/dL (3.2-5.0); Alkaline Phosphatase 145 U/L (45-117); Anion Gap 15 (5-15); BUN 95 mg/dL (7-18); BUN/Creat Ratio 10.1 RATIO (10-20); Bilirubin, Direct 0.28 mg/dL (0.00-0.30); Calcium,Total 9.7 mg/dL (8.5-10.1); Chloride 88 mmol/L (98-107); Creatinine, Serum 9.45 mg/dL (0.70-1.30); EST Glomerular Filtration Rate 6 mL/min (>60); Est Glom Filt Rate - Afr Amer 7 mL/min (>60); Glucose 470 mg/dL (74-106); Lipase 151 U/L (73-393); Potassium 4.3 mmol/L (3.5-5.1); Protein, Total 8.3 g/dL (6.4-8.2); Sodium Level 127 mmol/L (136-145); Troponin-I HS 54 pg/mL (3.0-78.0)
[2024-10-13 14:41] LABS: Lactic Acid 2.8 mmol/L (0.4-1.9)
[2024-10-13 15:00] VITALS: BP 135/89; PULSE 71; RESP 14; O2SAT 100
[2024-10-13] MEDS: Insulin Lispro 100 UNIT/ML VIAL (ADMELOG) 10 UNIT IV (15:06)
[2024-10-13] MEDS: Lactulose 20 GM/30 ML UDC PO ×2 (15:06→21:28)
[2024-10-13 15:09] VITALS: BMI 25.9
[2024-10-13 15:26] LABS: Bedside Glucose 414 mg/dL (74-106)
--- NOTE | 2024-10-13 15:28 | PCM.HP.STD ---
[facility] - General General Date of Service: 10/13/24 Chief Complaint: confusion and hyperglycemia HPI Narrative TRUDY CANCINO, is a 69 M who presents with confusion and hyperglycemia. Patient is confused and unable provide any history so history is primarily taken through the patient's daughter who is at bedside. Patient daughter states that he normally understands [place] but when he gets confused like this due to his ammonia being elevated is just grossly confused. Patient has a history of cirrhosis and is post be taking rifaximin and lactulose. Daughter found out that he had not been taking his lactulose for about a month and then had him restart it this past . Also noted that his glucose has been elevated over the weekend. Previously patient had been on Lantus but was having low blood sugars in the morning so is just on a sliding scale with meals and still tends to have a low blood sugar in the mornings. Checked his blood sugar last night and this morning and it was still elevated and patient was brought to the hospital. In the emergency room, his lactic acid was 2.8, Glucose was 470 and ammonia was 154. He received 20 g of lactulose as well as 10 units of insulin lispro. [facility] Medical History Edentulous Depression Gout Low iron Dietary restriction COVID Former smoker History of echocardiogram History of stress test Blindness and low vision Acute kidney injury Alcoholic cirrhosis of liver Glaucoma CKD (chronic kidney disease) stage 4, GFR 15-29 ml/min DM type 2 (diabetes mellitus, type 2) Hyperlipidemia HTN (hypertension) Home Medications ?Medication ?Instructions ?Recorded ?Last Taken ?Type atorvastatin 10 mg tablet 10 mg PO DAILY cholesterol 09/18/20 10/13/24 History amlodipine 10 mg tablet 5 mg PO DAILY bp 10/08/20 10/13/24 History furosemide 20 mg tablet 20 mg PO DAILY FLUID 03/11/21 10/13/24 History prednisolone acetate 1 % eye 1 drp LEFT EYE BID EYE HEALTH 03/11/21 10/13/24 History drops,suspension sertraline 50 mg tablet 50 mg PO DAILY DEPRESSION 03/11/21 10/12/24 History insulin glargine 100 unit/mL (3 10 unit subcut QPM blood glucose 06/17/21 10/13/24 History mL) subcutaneous pen (Lantus control Solostar U-100 Insulin) rifaximin 550 mg tablet (Xifaxan) 550 mg PO BID IBS 06/17/21 10/13/24 History sevelamer carbonate 800 mg tablet 800 mg PO TID 10/13/24 10/13/24 History trazodone 50 mg tablet 25 - 50 mg PO QHS 10/13/24 10/12/24 History Allergy/AdvReac Type Severity Reaction Status Date / Time chlorhexidine (From Allergy Rash Verified 10/13/24 11:57 ChloraPrep Clear) isopropyl alcohol (From Allergy Rash Verified 10/13/24 11:57 ChloraPrep Clear) Family History Mother Heart disease Hypertension Diabetes Father Diabetes Heart disease Hypertension Surgical History History of arteriovenostomy for renal dialysis (~06/2021) History of thoracentesis History of eye surgery History of colonoscopy History of insertion of tunneled central venous catheter (CVC) with port Social History household members: spouse and children Smoking Status: Former smoker alcohol intake: former substance use type: does not use ROS ROS Narrative Blind due to glaucoma. No recent illnesses. Does have a cough at night which daughter thinks is probably attributable to reflux. Unable to obtain further details due to encephalopathy. Vital Signs Vital Signs Vital Signs: 10/13/24 11:55 10/13/24 13:54 Temperature 36.6 C Temperature Source Oral Pulse Rate 92 77 Respiratory Rate 18 Blood Pressure 163/49 H 145/72 H Blood Pressure Mean 87 96 Pulse Ox 97 Oxygen Delivery Method Room Air Weight Weight: 72.8 kg Body Mass Index (BMI) 25.9 Physical Exam Const average body habitus Constitutional Narrative: Confused. Does follow some commands. HEENT head/scalp atraumatic HEENT Narrative: Chronic eye changes due to glaucoma. Edentulous. Mucous membranes are moist. Eyes Eyes Narrative: No icterus. Neck no lymphadenopathy Neck Narrative: No thyromegaly. Resp normal respiratory effort, no retractions, no use of accessory muscles and clear to auscultation bilaterally Cardio regular rate, regular rhythm, S1 normal heart sound and S2 normal heart sound GI normal to inspection, nondistended, normoactive bowel sounds GI Narrative: Slight tender to palpation. Slight distention but not tight. Extremity normal to inspection and no clubbing, cyanosis or edema Neuro moves all extremities and no focal motor deficits Sensorium / Orientation: awake; Negative for alert Results Lab / Micro Data Attestation: I reviewed the patient's lab results. 10/13/24 12:24 10/13/24 12:24 Labs: Laboratory Results - last 24 hr 10/13/24 12:24: WBC 8.1, RBC 2.78 L, Hgb 9.0 L, Hct 26.4 L, MCV 95.0 H, MCH 32.4 H, MCHC 34.1, RDW Std Deviation 53.3 H, RDW Coeff of Edwin 15.2 H, Plt Count 188, MPV 11.4, Immature Gran % (Auto) 0.400, Neut % (Auto) 82.9 H, Lymph % (Auto) 8.6 L, Wells % (Auto) 6.9, Eos % (Auto) 0.6, Baso % (Auto) 0.6, Absolute Neuts (auto) 6.8, Absolute Lymphs (auto) 0.70 L, Nucleated RBC % 0, Sodium 127 L, Potassium 4.3, Chloride 88 L, Carbon Dioxide 24.0, Anion Gap 15, BUN 95 H, Creatinine 9.45 H*, Est GFR (MDRD) Af Amer 7 L, Est GFR (MDRD) Non-Af 6 L, BUN/Creatinine Ratio 10.1, Glucose 470 H*, Lactic Acid 2.8 H*, Calcium 9.7, Total Bilirubin 0.70, Direct Bilirubin 0.28, AST 41 H, ALT 64 H, Alkaline Phosphatase 145 H, Ammonia 154.0 H, Troponin I High Sens 54, Total Protein 8.3 H, Albumin 3.3, Globulin 5.0 H, Lipase 151, Acetone Level NEGATIVE 10/13/24 15:03: POC Glucose 414 H Micro: Microbiology 10/13/24 13:05 Mucosa - Nose SARS-CoV-2, Influenza & RSV (PCR) - Final EKG Initial EKG: Attestation: I personally reviewed and interpreted this EKG as follows: Prior EKG tracings: available for review Imaging Radiology Impression Chest X-Ray 10/13/24 13:00 IMPRESSION: Cardiomegaly with mild congestion. [facility] 10/13/24 13:30 IMPRESSION: Stable examination. Cerebral atrophy. Reading Location: [id number] Assessment & Plan Assessment/Plan (1) Acute hepatic encephalopathy: PLAN: Secondary to not having taken his lactulose in about a month. Though he had recently started this past . Will continue with lactulose and rifaximin. Avoid potentiating medications that may make his confusion worse. (2) Acute hyperglycemia: PLAN: According to the daughter, typically his blood sugar runs low when he is only on sliding scale when he has some dietary indiscretions such as eating sweets. Will commence with Lantus for tonight though daughter states that he does not normally take Lantus but is only on prandial insulin with meals. I will have him on a sliding scale insulin. Check an A1c. (3) Hyponatremia: PLAN: Right secondary to hyperglycemia as well as volume overload. Will monitor for now. No acute intervention. I do not feel his confusion is due to his hyponatremia. (4) Lactic acidosis: PLAN: Unclear significance. Will recheck. Avoid IV fluids because his chest x-ray appears to be volume overloaded at this time. (5) ESRD (end stage renal disease): PLAN: Missed dialysis today. Consult Dr. Jenni Ramos for continuation of dialysis. Continue with sevelamer (6) Cirrhosis: PLAN: Continue with rifaximin and lactulose. Will hold off on the furosemide for now. PLAN: Plan Diabetes mellitus type 2: As above. Check an A1c. Glaucoma: Patient is legally blind. Continue with prednisolone eyedrops. Depression: Hold sertraline for now given his confusion. VTE prophylaxis with subcu heparin. CODE STATUS: Addressed with the patient's daughter and . Patient is full code. Charges/Coding Visit Charges Inpatient E&M: 93770 Init Hosp L3
[2024-10-13 16:09] VITALS: BP 149/60; PULSE 81
[2024-10-13 17:17] LABS: Reflex Lactate? Y
[2024-10-13 17:30] VITALS: BMI 25.0
[2024-10-13 17:39] VITALS: BP 147/45; PULSE 93; RESP 16; TEMP 36.8; O2SAT 92
[2024-10-13 18:08] LABS: Lactic Acid 1.8 mmol/L (0.4-1.9)
[2024-10-13] MEDS: Insulin Lispro 100 UNIT/ML INSULN.PEN SC ×2 (18:14→21:26)
[2024-10-13 18:39] LABS: Bedside Glucose 304 mg/dL (74-106)
[2024-10-13 19:25] LABS: Lactic Acid 3.5 mmol/L (0.4-1.9)
[2024-10-13 21:12] VITALS: BP 157/61; PULSE 92; RESP 18; TEMP 36.6; O2SAT 96
[2024-10-13] MEDS: Insulin Glargine-YFGN 100 UNIT/ML Pen 10 UNIT SC (21:27)
[2024-10-13] MEDS: Heparin Injection (Vial) 5,000 UNIT/ML VIAL 5000 UNIT SC (21:28)
[2024-10-13] MEDS: prednisoLONE eye drops (5 mL) 1 DROP OPTH.BTL 1 DRP LEFT EYE (21:29)
[2024-10-13] MEDS: rifAXIMin 550 MG Tablet PO (21:30)
[2024-10-13 22:41] LABS: Reflex Lactate? Y
[2024-10-13 23:59] LABS: Lactic Acid 2.5 mmol/L (0.4-1.9)
[2024-10-14] VITALS (12 sets, daily range): BP systolic 96–245; BP diastolic 42–79; PULSE 67–93; RESP 12–16; TEMP 36.5–37.1; O2SAT 92–100; BMI 24.9; BMI 24.1
[2024-10-14] MEDS: traZODone 50 MG Tablet PO (00:16)
[2024-10-14 00:52] LABS: Bedside Glucose 329 mg/dL (74-106)
[2024-10-14] MEDS: Lactulose 20 GM/30 ML UDC PO ×3 (06:50→23:10)
[2024-10-14] MEDS: Insulin Lispro 100 UNIT/ML INSULN.PEN SC ×3 (06:54→23:08)
[2024-10-14 07:16] LABS: Bedside Glucose 156 mg/dL (74-106)
[2024-10-14 07:17] LABS: Absolute Lymphocyte Count 1.01 X10^3/uL (0.83-4.51); Absolute Neutrophil Count 5.5 X10^3/uL (2.0-7.7); Basophil# 0.04 X10^3/uL; Basophil% 0.5 % (0-1); Eosinophil# 0.15 X10^3/uL; Hematocrit 22.7 % (40-54); Hemoglobin 7.9 g/dL (13.0-16.5); Lymphocyte # 1.01 X10^3/ul (0.83-4.51); Lymphocyte % 13.8 % (19-41); Mean Corp Hgb Conc 34.8 g/dL (32-36); Mean Corpuscular Hgb 32.5 pg (27.0-32.0); Mean Corpuscular Volume 93.4 fL (80-94); Mean Platelet Vol. 10.5 fl (6.2-12.0); Monocyte# 0.61 X10^3/uL; Monocyte% 8.3 % (0-10); NRBC Flagged by Analyzer 0 % (0-5); Neutrophil # 5.51 X10^3/uL (2.7-7.7); Neutrophil % 75.1 % (47-70); Platelet Count 147 K/mm3 (150-450); RBC Distribution Width CV 15.4 % (11.6-14.6); Red Blood Count 2.43 M/mm3 (4.6-6.2); White Blood Count 7.3 K/mm3 (4.4-11.0)
[2024-10-14 07:54] LABS: Anion Gap 14 (5-15); BUN 115 mg/dL (7-18); BUN/Creat Ratio 10.7 RATIO (10-20); Calcium,Total 9.9 mg/dL (8.5-10.1); Chloride 92 mmol/L (98-107); EST Glomerular Filtration Rate 5 mL/min (>60); Est Glom Filt Rate - Afr Amer 6 mL/min (>60); Estimated Creatinine Clearance 5.71 ml/min; Glucose 167 mg/dL (74-106); Potassium 3.9 mmol/L (3.5-5.1); Sodium Level 132 mmol/L (136-145)
--- NOTE | 2024-10-14 08:55 | PCM.CONS.R ---
Assessment & Plan Assessment/Plan (1) ESRD (end stage renal disease): PLAN: dialysis today for missed treatment yesterday (2) Acute hepatic encephalopathy: PLAN: hyperammonemia resume lactulose (3) Weakness: (4) Lethargic: (5) Cirrhosis: (6) Diabetes mellitus type 2 in nonobese: (7) HTN (hypertension): QUALIFIERS: Hypertension type: essential hypertension Qualified Code(s): I10 - Essential (primary) hypertension (8) Anemia: QUALIFIERS: Anemia type: iron deficiency Iron deficiency anemia type: chronic blood loss Qualified Code(s): D50.0 - Iron deficiency anemia secondary to blood loss (chronic) PLAN: retacrit 10K today, guaiac stools (9) Acute hyperglycemia: (10) Hyperammonemia: PLAN: lactulose. Noncompliant with medication at home since July per pt dtr HPI Consult Data Date of Consult: 10/14/24 HPI Narrative Reason for Consultation: ESRD renal mgmt HPI Narrative: TRUDY CANCINO, is a 69 M well known to me with ESRD due to diabetic nephropathyHD MWF, last dialysis Sunday presented to ED yesterday for altered mental status, confusion, not following commands. He has a history of hepatic encephalopathy. He has not been taking his lactulose as instructed due to complaints of frequent BMs since July 2024 when he was on antibiotics for colitis. Diarrhea subsided but he did not resume his lactulose. Ammonia level elevated at 154, BUN 115, hgb 7.9g. Pt daughter at bedside to provide history.He has been restless at night with insomnia. He lives with his but daughter comes to his house every day. Pt currently receiving dialysis without incident. [facility] Medical History (Updated 10/14/24 @ 09:[address] Jenni Ramos, DO) Anemia HTN (hypertension) Edentulous Depression Gout Low iron Dietary restriction COVID Former smoker History of echocardiogram History of stress test Blindness and low vision Acute kidney injury Alcoholic cirrhosis of liver Glaucoma CKD (chronic kidney disease) stage 4, GFR 15-29 ml/min DM type 2 (diabetes mellitus, type 2) Hyperlipidemia Home Medications ?Medication ?Instructions ?Recorded ?Last Taken ?Type atorvastatin 10 mg tablet 10 mg PO DAILY cholesterol 09/18/20 10/13/24 History amlodipine 10 mg tablet 5 mg PO DAILY bp 10/08/20 10/13/24 History furosemide 20 mg tablet 20 mg PO DAILY FLUID 03/11/21 10/13/24 History prednisolone acetate 1 % eye 1 drp LEFT EYE BID EYE HEALTH 03/11/21 10/13/24 History drops,suspension sertraline 50 mg tablet 50 mg PO DAILY DEPRESSION 03/11/21 10/12/24 History insulin glargine 100 unit/mL (3 10 unit subcut QPM blood glucose 06/17/21 10/13/24 History mL) subcutaneous pen (Lantus control Solostar U-100 Insulin) rifaximin 550 mg tablet (Xifaxan) 550 mg PO BID IBS 06/17/21 10/13/24 History sevelamer carbonate 800 mg tablet 800 mg PO TID 10/13/24 10/13/24 History trazodone 50 mg tablet 25 - 50 mg PO QHS 10/13/24 10/12/24 History Allergy/AdvReac Type Severity Reaction Status Date / Time chlorhexidine (From Allergy Rash Verified 10/13/24 11:57 ChloraPrep Clear) isopropyl alcohol (From Allergy Rash Verified 10/13/24 11:57 ChloraPrep Clear) Family History Mother Heart disease Hypertension Diabetes Father Diabetes Heart disease Hypertension Surgical History History of arteriovenostomy for renal dialysis (~06/2021) History of thoracentesis History of eye surgery History of colonoscopy History of insertion of tunneled central venous catheter (CVC) with port Social History household members: spouse and children Smoking Status: Former smoker alcohol intake: former substance use type: does not use ROS ROS Narrative history provided by pt daughter Review of Systems ROS Unobtainable: due to encephalopathy Constitutional Constitutional: Reports weakness; Denies chills or fever(s) Eyes Eyes: Reports blindness Cardiovascular Cardiovascular: Denies chest pain Respiratory/Chest Respiratory/Chest: Denies dry cough Gastrointestinal Gastrointestinal: Denies abdominal pain, anorexia or diarrhea Musculoskeletal Musculoskeletal: Reports abnormal gait Neurologic Neurologic: Reports abnormal gait Psychiatric Psychiatric: Reports anxiety and confusion Hematologic/Lymphatic Hematologic/Lymphatic: Reports anemia Physical Exam Const Constitutional Narrative: sleeping on dialysis Eyes Eyes Narrative: blind Resp clear to auscultation bilaterally Cardio regular rate GI non-tender and non-distended Auscultation: normoactive bowel sounds Palpation: soft Extremity General Extremity: AV fistula Lab / Micro Data 10/14/24 06:57 10/14/24 06:57 Labs: Laboratory Results - last 24 hr 10/13/24 12:24: WBC 8.1, RBC 2.78 L, Hgb 9.0 L, Hct 26.4 L, MCV 95.0 H, MCH 32.4 H, MCHC 34.1, RDW Std Deviation 53.3 H, RDW Coeff of Edwin 15.2 H, Plt Count 188, MPV 11.4, Immature Gran % (Auto) 0.400, Neut % (Auto) 82.9 H, Lymph % (Auto) 8.6 L, [place] % (Auto) 6.9, Eos % (Auto) 0.6, Baso % (Auto) 0.6, Absolute Neuts (auto) 6.8, Absolute Lymphs (auto) 0.70 L, Nucleated RBC % 0, Sodium 127 L, Potassium 4.3, Chloride 88 L, Carbon Dioxide 24.0, Anion Gap 15, BUN 95 H, Creatinine 9.45 H*, Est GFR (MDRD) Af Amer 7 L, Est GFR (MDRD) Non-Af 6 L, BUN/Creatinine Ratio 10.1, Glucose 470 H*, Lactic Acid 2.8 H*, Calcium 9.7, Total Bilirubin 0.70, Direct Bilirubin 0.28, AST 41 H, ALT 64 H, Alkaline Phosphatase 145 H, Ammonia 154.0 H, Troponin I High Sens 54, Total Protein 8.3 H, Albumin 3.3, Globulin 5.0 H, Lipase 151, Acetone Level NEGATIVE 10/13/24 15:03: POC Glucose 414 H 10/13/24 17:30: Lactic Acid 1.8 10/13/24 18:09: POC Glucose 304 H 10/13/24 18:34: Lactic Acid 3.5 H* 10/13/24 21:25: POC Glucose 329 H 10/13/24 22:55: Lactic Acid 2.5 H* 10/14/24 06:53: POC Glucose 156 H 10/14/24 06:57: WBC 7.3, RBC 2.43 L, Hgb 7.9 L, Hct 22.7 L, MCV 93.4, MCH 32.5 H, MCHC 34.8, RDW Std Deviation 53.0 H, RDW Coeff of Edwin 15.4 H, Plt Count 147 L, MPV 10.5, Immature Gran % (Auto) 0.300, Neut % (Auto) 75.1 H, Lymph % (Auto) 13.8 L, [place] % (Auto) 8.3, Eos % (Auto) 2.0, Baso % (Auto) 0.5, Absolute Neuts (auto) 5.5, Absolute Lymphs (auto) 1.01, Nucleated RBC % 0, Sodium 132 L, Potassium 3.9, Chloride 92 L, Carbon Dioxide 26.0, Anion Gap 14, BUN 115 H*, Creatinine 10.70 H*, Estim Creat Clear Calc 5.71, Est GFR (MDRD) Af Amer 6 L, Est GFR (MDRD) Non-Af 5 L, BUN/Creatinine Ratio 10.7, Glucose 167 H, Calcium 9.9 Micro: Microbiology 10/13/24 13:05 Mucosa - Nose SARS-CoV-2, Influenza & RSV (PCR) - Final Imaging Radiology Impression Chest X-Ray 10/13/24 13:00 IMPRESSION: Cardiomegaly with mild congestion. Reading [facility] Brain CT 10/13/24 13:30 IMPRESSION: Stable examination. Cerebral atrophy. Reading Location: [id number]
--- NOTE | 2024-10-14 09:15 | PCM.PN.HOSP ---
Reason for Visit Reason for Visit: Diagnoses Hypo-osmolality and hyponatremia (10/13/24) Acidosis, unspecified (10/13/24) Unspecified cirrhosis of liver (10/13/24) Hepatic encephalopathy (10/13/24) End stage renal disease (10/13/24) Hyperglycemia, unspecified (10/13/24) Subjective Subjective Patient seen on dialysis, will somewhat grunt to questions without any directed or meaningful answers Objective Data Objective Data Vital Signs: Vital Signs Temp Pulse Resp BP Pulse Ox O2 Del Method 97.9 F 67 12 138/42 H 100 Room Air 10/14/24 07:45 10/14/24 09:00 10/14/24 07:45 10/14/24 09:00 10/14/24 07:45 10/14/24 07:45 Oxygen Delivery Method Room Air Weight: 70.3 kg Body Mass Index (BMI) 24.9 Intake & Output: Intake and Output for Last 24 Hours 10/12/24 10/13/24 10/14/24 23:59 23:59 23:59 Intake Total 200 / 200 Balance 200 / 200 Lab / Micro Data 10/14/24 06:57 10/14/24 06:57 Labs: Laboratory Results - last 24 hr 10/13/24 12:24: WBC 8.1, RBC 2.78 L, Hgb 9.0 L, Hct 26.4 L, MCV 95.0 H, MCH 32.4 H, MCHC 34.1, RDW Std Deviation 53.3 H, RDW Coeff of Edwin 15.2 H, Plt Count 188, MPV 11.4, Immature Gran % (Auto) 0.400, Neut % (Auto) 82.9 H, Lymph % (Auto) 8.6 L, [place] % (Auto) 6.9, Eos % (Auto) 0.6, Baso % (Auto) 0.6, Absolute Neuts (auto) 6.8, Absolute Lymphs (auto) 0.70 L, Nucleated RBC % 0, Sodium 127 L, Potassium 4.3, Chloride 88 L, Carbon Dioxide 24.0, Anion Gap 15, BUN 95 H, Creatinine 9.45 H*, Est GFR (MDRD) Af Amer 7 L, Est GFR (MDRD) Non-Af 6 L, BUN/Creatinine Ratio 10.1, Glucose 470 H*, Lactic Acid 2.8 H*, Calcium 9.7, Total Bilirubin 0.70, Direct Bilirubin 0.28, AST 41 H, ALT 64 H, Alkaline Phosphatase 145 H, Ammonia 154.0 H, Troponin I High Sens 54, Total Protein 8.3 H, Albumin 3.3, Globulin 5.0 H, Lipase 151, Acetone Level NEGATIVE 10/13/24 15:03: POC Glucose 414 H 10/13/24 17:30: Lactic Acid 1.8 10/13/24 18:09: POC Glucose 304 H 10/13/24 18:34: Lactic Acid 3.5 H* 10/13/24 21:25: POC Glucose 329 H 10/13/24 22:55: Lactic Acid 2.5 H* 10/14/24 06:53: POC Glucose 156 H 10/14/24 06:57: WBC 7.3, RBC 2.43 L, Hgb 7.9 L, Hct 22.7 L, MCV 93.4, MCH 32.5 H, MCHC 34.8, RDW Std Deviation 53.0 H, RDW Coeff of Edwin 15.4 H, Plt Count 147 L, MPV 10.5, Immature Gran % (Auto) 0.300, Neut % (Auto) 75.1 H, Lymph % (Auto) 13.8 L, [place] % (Auto) 8.3, Eos % (Auto) 2.0, Baso % (Auto) 0.5, Absolute Neuts (auto) 5.5, Absolute Lymphs (auto) 1.01, Nucleated RBC % 0, Sodium 132 L, Potassium 3.9, Chloride 92 L, Carbon Dioxide 26.0, Anion Gap 14, BUN 115 H*, Creatinine 10.70 H*, Estim Creat Clear Calc 5.71, Est GFR (MDRD) Af Amer 6 L, Est GFR (MDRD) Non-Af 5 L, BUN/Creatinine Ratio 10.7, Glucose 167 H, Calcium 9.9 Micro: Microbiology 10/13/24 13:05 Mucosa - Nose SARS-CoV-2, Influenza & RSV (PCR) - Final Radiography Diagnostic Testing: Radiology Impression Chest X-Ray 10/13/24 13:00 IMPRESSION: Cardiomegaly with mild congestion. Reading [facility] Brain CT 10/13/24 13:30 IMPRESSION: Stable examination. Cerebral atrophy. Reading Location: [id number] Physical Exam Narrative General: Resting comfortably in bed, very tired, minimally responding to questions HEENT: Atraumatic, normocephalic Eyes: Eyes closed and resting comfortably Neck: Supple Respiratory: No overt rhonchi or wheezes, normal respiratory effort Cardiovascular: Regular rate GI: Soft, nontender, nondistended Extremities: No edema Musculoskeletal: Moves extremities in bed Neuro: No overt focal neurological deficits however patient not able to cooperate with exam due to mental status Skin: No rashes appreciated Psych: Unable to cooperate due to mental status Assessment & Plan Assessment/Plan (1) Acute hepatic encephalopathy: PLAN: Plan # Hepatic encephalopathy in setting of cirrhosis -Patient has been noncompliant with his lactulose -Ammonia in the ED was 154 -Lactulose 20 3 times daily ordered, monitor clinically -Continue rifaximin #ESRD on HD -Consult nephrology -Renal diet -Daily weights, I's and O's #Type 2 diabetes mellitus -Glucose checks and sliding scale insulin -His glucose was 470 in the ED, query compliance -10 units of long-acting insulin resumed and home regimen in this a.m. glucose within normal limits -Continue to monitor and adjust as necessary #Depression/anxiety -Resume Zoloft once patient more awake and alert #DVT ppx: Subcu heparin Brooklyn Avila MD Time spent in the patient's overall evaluation, decision-making process, review of diagnostic data, adjustment of management, discussion with other providers, nursing and ancillary staff involved in patient's care documentation, 36 Minutes Charges/Coding Visit Charges Inpatient E&M: 30609 Subs Hosp L2
[2024-10-14] MEDS: PureFlow B 2K Dialysis Soln 1 BAG 6 BAG PF (09:16)
[2024-10-14] MEDS: 0.9% Normal Saline 1,000 ML IV.SOLN. 1000 ML OPERA.SITE (09:16)
[2024-10-14] MEDS: Epoetin Alfa epbx 10,000 UNIT/ML 10000 UNIT IV (09:16)
[2024-10-14] MEDS: 0.9% Saline Lock 10 ML Syringe IV (09:16)
[2024-10-14 10:14] LABS: Bedside Glucose 109 mg/dL (74-106)
--- NOTE | 2024-10-14 11:38 | CASEMGMT ---
REUBEN BRIGHT Assessment: RN KAILA noted Pt confusion in chart, called daughter for initial transition planning/care coordination assessment. REUBEN BRIGHT introduced self and role at [facility], voices understanding and consents to assessment. Care providers, pharmacy, and demographics verified/updated. Strata: 3 Admitting Dx: Hepatic Encephalopathy PCP: Miguel Specialists: Virginia, gastro; Richard, Nephrology; Nicole, ophthalmology; Radha, Podiatry [facility]acy: [facility] Insurance: [employer]/EMILIANO Prescription Benefit: yes LNOK: Daughter, Bronwyn; Daughter, Mily Living Arrangements: Pt lives alone in a 1 story apartmetn with no steps to enter. ADLs: Pt requires assistance at baseline. Daughter, Bronwyn, lives with parents and provides daytime caregiver care giving to them. Pt has a pillowcase cleaner through [facility], Isaias is her name. Transportation: Pt daughter provides transportation. DME: Glucometer and supplies, wheelchair, walker, shower chair, grab bars. HHC/SNF: Denies hx of, daughter is daytime caregiver caregiver at home. Pt daughter states no concerns with going home at time of dc. Pt Daughter would like patient to return home at time of DC. Has dialysis M,W, F at 11:30 at [facility]. CM to follow. Advised pt to ask CM if any further question/concerns/needs arise, voices understanding. Pt Goal: Home Plan: Home with family providing daytime caregiver care and Dialysis at [facility]. Dewey ALEXIS CM
[2024-10-14 12:13] LABS: Bedside Glucose 124 mg/dL (74-106)
[2024-10-14] MEDS: amLODIPine 5 MG Tablet PO (12:22)
[2024-10-14] MEDS: rifAXIMin 550 MG Tablet PO ×2 (12:22→23:12)
[2024-10-14] MEDS: prednisoLONE eye drops (5 mL) 1 DROP OPTH.BTL 1 DRP LEFT EYE ×2 (12:22→23:11)
[2024-10-14] MEDS: SEVELAMER CARBONATE 800 MG TABLET PO ×2 (12:23→16:33)
[2024-10-14 17:01] LABS: Bedside Glucose 235 mg/dL (74-106)
[2024-10-14] MEDS: Insulin Glargine-YFGN 100 UNIT/ML Pen 10 UNIT SC (23:09)
[2024-10-14] MEDS: Heparin Injection (Vial) 5,000 UNIT/ML VIAL 5000 UNIT SC (23:11)
[2024-10-15] VITALS (10 sets, daily range): BP systolic 109–268; BP diastolic 35–89; PULSE 77–84; RESP 14–16; TEMP 36.5–36.9; O2SAT 98–100; BMI 24.1
[2024-10-15 02:31] LABS: Bedside Glucose 210 mg/dL (74-106)
[2024-10-15] MEDS: Lactulose 20 GM/30 ML UDC PO ×2 (05:34→14:59)
[2024-10-15] MEDS: Insulin Lispro 100 UNIT/ML INSULN.PEN SC ×2 (05:34→12:24)
[2024-10-15 06:00] LABS: Bedside Glucose 181 mg/dL (74-106)
[2024-10-15 07:30] LABS: Hematocrit 23.7 % (40-54); Hemoglobin 7.9 g/dL (13.0-16.5); Mean Corp Hgb Conc 33.3 g/dL (32-36); Mean Platelet Vol. 10.1 fl (6.2-12.0); Platelet Count 158 K/mm3 (150-450); RBC Distribution Width CV 15.2 % (11.6-14.6); RBC Distribution Width SD 53.1 fl (35.1-43.9); Red Blood Count 2.47 M/mm3 (4.6-6.2)
--- NOTE | 2024-10-15 08:10 | PCM.PN.REN ---
Subjective Subjective seen on dialysis more alert this morning Objective Data Objective Data Vital Signs: Vital Signs Temp Pulse Resp BP Pulse Ox O2 Del Method 98.0 F 83 16 154/63 H 98 Room Air 10/15/24 05:00 10/15/24 05:00 10/15/24 05:00 10/15/24 05:00 10/15/24 05:00 10/15/24 05:00 Oxygen Delivery Method Room Air Weight: 68.2 kg Body Mass Index (BMI) 24.1 Intake & Output: Intake and Output for Last 24 Hours 10/13/24 10/14/24 10/15/24 23:59 23:59 23:59 Intake Total 400 / 400 Output Total 2059 / 2059 Balance -1660 / -1660 Lab / Micro Data 10/15/24 07:17 10/14/24 06:57 Labs: Laboratory Results - last 24 hr 10/14/24 09:53: POC Glucose 109 H 10/14/24 11:48: POC Glucose 124 H 10/14/24 16:31: POC Glucose 235 H 10/14/24 23:08: POC Glucose 210 H 10/15/24 05:29: POC Glucose 181 H 10/15/24 07:17: WBC 7.0, RBC 2.47 L, Hgb 7.9 L, Hct 23.7 L, MCV 96.0 H, MCH 32.0, MCHC 33.3, RDW Std Deviation 53.1 H, RDW Coeff of Edwin 15.2 H, Plt Count 158, MPV 10.1 Micro: Microbiology 10/13/24 13:05 Mucosa - Nose SARS-CoV-2, Influenza & RSV (PCR) - Final Physical Exam Const alert Resp clear to auscultation bilaterally Cardio regular rate GI non-tender and non-distended Palpation: soft Extremity no clubbing, cyanosis or edema General Extremity: AV fistula Assessment & Plan Assessment/Plan (1) ESRD (end stage renal disease): PLAN: dialysis today usual day then MW (2) Acute hepatic encephalopathy: PLAN: hyperammonemia resume lactulose at home, xifaxin ordered (3) Weakness: (4) Lethargic: PLAN: improved (5) Cirrhosis: (6) Diabetes mellitus type 2 in nonobese: (7) HTN (hypertension): QUALIFIERS: Hypertension type: essential hypertension Qualified Code(s): I10 - Essential (primary) hypertension (8) Anemia: QUALIFIERS: Anemia type: iron deficiency Iron deficiency anemia type: chronic blood loss Qualified Code(s): D50.0 - Iron deficiency anemia secondary to blood loss (chronic) PLAN: JESS on dialysis (9) Acute hyperglycemia: (10) Hyperammonemia: PLAN: lactulose. Noncompliant with medication at home since July per pt dtr
[2024-10-15] MEDS: PureFlow B 3K Dialysis Soln 1 BAG 6 BAG PF (08:37)
[2024-10-15] MEDS: 0.9% Normal Saline 1,000 ML IV.SOLN. 1000 ML OPERA.SITE (08:37)
[2024-10-15 10:47] LABS: Bedside Glucose 98 mg/dL (74-106)
[2024-10-15] MEDS: amLODIPine 5 MG Tablet PO (12:23)
[2024-10-15] MEDS: prednisoLONE eye drops (5 mL) 1 DROP OPTH.BTL 1 DRP LEFT EYE (12:23)
[2024-10-15] MEDS: SEVELAMER CARBONATE 800 MG TABLET PO (12:23)
[2024-10-15] MEDS: rifAXIMin 550 MG Tablet PO (12:24)
[2024-10-15 12:42] LABS: Bedside Glucose 198 mg/dL (74-106)
--- NOTE | 2024-10-15 14:15 | CASEMGMT ---
RN CM into pt room, pt sat up in bed with dtr at bedside, pt was happy to hear he gets to go home. Pt dtr states pt is back to baseline. She cares for pt at home. No therapy recommended at this time. Pt and dtr deny any homegoing needs. TC tomy Copeland at [facility], she is aware that pt is dc'ing today.
--- NOTE | 2024-10-15 14:19 | DS.PCM_ITS ---
Providers Date of Admission: 10/13/24 Date of Discharge: 10/15/24 Primary Care Physician: Dr. Jerald Rivera MD Consultations 10/13/24 16:59 Consult: Nephrology Routine Consulting Provider: Jenni Ramos Reason for Consult: dialysis EMERGENT Consult: No MD Notified: Yes Date Notified: 10/13/24 Time Notified: 15:27 Method of Notification: Text Reason For Visit: HEPATIC ENCEPHALOPATHY Diagnosis Discharge Diagnosis (1) ESRD (end stage renal disease): Status: Acute Code(s): N18.6 - End stage renal disease (2) Acute hepatic encephalopathy: Status: Acute Code(s): K76.82 - Hepatic encephalopathy (3) Weakness: Status: Acute Code(s): R53.1 - Weakness (4) Lethargic: Status: Acute Code(s): R53.83 - Other fatigue (5) Cirrhosis: Status: Acute Code(s): K74.60 - Unspecified cirrhosis of liver (6) Diabetes mellitus type 2 in nonobese: Status: Acute Code(s): E11.9 - Type 2 diabetes mellitus without complications (7) HTN (hypertension): Status: Chronic Code(s): I10 - Essential (primary) hypertension Qualifiers: Hypertension type: essential hypertension Qualified Code(s): I10 - Essential (primary) hypertension (8) Anemia: Status: Acute Code(s): D64.9 - Anemia, unspecified Qualifiers: Anemia type: iron deficiency Iron deficiency anemia type: chronic blood loss Qualified Code(s): D50.0 - Iron deficiency anemia secondary to blood loss (chronic) (9) Acute hyperglycemia: Status: Acute Code(s): R73.9 - Hyperglycemia, unspecified (10) Hyperammonemia: Status: Resolved Code(s): E72.20 - Disorder of urea cycle metabolism, unspecified Medications at Discharge Home Medications atorvastatin 10 mg tablet 10 mg PO DAILY cholesterol 09/18/20 furosemide 20 mg tablet 20 mg PO DAILY FLUID 03/11/21 prednisolone acetate 1 % eye drops,suspension 1 drp LEFT EYE BID EYE HEALTH 03/11/21 sertraline 50 mg tablet 50 mg PO DAILY DEPRESSION 03/11/21 insulin glargine 100 unit/mL (3 mL) subcutaneous pen (Lantus Solostar U-100 Insulin) 10 unit subcut QPM blood glucose control 06/17/21 rifaximin 550 mg tablet (Xifaxan) 550 mg PO BID IBS 06/17/21 sevelamer carbonate 800 mg tablet 800 mg PO TID 10/13/24 trazodone 50 mg tablet 25 - 50 mg PO QHS 10/13/24 amlodipine 10 mg tablet 10 mg PO DAILY #30 tabs 10/15/24 lactulose 10 gram/15 mL oral solution 20 g (30 mL) PO TID #3,785 mL 10/15/24 Hospital Course Operations None Procedures Dialysis and - (CT brain/chest x-ray) Summary of Care Provided Minutes Spent on Discharge: 30 Hospital Course: Mr. Del Castillo is a 69-year-old white male who presents emergency department at [facility] on 10/13/2024 with a chief complaint of confusion and hyperglycemia. The patient was confused on presentation unable to provide any history and history is provided by daughter. His daughter is a nurse here at the [facility]. Patient daughter reports that he is markedly confused and she feels like this is likely related to hyperammonemia. She indicates he is acting like he does when he has hyperammonemia. He has previously been diagnosed with cirrhosis and is to be on rifaximin and lactulose however he had not been taking it for about a month. She had restarted him on it but prior to presentation. His blood glucose level was also noted to be elevated. He had previously been on Lantus but was having some hypoglycemic episodes in the morning. Given his hyperglycemia and altered mental status he was brought to the emergency department. Vital signs on presentation showed temperature of 36.6, heart rate 92, respiratory 18, blood pressure was 163/49 and pulse ox was 97% on room air. CBC was overall unremarkable other than his chronic stable anemia with a stable hemoglobin. On presentation he had hyponatremia that was mild at 127 but slightly below baseline. He is end-stage renal disease on dialysis. Creatinine was 9.45 with a BUN of 95 and he was due for dialysis. Blood glucose level was 470. His initial lactate was 2.8. Liver enzymes were slightly elevated at 41 for AST and 64 for ALT with an ammonia level of 154. Given his altered mental status and hyperammonemia he was started on lactulose 20 mg 3 times daily. Since that point in time he has been having significant stools with improvement in mental status and is currently back to baseline with regards to his mental status per discussion with his daughter on 10/15/2024. He is also received dialysis while he is been hospitalized. Since he was not compliant with his home medications we will go ahead and restart what he was to be on at home. His daughter indicated she would make sure he was take his medications to avoid readmission. We have advised that he restart his basal insulin as with the initiation of this his blood sugars have overall been better. His fasting blood sugar this morning was 98 which is much more desirable and safe. He was discharged home in stable condition on 10/15/2024. Asked him to follow-up with his primary care physician in 1 week. His blood pressures were consistently elevated so we did uptitrate his amlodipine from 5 mg to 10 mg daily and he was warned that this could increase lower extremity edema. Discharge diagnoses: Toxic encephalopathy secondary to hyperammonemia from hepatic encephalopathy with cirrhosis Hyponatremia ESRD on HD Medication noncompliance Hyperglycemia with history of DM-2 History of alcohol abuse History of tobacco abuse Blindness Glaucoma History of gout Depression Hyperlipidemia Essential hypertension Insomnia Physical Exam Const alert, oriented x3, no apparent distress, average body habitus, no limitations and well nourished; Negative for healthy appearing Constitutional Narrative: Older, male, lying in bed, daughter at bedside, patient is now alert and oriented, daughter states he is back to baseline from a mental capacity and appears comfortable General Appearance: cooperative, comfortable, well kempt and well developed Exam Limitations: no limitations HEENT normocephalic, head/scalp atraumatic, hearing grossly normal bilaterally and moist oral mucous membranes HEENT Narrative: Dentition is poor with multiple missing teeth Resp normal respiratory effort, no retractions, no use of accessory muscles and clear to auscultation bilaterally Auscultation: Negative for rales, rhonchi or wheezes Cardio regular rate, regular rhythm, S1 normal heart sound, S2 normal heart sound, no murmurs, no rub, no gallops and no clicks GI normal to inspection, nondistended, normoactive bowel sounds, soft to palpation and non-tender Extremity no clubbing, cyanosis or edema Extremity Narrative: 2+ pedal and radial pulses Skin skin turgor normal and no jaundice Neuro oriented x3, moves all extremities and no focal motor deficits Speech: speech normal Psych affect normal Psych Narrative: Eye contact is good and patient interacts appropriately Weight / BMI Weight Weight: 68.2 kg Body Mass Index (BMI) 24.1 ABG / Lab / Microbiology Data 10/15/24 07:17 10/15/24 07:17 Laboratory: Laboratory Results - last 24 hr 10/14/24 16:31: POC Glucose 235 H 10/14/24 23:08: POC Glucose 210 H 10/15/24 05:29: POC Glucose 181 H 10/15/24 07:17: WBC 7.0, RBC 2.47 L, Hgb 7.9 L, Hct 23.7 L, MCV 96.0 H, MCH 32.0, MCHC 33.3, RDW Std Deviation 53.1 H, RDW Coeff of Edwin 15.2 H, Plt Count 158, MPV 10.1, BUN 75 H, Creatinine 7.4 H, Estim Creat Clear Calc 8.26, Est GFR (MDRD) Non-Af 7 L, BUN/Creatinine Ratio 10.1, Glucose 165 H 10/15/24 10:29: POC Glucose 98 10/15/24 12:19: POC Glucose 198 H Microbiology: Microbiology 10/13/24 13:05 Mucosa - Nose SARS-CoV-2, Influenza & RSV (PCR) - Final D/C Instructions Discharge Diet: Low fat / Low cholesterol Discharge Activity: Return to Normal Activity DC O2, CPAP, BIPAP Needs Home O2 Discharge instructions: No Meaningful Use Info Meaningful Use Meaningful Use Diagnoses (Choose all that apply): None applicable Ischemic Stroke Statin Dosing Therapy Reference: STATIN DOSE THERAPY REFERENCE: * Patients > 75 years receive moderate or high dose statin therapy. * Patients 75 years or YOUNGER should receive HIGH intensity statin dose unless contraindicated. You will be required to document reason for non-treatment if statin daily dose does not meet guidelines. HIGH DOSE STATIN THERAPY DAILY Atorvastatin > than or = to 40 mg Rosuvastatin > than or = to 20 mg Amlodipine + Atorvastatin > than or = to 2.5/40 mg Ezetimibe + Simvastatin 10/80 mg Simvastatin 80mg Discharge Plan Admission Admit Date/Time: 10/13/24 14:59 Primary Reason for Your Visit: Altered mental status Attending Provider: Valery Ramos Primary Care Provider: Jerald Rivera Consulting Providers: Jenni Ramos; Tunde Davies; Brooklyn Avila Instructions Additional Instructions / Restrictions: 1. Goal for lactulose is 2-3 bowel movements daily and dose may be changed to achieve this 2. Your blood pressure was elevated therefore we did increase your amlodipine from 5 mg to 10 mg. Biggest side effect from this could be lower extremity swelling. Discharge Orders/Prescriptions Prescriptions: New lactulose 10 gram/15 mL Solution 20 g PO TID Qty: 3785 1RF Rx Instructions: Goal is for 3 bowel movements daily may increase or decrease frequency to obtain this amlodipine 10 mg tablet 10 mg PO DAILY Qty: 30 3RF Continued atorvastatin 10 MG tablet 10 mg PO DAILY prednisolone acetate 1 % drops,suspension 1 drp LEFT EYE BID Patient Comments: INSTILL 1 DROP INTO LEFT EYE TWICE DAILY furosemide 20 mg tablet 20 mg PO DAILY Patient Comments: TAKE 1 TABLET BY MOUTH ONCE DAILY sertraline 50 mg tablet 50 mg PO DAILY Patient Comments: TAKE 1 TABLET BY MOUTH ONCE DAILY insulin glargine [Lantus Solostar U-100 Insulin] 100 unit/mL (3 mL) insulin pen 10 unit subcut QPM Patient Comments: per family pt uses before meal sliding scale and had 3u today Xifaxan 550 mg tablet 550 mg PO BID trazodone 50 mg tablet 25 - 50 mg PO QHS sevelamer carbonate 800 mg tablet 800 mg PO TID Discontinued amlodipine 10 MG tablet 5 mg PO DAILY Referrals / Follow Up: Jenni Ramos DO [Med Staff - Consulting] - See Referral Note (As directed by Dr. Ramos) Jerald Rivera MD [Primary Care Provider] - In 1 Week Disposition Disposition (needs filled in before D/C Order can be placed): Home, Self Care Charges/Coding Visit Charges Inpatient E&M: 70113 Disch Hosp
[2024-10-15 19:40] LABS: Hemoglobin A1c 6.2 % (<=5.6)
[2024-10-16 11:28] LABS: BUN 79 mg/dL (4-19); Calcium 9.5 mg/dL (7.6-11.0); Carbon Dioxide 21.8 mmol/L (22.0-29.0); Chloride 93 mmol/L (96-108); Glucose 159 mg/dL (70-99); Sodium Level 131 mmol/L (133-145)
[2024-10-16 11:29] LABS: BUN/Creat Ratio 10.5 RATIO (10-20); EST Glomerular Filtration Rate 7 (>60); Estimated Creatinine Clearance 8.15 ml/min
[2024-10-16 13:11] LABS: Albumin, Serum 3.7 g/dL (3.4-4.8); Phosphorus 5.2 mg/dL (2.7-4.5)
[2024-10-16 15:39] LABS: Creatinine, Serum 7.5 mg/dL (0.8-1.3)
[2024-10-16 15:40] LABS: Anion Gap UNABLE TO CALCULATE (5-15)
== END 2024-10-15 14:46 | disposition home or self-care (01) | DRG 441 ==
LOC: ED 14:55 → MS3 16:47
PROVIDERS: Internal Medicine; Internal Medicine Nephrology; Nurse Practitioner; Emergency Provider Emergency Medicine; PCP Internal Medicine; Visit Provider Internal Medicine
DX: K76.82 Hepatic encephalopathy (principal); N18.6 End stage renal disease; E87.20 Acidosis, unspecified; E72.20 Disorder of urea cycle metabolism, unspecified; E87.1 Hypo-osmolality and hyponatremia; I12.0 Hypertensive chronic kidney disease with stage 5 chronic kidney disease or end stage renal disease; E11.39 Type 2 diabetes mellitus with other diabetic ophthalmic complication; D50.0 Iron deficiency anemia secondary to blood loss (chronic); F32.A Depression, unspecified; K70.30 Alcoholic cirrhosis of liver without ascites; E11.65 Type 2 diabetes mellitus with hyperglycemia; E78.5 Hyperlipidemia, unspecified; Z99.2 Dependence on renal dialysis; H54.7 Unspecified visual loss; Z79.4 Long term (current) use of insulin; I44.0 Atrioventricular block, first degree; H40.9 Unspecified glaucoma; Z86.16 Personal history of COVID-19; Z87.891 Personal history of nicotine dependence; Z82.49 Family history of ischemic heart disease and other diseases of the circulatory system; Z91.199 Patient's noncompliance with other medical treatment and regimen due to unspecified reason
CPT/HCPCS: 36415; 70450; 71045; 80048; 80076; 82009; 82040; 82140; 82962; 83036; 83605; 83690; 84100; 84484; 85025; 85027; 87631; 90937; 93005; 97162; 97166; 99284; A4216; G0257; Q5106

== ENCOUNTER 2024-12-18 12:20 | Emergency (ER) | payer MEDICARE, MEDICAID, SELFPAY ==
[2024-12-18] VITALS (7 sets, daily range): BP systolic 123–144; BP diastolic 48–63; PULSE 73–78; RESP 13–20; TEMP 36.6; O2SAT 96–99
--- NOTE | 2024-12-18 12:39 | EKG12_ITS ---
Test Reason : CP Blood Pressure : */* mmHG Vent. Rate : 74 BPM Atrial Rate : 74 BPM P-R Int : 184 ms QRS Dur : 80 ms QT Int : 404 ms P-R-T Axes : 43 19 35 degrees QTcB Int : 448 ms Normal sinus rhythm Normal ECG Confirmed by CASSIE ARAIZA, HENRI ([id number]), publications editor MOHIT BAI ([id number]) on 12/19/2024 8:18:36 AM Referred By: Confirmed By: HENRI MATTHEWS MD
--- NOTE | 2024-12-18 12:40 | EDS_ITS ---
HPI History of Present Illness Chief Complaint: Chest Pain Narrative Narrative: 69-year-old male past medical history of hypertension, hypercholesterolemia, diabetes, blindness, presents with left-sided chest pain that has had for the last 4 days. He and his daughter states that it is worse with coughing and movement. Sometimes is dull and achy but can become sharp and stabbing. He denies any nausea or vomiting, no recent fevers or chills, no cough, no shortness of breath or diaphoresis associated with this. There is no exertional component to his chest discomfort but it is more whenever he coughs or moves. No leg swelling. [facility] Medical History ESRD (end stage renal disease) Cirrhosis Hyponatremia Diabetes mellitus type 2 in nonobese Anemia HTN (hypertension) Edentulous Depression Gout Low iron Dietary restriction COVID Former smoker History of echocardiogram History of stress test Blindness and low vision Acute kidney injury Alcoholic cirrhosis of liver Glaucoma CKD (chronic kidney disease) stage 4, GFR 15-29 ml/min DM type 2 (diabetes mellitus, type 2) Hyperlipidemia Home Medications ?Medication ?Instructions ?Recorded ?Last Taken ?Type atorvastatin 10 mg tablet 10 mg PO DAILY cholesterol 0 09/18/20 10/13/24 History furosemide 20 mg tablet 20 mg PO DAILY FLUID 1 10/13/24 History prednisolone acetate 1 % eye 1 drp LEFT EYE BID EYE HE ALTH 03/11/21 10/13/24 History drops,suspension sertraline 50 mg tablet 50 mg PO DAILY DEPRESSION 10/12/24 History insulin glargine 100 unit/mL (3 10 unit subcut QPM blo od glucose 06/17/21 10/13/24 History mL) subcutaneous pen (Lantus control Solostar U-100 Insulin) rifaximin 550 mg tablet (Xifaxan) 550 mg PO BID IBS 10/13/24 History sevelamer carbonate 800 mg tablet 800 mg PO TID 10/13/24 History trazodone 50 mg tablet 25 - 50 mg PO QHS 10/13/24 0 10/12/24 History amlodipine 10 mg tablet 10 mg PO DAILY #30 tabs 09/21 02/11 Unknown Rx lactulose 10 gram/15 mL oral 20 g (30 mL) PO TID #3,78 5 mL 10/15/24 Unknown Rx solution ergocalciferol (vitamin D2) 1,250 1,250 mcg PO QMONTH 12/18/24 11/20/24 History
--- NOTE | 2024-12-18 12:40 | ED.VIS.CHEST ---
HPI History of Present Illness Chief Complaint: Chest Pain Narrative Narrative: 69-year-old male past medical history of hypertension, hypercholesterolemia, diabetes, blindness, presents with left-sided chest pain that has had for the last 4 days. He and his daughter states that it is worse with coughing and movement. Sometimes is dull and achy but can become sharp and stabbing. He denies any nausea or vomiting, no recent fevers or chills, no cough, no shortness of breath or diaphoresis associated with this. There is no exertional component to his chest discomfort but it is more whenever he coughs or moves. No leg swelling. [facility] Medical History ESRD (end stage renal disease) Cirrhosis Hyponatremia Diabetes mellitus type 2 in nonobese Anemia HTN (hypertension) Edentulous Depression Gout Low iron Dietary restriction COVID Former smoker History of echocardiogram History of stress test Blindness and low vision Acute kidney injury Alcoholic cirrhosis of liver Glaucoma CKD (chronic kidney disease) stage 4, GFR 15-29 ml/min DM type 2 (diabetes mellitus, type 2) Hyperlipidemia Home Medications ?Medication ?Instructions ?Recorded ?Last Taken ?Type atorvastatin 10 mg tablet 10 mg PO DAILY cholesterol 09/18/20 10/13/24 History furosemide 20 mg tablet 20 mg PO DAILY FLUID 03/11/21 10/13/24 History prednisolone acetate 1 % eye 1 drp LEFT EYE BID EYE HEALTH 03/11/21 10/13/24 History drops,suspension sertraline 50 mg tablet 50 mg PO DAILY DEPRESSION 03/11/21 10/12/24 History insulin glargine 100 unit/mL (3 10 unit subcut QPM blood glucose 06/17/21 10/13/24 History mL) subcutaneous pen (Lantus control Solostar U-100 Insulin) rifaximin 550 mg tablet (Xifaxan) 550 mg PO BID IBS 06/17/21 10/13/24 History sevelamer carbonate 800 mg tablet 800 mg PO TID 10/13/24 10/13/24 History trazodone 50 mg tablet 25 - 50 mg PO QHS 10/13/24 10/12/24 History amlodipine 10 mg tablet 10 mg PO DAILY #30 tabs 10/15/24 Unknown Rx lactulose 10 gram/15 mL oral 20 g (30 mL) PO TID #3,785 mL 10/15/24 Unknown Rx solution ergocalciferol (vitamin D2) 1,250 1,250 mcg PO QMONTH 12/18/24 11/20/24 History mcg (50,000 unit) capsule erythromycin 5 mg/gram (0.5 %) eye 1 applic ophthalmic (eye) QHS 12/18/24 12/17/24 History ointment insulin degludec 100 unit/mL (3 5 unit subcut BID 12/18/24 12/18/24 History mL) subcutaneous pen (Tresiba FlexTouch U-100 insulin) lidocaine-prilocaine 2.5 %-2.5 % 1 applic topical UD 12/18/24 Unknown History topical cream vitamin B complex-vitamin C-folic 1 tab PO DAILY 12/18/24 12/18/24 History acid 0.8 mg tablet (Pauline-Denisse) Allergy/AdvReac Type Severity Reaction Status Date / Time chlorhexidine (From Allergy Rash Verified 12/18/24 12:23 ChloraPrep Clear) isopropyl alcohol (From Allergy Rash Verified 12/18/24 12:23 ChloraPrep Clear) Family History Mother Heart disease Hypertension Diabetes Father Diabetes Heart disease Hypertension Surgical History History of arteriovenostomy for renal dialysis (~06/2021) History of thoracentesis History of eye surgery History of colonoscopy History of insertion of tunneled central venous catheter (CVC) with port Social History household members: spouse and children Smoking Status: Former smoker alcohol intake: former substance use type: does not use ROS ROS ED ROS Narrative Constitutional: No fever, no chills. HEENT: No sore throat. No neck pain. Positive blindness. No rhinorrhea. Cardiovascular: Left-sided chest pain. Worse with movement or coughing. No palpitations. No pedal edema. Respiratory: No cough, no shortness of breath. Abdominal: No abdominal pain. No nausea. No vomiting. Neurologic: No headaches. No dizziness. No lightheadedness. Skin: No rash. No change in color. EXAM Physical Exam Narrative Exam Narrative: Afebrile. Vital signs noted. Nontoxic-appearing. Cardiovascular examination feels a regular rate and rhythm. Lungs are clear to auscultation bilaterally. He does have reproducible chest pain with movement of the torso. No crepitance of the chest. Abdomen is soft and nontender with positive bowel sounds. No guarding or rebound. Neurological examination nonfocal and nonlateralizing. Chronic blindness. Positive corneal discoloration/cloudiness on the left. Const Vital Signs: 12/18/24 12:21 12/18/24 13:00 12/18/24 13:26 Temperature 97.9 F Temperature Source Oral Pulse Rate 78 74 Respiratory Rate 20 H 13 Blood Pressure 123/48 H Blood Pressure Mean 73 Pulse Ox 97 99 Oxygen Delivery Method Room Air Room Air 12/18/24 14:00 Temperature Temperature Source Pulse Rate 74 Respiratory Rate 13 Blood Pressure 137/61 H Blood Pressure Mean 82 Pulse Ox 96 Oxygen Delivery Method MDM MDM MDM Narrative Medical decision making narrative: The differential diagnosis includes but not limited to chest wall strain versus ACS. I have low suspicion for pulmonary embolism. Did review his problem list and he does have end-stage renal disease. I do feel that this may affect his troponin level however. I reviewed his laboratory work and he has normal white count of 5.7 with hemoglobin stable at 10.4, hematocrit 30.8, platelet count 172. Electrolyte panel shows chloride slightly low at 92 with glucose elevated at 198 but he has a normal anion gap of 13, BUN 36 with creatinine 5.90 consistent with his end-stage renal disease when compared to prior labs. EKG was obtained and interpreted by myself independently as normal sinus rhythm at 74 bpm without ectopy or acute ST changes. No STEMI. No significant change from EKG dated October 13, 2024. I reviewed his initial troponin, and it is elevated at 63. However, he has end-stage renal disease with a creatinine of 5.9. I think this is the reason for the elevation of the troponin. Repeat will be done at 2 hours for comparison. Chest x-ray in 1 view interpreted by myself independently shows no pneumothorax. There is atelectasis in the left lung. I do not feel that while it may be interpreted as the radiologist says as an early pneumonia, patient is not having fever, elevated white count, or productive cough. I do not feel antibiotics are indicated. In discussion with the patient and his family, as long as the repeat delta troponin does not show significant rise, it was felt that he can be discharged to follow-up with his primary care provider. I offered him analgesia, but he declined. Patient will be signed out to the oncoming physician, Dr. Rodriguez Aguirre, to check the repeat troponin. As long as there is no significant delta troponin, I feel that he could be discharged to follow up with Cardiology as needed. Disposition is pending. He is in stable condition. History & Record Review Discussion w/independent historian: Patient and Family Additional record(s) reviewed:: Prior labs (End-stage renal disease) Lab Data Attestation: I reviewed the patient's lab results. Labs: Laboratory Results - last 24 hr 12/18/24 12:45 WBC 5.7 RBC 3.25 L Hgb 10.4 L Hct 30.8 L MCV 94.8 H MCH 32.0 MCHC 33.8 RDW Std Deviation 47.5 H RDW Coeff of Edwin 13.9 Plt Count 172 MPV 10.2 Immature Gran % (Auto) 0.400 Neut % (Auto) 63.3 Lymph % (Auto) 20.4 Graham % (Auto) 13.4 H Eos % (Auto) 1.6 Baso % (Auto) 0.9 Absolute Neuts (auto) 3.6 Absolute Lymphs (auto) 1.16 Nucleated RBC % 0 Sodium 133 Potassium 4.5 Chloride 92 L Carbon Dioxide 28.1 Anion Gap 13 BUN 36 H Creatinine 5.90 H Est GFR (MDRD) Non-Af 10 L BUN/Creatinine Ratio 6.1 L Glucose 198 H Calcium 9.7 Troponin T High Sens 63 H* Radiography Diagnostic Testing: Clinical Impression(s) from Imaging Studies Chest X-Ray 12/18/24 12:50 IMPRESSION: 1. Mild LEFT basilar airspace disease may reflect atelectasis/scarring however early pneumonia is possible given the context. 2. Cardiomegaly and slightly improved central vascular prominence. No overt pulmonary edema. 3. Additional description as above. Reading Location: [facility] Discharge Plan Triage Chief Complaint: Chest Pain ED Provider: Prince Newton Dx/Rx/DC Orders Prescriptions: No Action atorvastatin 10 MG tablet 10 mg PO DAILY prednisolone acetate 1 % drops,suspension 1 drp LEFT EYE BID Patient Comments: INSTILL 1 DROP INTO LEFT EYE TWICE DAILY furosemide 20 mg tablet 20 mg PO DAILY Patient Comments: TAKE 1 TABLET BY MOUTH ONCE DAILY sertraline 50 mg tablet 50 mg PO DAILY Patient Comments: TAKE 1 TABLET BY MOUTH ONCE DAILY insulin glargine [Lantus Solostar U-100 Insulin] 100 unit/mL (3 mL) insulin pen 10 unit subcut QPM Patient Comments: per family pt uses before meal sliding scale and had 3u today Xifaxan 550 mg tablet 550 mg PO BID trazodone 50 mg tablet 25 - 50 mg PO QHS sevelamer carbonate 800 mg tablet 800 mg PO TID lactulose 10 gram/15 mL Solution 20 g PO TID Qty: 3785 1RF Rx Instructions: Goal is for 3 bowel movements daily may increase or decrease frequency to obtain this amlodipine 10 mg tablet 10 mg PO DAILY Qty: 30 3RF Primary Care Provider: Jerald Rivera Referrals: Jerald Rivera MD [Primary Care Provider] - Print Language: Tagalog
--- NOTE | 2024-12-18 12:50 | RAD_ITS ---
PROCEDURE: CHEST 1 VIEW (PORTABLE), 12/18/2024 REASON FOR EXAM: CHEST PAIN TECHNIQUE: A single portable AP view of the chest was obtained. COMPARISON: 10/13/2024 FINDINGS: Heart: Similar mild cardiomegaly. Mediastinum: Slightly improved central vascular prominence. Atherosclerosis. Lungs/pleura: Mild LEFT basilar airspace disease has increased slightly no sizeable pleural effusion or visible pneumothorax. Bones: Demineralization. Thoracic dextroscoliosis. Lines and support devices: None. Other: None. RAD/Chest 1 View (Portable) IMPRESSION: 1. Mild LEFT basilar airspace disease may reflect atelectasis/scarring however early pneumonia is possible given the context. 2. Cardiomegaly and slightly improved central vascular prominence. No overt pu lmonary edema. 3. Additional description as above. Reading Location: [id number]
[2024-12-18 13:04] LABS: Absolute Lymphocyte Count 1.16 X10^3/uL (0.83-4.51); Absolute Neutrophil Count 3.6 X10^3/uL (2.0-7.7); Basophil# 0.05 X10^3/uL; Basophil% 0.9 % (0-1); Eosinophil# 0.09 X10^3/uL; Eosinophils% 1.6 % (0-5); Hematocrit 30.8 % (40-54); Hemoglobin 10.4 g/dL (13.0-16.5); Lymphocyte # 1.16 X10^3/ul (0.83-4.51); Lymphocyte % 20.4 % (19-41); Mean Corp Hgb Conc 33.8 g/dL (32-36); Mean Corpuscular Volume 94.8 fL (80-94); Mean Platelet Vol. 10.2 fl (6.2-12.0); Monocyte# 0.76 X10^3/uL; Monocyte% 13.4 % (0-10); NRBC Flagged by Analyzer 0 % (0-5); Neutrophil # 3.61 X10^3/uL (2.7-7.7); Neutrophil % 63.3 % (47-70); Platelet Count 172 K/mm3 (150-450); RBC Distribution Width CV 13.9 % (11.6-14.6); RBC Distribution Width SD 47.5 fl (35.1-43.9); Red Blood Count 3.25 M/mm3 (4.6-6.2); White Blood Count 5.7 K/mm3 (4.4-11.0)
[2024-12-18 13:46] LABS: Anion Gap 13 (5-15); BUN 36 mg/dL (4-19); BUN/Creat Ratio 6.1 RATIO (10-20); Calcium,Total 9.7 mg/dL (7.6-11.0); Carbon Dioxide 28.1 mmol/L (21.0-32.0); Chloride 92 mmol/L (98-108); EST Glomerular Filtration Rate 10 (>60); Glucose 198 mg/dL (70-99); Potassium 4.5 mmol/L (3.3-5.1); Sodium Level 133 mmol/L (133-145)
[2024-12-18 13:57] LABS: Troponin T High Sensitivity 63 ng/L (<=22)
[2024-12-18 15:36] LABS: Troponin T High Sens 2 HR 61 ng/L (<=22)
== END 2024-12-18 17:37 | disposition home or self-care (01) ==
PROVIDERS: Emergency Provider Emergency Medicine; PCP Internal Medicine; Visit Provider Emergency Medicine
DX: R07.9 Chest pain, unspecified (principal); N18.6 End stage renal disease; I12.0 Hypertensive chronic kidney disease with stage 5 chronic kidney disease or end stage renal disease; E11.65 Type 2 diabetes mellitus with hyperglycemia; E11.22 Type 2 diabetes mellitus with diabetic chronic kidney disease; Z79.4 Long term (current) use of insulin; J18.9 Pneumonia, unspecified organism; J98.11 Atelectasis; E78.00 Pure hypercholesterolemia, unspecified; Z87.891 Personal history of nicotine dependence
CPT/HCPCS: 71045; 80048; 84484; 85025; 93005; 99283; A4216